=== PATIENT | female | born 1940 | race Caucasian/White ===

== ENCOUNTER 2017-03-14 13:24 | Emergency (ER) | payer OTHER ==
[~2017-03-14] VITALS: Ht 167.6 cm; Wt 94.3 kg
[2017-03-14 13:31] VITALS: TEMP 36.4; Ht 167.6 cm; Wt 94.3 kg
[2017-03-14 13:50] VITALS: O2SAT 98
[2017-03-14 13:58] LABS: INR 0.9 (0.9-1.1)
[2017-03-14 14:04] LABS: BASO % 0.2 %; BASO ABS # 0.02 K/uL (0-0.2); COMPLETE YES; EOS % 0.6 %; HEMATOCRIT 43.5 % (37-47); IG% 0.4 %; LYMPH % 27.5 %; LYMPH ABS # 2.35 K/uL (1.2-3.4); MEAN CELL VOLUME 92.4 fL (80-100); MEAN CORPUSCULAR HEMOGLOBIN 31.8 pg (25-34); MEAN CORPUSCULAR HGB CONC 34.5 g/dl (32-36); MEAN PLATELET VOLUME 10.6 fL (7.4-10.4); MONO % 7.1 %; NEUT % 64.2 %; PLATELET COUNT 208 K/uL (130-400); RED BLOOD COUNT 4.71 M/uL (4.2-5.4); WHITE BLOOD COUNT 8.56 K/uL (4.8-10.8)
--- NOTE | 2017-03-14 14:04 | DIAGNOSTIC IMAGING REPORT ---
CHEST ONE VIEW PORTABLE CLINICAL HISTORY: 76 years-old Female presenting with CHEST PAIN. TECHNIQUE: Portable upright AP view of the chest was obtained. COMPARISON: None. FINDINGS: Atherosclerosis of aortic arch. Cardiac silhouette top normal in size. Bandlike opacities in the left mid and lower lung. Slight blunting of the left costophrenic angle may be present. No pneumothorax. Dextrocurvature of the thoracic spine with mild degenerative change. Upper abdomen normal. IMPRESSION: 1. Bandlike opacities in the left mid and lower lung, possibly atelectasis or scarring. 2. Slight blunting of the left costophrenic angle may be due to a prominent fat pad versus trace pleural fluid or pleural thickening. Electronically signed by: Kenneth Richards M.D. 03/14/2017 2:03 PM Dictated Date/Time: 03/14/2017 2:02 PM
[2017-03-14 14:08] LABS: ALT/SGPT 35 U/L (12-78); BLOOD UREA NITROGEN 11 mg/dl (7-18); BUN/CREATININE RATIO 10.8 (10-20); CALCIUM 9.3 mg/dl (8.5-10.1); CARBON DIOXIDE 29 mmol/L (21-32); CHLORIDE 106 mmol/L (98-107); CREATININE 0.97 mg/dl (0.60-1.20); GLUCOSE 80 mg/dl (70-99); POTASSIUM 3.5 mmol/L (3.5-5.1); SODIUM 141 mmol/L (136-145)
[2017-03-14 14:13] LABS: ALKALINE PHOSPHATASE 83 U/L (45-117); AST/SGOT 19 U/L (15-37)
[2017-03-14] MEDS ORDERED: HYDR-5688 PO (14:38)
[2017-03-14] MEDS ORDERED: OMEG10007 PO (14:38)
[2017-03-14] MEDS ORDERED: MULTCHW PO (14:38)
[2017-03-14] MEDS ORDERED: CALCCAP15 PO (14:38)
[2017-03-14] MEDS ORDERED: NTRGSL/4 UT (14:38)
[2017-03-14] MEDS ORDERED: ADVIN10/60 INH (14:38)
[2017-03-14] MEDS ORDERED: THEO300T14 PO (14:38)
[2017-03-14] MEDS ORDERED: FSMD/70 PO (14:38)
[2017-03-14] MEDS ORDERED: POTA10CA28 PO (14:38)
[2017-03-14] MEDS ORDERED: METO50TA16 PO (14:38)
[2017-03-14] MEDS ORDERED: FEXO1TAB49 PO (14:38)
[2017-03-14] MEDS ORDERED: ISOS30TA3 PO (14:38)
[2017-03-14] MEDS ORDERED: LOSA50TA54 PO (14:38)
[2017-03-14] MEDS ORDERED: SIMV40TA2 PO (14:38)
[2017-03-14] MEDS ORDERED: IPRA1AER2 INH (14:39)
[2017-03-14] MEDS ORDERED: ASPI81TA28 PO (14:41)
--- NOTE | 2017-03-14 14:44 | DIAGNOSTIC IMAGING REPORT ---
HEAD WITHOUT CONTRAST (CT) CLINICAL HISTORY: 76 years-old Female presenting with BOWLES. TECHNIQUE: Multidetector CT imaging of the head was performed without the use of intravenous contrast. IV contrast: None. A dose lowering technique was used consistent with the principles of ALARA (as low as reasonably achievable). COMPARISON: None. CT DOSE (mGy.cm): The estimated cumulative dose is 537.48 mGy.cm. FINDINGS: Reservation Sales Agent topogram: Unremarkable. Proportional ventricular and sulcal prominence, likely age-related parenchymal volume loss. Brain parenchyma normal in appearance with preserved marsh-white differentiation. No mass effect or midline shift. No hemorrhage or acute territorial infarct. No extra-axial fluid collection. Paranasal sinuses and mastoid air cells clear. Calvarium intact. IMPRESSION: 1. No acute intracranial pathology. Electronically signed by: Kenneth Richards M.D. 03/14/2017 2:43 PM Dictated Date/Time: 03/14/2017 2:41 PM
--- NOTE | 2017-03-14 15:09 | EMERGENCY ROOM VISIT NOTE ---
History Report prepared by Tan: Micaela Washburn Under the Supervision of: Dr. Maicol Hollins D.O. First contact with patient: 13:32 Chief Complaint: HEADACHE Stated Complaint: HEADACHE History of Present Illness The patient is a 76 year old female who presents to the Emergency Room with complaints of an episode of headache earlier today. She is unsure what time the headache started. It was located in the front of her head. It lasted for a couple hours. It was not a severe headache. She went to see a doctor in [place] and was sent to the ED because of her high blood pressure. She also had an episode of high blood pressure last week. She was seen at [place] and was started on a new medication. She followed up with her doctor and was given a different medication. She denies any chest pain, SOB, fever, chills, or other symptoms. She is on Cozaar for high blood pressure. She has a history of COPD. She denies any other medical problems. She has had an appendectomy and tubal ligation. She is a former smoker. She lives with her family. Source of History: patient Onset: earlier today Position: head Quality: ache Timing: resolved Associated Symptoms: No fevers, No chills, No chest pain, No SOB Note: Pt reports high blood pressure. Review of Systems See HPI for pertinent positives & negatives. A total of 10 systems reviewed and were otherwise negative. Past Medical & Surgical Medical Problems: (1) COPD (chronic obstructive pulmonary disease) (2) Hypertension Surgical Problems: (1) S/P appendectomy (2) S/P tubal ligation Family History No pertinent family history stated. Social History Smoking Status: Former Smoker Housing Status: lives with family Current/Historical Medications Scheduled Alendronate/Cholecalciferol (Fosamax+D 70MG/2800 Iu), 1 TABLET PO WK Aspirin (Aspirin Ec), 81 MG PO DAILY Calcium Carbonate-Cholecalcife (Calcium Plus Vitamin D3), 1 CAP PO DAILY Fexofenadine Hcl (Edyta Allergy), 1 TAB PO DAILY Fish Oil ([place]-3), 1 CAP PO BID Fluticasone Prop/Salmeterol (Advair Diskus 100/50 60 Dose), 1 PUFF INH BID Ipratropium-Albuterol (Combivent Respimat), 1 PUFFS INH QID Isosorbide Mononitrate Ext Rel (Imdur Ext Rel), 30 MG PO QAM Losartan Potassium (Cozaar), 50 MG PO DAILY Metoprolol Tartrate (Lopressor) (Lopressor), 50 MG PO DAILY Multiple Vitamins W/ Minerals (Centrum Silver), 1 TAB PO DAILY Nitroglycerin (Nitrostat), 0.4 MG UT PRN Potassium Chloride (Micro-K Ext Rel), 40 MEQ PO BID Simvastatin (Zocor), 40 MG PO QPM Theophylline Ext Rel (Faizan-Dur Ext Rel), 300 MG PO DAILY Scheduled PRN Hydrocodone/Acetaminophen 5MG/325MG ([place] 5MG/325MG), 1 TABLET PO Q4H PRN for Pain Allergies Coded Allergies: No Known Allergies (Unverified , 03/14/17) Physical Exam Vital Signs Date Time Temp Pulse Resp B/P (MAP) Pulse Ox O2 Delivery O2 Flow Rate FiO2 03/14/17 15:23 98 16 175/63 98 03/14/17 14:29 88 16 184/84 98 Room Air 03/14/17 13:50 98 Room Air 03/14/17 13:48 98 Room Air 03/14/17 13:33 75 03/14/17 13:31 36.4 73 22 185/100 98 Room Air Physical Exam GENERAL: Patient is awake, alert, and in no acute distress. Patient is resting comfortably and showing no signs of anxiety EYES: The conjunctivae are clear. The pupils are round and reactive. EARS, NOSE, MOUTH AND THROAT: The nose is without any evidence of any deformity. Mucous membranes are moist tongue is midline NECK: The neck is nontender and supple. RESPIRATORY: Normal respiratory effort is noted there is no evidence of wheezing rhonchi or rales CARDIOVASCULAR: Regular rate and rhythm noted there no murmurs rubs or gallops normal S1 normal S2 GASTROINTESTINAL: The abdomen is soft. Bowel sounds are present in all quadrants. Abdomen is nontender MUSCULOSKELETAL/EXTREMITIES: There is no evidence of gross deformity full range of motion is noted in the hips and shoulders SKIN: There is no obvious evidence of any rash. There are no petechiae, pallor or cyanosis noted. NEUROLOGIC: Patient is awake alert and oriented x3 strength is symmetric patellar reflexes are 2+ bilaterally Medical Decision & Procedures ER Provider Diagnostic Interpretation: X-ray results as stated below per interpretation by me and the radiologist. Radiology results as stated below per my review and radiologist interpretation: CHEST ONE VIEW PORTABLE CLINICAL HISTORY: 76 years-old Female presenting with CHEST PAIN. TECHNIQUE: Portable upright AP view of the chest was obtained. COMPARISON: None. FINDINGS: Atherosclerosis of aortic arch. Cardiac silhouette top normal in size. Bandlike opacities in the left mid and lower lung. Slight blunting of the left costophrenic angle may be present. No pneumothorax. Dextrocurvature of the thoracic spine with mild degenerative change. Upper abdomen normal. IMPRESSION: 1. Bandlike opacities in the left mid and lower lung, possibly atelectasis or scarring. 2. Slight blunting of the left costophrenic angle may be due to a prominent fat pad versus trace pleural fluid or pleural thickening. Electronically signed by: Kenneth Richards M.D. 03/14/2017 2:03 PM Dictated Date/Time: 03/14/2017 2:02 PM HEAD WITHOUT CONTRAST (CT) CLINICAL HISTORY: 76 years-old Female presenting with BOWLES. TECHNIQUE: Multidetector CT imaging of the head was performed without the use of intravenous contrast. IV contrast: None. A dose lowering technique was used consistent with the principles of ALARA (as low as reasonably achievable). COMPARISON: None. CT DOSE (mGy.cm): The estimated cumulative dose is 537.48 mGy.cm. FINDINGS: Precision Grinder External topogram: Unremarkable. Proportional ventricular and sulcal prominence, likely age-related parenchymal volume loss. Brain parenchyma normal in appearance with preserved marsh-white differentiation. No mass effect or midline shift. No hemorrhage or acute territorial infarct. No extra-axial fluid collection. Paranasal sinuses and mastoid air cells clear. Calvarium intact. IMPRESSION: 1. No acute intracranial pathology. Electronically signed by: Kenneth Richards M.D. 03/14/2017 2:43 PM Dictated Date/Time: 03/14/2017 2:41 PM Laboratory Results 03/14/17 13:03 Red Blood Count 4.71, Mean Corpuscular Volume 92.4, Mean Corpuscular Hemoglobin 31.8, Mean Corpuscular Hemoglobin Concent 34.5, Mean Platelet Volume 10.6, Neutrophils (%) (Auto) 64.2, Lymphocytes (%) (Auto) 27.5, Monocytes (%) (Auto) 7.1, Eosinophils (%) (Auto) 0.6, Basophils (%) (Auto) 0.2, Neutrophils # (Auto) 5.50, Lymphocytes # (Auto) 2.35, Monocytes # (Auto) 0.61, Eosinophils # (Auto) 0.05, Basophils # (Auto) 0.02 03/14/17 13:03 Test 03/14/17 13:03 White Blood Count 8.56 K/uL (4.8-10.8) Red Blood Count 4.71 M/uL (4.2-5.4) Hemoglobin 15.0 g/dL (12.0-16.0) Hematocrit 43.5 % (37-47) Mean Corpuscular Volume 92.4 fL (80-100) Mean Corpuscular Hemoglobin 31.8 pg (25-34) Mean Corpuscular Hemoglobin Concent 34.5 g/dl (32-36) Platelet Count 208 K/uL (130-400) Mean Platelet Volume 10.6 fL (7.4-10.4) Neutrophils (%) (Auto) 64.2 % Lymphocytes (%) (Auto) 27.5 % Monocytes (%) (Auto) 7.1 % Eosinophils (%) (Auto) 0.6 % Basophils (%) (Auto) 0.2 % Neutrophils # (Auto) 5.50 K/uL (1.4-6.5) Lymphocytes # (Auto) 2.35 K/uL (1.2-3.4) Monocytes # (Auto) 0.61 K/uL (0.11-0.59) Eosinophils # (Auto) 0.05 K/uL (0-0.5) Basophils # (Auto) 0.02 K/uL (0-0.2) RDW Standard Deviation 47.1 fL (36.4-46.3) RDW Coefficient of Variation 13.8 % (11.5-14.5) Immature Granulocyte % (Auto) 0.4 % Immature Granulocyte # (Auto) 0.03 K/uL (0.00-0.02) Prothrombin Time 10.0 SECONDS (9.0-12.0) Prothromb Time International Ratio 0.9 (0.9-1.1) Activated Partial Thromboplast Time 24.7 SECONDS (21.0-31.0) Partial Thromboplastin Ratio 1.0 Anion Gap 6.0 mmol/L (3-11) Est Creatinine Clear Calc Drug Dose 58.0 ml/min Estimated GFR () 66.2 Estimated GFR (Non- 57.1 BUN/Creatinine Ratio 10.8 (10-20) Calcium Level 9.3 mg/dl (8.5-10.1) Total Bilirubin 0.3 mg/dl (0.2-1) Direct Bilirubin < 0.1 mg/dl (0-0.2) Aspartate Amino Transf (AST/SGOT) 19 U/L (15-37) Alanine Aminotransferase (ALT/SGPT) 35 U/L (12-78) Alkaline Phosphatase 83 U/L (45-117) Troponin I < 0.015 ng/ml (0-0.045) Total Protein 7.0 gm/dl (6.4-8.2) Albumin 3.3 gm/dl (3.4-5.0) Lipase 381 U/L (73-393) Laboratory results per my review. ECG Indication: other Rate (beats per minute): 66 Rhythm: normal sinus Findings: no ectopy, other (no acute ST segment abnormality) Comparison ECG Date: no prior available ED Course 1336: The patient was evaluated in room C10. A complete history and physical examination were performed. 1504: Upon reevaluation, the patient is doing well. I discussed the results and treatment plan with her. She verbalized agreement of the treatment plan. She was discharged home. Medical Decision Prior records/ancillary studies reviewed. Triage Nursing notes reviewed. The patient's history was concerning for headache. Differential diagnosis: Etiologies such as migraine headache, meningitis, sinusitis, CO exposure, ICH, SAH, infection, tumor, headache, sinus thrombosis, arterial dissection, as well as others were entertained. The patient is a 76-year-old female who presented to the emergency department for an evaluation of headache. The patient also noticed that her blood pressure was elevated. She has had similar symptoms in the past. The last time she had this episode she was seen at the clinic with her primary care physician and was sent to [facility]. The patient appears to be somewhat confused about her outpatient medications and what time she takes them. I discussed the patient 's laboratory radiographic studies with her. She had no headache and no focal neurologic deficit. Her blood pressure is elevated and she was referred back to her primary care physician. I also discussed her presentation with her daughter and advised her to go with her to this next appointment and take all the medications with her so a good medication evaluation can be made and review what the patient is supposed to be taking so if any changes are required they can be done at that time. Otherwise she was encouraged to return to the emergency department immediately if symptoms change worsen or the need arises. Medication Reconcilliation Current Medication List: was personally reviewed by me Blood Pressure Screening Patient's blood pressure: Elevated blood pressure Blood pressure disposition: Referred to PCP Impression Primary Impression: Headache Additional Impression: Hypertension Scribe Attestation The scribe's documentation has been prepared under my direction and personally reviewed by me in its entirety. I confirm that the note above accurately reflects all work, treatment, procedures, and medical decision making performed by me. Departure Information Dispostion Home / Self-Care Referrals No Doctor, Assigned (PCP) Forms HOME CARE DOCUMENTATION FORM, IMPORTANT VISIT INFORMATION Patient Instructions Headache Pain, Hypertension Control, [facility] Additional Instructions Follow-up with your family this week as scheduled. Be sure to take all of your blood pressure and other medications with you to be reviewed. Continue all medications as prescribed. Rest and avoid any strenuous activity. Problem Qualifiers Primary Impression: Headache Headache type: unspecified Headache chronicity pattern: episodic headache Intractability: not intractable Qualified Codes: R51 - Headache Additional Impression: Hypertension Hypertension type: unspecified Qualified Codes: I10 - Essential (primary) hypertension
[2017-03-14 15:23] VITALS: BP 175/63; PULSE 98; O2SAT 98
== END 2017-03-14 15:32 | disposition home or self-care (01) ==
LOC: EDBD 13:24 → C.EDC 13:26
DX: R51 Headache (principal); I10 Essential (primary) hypertension; J44.9 Chronic obstructive pulmonary disease, unspecified; Z79.82 Long term (current) use of aspirin; Z79.51 Long term (current) use of inhaled steroids; Z90.89 Acquired absence of other organs; Z87.891 Personal history of nicotine dependence

== ENCOUNTER 2017-07-30 19:41 | Emergency (ER) | payer OTHER ==
[~2017-07-30] VITALS: Ht 167.6 cm; Wt 84.5 kg
[~2017-07-30 19:41] MED LIST: ADVIN10/60 INH; ASPI81TA28 PO; CALCCAP15 PO; FEXO1TAB49 PO; FSMD/70 PO; HYDR-5688 PO; IPRA1AER2 INH; ISOS30TA3 PO; LOSA50TA54 PO; METO50TA16 PO; MULTCHW PO; NTRGSL/4 UT; OMEG10007 PO; POTA10CA28 PO; SIMV40TA2 PO; THEO300T14 PO
[2017-07-30 19:52] VITALS: TEMP 36.3; Ht 167.6 cm; Wt 84.5 kg
[2017-07-30] MEDS ORDERED: LIDOCAINE/EPINEPH/TETRACAINE 1 EA SYR EXT STA (21:59)
--- NOTE | 2017-07-30 22:48 | DIAGNOSTIC IMAGING REPORT ---
HEAD WITHOUT CONTRAST (CT) CLINICAL HISTORY: 76 years-old Female presenting with fall, right eyebrow lac and hematoma. TECHNIQUE: Multidetector CT imaging of the head was performed without the use of intravenous contrast. IV contrast: None. A dose lowering technique was used consistent with the principles of ALARA (as low as reasonably achievable). COMPARISON: 03/14/2017. CT DOSE (mGy.cm): The estimated cumulative dose is 537.48 mGy.cm. 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 Ventricles and sulci normal in size. Brain parenchyma normal in appearance with preserved marsh-white differentiation. No mass effect or midline shift. No hemorrhage or acute territorial infarct. No extra-axial fluid collection. Aerated secretions in the sphenoid sinus. Calvarium intact. Irregularity infiltration of the right periorbital/right frontal soft tissue. IMPRESSION: 1. No acute intracranial abnormality. 2. Right elbow contusion and laceration. No subjacent osseous injury. 3. Aerated secretions in the sphenoid could suggest acute sinusitis. Electronically signed by: Kenneth Richards M.D. 07/30/2017 10:47 PM Dictated Date/Time: 07/30/2017 10:44 PM
--- NOTE | 2017-07-30 23:35 | EMERGENCY ROOM VISIT NOTE ---
ED Visit Note Location: right eyebrow Total length: 1.5cm Complexity: simple Verbal consent was obtained after the risks and benefits were explained, including but not limited to bleeding, scarring, infection, pain, and bone/joint /nerve damage. At this time, the risks of the procedure are less than the risks of NOT performing the procedure. A time out was taken and the correct patient and site identified. The skin was prepped with betadine. The target area was anesthetized with LET. Copious irrigation was performed using NSS. The skin was re-prepped with betadine and a sterile field set. The wound was explored for foreign bodies and none found. Examination revealed no injury to deep structures such as tendons, bone, or significant blood vessels. Debridement was not performed. The wound edges were approximated using 3, 6-0 simple interrupted nylon sutures. Hemostasis and excellent approximation was achieved. Antibacterial ointment and a sterile dressing applied. Detailed wound care instructions and signs and symptoms of infection reviewed with the pt. No complications and the patient tolerated the procedure well. Location: right forehead Total length: 5mm Complexity: simple Verbal consent was obtained after the risks and benefits were explained, including but not limited to bleeding, scarring, infection, pain, and bone/joint /nerve damage. At this time, the risks of the procedure are less than the risks of NOT performing the procedure. A time out was taken and the correct patient and site identified. The skin was prepped with betadine. Copious irrigation was performed using NSS. The skin was re-prepped with betadine and a sterile field set. The wound was explored for foreign bodies and none found. Examination revealed no injury to deep structures such as tendons, bone, or significant blood vessels. Debridement was not performed. Dermabond was placed. Hemostasis and excellent approximation was achieved. Detailed wound care instructions and signs and symptoms of infection reviewed with the pt. No complications and the patient tolerated the procedure well. Problem List Medical Problems: (1) COPD (chronic obstructive pulmonary disease) Status: Chronic (2) Hypertension Status: Chronic Surgical Problems: (1) S/P appendectomy Status: Resolved (2) S/P tubal ligation Status: Resolved Current/Historical Medications Scheduled Alendronate/Cholecalciferol (Fosamax+D 70MG/2800 Iu), 1 TABLET PO WK Aspirin (Aspirin Ec), 81 MG PO DAILY Calcium Carbonate-Cholecalcife (Calcium Plus Vitamin D3), 1 CAP PO DAILY Fexofenadine Hcl (Edyta Allergy), 1 TAB PO DAILY Fish Oil ([place]-3), 1 CAP PO BID Fluticasone Prop/Salmeterol (Advair Diskus 100/50 60 Dose), 1 PUFF INH BID Ipratropium-Albuterol (Combivent Respimat), 1 PUFFS INH QID Isosorbide Mononitrate Ext Rel (Imdur Ext Rel), 30 MG PO QAM Losartan Potassium (Cozaar), 50 MG PO DAILY Metoprolol Tartrate (Lopressor) (Lopressor), 50 MG PO DAILY Multiple Vitamins W/ Minerals (Centrum Silver), 1 TAB PO DAILY Nitroglycerin (Nitrostat), 0.4 MG UT PRN Potassium Chloride (Micro-K Ext Rel), 40 MEQ PO BID Simvastatin (Zocor), 40 MG PO QPM Theophylline Ext Rel (Faizan-Dur Ext Rel), 300 MG PO DAILY Scheduled PRN Hydrocodone/Acetaminophen 5MG/325MG ([place] 5MG/325MG), 1 TABLET PO Q4H PRN for Pain Allergies Coded Allergies: No Known Allergies (Unverified , 03/14/17) Vital Signs Date Time Temp Pulse Resp B/P (MAP) Pulse Ox O2 Delivery O2 Flow Rate FiO2 07/30/17 19:52 36.3 59 19 157/133 95 Room Air Medications Administered Medications (Trade) Dose Ordered Sig/Thuy Route Start Time Stop Time Status Last Admin Dose Admin Tetracaine/ Epinephrine/ Lidocaine (L.e.t. Gel 4%/ 1:100/0.5%) 1 ea UD STAT EXT 07/30/17 21:59 07/30/17 22:00 DC 07/30/17 22:17 1 EA Departure Information Referrals No Doctor, Assigned (PCP) Patient Instructions [facility]
[2017-07-30] MEDS ORDERED: AMOX500T3 PO ×2 (23:37→23:39)
[2017-07-30] MEDS ORDERED: AMOXICILLIN HOME PACK 250 MG/TAB PO ONE (23:45)
[2017-07-30 23:52] VITALS: BP 209/100; PULSE 75; O2SAT 98
--- NOTE | 2017-07-31 02:35 | EMERGENCY ROOM VISIT NOTE ---
History Report prepared by Tan: Yessica Arzate Under the Supervision of: Dr. Omar Diego M.D. First contact with patient: 21:44 Chief Complaint: FALL Stated Complaint: FALL-FACE FIRST-CUT ON HEAD History of Present Illness The patient is a 76 year old female who presents to the Emergency Room with complaints of an episode of a fall occurring 6 hours ago. The patient states that she lost her balance and fell face first. 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 She notes that she uses a cane. The patient complains of right wrist pain , cough, and congestion. She notes that she has had her Tetanus in the last 10 years. Pt denies LOC, headache, visual changes, neck pain, chest pain, breathing difficulties, nausea, vomiting, abdominal pain, hip pain, back pain, extremity pain, numbness, open wounds, active bleeding, or other complaints. Source of History: patient Onset: 6 hours ago Position: other (global) Quality: other (fall) Timing: other (episode) Associated Symptoms: + cough, + weakness Note: The patient complains of right wrist pain and congestion. Review of Systems See HPI for pertinent positives and negatives. A total of ten systems were reviewed and were otherwise negative. Past Medical & Surgical Medical Problems: (1) COPD (chronic obstructive pulmonary disease) (2) Hypertension Surgical Problems: (1) S/P appendectomy (2) S/P tubal ligation Family History No pertinent family history Social History Smoking Status: Never Smoker Marital Status: Housing Status: lives with family Occupation Status: retired Current/Historical Medications Scheduled Alendronate/Cholecalciferol (Fosamax+D 70MG/2800 Iu), 1 TABLET PO WK Amoxicillin (Amoxil), 500 MG PO TID Aspirin (Aspirin Ec), 81 MG PO DAILY Calcium Carbonate-Cholecalcife (Calcium Plus Vitamin D3), 1 CAP PO DAILY Fexofenadine Hcl (Edyta Allergy), 1 TAB PO DAILY Fish Oil ([place]-3), 1 CAP PO BID Fluticasone Prop/Salmeterol (Advair Diskus 100/50 60 Dose), 1 PUFF INH BID Ipratropium-Albuterol (Combivent Respimat), 1 PUFFS INH QID Isosorbide Mononitrate Ext Rel (Imdur Ext Rel), 30 MG PO QAM Losartan Potassium (Cozaar), 50 MG PO DAILY Metoprolol Tartrate (Lopressor) (Lopressor), 50 MG PO DAILY Multiple Vitamins W/ Minerals (Centrum Silver), 1 TAB PO DAILY Nitroglycerin (Nitrostat), 0.4 MG UT PRN Potassium Chloride (Micro-K Ext Rel), 40 MEQ PO BID Simvastatin (Zocor), 40 MG PO QPM Theophylline Ext Rel (Faizan-Dur Ext Rel), 300 MG PO DAILY Scheduled PRN Hydrocodone/Acetaminophen 5MG/325MG ([place] 5MG/325MG), 1 TABLET PO Q4H PRN for Pain Allergies Coded Allergies: No Known Allergies (Unverified , 03/14/17) Physical Exam Vital Signs Date Time Temp Pulse Resp B/P (MAP) Pulse Ox O2 Delivery O2 Flow Rate FiO2 07/30/17 23:52 75 18 209/100 98 07/30/17 19:52 36.3 59 19 157/133 95 Room Air Physical Exam GENERAL: Awake, alert, well appearing, no distress HEAD: Normocephalic, atraumatic. No gilbert sign. No raccoon eyes. EYES: Normal conjunctiva. PERRL. EARS: External ears normal. Right TM normal. Left TM normal. NOSE: Atraumatic OROPHARYNX: Lips, tongue, and mucosa unremarkable. No erythema or exudate. NECK: Supple. Free ROM. No tracheal deviation or JVD. No posterior midline tenderness. No step offs noted. RESPIRATORY: CTA bilaterally. Breath sounds equal. No wheezes. No rhonchi. Normal respiratory effort. CARDIAC: Normal rate, normal rhythm. No murmurs. No rubs. ABDOMEN: Inspection reveals no abnormalities. Soft, non distended. No tenderness to palpation. No hernias. BACK: No midline step offs or tenderness to palpation. Unremarkable. PELVIS: Stable to rock. SKIN: Skin tear to right dorsal wrist. No bony deformity or tenderness. LYMPH: No adenopathy. MUSCULOSKELETAL: Upper and lower extremities are atraumatic. NEURO: GCS 15. Normal sensorium. Drop foot on the left side. No sensory or other motor deficits noted. Medical Decision & Procedures ER Provider Diagnostic Interpretation: Radiology results as stated below per my review and radiologist interpretation: HEAD WITHOUT CONTRAST (CT) CLINICAL HISTORY: 76 years-old Female presenting with fall, right eyebrow lac and hematoma. TECHNIQUE: Multidetector CT imaging of the head was performed without the use of intravenous contrast. IV contrast: None. A dose lowering technique was used consistent with the principles of ALARA (as low as reasonably achievable). COMPARISON: 03/14/2017. CT DOSE (mGy.cm): The estimated cumulative dose is 537.48 mGy.cm. FINDINGS: Service Liaison Representative topogram: Unremarkable. Ventricles and sulci normal in size. Brain parenchyma normal in appearance with preserved marsh-white differentiation. No mass effect or midline shift. No hemorrhage or acute territorial infarct. No extra-axial fluid collection. Aerated secretions in the sphenoid sinus. Calvarium intact. Irregularity infiltration of the right periorbital/right frontal soft tissue. IMPRESSION: 1. No acute intracranial abnormality. 2. Right elbow contusion and laceration. No subjacent osseous injury. 3. Aerated secretions in the sphenoid could suggest acute sinusitis. Electronically signed by: Kenneth Richards M.D. 07/30/2017 10:47 PM Dictated Date/Time: 07/30/2017 10:44 PM Medications Administered Medications (Trade) Dose Ordered Sig/Thuy Route Start Time Stop Time Status Last Admin Dose Admin Tetracaine/ Epinephrine/ Lidocaine (L.e.t. Gel 4%/ 1:100/0.5%) 1 ea UD STAT EXT 07/30/17 21:59 07/30/17 22:00 DC 07/30/17 22:17 1 EA Amoxicillin (Amoxil 250MG Home Pack) 1 homepack UD ONCE PO 07/30/17 23:45 07/30/17 23:46 DC 07/30/17 23:52 1 HOMEPACK ED Course 2154: The patient was evaluated in room B12B. A complete history and physical exam was performed. 2158: Ordered Tetracaine/ Epinephrine/ Lidocaine 1 ea EXT. 2331: I reevaluated the patient. Discussed results and discharge instructions: She verbalized understanding and agreement. The patient is ready for discharge. 5: Ordered Amoxicillin 1 homepack PO. Medical Decision Prior records/ancillary studies reviewed. Triage Nursing notes reviewed and agree them. Additional history obtained from family. The patient's history was concerning for traumatic head injury Differential diagnosis: Etiologies such as contusion, fracture, subdural hematoma, concussion, epidural hematoma, intraparenchymal hemorrhage, as well as other traumatic pathologies were entertained. Physical examination findings: As above. ER treatment provided: Let gel Laceration repair by Trista Holman PA-C On reassessment the patient felt better. Oral amoxicillin Diagnostics interpreted by me: Imaging studies: CAT scan as above It appears the patient has a a minor closed head injury. She does have some suggestion of sinusitis on CT. On further questioning the patient has had congestion. She will be treated with amoxicillin. I gave my usual and customary discussion regarding this issue. Her laceration was repaired. Close follow-up will be necessary as an outpatient. Patient was in agreement. Prescription for amoxicillin sent to her pharmacy. By the evaluation outlined above emergent etiologies such as fracture, subdural hematoma, epidural hematoma, intraparenchymal hemorrhage, as well as others were deemed relatively unlikely. The patient and family were informed about the findings as listed above. All questions were answered and they were pleased with the treatment. Return instructions were outlined and the patient was discharged in stable condition. Referral: The patient was referred back to her primary care physician for follow-up in 2 to 3 days for a recheck of the current condition. Medication Reconcilliation Current Medication List: was personally reviewed by me Blood Pressure Screening Patient's blood pressure: Elevated blood pressure Blood pressure disposition: Referred to PCP Impression Primary Impression: Closed head injury Additional Impressions: Laceration of right eyebrow Sinusitis Scribe Attestation The scribe's documentation has been prepared under my direction and personally reviewed by me in its entirety. I confirm that the note above accurately reflects all work, treatment, procedures, and medical decision making performed by me. Departure Information Dispostion Home / Self-Care Prescriptions Amoxicillin (AMOXIL) 500 Mg Tab 500 MG PO TID, #28 TAB Prov: Omar Diego MD 07/30/17 Referrals No Doctor, Assigned (PCP) Forms HOME CARE DOCUMENTATION FORM, IMPORTANT VISIT INFORMATION Patient Instructions [facility] Additional Instructions Laceration care: Keep wound clean and dry. Do not allow any crusting or dried blood to accumulate on sutures. If this occurs, use a 1:1 solution of hydrogen peroxide/ water on a Q-tip to clean the wound. Use an antibiotic ointment for 3-4 days, then let wound dry. Suture removal in 5-7 days. Return sooner for any signs of infection (increasing redness, swelling, drainage). Ice and elevate for swelling and pain. Keep covered when in sun until sutures removed then SPF 50 or higher for one year. Vitamin E oil if desired two weeks after suture removal for reduction of scar Rest and avoid strenuous activities for the next few days. Get 8-10 hours of sleep per night. Limit activities that involve significant concentration and attention during this time to speed your recovery. This includes studying, attending school, playing video games, and heavy reading. Your brain needs to rest. Eat right and eat often. Now is the time to feed your brain. Well balanced diets that avoid high sugar foods, sodas, caffeine, etc. are better for your brain. NO ALCOHOL OR DRUGS! Avoid stimulants like caffeine, red bull, mountain dew, "energy" drinks, etc. Tylenol(acetaminophen) may be used for headaches. Use 1000mg every six hours as needed. Avoid using more than 4000mg in a 24 hour period. Avoid anti-inflammatories such as aspirin, ibuprofen, Alleve, naprosyn, Motrin, or Advil as these can interfere with blood clotting and lead to bleeding within the brain after a traumatic injury. Amoxicillin 500 mg: one capsule 3 times a day for 10 days. All antibiotics can cause diarrhea. If this occurs and you feel worse or it does not resolve in 1- 2 days follow up with your doctor or return to the Emergency Department as this could be signs of serious underlying problems. Any medication can cause an allergic reaction, stop the pills immediately and return to the ER for rash, hives, breathing difficulties, or swelling. Problems could arise over the next 24 to 48 hours. You should not be left alone and MUST go to the hospital immediately if you: -Have a headache that suddenly gets worse. -Are very drowsy or cannot be woken up from sleep. -Can't recognize people or places. -Have repeated vomiting. -Behave unusually, seemed confused, or start acting irritable. -Have a seizure (arms and legs start jerking uncontrollably). -Have weak or numb arms or legs. -Are unsteady on your feet -Experience slurred speech or difficulty speaking. Follow-up with your primary care physician next week for a recheck of your current condition. Problem Qualifiers
== END 2017-07-30 23:54 | disposition home or self-care (01) ==
LOC: C.EDB 19:43
DX: S09.90XA Unspecified injury of head, initial encounter (principal); S01.111A Laceration without foreign body of right eyelid and periocular area, initial encounter; J32.9 Chronic sinusitis, unspecified; W01.198A Fall on same level from slipping, tripping and stumbling with subsequent striking against other object, initial encounter; J44.9 Chronic obstructive pulmonary disease, unspecified; I10 Essential (primary) hypertension; M21.372 Foot drop, left foot; Z90.89 Acquired absence of other organs; Z98.51 Tubal ligation status; Z79.82 Long term (current) use of aspirin; Z79.899 Other long term (current) drug therapy

== ENCOUNTER 2017-08-07 19:42 | Emergency (ER) | payer OTHER ==
[~2017-08-07] VITALS: Ht 167.6 cm; Wt 83.9 kg
[~2017-08-07 19:42] MED LIST changes: +AMOX500T3 PO
[2017-08-07 19:47] VITALS: TEMP 36.3; Ht 167.6 cm; Wt 83.9 kg
[2017-08-07 20:35] VITALS: O2SAT 95
--- NOTE | 2017-08-07 20:45 | EMERGENCY ROOM VISIT NOTE ---
History Report prepared by Tan: Manohar Rasmussen Under the Supervision of: Dr. Franck Chong M.D. First contact with patient: 20:05 Chief Complaint: HYPERTENSION Stated Complaint: ELEVATED BP, OVER 200 History of Present Illness The patient is a 76 year old female who presents to the Emergency Room with complaints of constant hypertension beginning earlier today. The patient states she travelled 2 hours, each way, to get her medication today. She reports she left her house at 0630 and did not return until 1500. The patient notes she stopped at [employer], ate a sandwich around 1000, and has not eaten since. She states she has done this drive before multiple times, and she always the passenger. The patient reports she was not stressed throughout the day. She notes she fell last week by tripping. The patient states she did not hit her head, but she did acquire a skin tear. She reports she was placed on amoxicillin , and she has not completed it yet. The patient notes she went to [facility] to have her sore cleaned after she returned home. She states her blood pressure was taken at the [facility]gent[facility] and was told she had to go to the ED for further evaluation. The patient reports she had a headache in the car, and it was resolved. She states she also had mild congestion for a little bit, and the amoxicillin helped alleviate this congestion. The patient reports nothing makes her HTN better or worse. She notes she has a history of hypertension five months ago, and it has been controlled. The patient states she quit smoking 14 years ago. She denies dizziness, a runny nose, sinus pressure, and abdominal pain. Source of History: patient Onset: earlier today Quality: other (HTN) Timing: constant Modifying Factors (Worsening): other (nothing) Modifying Factors (Relieving): other (nothing) Associated Symptoms: + headache (resolved), No abdominal pain Note: Associated symptoms: mild congestion Denies: runny nose, sinus pressure, dizziness. stress Review of Systems See HPI for pertinent positives & negatives. A total of 10 systems reviewed and were otherwise negative. Past Medical & Surgical Medical Problems: (1) Asthma (2) Bronchitis (3) COPD (chronic obstructive pulmonary disease) (4) Diabetes (5) Heart disease (6) HTN (hypertension) (7) Hypertension Surgical Problems: (1) S/P appendectomy (2) S/P tubal ligation Family History Diabetes mellitus Heart disease Hypertension Social History Smoking Status: Former Smoker Alcohol Use: none Marital Status: Housing Status: lives with family Occupation Status: retired Current/Historical Medications Scheduled Amoxicillin (Amoxil), 500 MG PO TID Aspirin (Aspirin Ec), 81 MG PO DAILY Calcium Carbonate-Cholecalcife (Calcium Plus Vitamin D3), 1 CAP PO DAILY Cholecalciferol (Vitamin D), 2,000 UNITS PO HS Donepezil Hydrochloride (Donepezil Hcl), 1 TAB PO HS Fexofenadine Hcl (Edyta Allergy), 1 TAB PO DAILY Fish Oil ([place]-3), 1 CAP PO BID Fluticasone Prop/Salmeterol (Advair Diskus 100/50 60 Dose), 1 PUFF INH BID Isosorbide Mononitrate Ext Rel (Imdur Ext Rel), 60 MG PO QAM Losartan Potassium (Cozaar), 100 MG PO DAILY Metoprolol Succinate (Toprol Xl), 50 MG PO DAILY Multiple Vitamins W/ Minerals (Centrum Silver), 1 TAB PO DAILY Potassium Chloride (Micro-K Ext Rel), 20 MEQ PO BID Senna/Docusate Sod (Senokot S), 1 TAB PO BID Simvastatin (Zocor), 40 MG PO QPM Theophylline Ext Rel (Faizan-Dur Ext Rel), 300 MG PO Q12 Scheduled PRN Benzonatate (Tessalon Perles), 100 MG PO TID PRN for Cough Ipratropium-Albuterol (Combivent Respimat), 1 PUFFS INH QID PRN for SOB/Wheezing Naproxen (Naprosyn), 500 MG PO BID PRN for Pain Allergies Coded Allergies: No Known Allergies (Unverified , 03/14/17) Physical Exam Vital Signs Date Time Temp Pulse Resp B/P (MAP) Pulse Ox O2 Delivery O2 Flow Rate FiO2 08/07/17 23:24 55 14 198/86 96 Room Air 08/07/17 21:46 63 16 191/84 97 Room Air 08/07/17 21:19 72 22 206/101 95 Room Air 08/07/17 20:42 58 08/07/17 20:35 95 Room Air 08/07/17 20:35 95 Room Air 08/07/17 19:47 36.3 60 18 223/98 95 Room Air Physical Exam GENERAL: Awake, alert, well-appearing, in no acute distress HENT: Normocephalic, atraumatic. Oropharynx unremarkable. EYES: Normal conjunctiva. Sclera non-icteric. NECK: Supple. No nuchal rigidity. FROM. No JVD. RESPIRATORY: Clear to auscultation. CARDIAC: Regular rate, normal rhythm. Extremities warm and well perfused. Pulses equal. ABDOMEN: Soft, non-distended. No tenderness to palpation. No rebound or guarding. No masses. RECTAL: Deferred. MUSCULOSKELETAL: Chest examination reveals no tenderness. The back is symmetrical on inspection without obvious abnormality. There is no CVA tenderness to palpation. No joint edema. Healing wound to the right wrist. LOWER EXTREMITIES: Calves are equal size bilaterally and non-tender. No edema. No discoloration. NEURO: Normal sensorium. No sensory or motor deficits noted. SKIN: No rash or jaundice noted. Medical Decision & Procedures ER Provider Diagnostic Interpretation: Radiology results as stated below per my review and radiologist interpretation: CT HEAD WITHOUT CONTRAST (CT) CLINICAL HISTORY: Acute change in mental status. Hypertension. COMPARISON STUDY: 320 on 18 TECHNIQUE: Axial CT of the brain is performed from the vertex to the skull base. IV contrast was not administered for this examination. A dose lowering technique was utilized adhering to the principles of ALARA. CT DOSE: 537.48 mGy.cm FINDINGS: No intra or extra-axial mass lesions are visualized. There is no CT evidence of acute cortical infarction. There is no evidence of midline shift. There is no acute hemorrhage. No calvarial fractures are visualized. There are minimal white matter hypodensities likely on a small vessel basis. There is frontal lobe atrophy with prominent bifrontal subarachnoid space. There is no evidence of pathologic ventricular dilatation. There is a small amount of fluid within the sphenoid sinus. There is an opacified left ethmoid air cell. IMPRESSION: 1. Inflammatory changes within the ethmoid and sphenoid sinuses 2. No acute intracranial findings. Electronically signed by: Ramsey Mathews M.D. 08/07/2017 8:53 PM Dictated Date/Time: 08/07/2017 8:51 PM CHEST ONE VIEW PORTABLE CLINICAL HISTORY: severe hypertension COMPARISON STUDY: 03/14/2017 FINDINGS: The cardiac and mediastinal contours remain stable. There is aortic tortuosity. There is a thoracic scoliosis. There is stable left basilar atelectasis/scarring. There is no failure. There is no lobar consolidation. IMPRESSION: No active disease in the chest. Electronically signed by: Ramsey Mathews M.D. 08/07/2017 9:49 PM Dictated Date/Time: 08/07/2017 9:49 PM US VENOUS BILATERAL LOWER EXTREMITIES: No DVT demonstrated. Radiologist: Mary Lancaster MD Study ready at 2702 and initial results transmitted at [id number]. Laboratory Results 08/07/17 20:25 Red Blood Count 4.56, Mean Corpuscular Volume 90.8, Mean Corpuscular Hemoglobin 31.4, Mean Corpuscular Hemoglobin Concent 34.5, Mean Platelet Volume 9.9, Neutrophils (%) (Auto) 53.8, Lymphocytes (%) (Auto) 34.7, Monocytes (%) (Auto) 8.3, Eosinophils (%) (Auto) 2.5, Basophils (%) (Auto) 0.4, Neutrophils # (Auto) 3.93, Lymphocytes # (Auto) 2.54, Monocytes # (Auto) 0.61, Eosinophils # (Auto) 0.18, Basophils # (Auto) 0.03 08/07/17 20:25 Test 08/07/17 20:25 08/07/17 21:25 White Blood Count 7.31 K/uL (4.8-10.8) Red Blood Count 4.56 M/uL (4.2-5.4) Hemoglobin 14.3 g/dL (12.0-16.0) Hematocrit 41.4 % (37-47) Mean Corpuscular Volume 90.8 fL (80-100) Mean Corpuscular Hemoglobin 31.4 pg (25-34) Mean Corpuscular Hemoglobin Concent 34.5 g/dl (32-36) Platelet Count 239 K/uL (130-400) Mean Platelet Volume 9.9 fL (7.4-10.4) Neutrophils (%) (Auto) 53.8 % Lymphocytes (%) (Auto) 34.7 % Monocytes (%) (Auto) 8.3 % Eosinophils (%) (Auto) 2.5 % Basophils (%) (Auto) 0.4 % Neutrophils # (Auto) 3.93 K/uL (1.4-6.5) Lymphocytes # (Auto) 2.54 K/uL (1.2-3.4) Monocytes # (Auto) 0.61 K/uL (0.11-0.59) Eosinophils # (Auto) 0.18 K/uL (0-0.5) Basophils # (Auto) 0.03 K/uL (0-0.2) RDW Standard Deviation 43.7 fL (36.4-46.3) RDW Coefficient of Variation 13.3 % (11.5-14.5) Immature Granulocyte % (Auto) 0.3 % Immature Granulocyte # (Auto) 0.02 K/uL (0.00-0.02) Prothrombin Time 10.0 SECONDS (9.0-12.0) Prothromb Time International Ratio 1.0 (0.9-1.1) Activated Partial Thromboplast Time 23.9 SECONDS (21.0-31.0) Partial Thromboplastin Ratio 0.9 Anion Gap 5.0 mmol/L (3-11) Est Creatinine Clear Calc Drug Dose 54.7 ml/min Estimated GFR () 66.2 Estimated GFR (Non- 57.1 BUN/Creatinine Ratio 8.3 (10-20) Calcium Level 9.7 mg/dl (8.5-10.1) Total Bilirubin 0.6 mg/dl (0.2-1) Direct Bilirubin 0.1 mg/dl (0-0.2) Aspartate Amino Transf (AST/SGOT) 19 U/L (15-37) Alanine Aminotransferase (ALT/SGPT) 21 U/L (12-78) Alkaline Phosphatase 71 U/L (45-117) Total Creatine Kinase 71 U/L (26-192) Creatine Kinase MB 1.1 ng/ml (0.5-3.6) Creatine Kinase MB Ratio 1.5 (0-3.0) Troponin I < 0.015 ng/ml (0-0.045) Total Protein 7.2 gm/dl (6.4-8.2) Albumin 3.6 gm/dl (3.4-5.0) Lipase 281 U/L (73-393) Thyroid Stimulating Hormone (TSH) 2.490 uIu/ml (0.300-4.500) Urine Color YELLOW Urine Appearance CLEAR (CLEAR) Urine pH 6.5 (4.5-7.5) Urine Specific [place] 1.007 (1.000-1.030) Urine Protein NEG (NEG) Urine Glucose (UA) NEG (NEG) Urine Ketones NEG (NEG) Urine Occult Blood NEG (NEG) Urine Nitrite NEG (NEG) Urine Bilirubin NEG (NEG) Urine Urobilinogen NEG (NEG) Urine Leukocyte Esterase NEG (NEG) Labs reviewed by ED physician. Medications Administered Medications (Trade) Dose Ordered Sig/Thuy Route Start Time Stop Time Status Last Admin Dose Admin Sodium Chloride ([place] Nasal [place]) 2 sprays NOW STAT NA 08/07/17 21:09 08/07/17 21:11 DC 08/07/17 21:18 2 SPRAYS ECG Per My Interpretation Indication: other (HTN) Rate (beats per minute): 50 Findings: RBBB (incomplete), no acute ischemic change, no ectopy ED Course 2006: Past medical records reviewed. The patient was evaluated in room B11B. A complete history and physical examination was performed. 2108: Ordered Sodium Chloride 2 sprays NA 2204: I reevaluated the patient. She is feeling better. I updated her of her current exam and lab findings. The patient is requesting an ultrasound. 1: Upon reexamination the patient is feeling better. I discussed results and treatment plan with the patient. She verbalizes agreement and understanding. The patient is ready for discharge. Medical Decision Differential diagnosis: Etiologies such as benign hypertension, hypertensive emergency, cardiovascular pathology, pheochromocytoma, electrolyte abnormality, renal disease, endorgan damage, as well as others were entertained. This is a 76-year-old female who presents emergency department over concerns about her blood pressure. She was sent for [employer]. The patient had a 6 hour car ride today from [place] back to [place]. In addition she also ate at [employer]. I stressed that these stressors may have caused her blood pressure to spike this evening as she is asymptomatic. Patient denies having a headache or any dizziness. Based on these findings I am reluctant to start the patient on any new blood pressure medications. She was sent for CAT scan of the head which did not show any acute process. She also has normal CBC normal renal profile and normal EKG along with cardiac enzymes. The patient was given [place] nasal spray to add to her amoxicillin for her sinusitis. I stressed the need for follow-up with the patient's primary care physician. I will note that the patient's blood pressure fell while in the emergency department without doing anything. Medication Reconcilliation Current Medication List: was personally reviewed by me Blood Pressure Screening Patient's blood pressure: Elevated blood pressure Blood pressure disposition: Referred to PCP Impression Primary Impression: HTN (hypertension) Scribe Attestation The scribe's documentation has been prepared under my direction and personally reviewed by me in its entirety. I confirm that the note above accurately reflects all work, treatment, procedures, and medical decision making performed by me. Departure Information Dispostion Home / Self-Care Referrals Guerita Engel PA-C (PCP) Forms HOME CARE DOCUMENTATION FORM, IMPORTANT VISIT INFORMATION, WORK / SCHOOL INSTRUCTIONS Patient Instructions Hypertension Control, Hypertension Dc, My [facility], Sinusitis Acute , Sinusitis Causes, Sinusitis Prevent, Sinusitis Self Care Additional Instructions Need follow up with PCP on Thursday You were found to have an elevated blood pressure today (>120 sytolic or >90 diastolic). Per medicare guidelines, you need to follow up with this blood pressure screening with your Primary Care Physician (PCP). For a new PCP call [phone]. You have been examined and treated today on an emergency basis only. This is not a substitute for, or an effort to provide, complete comprehensive medical care. It is impossible to recognize and treat all injuries or illnesses in a single emergency department visit. It is therefore important that you follow up closely with your PCP. Call as soon as possible for an appointment. Thank you for your time and consideration. I look forward to speaking with you again soon. Please don't hesitate to call us if you have any questions. Problem Qualifiers Primary Impression: HTN (hypertension) Hypertension type: unspecified Qualified Codes: I10 - Essential (primary) hypertension
--- NOTE | 2017-08-07 20:55 | DIAGNOSTIC IMAGING REPORT ---
CT HEAD WITHOUT CONTRAST (CT) CLINICAL HISTORY: Acute change in mental status. Hypertension. COMPARISON STUDY: 320 on 18 TECHNIQUE: Axial CT of the brain is performed from the vertex to the skull base. IV contrast was not administered for this examination. A dose lowering technique was utilized adhering to the principles of ALARA. CT DOSE: 537.48 mGy.cm FINDINGS: No intra or extra-axial mass lesions are visualized. There is no CT evidence of acute cortical infarction. There is no evidence of midline shift. There is no acute hemorrhage. No calvarial fractures are visualized. There are minimal white matter hypodensities likely on a small vessel basis. There is frontal lobe atrophy with prominent bifrontal subarachnoid space. There is no evidence of pathologic ventricular dilatation. There is a small amount of fluid within the sphenoid sinus. There is an opacified left ethmoid air cell. IMPRESSION: 1. Inflammatory changes within the ethmoid and sphenoid sinuses 2. No acute intracranial findings. Electronically signed by: Ramsey Mathews M.D. 08/07/2017 8:53 PM Dictated Date/Time: 08/07/2017 8:51 PM
[2017-08-07 21:02] LABS: BASO % 0.4 %; BASO ABS # 0.03 K/uL (0-0.2); EOS % 2.5 %; EOS ABS # 0.18 K/uL (0-0.5); HEMATOCRIT 41.4 % (37-47); HEMOGLOBIN 14.3 g/dL (12.0-16.0); IG# 0.02 K/uL (0.00-0.02); LYMPH % 34.7 %; LYMPH ABS # 2.54 K/uL (1.2-3.4); MEAN CELL VOLUME 90.8 fL (80-100); MEAN CORPUSCULAR HEMOGLOBIN 31.4 pg (25-34); MEAN CORPUSCULAR HGB CONC 34.5 g/dl (32-36); MEAN PLATELET VOLUME 9.9 fL (7.4-10.4); MONO % 8.3 %; MONO ABS # 0.61 K/uL (0.11-0.59); NEUT % 53.8 %; NEUT ABS # 3.93 K/uL (1.4-6.5); PLATELET COUNT 239 K/uL (130-400); RED CELL DISTRIBUTION WIDTH CV 13.3 % (11.5-14.5); RED CELL DISTRIBUTION WIDTH SD 43.7 fL (36.4-46.3); WHITE BLOOD COUNT 7.31 K/uL (4.8-10.8)
[2017-08-07] MEDS ORDERED: SODIUM CHLORIDE 0.65% NA SOLN 45 ML (OCEAN) STA (21:09)
[2017-08-07 21:16] LABS: PTT PATIENT 23.9 SECONDS (21.0-31.0)
[2017-08-07 21:17] LABS: ALBUMIN 3.6 gm/dl (3.4-5.0); ALT/SGPT 21 U/L (12-78); BLOOD UREA NITROGEN 8 mg/dl (7-18); CALCIUM 9.7 mg/dl (8.5-10.1); CARBON DIOXIDE 28 mmol/L (21-32); CREATININE 0.97 mg/dl (0.60-1.20); GLUCOSE 85 mg/dl (70-99); LIPASE 281 U/L (73-393); POTASSIUM 3.8 mmol/L (3.5-5.1); SODIUM 135 mmol/L (136-145)
[2017-08-07 21:29] LABS: ALKALINE PHOSPHATASE 71 U/L (45-117); AST/SGOT 19 U/L (15-37); CKMB 1.1 ng/ml (0.5-3.6); TOTAL PROTEIN 7.2 gm/dl (6.4-8.2)
--- NOTE | 2017-08-07 21:51 | DIAGNOSTIC IMAGING REPORT ---
CHEST ONE VIEW PORTABLE CLINICAL HISTORY: severe hypertension COMPARISON STUDY: 03/14/2017 FINDINGS: The cardiac and mediastinal contours remain stable. There is aortic tortuosity. There is a thoracic scoliosis. There is stable left basilar atelectasis/scarring. There is no failure. There is no lobar consolidation.[ IMPRESSION: No active disease in the chest. Electronically signed by: Ramsey Mathews M.D. 08/07/2017 9:49 PM Dictated Date/Time: 08/07/2017 9:49 PM
[2017-08-07] MEDS ORDERED: ISOS60TA25 PO (22:20)
[2017-08-07] MEDS ORDERED: LOSA1TAB38 PO (22:20)
[2017-08-07] MEDS ORDERED: METO-217 PO (22:20)
[2017-08-07] MEDS ORDERED: BENZ100C84 PO (22:23)
[2017-08-07] MEDS ORDERED: DONE5TAB26 PO (22:23)
[2017-08-07] MEDS ORDERED: SENN-65 PO (22:23)
[2017-08-07] MEDS ORDERED: CHOL20009 PO (22:23)
[2017-08-07] MEDS ORDERED: NAPR-1169 PO (22:23)
[2017-08-07 23:24] VITALS: BP 198/86; PULSE 55; O2SAT 96
--- NOTE | 2017-08-08 05:03 | DIAGNOSTIC IMAGING REPORT ---
VENOUS DOPPLER LWR EXT BILA CLINICAL HISTORY: 76 years-old Female presenting with Pt c/o b/l leg pain . TECHNIQUE: Real-time grayscale and color and spectral Doppler ultrasound imaging of the veins of the bilateral lower extremities was performed. Compression and augmentation were also utilized. COMPARISON: None. FINDINGS: Right: Common femoral vein: Patent. Hyperdynamic waveforms could suggest right heart failure. Greater saphenous vein: Patent. Deep femoral vein: Patent. Femoral vein: Patent. Popliteal vein: Patent. Calf veins: Patent. Left: Common femoral vein: Patent. Hyperdynamic waveforms could suggest right heart failure. Greater saphenous vein: Patent. Deep femoral vein: Patent. Femoral vein: Patent. Popliteal vein: Patent. Calf veins: Patent. Other: None. IMPRESSION: 1. No evidence of deep venous thrombosis. 2. Hyperdynamic waveforms in the common femoral veins could suggest right heart failure. Electronically signed by: Kenneth Richards M.D. 08/08/2017 5:02 AM Dictated Date/Time: 08/08/2017 5:01 AM
== END 2017-08-07 23:55 | disposition home or self-care (01) ==
LOC: C.EDB 19:44
DX: I10 Essential (primary) hypertension (principal); J45.909 Unspecified asthma, uncomplicated; J44.9 Chronic obstructive pulmonary disease, unspecified; E11.9 Type 2 diabetes mellitus without complications; I51.9 Heart disease, unspecified; Z83.3 Family history of diabetes mellitus; Z82.49 Family history of ischemic heart disease and other diseases of the circulatory system; Z87.891 Personal history of nicotine dependence; Z79.82 Long term (current) use of aspirin; Z79.899 Other long term (current) drug therapy

== ENCOUNTER 2021-04-14 19:39 | Inpatient (IN) ==
[2021-04-14] MEDS ORDERED: SODIUM CHLORIDE 0.9% 500 ML IV SCH (20:00)
--- NOTE | 2021-04-14 20:02 | Emergency Department Note ---
Impression & Plan Syncope, Precordial chest pain, Leukocytosis, Acute UTI ED Provider Note NAME: SARINA SHETH AGE: 80 SEX: F : 1940 ARRIVES VIA: Walk-In INFORMANT: [family] ED PROVIDER(S): [Jame Barahona MD] CHIEF COMPLAINT: Cardiac assessment HISTORY OF PRESENT ILLNESS: The patient is a 80-year-old female who presents for a heart work-up. The patient had a syncopal spell today at 1130, just over 8 hours ago. She was sweaty and she was standing. She seemed pale. She passed out. She was caught by a family member. She was only out for a short period of time. She did not complain of any chest pain or dyspnea at the time. This evening, the patient began complaining of some chest pain. She admits that she has had chest pain now for 3 days. It has come and gone. The pain is mild to moderate in severity. She has been short of breath and a bit nauseated. She noted a mild headache. The patient has had a heart attack in the past. She has Alzheimer's dementia so she is a difficult historian. The family is concerned that she may have had a heart attack today. There has been no cough or congestion. No urinary complaints. No vomiting or diarrhea. Family believes that she is taking her medications as prescribed. REVIEW OF SYSTEMS: See HPI for pertinent positives and negatives. A total of ten systems were reviewed and were otherwise negative. PMHx/PSHx: See Below SOCIAL HISTORY: See Below. PHYSICAL EXAM: GENERAL: Patient is in no acute distress. HEENT: No acute trauma, normocephalic atraumatic, mucous membranes moist, no nasal congestion, no scleral icterus. NECK: No stridor, no adenopathy, no meningismus, trachea is midline. LUNGS: Clear to auscultation bilaterally, no wheeze, no rhonchi, breath sounds equal. HEART: Without murmurs gallops or rubs, regular rate and rhythm. ABDOMEN: Soft, nontender, bowel sounds positive, no hernias, no peritonitis. EXTREMITIES: No cyanosis or edema, full range of motion of all the joints without pain or difficulty, no signs for acute trauma. NEUROLOGIC: There is some confusion noted, no acute motor or sensory deficits, no focal weakness. No speech slur. SKIN: No rash, no jaundice, no diaphoresis. DIFFERENTIAL DIAGNOSIS: Cardiac ischemia, dysrhythmia, aortic dissection, pulmonary embolism, pneumothorax, pneumonia, pericarditis, myocarditis, esophageal rupture, GERD, cholecystitis, pancreatitis, musculoskeletal, intracranial bleeding, stroke, UTI, as well as other pathologies. EMERGENCY DEPARTMENT COURSE/PROCEDURES: ECG: Indication was chest pain and syncope. The ECG shows a normal sinus rhythm with a rate of 73. There is some diffuse nonspecific ST change. There is no ST elevation. No PVCs. A potential old septal infarct was noted. QTc was 442. Compared to an ECG from 16 August 2020, PVCs are no longer present Continuous Cardiac Monitoring: An order was placed for continuous cardiac monitoring. The monitor shows a rate of 79 with normal sinus rhythm. MEDICAL DECISION MAKING: There is a moderate leukocytosis with a white count of 18,000, this could be con sistent with infection or the stress of her presentation. There is a normal hemoglobin and platelet count. No significant electrolyte abnormality or kidney failure. Lactic acid level is not elevated making severe sepsis less likely. No concerning liver enzyme elevation. ECG shows a normal sinus rhythm, no ST elevation. Cardiac enzyme testing x1 is not consistent with acute cardiac injury. Urinalysis is consistent with infection with white cells and bacteria. Covid testing is negative. Chest film shows a possible infiltrate at the left base. Brain CT shows no acute bleed or mass-effect. On exam, there were no focal neurologic deficits, no speech slur. The patient presents after a syncopal event earlier. She was complaining of chest pain as well. Work-up suggest UTI and possibly pneumonia. The patient received IV saline. She was given IV cefepime as antibiotic coverage. I did order for IV hydralazine but her blood pressure seemed to decrease spontaneously. The hydralazine was not given. The patient would benefit from a hospital stay. She had a syncopal event earlier. She was complaining of chest pain. She has a leukocytosis with a UTI and possibly a pneumonia. Cardiac monitoring, IV antibiotic therapy is warranted. I spoke to the patient, I talked to the patient's family, I spoke with case management. The on-call hospitalist was consulted. Past Med/Surg History Medical History COPD (chronic obstructive pulmonary disease) Diabetes Heart disease Hypertension Social History Smoking Status: Former smoker Preferred Language: Syriac Feels Safe at Home: Yes Allergies Allergies Allergy/AdvReac Type Severity Reaction Status Date / Time Antihistamines Allergy Unknown Unknown Uncoded 04/14/21 21:17 Home Meds Home Medications Medication Instructions Recorded Confirmed aspirin 81 mg tablet,delayed 81 mg PO QAM #0 03/14/17 04/14/21 release fexofenadine 180 mg tablet 180 mg PO QAM #0 tab 03/14/17 04/14/21 fluticasone 100 mcg-salmeterol 50 1 inh INHALATION BID #0 inhaler 03/14/17 04/14/21 mcg/dose blistr powdr for inhalation (Advair Diskus) ipratropium 20 mcg-albuterol 100 1 puff INHALATION QID PRN #0 inh 03/14/17 04/14/21 mcg/actuation mist for inhalation (Combivent Respimat) multivitamin 1 tab PO QAM #0 03/14/17 04/14/21 omega-3 fatty acids 1,000 mg 1,000 mg PO BID #0 cap 03/14/17 04/14/21 capsule (Fish Oil Concentrate) simvastatin 40 mg tablet 40 mg PO PM #0 tab 03/14/17 04/14/21 theophylline 300 mg 300 mg PO Q12H #0 tab 03/14/17 04/14/21 tablet,extended release,12 hr cholecalciferol (vitamin D3) 50 50 mcg PO PM #0 08/07/17 04/14/21 mcg (2,000 unit) tablet (Vitamin D3) isosorbide mononitrate 60 mg 60 mg PO QAM #0 tab 08/07/17 04/14/21 tablet,extended release 24 hr losartan 100 mg tablet 100 mg PO QAM #0 tab 08/07/17 04/14/21 naproxen 500 mg tablet 500 mg PO BID PRN #0 tab 08/07/17 04/14/21 docusate sodium 100 mg tablet 100 mg PO BID #0 11/19/17 04/14/21 calcium 600 mg capsule 600 mg PO BID 08/16/20 04/14/21 memantine 5 mg tablet 5 mg PO BID 08/16/20 04/14/21 metoprolol succinate 50 mg 50 mg PO QAM 08/16/20 04/14/21 tablet,extended release 24 hr simvastatin 20 mg tablet 20 mg PO PM 08/16/20 04/14/21 potassium chloride 10 mEq 20 meq PO BID 04/14/21 04/14/21 tablet,extended release Results & Data (ED) Vital Signs Vital Signs - 24 hr 04/14/21 19:42 04/14/21 20:00 04/14/21 21:30 Temperature 37 C Temperature Source Temporal Artery Scan Pulse Rate 79 71 64 Pulse Rate from SpO2 Sensor 75 65 Respiratory Rate 18 17 17 Blood Pressure 152/89 H 195/95 H 183/150 H Blood Pressure Mean 110 128 161 Pulse Oximetry 94 94 96 Oxygen Delivery Method Room Air Room Air Room Air Sepsis Recent Fever Within 48 Hours No Sepsis New/Unexplained Change in Mental Status N/A Sepsis Action Taken by Nursing No Action Required 04/14/21 22:00 Temperature Temperature Source Pulse Rate 65 Pulse Rate from SpO2 Sensor 66 Respiratory Rate 16 Blood Pressure 176/86 H Blood Pressure Mean 116 Pulse Oximetry 95 Oxygen Delivery Method Sepsis Recent Fever Within 48 Hours Sepsis New/Unexplained Change in Mental Status Sepsis Action Taken by Detention Medications Current Medication List: was personally reviewed by me Laboratory Data Attestation: I reviewed the patient's lab results. Result diagrams: 04/14/21 20:25 04/14/21 20:25 Lab Results 04/14/21 04/14/21 04/14/21 Range/Units 20:00 20:00 20:25 WBC Cancelled 18.30 H RBC Cancelled 4.64 Hgb Cancelled 15.2 Hct Cancelled 44.0 MCV Cancelled 94.8 MCH Cancelled 32.8 MCHC Cancelled 34.5 RDW Std Deviation Cancelled 48.1 H RDW Coeff of Ede Cancelled 13.9 Plt Count Cancelled 211 MPV Cancelled 10.3 Immature Gran % (Auto) Cancelled 0.2 Neut % (Auto) Cancelled 87.4 Lymph % (Auto) Cancelled 6.3 Stafford % (Auto) Cancelled 6.0 Eos % (Auto) Cancelled 0.0 Baso % (Auto) Cancelled 0.1 Neut # (Auto) Cancelled 16.00 H Lymph # (Auto) Cancelled 1.15 L Stafford # (Auto) Cancelled 1.10 H Eos # (Auto) Cancelled 0.00 Baso # (Auto) Cancelled 0.01 Immature Gran # (Auto) Cancelled 0.04 H Absolute Nucleated RBC Cancelled Nucleated RBC % (auto) Cancelled Neutrophils % (Manual) Cancelled Band Neutrophils % Cancelled Lymphocytes % (Manual) Cancelled Prolymphocyte % Cancelled Reactive Lymphs % (Man) Cancelled Monocytes % (Manual) Cancelled Eosinophils % (Manual) Cancelled Basophils % (Manual) Cancelled Metamyelocytes % (Man) Cancelled Myelocytes % (Man) Cancelled Promyelocytes % (Man) Cancelled Blast Cells % (Manual) Cancelled Plasma Cell % (Manual) Cancelled Other Cells % Cancelled Nucleated RBC % Cancelled Neutrophils # (Manual) Cancelled Band Neutrophils # Cancelled Total Absolute Neuts Cancelled Lymphocytes # (Manual) Cancelled Prolymphocyte # Cancelled Reactive Lymphs # Cancelled Total Abs Lymphocytes Cancelled Monocytes # (Manual) Cancelled Eosinophils # (Manual) Cancelled Basophils # (Manual) Cancelled Metamyelocytes # (Man) Cancelled Myelocytes # (Manual) Cancelled Promyelocytes # (Man) Cancelled Blast Cells # (Man) Cancelled Plasma Cell # (Manual) Cancelled Other Cells # Cancelled Nucleated RBCs # (Man) Cancelled Hypersegmented Neuts Cancelled Hyposegmented Neuts Cancelled Hypogranular Neuts Cancelled Large Granular Lymphs Cancelled # Lrg Granular Lymphs Cancelled Hairy Cells Cancelled Smudge Cells Cancelled Toxic Granulation Cancelled Toxic Vacuolation Cancelled Dohle Bodies Cancelled Chetan Rods Cancelled Platelet Estimate Cancelled Hypogranular Platelets Cancelled Clumped Platelets Cancelled Giant Platelets Cancelled Platelet Satelliting Cancelled RBC Morphology Cancelled Polychromasia Cancelled Hypochromasia Cancelled Poikilocytosis Cancelled Basophilic Stippling Cancelled Anisocytosis Cancelled Microcytosis Cancelled Macrocytosis Cancelled Spherocytes Cancelled Pappenheimer Bodies Cancelled Sickle Cells Cancelled Target Cells Cancelled Tear Drop Cells Cancelled Ovalocytes Cancelled Stomatocytes Cancelled [place] Bodies Cancelled Echinocytes Cancelled Acanthocytes (Spur) Cancelled Rouleaux Cancelled RBC Agglutinates Cancelled Schistocytes Cancelled RBC Morph Comment Cancelled Sezary Cell Cancelled Sodium Cancelled Potassium Cancelled Chloride Cancelled Carbon Dioxide Cancelled Anion Gap Cancelled BUN Cancelled Creatinine Cancelled Est Cr Clr Drug Dosing Cancelled Est GFR ( Amer) Cancelled Est GFR (Non-Af Amer) Cancelled BUN/Creatinine Ratio Cancelled Glucose Cancelled Lactate (0.4-2.0) mmol/L Calcium Cancelled Magnesium Cancelled Total Bilirubin Cancelled AST Cancelled ALT Cancelled Alkaline Phosphatase Cancelled Troponin I Cancelled Total Protein Cancelled Albumin Cancelled Globulin Cancelled Albumin/Globulin Ratio Cancelled TSH Cancelled Urine Color Urine Appearance (Clear) Urine pH (4.5-7.5) Ur Specific Hope (1.000-1.030) Urine Protein (Negative) Urine Glucose (UA) (Negative) Urine Ketones (Negative) Urine Blood (Negative) Urine Nitrite (Negative) Urine Bilirubin (Negative) Urine Urobilinogen (Negative) Ur Leukocyte Esterase (Negative) Urine WBC (Auto) (0-5) /hpf Urine RBC (Auto) (0-4) /hpf U Hyaline Cast (Auto) (0-5) /lpf U Epithel Cells (Auto) (0-5) /lpf Urine Bacteria (Auto) (Negative) SARS-CoV-2, RNA, NAAT (NEGATIVE) 04/14/21 04/14/21 04/14/21 Range/Units 20:25 21:41 21:49 WBC RBC Hgb Hct MCV MCH MCHC RDW Std Deviation RDW Coeff of Ede Plt Count MPV Immature Gran % (Auto) Neut % (Auto) Lymph % (Auto) Stafford % (Auto) Eos % (Auto) Baso % (Auto) Neut # (Auto) Lymph # (Auto) Stafford # (Auto) Eos # (Auto) Baso # (Auto) Immature Gran # (Auto) Absolute Nucleated RBC Nucleated RBC % (auto) Neutrophils % (Manual) Band Neutrophils % Lymphocytes % (Manual) Prolymphocyte % Reactive Lymphs % (Man) Monocytes % (Manual) Eosinophils % (Manual) Basophils % (Manual) Metamyelocytes % (Man) Myelocytes % (Man) Promyelocytes % (Man) Blast Cells % (Manual) Plasma Cell % (Manual) Other Cells % Nucleated RBC % Neutrophils # (Manual) Band Neutrophils # Total Absolute Neuts Lymphocytes # (Manual) Prolymphocyte # Reactive Lymphs # Total Abs Lymphocytes Monocytes # (Manual) Eosinophils # (Manual) Basophils # (Manual) Metamyelocytes # (Man) Myelocytes # (Manual) Promyelocytes # (Man) Blast Cells # (Man) Plasma Cell # (Manual) Other Cells # Nucleated RBCs # (Man) Hypersegmented Neuts Hyposegmented Neuts Hypogranular Neuts Large Granular Lymphs # Lrg Granular Lymphs Hairy Cells Smudge Cells Toxic Granulation Toxic Vacuolation Dohle Bodies Chetan Rods Platelet Estimate Hypogranular Platelets Clumped Platelets Giant Platelets Platelet Satelliting RBC Morphology Polychromasia Hypochromasia Poikilocytosis Basophilic Stippling Anisocytosis Microcytosis Macrocytosis Spherocytes Pappenheimer Bodies Sickle Cells Target Cells Tear Drop Cells Ovalocytes Stomatocytes [place] Bodies Echinocytes Acanthocytes (Spur) Rouleaux RBC Agglutinates Schistocytes RBC Morph Comment Sezary Cell Sodium 137 Potassium 3.6 Chloride 107 Carbon Dioxide 24 Anion Gap 6.0 BUN 28 H Creatinine 0.91 Est Cr Clr Drug Dosing Not Reportable Est GFR ( Amer) 69.5 Est GFR (Non-Af Amer) 60.0 BUN/Creatinine Ratio 30.7 H Glucose 131 H Lactate (0.4-2.0) mmol/L Calcium 9.4 Magnesium Total Bilirubin 0.6 AST 15 ALT 22 Alkaline Phosphatase 74 Troponin I < 0.015 Total Protein 6.8 Albumin 3.1 L Globulin 3.7 Albumin/Globulin Ratio 0.8 L TSH Urine Color Yellow Urine Appearance Clear (Clear) Urine pH 7.0 (4.5-7.5) Ur Specific Hope 1.015 (1.000-1.030) Urine Protein Negative (Negative) Urine Glucose (UA) Negative (Negative) Urine Ketones Negative (Negative) Urine Blood Trace H (Negative) Urine Nitrite Positive A (Negative) Urine Bilirubin Negative (Negative) Urine Urobilinogen Negative (Negative) Ur Leukocyte Esterase 1+ H (Negative) Urine WBC (Auto) >30 H (0-5) /hpf Urine RBC (Auto) 0-4 (0-4) /hpf U Hyaline Cast (Auto) 1-5 (0-5) /lpf U Epithel Cells (Auto) 0-5 (0-5) /lpf Urine Bacteria (Auto) 4+ H (Negative) SARS-CoV-2, RNA, NAAT NEGATIVE (NEGATIVE) 04/14/21 Range/Units 22:37 WBC RBC Hgb Hct MCV MCH MCHC RDW Std Deviation RDW Coeff of Ede Plt Count MPV Immature Gran % (Auto) Neut % (Auto) Lymph % (Auto) Stafford % (Auto) Eos % (Auto) Baso % (Auto) Neut # (Auto) Lymph # (Auto) Stafford # (Auto) Eos # (Auto) Baso # (Auto) Immature Gran # (Auto) Absolute Nucleated RBC Nucleated RBC % (auto) Neutrophils % (Manual) Band Neutrophils % Lymphocytes % (Manual) Prolymphocyte % Reactive Lymphs % (Man) Monocytes % (Manual) Eosinophils % (Manual) Basophils % (Manual) Metamyelocytes % (Man) Myelocytes % (Man) Promyelocytes % (Man) Blast Cells % (Manual) Plasma Cell % (Manual) Other Cells % Nucleated RBC % Neutrophils # (Manual) Band Neutrophils # Total Absolute Neuts Lymphocytes # (Manual) Prolymphocyte # Reactive Lymphs # Total Abs Lymphocytes Monocytes # (Manual) Eosinophils # (Manual) Basophils # (Manual) Metamyelocytes # (Man) Myelocytes # (Manual) Promyelocytes # (Man) Blast Cells # (Man) Plasma Cell # (Manual) Other Cells # Nucleated RBCs # (Man) Hypersegmented Neuts Hyposegmented Neuts Hypogranular Neuts Large Granular Lymphs # Lrg Granular Lymphs Hairy Cells Smudge Cells Toxic Granulation Toxic Vacuolation Dohle Bodies Chetan Rods Platelet Estimate Hypogranular Platelets Clumped Platelets Giant Platelets Platelet Satelliting RBC Morphology Polychromasia Hypochromasia Poikilocytosis Basophilic Stippling Anisocytosis Microcytosis Macrocytosis Spherocytes Pappenheimer Bodies Sickle Cells Target Cells Tear Drop Cells Ovalocytes Stomatocytes [place] Bodies Echinocytes Acanthocytes (Spur) Rouleaux RBC Agglutinates Schistocytes RBC Morph Comment Sezary Cell Sodium Potassium Chloride Carbon Dioxide Anion Gap BUN Creatinine Est Cr Clr Drug Dosing Est GFR ( Amer) Est GFR (Non-Af Amer) BUN/Creatinine Ratio Glucose Lactate 1.1 (0.4-2.0) mmol/L Calcium Magnesium Total Bilirubin AST ALT Alkaline Phosphatase Troponin I Total Protein Albumin Globulin Albumin/Globulin Ratio TSH Urine Color Urine Appearance (Clear) Urine pH (4.5-7.5) Ur Specific Hope (1.000-1.030) Urine Protein (Negative) Urine Glucose (UA) (Negative) Urine Ketones (Negative) Urine Blood (Negative) Urine Nitrite (Negative) Urine Bilirubin (Negative) Urine Urobilinogen (Negative) Ur Leukocyte Esterase (Negative) Urine WBC (Auto) (0-5) /hpf Urine RBC (Auto) (0-4) /hpf U Hyaline Cast (Auto) (0-5) /lpf U Epithel Cells (Auto) (0-5) /lpf Urine Bacteria (Auto) (Negative) SARS-CoV-2, RNA, NAAT (NEGATIVE) Administered Medications Discontinued Medications Sodium Chloride (Nss) 500 mls @ 999 mls/hr IV .Q31M KATHERIN Stop: 04/14/21 20:30 Last Infusion: 04/14/21 20:50 Dose: 0 mls/hr Documented by: [id number] Admin: 04/14/21 20:19 Dose: 999 mls/hr Documented by: [id number] Cefepime HCl (Maxipime) 2,000 mg in 20 mls @ 5 mls/min IV NOW STA; Protocol Stop: 04/14/21 22:24 Last Admin: 04/14/21 22:49 Dose: 5 mls/min Documented by: [id number] Imaging Data Attestation: I personally reviewed and interpreted this imaging study as follows: My Impression: Chest x-ray: There is a possible left base infiltrate versus some atelectasis. There is no pneumothorax or CHF. Radiologist's Impression: Brain CT: There is no acute hemorrhage or mass-effect. No skull fracture. There is some diffuse paranasal sinus disease. There is a stable 4 mm hyperden se mass that has been documented on previous imaging. Discharge Plan Visit Data Chief Complaint: Cardiac Assessment Stated Complaint: CHEST PAIN, SOB, PAIN IN ARMS, PRESSURE ON CHEST ED Provider: Jame Barahona Discharge Problem: Syncope, Precordial chest pain, Leukocytosis, Acute UTI Patient Disposition: Admitted As Inpatient Condition: Fair Forms Stand Alone Forms: My [facility] Prescriptions Prescriptions: No Action multivitamin Tablet 1 tab PO QAM Qty: 0 RF: 0 omega-3 fatty acids [Fish Oil Concentrate] 1,000 mg Capsule 1,000 mg PO BID Qty: 0 RF: 0 fexofenadine 180 mg Tablet 180 mg PO QAM Qty: 0 RF: 0 simvastatin 40 mg Tablet 40 mg PO PM Qty: 0 RF: 0 theophylline [Faizan-Dur] 300 mg Tablet Extended Release 12 Hr 300 mg PO Q12H Qty: 0 RF: 0 fluticasone propion-salmeterol [Advair Diskus] 100-50 mcg/dose Blister With Device 1 inh INHALATION BID Qty: 0 RF: 0 Combivent Respimat 20-100 mcg/actuation Mist 1 puff INHALATION QID PRN (Reason: SOB) Qty: 0 RF: 0 aspirin 81 mg Tablet,Delayed Release (Dr/Ec) 81 mg PO QAM Qty: 0 RF: 0 isosorbide mononitrate [Imdur] 60 mg Tablet Extended Release 24 Hr 60 mg PO QAM Qty: 0 RF: 0 losartan 100 mg Tablet 100 mg PO QAM Qty: 0 RF: 0 naproxen 500 mg Tablet 500 mg PO BID PRN (Reason: Pain) Qty: 0 RF: 0 cholecalciferol (vitamin D3) [Vitamin D3] 50 mcg (2,000 unit) Tablet 50 mcg PO PM Qty: 0 RF: 0 docusate sodium 100 mg Tablet 100 mg PO BID Qty: 0 RF: 0 calcium 600 mg Capsule 600 mg PO BID RF: 0 metoprolol succinate 50 mg tablet extended release 24 hr 50 mg PO QAM RF: 0 simvastatin 20 mg Tablet 20 mg PO PM RF: 0 memantine 5 mg tablet 5 mg PO BID RF: 0 potassium chloride 10 mEq tablet extended release 20 meq PO BID RF: 0 Referrals Referrals: Guerita Engel PA-C [Primary Care Provider] -
[2021-04-14 20:37] LABS: Basophils # (auto) 0.01 K/uL (0-0.2); Basophils % (auto) 0.1 %; Hemoglobin 15.2 g/dL (12.0-16.0); Immature Granulocytes # (auto) 0.04 K/uL (0.00-0.02); Immature Granulocytes % (auto) 0.2 %; Lymphocytes # (auto) 1.15 K/uL (1.2-3.4); Lymphocytes % (auto) 6.3 %; Mean Corpuscular Hemoglobin 32.8 pg (25-34); Mean Corpuscular Hgb Conc 34.5 g/dL (32-36); Mean Corpuscular Volume 94.8 fL (80-100); Mean Platelet Volume 10.3 fL (7.4-10.4); Neutrophils % (auto) 87.4 %; Platelet Count 211 K/uL (130-400); RDW Coefficient of Variation 13.9 % (11.5-14.5); RDW Standard Deviation 48.1 fL (36.4-46.3); Red Blood Count 4.64 M/uL (4.2-5.4)
[2021-04-14 20:56] LABS: Alanine Aminotransferase 22 (12-78); Albumin Level 3.1 gm/dl (3.4-5.0); Aspartate Aminotransferase 15 U/L (15-37); BUN Creatinine Ratio 30.7 (10-20); Blood Urea Nitrogen 28 mg/dl (7-18); Calcium 9.4 mg/dl (8.5-10.1); Carbon Dioxide 24 mmol/L (21-32); Est GFR (African American) 69.5 ml/min; Glucose 131 mg/dl (70-99)
[2021-04-14 21:00] LABS: Albumin Globulin Ratio 0.8 (0.9-2); Alkaline Phosphatase 74 U/L (45-117); Bilirubin,Total 0.6 mg/dl (0.2-1); Globulin 3.7 gm/dl (2.5-4.0); Total Protein 6.8 gm/dl (6.4-8.2)
[2021-04-14 21:21] LABS: Troponin I < 0.015 ng/ml (0-0.045)
[2021-04-14 22:01] LABS: Chloride 107 mmol/L (98-107); Potassium 3.6 mmol/L (3.5-5.1); Sodium 137 mmol/L (136-145)
[2021-04-14 22:04] LABS: Appearance Urine Clear (Clear); Bacteria Urine Automated 4+ (Negative); Bilirubin Urine Negative (Negative); Blood Urine Trace (Negative); Color Urine Yellow; Epithelial Cell Urine Auto 0-5 /lpf (0-5); Glucose Urine UA Negative (Negative); Ketones Urine Negative (Negative); Leukocyte Esterase Urine 1+ (Negative); Nitrite Urine Positive (Negative); Protein Urine Negative (Negative); RBC Urine Automated 0-4 /hpf (0-4); Specific Gravity Urine 1.015 (1.000-1.030); Urobilinogen Urine Negative (Negative); WBC Urine Automated >30 /hpf (0-5)
[2021-04-14] MEDS ORDERED: hydrALAZINE HCL 20 MG/ML VIAL IV STA (22:21)
[2021-04-14] MEDS ORDERED: CEFEPIME 2,000 MG/20 ML VIAL IV STA (22:21)
--- NOTE | 2021-04-14 23:53 | History & Physical Report ---
Date of Service April 14, 2021 Assessment & Plan (1) Syncope: Plan: Syncopal episode/CAD/hypertension Precordial chest pain The patient will be admitted to telemetry for serial cardiac enzymes, serial EKG's, cardiac rhythm monitoring and a 2-D echocardiogram with Dopplers. Continue aspirin, isosorbide mononitrate, metoprolol succinate Hold losartan (2) Precordial chest pain: Plan: See above (3) Heart disease: Plan: See above (4) Acute UTI: Plan: Follow urine culture and sensitivity Given cefepime 2 g IV in ED Ceftriaxone 1 g IV daily NSS + KCl 20 mEq at 80 mils per hour x1 L (5) Hypertension: Plan: See above (6) COPD (chronic obstructive pulmonary disease): Plan: Continue Advair Diskus and theophylline Would check a theophylline level, however, to send out, and patient will likely be discharged with time results are back. No signs of toxicity, such as ectopy, on exam or monitor (7) Dementia: Plan: Continue memantine Patient's presenting confusion symptoms may be a manifestation of some metabolic encephalopathy on top of underlying dementia History of Present Illness Chief Complaint: The patient is brought to the emergency department with report of a syncopal ep isode while she was holiday shopping in [place] earlier in the day today Primary Care Provider: Guerita Engel The patient is a 80-year-old female with a past medical history including diabetes mellitus, hypertension, COPD, closed head injury, asthma, lumbar vertebral fracture, allergy, hyperlipidemia, CAD and constipation. Her granddaughter, who is with her in the ED this evening, reports that the patient has worse confusion than at her baseline. She reportedly had told the emergency department of chest discomfort, however, she denied any episodes of chest discomfort or shortness of breath with me. Patient does have significant confusion, and her granddaughter, whom she is living with, has not noted any of the symptoms. Allergies Allergy/AdvReac Type Severity Reaction Status Date / Time Antihistamines Allergy Unknown Unknown Uncoded 04/14/21 21:17 Home Medications Medication Instructions Recorded Confirmed Type aspirin 81 mg tablet,delayed 81 mg PO QAM #0 03/14/17 04/14/21 History release fexofenadine 180 mg tablet 180 mg PO QAM #0 tab 03/14/17 04/14/21 History fluticasone 100 mcg-salmeterol 50 1 inh INHALATION BID #0 inhaler 03/14/17 04/14/21 History mcg/dose blistr powdr for inhalation (Advair Diskus) ipratropium 20 mcg-albuterol 100 1 puff INHALATION QID PRN #0 inh 03/14/17 04/14/21 History mcg/actuation mist for inhalation (Combivent Respimat) multivitamin 1 tab PO QAM #0 03/14/17 04/14/21 History omega-3 fatty acids 1,000 mg 1,000 mg PO BID #0 cap 03/14/17 04/14/21 History capsule (Fish Oil Concentrate) simvastatin 40 mg tablet 40 mg PO PM #0 tab 03/14/17 04/14/21 History theophylline 300 mg 300 mg PO Q12H #0 tab 03/14/17 04/14/21 History tablet,extended release,12 hr cholecalciferol (vitamin D3) 50 50 mcg PO PM #0 08/07/17 04/14/21 History mcg (2,000 unit) tablet (Vitamin D3) isosorbide mononitrate 60 mg 60 mg PO QAM #0 tab 08/07/17 04/14/21 History tablet,extended release 24 hr losartan 100 mg tablet 100 mg PO QAM #0 tab 08/07/17 04/14/21 History naproxen 500 mg tablet 500 mg PO BID PRN #0 tab 08/07/17 04/14/21 History docusate sodium 100 mg tablet 100 mg PO BID #0 11/19/17 04/14/21 History calcium 600 mg capsule 600 mg PO BID 08/16/20 04/14/21 History memantine 5 mg tablet 5 mg PO BID 08/16/20 04/14/21 History metoprolol succinate 50 mg 50 mg PO QAM 08/16/20 04/14/21 History tablet,extended release 24 hr simvastatin 20 mg tablet 20 mg PO PM 08/16/20 04/14/21 History potassium chloride 10 mEq 20 meq PO BID 04/14/21 04/14/21 History tablet,extended release Past Med/Surg History Medical History (Updated 04/15/21 @ 01:02 by Yann Méndez MD) COPD (chronic obstructive pulmonary disease) Dementia Diabetes Heart disease Hypertension Social History Smoking Status: Former smoker Preferred Language: Sami Feels Safe at Home: Yes Review of Systems Review of Systems: Review of systems directly from patient is somewhat limited due to her confusion, however, her granddaughter was with her this evening, does provide information Physical Exam Physical Exam: The patient is awake, moderately confused, has obvious memory and recall issues, developed and well nourished, normocephalic and atraumatic, sitting uprightin bed and in no acute distress. HEENT--PERRL, EOMI, mucous membranes and oropharynx mildly dry. Neck--supple. No JVD. No bruits. Thyroid normal, trachea midline, no adenopathy. Heart--normal S1 and S2. No murmurs, rubs or gallops. Lungs--clear bilaterally, no respiratory distress, no accessory muscle use. Abdomen--normal bowel sounds and soft. Nontender. Nondistended, no hernias or masses, no organomegaly. Extremities--no cyanosis or clubbing. No edema. Dermatologic--normal skin turgor, normal color, no abnormal lymph nodes, no rash. Neurologic--cranial nerves II through XII grossly intact. Rheumatologic--normal range of motion. Psychiatric--normal affect. Results & Data Results & Data ([facility]) Vital Signs (Past 12 Hours) Vital Signs Temp Pulse Resp BP Pulse Ox 04/14/21 22:00 65 16 176/86 H 95 04/14/21 21:30 64 17 183/150 H 96 04/14/21 20:00 71 17 195/95 H 94 04/14/21 19:42 37 C 79 18 152/89 H 94 Laboratory Results Laboratory Results WBC 18.30 K/uL (4.8-10.8) H 04/14/21 20:25 RBC 4.64 M/uL (4.2-5.4) 04/14/21 20:25 Hgb 15.2 g/dL (12.0-16.0) 04/14/21 20:25 Hct 44.0 % (37-47) 04/14/21 20:25 MCV 94.8 fL (80-100) 04/14/21 20:25 MCH 32.8 pg (25-34) 04/14/21 20:25 MCHC 34.5 g/dL (32-36) 04/14/21 20:25 RDW Std Deviation 48.1 fL (36.4-46.3) H 04/14/21 20:25 RDW Coeff of Ede 13.9 % (11.5-14.5) 04/14/21 20:25 Plt Count 211 K/uL (130-400) 04/14/21 20:25 MPV 10.3 fL (7.4-10.4) 04/14/21 20:25 Immature Gran % (Auto) 0.2 % 04/14/21 20:25 Neut % (Auto) 87.4 % 04/14/21 20:25 Lymph % (Auto) 6.3 % 04/14/21 20:25 [place] % (Auto) 6.0 % 04/14/21 20:25 Eos % (Auto) 0.0 % 04/14/21 20:25 Baso % (Auto) 0.1 % 04/14/21 20:25 Neut # (Auto) 16.00 K/uL (1.4-6.5) H 04/14/21 20:25 Lymph # (Auto) 1.15 K/uL (1.2-3.4) L 04/14/21 20:25 [place] # (Auto) 1.10 K/uL (0.11-0.59) H 04/14/21 20:25 Eos # (Auto) 0.00 K/uL (0-0.5) 04/14/21 20:25 Baso # (Auto) 0.01 K/uL (0-0.2) 04/14/21 20:25 Immature Gran # (Auto) 0.04 K/uL (0.00-0.02) H 04/14/21 20:25 Absolute Nucleated RBC Cancelled 04/14/21 20:00 Nucleated RBC % (auto) Cancelled 04/14/21 20:00 Neutrophils % (Manual) Cancelled 04/14/21 20:00 Band Neutrophils % Cancelled 04/14/21 20:00 Lymphocytes % (Manual) Cancelled 04/14/21 20:00 Prolymphocyte % Cancelled 04/14/21 20:00 Reactive Lymphs % (Man) Cancelled 04/14/21 20:00 Monocytes % (Manual) Cancelled 04/14/21 20:00 Eosinophils % (Manual) Cancelled 04/14/21 20:00 Basophils % (Manual) Cancelled 04/14/21 20:00 Metamyelocytes % (Man) Cancelled 04/14/21 20:00 Myelocytes % (Man) Cancelled 04/14/21 20:00 Promyelocytes % (Man) Cancelled 04/14/21 20:00 Blast Cells % (Manual) Cancelled 04/14/21 20:00 Plasma Cell % (Manual) Cancelled 04/14/21 20:00 Other Cells % Cancelled 04/14/21 20:00 Nucleated RBC % Cancelled 04/14/21 20:00 Neutrophils # (Manual) Cancelled 04/14/21 20:00 Band Neutrophils # Cancelled 04/14/21 20:00 Total Absolute Neuts Cancelled 04/14/21 20:00 Lymphocytes # (Manual) Cancelled 04/14/21 20:00 Prolymphocyte # Cancelled 04/14/21 20:00 Reactive Lymphs # Cancelled 04/14/21 20:00 Total Abs Lymphocytes Cancelled 04/14/21 20:00 Monocytes # (Manual) Cancelled 04/14/21 20:00 Eosinophils # (Manual) Cancelled 04/14/21 20:00 Basophils # (Manual) Cancelled 04/14/21 20:00 Metamyelocytes # (Man) Cancelled 04/14/21 20:00 Myelocytes # (Manual) Cancelled 04/14/21 20:00 Promyelocytes # (Man) Cancelled 04/14/21 20:00 Blast Cells # (Man) Cancelled 04/14/21 20:00 Plasma Cell # (Manual) Cancelled 04/14/21 20:00 Other Cells # Cancelled 04/14/21 20:00 Nucleated RBCs # (Man) Cancelled 04/14/21 20:00 Hypersegmented Neuts Cancelled 04/14/21 20:00 Hyposegmented Neuts Cancelled 04/14/21 20:00 Hypogranular Neuts Cancelled 04/14/21 20:00 Large Granular Lymphs Cancelled 04/14/21 20:00 # Lrg Granular Lymphs Cancelled 04/14/21 20:00 Hairy Cells Cancelled 04/14/21 20:00 Smudge Cells Cancelled 04/14/21 20:00 Toxic Granulation Cancelled 04/14/21 20:00 Toxic Vacuolation Cancelled 04/14/21 20:00 Dohle Bodies Cancelled 04/14/21 20:00 Chetan Rods Cancelled 04/14/21 20:00 Platelet Estimate Cancelled 04/14/21 20:00 Hypogranular Platelets Cancelled 04/14/21 20:00 Clumped Platelets Cancelled 04/14/21 20:00 Giant Platelets Cancelled 04/14/21 20:00 Platelet Satelliting Cancelled 04/14/21 20:00 RBC Morphology Cancelled 04/14/21 20:00 Polychromasia Cancelled 04/14/21 20:00 Hypochromasia Cancelled 04/14/21 20:00 Poikilocytosis Cancelled 04/14/21 20:00 Basophilic Stippling Cancelled 04/14/21 20:00 Anisocytosis Cancelled 04/14/21 20:00 Microcytosis Cancelled 04/14/21 20:00 Macrocytosis Cancelled 04/14/21 20:00 Spherocytes Cancelled 04/14/21 20:00 Pappenheimer Bodies Cancelled 04/14/21 20:00 Sickle Cells Cancelled 04/14/21 20:00 Target Cells Cancelled 04/14/21 20:00 Tear Drop Cells Cancelled 04/14/21 20:00 Ovalocytes Cancelled 04/14/21 20:00 Stomatocytes Cancelled 04/14/21 20:00 [place] Bodies Cancelled 04/14/21 20:00 Echinocytes Cancelled 04/14/21 20:00 Acanthocytes (Spur) Cancelled 04/14/21 20:00 Rouleaux Cancelled 04/14/21 20:00 RBC Agglutinates Cancelled 04/14/21 20:00 Schistocytes Cancelled 04/14/21 20:00 RBC Morph Comment Cancelled 04/14/21 20:00 Sezary Cell Cancelled 04/14/21 20:00 Sodium 137 mmol/L (136-145) 04/14/21 20:25 Potassium 3.6 mmol/L (3.5-5.1) 04/14/21 20:25 Chloride 107 mmol/L (98-107) 04/14/21 20:25 Carbon Dioxide 24 mmol/L (21-32) 04/14/21 20:25 Anion Gap 6.0 (3-11) 04/14/21 20:25 BUN 28 mg/dl (7-18) H 04/14/21 20:25 Creatinine 0.91 mg/dl (0.6-1.2) 04/14/21 20:25 Est Cr Clr Drug Dosing Not Reportable 04/14/21 20:25 Est GFR ( Amer) 69.5 ml/min 04/14/21 20:25 Est GFR (Non-Af Amer) 60.0 ml/min 04/14/21 20:25 BUN/Creatinine Ratio 30.7 (10-20) H 04/14/21 20:25 Glucose 131 mg/dl (70-99) H 04/14/21 20:25 Lactate 1.1 mmol/L (0.4-2.0) 04/14/21 22:37 Calcium 9.4 mg/dl (8.5-10.1) 04/14/21 20:25 Magnesium Cancelled 04/14/21 20:00 Total Bilirubin 0.6 mg/dl (0.2-1) 04/14/21 20:25 AST 15 U/L (15-37) 04/14/21 20:25 ALT 22 (12-78) 04/14/21 20:25 Alkaline Phosphatase 74 U/L (45-117) 04/14/21 20:25 Troponin I < 0.015 ng/ml (0-0.045) 04/14/21 20:25 Total Protein 6.8 gm/dl (6.4-8.2) 04/14/21 20:25 Albumin 3.1 gm/dl (3.4-5.0) L 04/14/21 20:25 Globulin 3.7 gm/dl (2.5-4.0) 04/14/21 20:25 Albumin/Globulin Ratio 0.8 (0.9-2) L 04/14/21 20:25 TSH Cancelled 04/14/21 20:00 Urine Color Yellow 04/14/21 21:41 Urine Appearance Clear (Clear) 04/14/21 21:41 Urine pH 7.0 (4.5-7.5) 04/14/21 21:41 Ur Specific [place] 1.015 (1.000-1.030) 04/14/21 21:41 Urine Protein Negative (Negative) 04/14/21 21:41 Urine Glucose (UA) Negative (Negative) 04/14/21 21:41 Urine Ketones Negative (Negative) 04/14/21 21:41 Urine Blood Trace (Negative) H 04/14/21 21:41 Urine Nitrite Positive (Negative) A 04/14/21 21:41 Urine Bilirubin Negative (Negative) 04/14/21 21:41 Urine Urobilinogen Negative (Negative) 04/14/21 21:41 Ur Leukocyte Esterase 1+ (Negative) H 04/14/21 21:41 Urine WBC (Auto) >30 /hpf (0-5) H 04/14/21 21:41 Urine RBC (Auto) 0-4 /hpf (0-4) 04/14/21 21:41 U Hyaline Cast (Auto) 1-5 /lpf (0-5) 04/14/21 21:41 U Epithel Cells (Auto) 0-5 /lpf (0-5) 04/14/21 21:41 Urine Bacteria (Auto) 4+ (Negative) H 04/14/21 21:41 SARS-CoV-2, RNA, NAAT NEGATIVE (NEGATIVE) 04/14/21 21:49 Code Status & VTE Plan Code Status Full code VTE Prophylaxis Plan VTE Prophylaxis will be ordered: Yes PG Care Time/CCT Total # of Minutes Spent Total Time Spent with Patient: Total time spent is greater than 50% in coordination of care (as documented) at patient's floor/unit and/or counseling patient: Coding Level of Care Code 49841 Initial Inpt Care Lvl 3 Diagnoses Syncope R55 Syncope type: unspecified Precordial chest pain R07.2 Acute UTI N39.0 Heart disease I51.9 Hypertension I10 COPD (chronic obstructive pulmonary disease) J44.9 Dementia F03.90 (1) Syncope Syncope type: unspecified Qualified Code(s): R55 - Syncope and collapse
[2021-04-15] MEDS ORDERED: ONDANSETRON INJ 2 MG/ML 2 ML VIAL IV PRN (02:41)
[2021-04-15] MEDS ORDERED: ACETAMINOPHEN 325 MG TAB PO PRN (02:41)
[2021-04-15] MEDS ORDERED: PATIENT'S HEIGHT AND/OR WEIGHT NEEDED SCH (03:15)
[2021-04-15] MEDS ORDERED: NSS + 20MEQ KCL 20 MEQ/1,000 ML BAG IV SCH (03:15)
[2021-04-15] MEDS: cefTRIAXone SODIUM 1,000 MG in DEXTROSE 5% 50 ML IV SCH (04:26)
[2021-04-15] MEDS: MEMANTINE HCL 5 MG TAB PO SCH ×3 (04:26→22:21)
[2021-04-15 05:27] LABS: Basophils # (auto) 0.01 K/uL (0-0.2); Basophils % (auto) 0.1 %; Eosinophils # (auto) 0.01 K/uL (0-0.5); Eosinophils % (auto) 0.1 %; Hematocrit (blood only) 41.9 % (37-47); Hemoglobin 14.1 g/dL (12.0-16.0); Immature Granulocytes # (auto) 0.05 K/uL (0.00-0.02); Immature Granulocytes % (auto) 0.3 %; Lymphocytes % (auto) 11.9 %; Mean Corpuscular Hemoglobin 31.6 pg (25-34); Mean Corpuscular Hgb Conc 33.7 g/dL (32-36); Mean Corpuscular Volume 93.9 fL (80-100); Mean Platelet Volume 10.6 fL (7.4-10.4); Monocytes # (auto) 0.88 K/uL (0.11-0.59); Monocytes % (auto) 5.5 %; Neutrophils # (auto) 13.08 K/uL (1.4-6.5); Neutrophils % (auto) 82.1 %; Platelet Count 197 K/uL (130-400); RDW Standard Deviation 48.1 fL (36.4-46.3); Red Blood Count 4.46 M/uL (4.2-5.4); White Blood Count 15.93 K/uL (4.8-10.8)
[2021-04-15 05:54] LABS: Alanine Aminotransferase 20 (12-78); Albumin Level 2.6 gm/dl (3.4-5.0); Aspartate Aminotransferase 12 U/L (15-37); BUN Creatinine Ratio 29.8 (10-20); Blood Urea Nitrogen 25 mg/dl (7-18); Calcium 9.3 mg/dl (8.5-10.1); Carbon Dioxide 25 mmol/L (21-32); Chloride 110 mmol/L (98-107); Creatinine Clr Calc Pharmacy 59.6 ml/min; Est GFR (African American) 75.5 ml/min; Est GFR (Non-African American) 65.2 ml/min; Glucose 106 mg/dl (70-99); Potassium 3.5 mmol/L (3.5-5.1); Sodium 141 mmol/L (136-145)
[2021-04-15 05:59] LABS: Albumin Globulin Ratio 0.7 (0.9-2); Alkaline Phosphatase 64 U/L (45-117); Bilirubin,Total 0.4 mg/dl (0.2-1); Globulin 3.8 gm/dl (2.5-4.0); Total Protein 6.4 gm/dl (6.4-8.2); Troponin I < 0.015 ng/ml (0-0.045)
--- NOTE | 2021-04-15 07:06 | CT Scan Report ---
CT SCAN OF THE BRAIN WITHOUT IV CONTRAST CLINICAL HISTORY: Fall. Syncope. COMPARISON STUDY: CT of the brain dated 08/07/2017. TECHNIQUE: Unenhanced axial CT scan of the brain is performed from the vertex to the skull base. A do se lowering technique was utilized adhering to the principles of ALARA. CT DOSE: 537.48 mGy.cm FINDINGS: Brain parenchyma: There are age-related involutional changes noting mild subcortical and periventric ular microangiopathic change. There is no hemorrhage, mass effect, or evidence of acute territorial i schemia by CT criteria. Frey-white matter differentiation is preserved. A 5 mm colloid cyst is noted at the roof of the third ventricle. This is unchanged from prior studies. No extra-axial fluid collec tion is seen. Ventricles, sulci, cisterns: Prominent secondary to involutional change. Intracranial vasculature: There is atherosclerotic calcification of the cavernous carotid and vertebr al arteries. Calvarium: The skeletal structures are osteopenic. No depressed calvarial fracture is identified. Sinuses and mastoids: There is mild mucosal thickening within the ethmoid sinuses. There is subtotal opacification of the left sphenoid sinus. Fluid is noted in the right maxillary antrum. The mastoid a ir cells are well pneumatized. Orbits: The bony orbits are grossly intact. There are bilateral ocular lens implants. IMPRESSION: There is no hemorrhage, mass effect, or evidence of acute territorial ischemia by CT crit erstarr. ACT 112: Negative or not required by law. Electronically signed by: Jame Gary M.D. 04/15/2021 7:04 AM
--- NOTE | 2021-04-15 07:39 | XRay Report ---
SINGLE VIEW CHEST CLINICAL HISTORY: Generalized weakness. FINDINGS: An AP, portable, upright chest radiograph is compared to study dated 08/16/2020. The heart i s top normal for projection noting atherosclerotic calcification of the thoracic aorta. Enlargement o f the central pulmonary arteries suggests pulmonary artery hypertension. Emphysematous change is susp ected. There are bibasilar opacities, likely representing scarring/atelectasis. This is greater on th e left. No airspace consolidation or large pleural effusion is identified. Question a 2 cm left perih ilar nodule. No pneumothorax is seen. The skeletal structures are osteopenic. The bony thorax is joe sly intact. Degenerative change and scoliosis are noted in the thoracic spine. IMPRESSION: 1. Asymmetric left basilar opacities could represent scarring/atelectasis versus a mild infectious/in flammatory pneumonitis. Clinical correlation will be required. 2. Question a 2 cm left perihilar nodule. Although this may represent a normal pulmonary vessel, a ch est CT is recommended in follow-up to exclude the possibility of underlying pulmonary lesion. ACT 112: Positive. There are findings on this exam that require communication between the performing entity and the patient following Patient Test Result Information Act ([place] Act 112) guidelines. Electronically signed by: Jame Gary M.D. 04/15/2021 7:37 AM
[2021-04-15] MEDS: LOSARTAN POTASSIUM 50 MG TAB PO SCH (09:05)
[2021-04-15] MEDS: OMEGA-3 (PURIFIED FISH OIL) 1 GM CAP PO SCH ×2 (09:05→22:20)
[2021-04-15] MEDS: POTASSIUM CHLORIDE CRTAB 20 MEQ TABCR PO SCH ×2 (09:05→19:59)
[2021-04-15] MEDS: ISOSORBIDE MONO EXTENDED REL 60 MG TABCR PO SCH (09:05)
[2021-04-15] MEDS: FEXOFENADINE HCL 180 MG TAB PO SCH (09:05)
[2021-04-15] MEDS: METOPROLOL SUCC 50MG EXT REL TAB PO SCH (09:05)
[2021-04-15] MEDS: CALCIUM CARBONATE 1250MG TAB PO SCH ×2 (09:05→22:17)
[2021-04-15] MEDS: THEOPHYLLINE 300MG EXTENDED REL TAB PO SCH ×2 (09:05→22:22)
--- NOTE | 2021-04-15 10:49 | XCELERA ---
[id number]
[2021-04-15] MEDS: ASPIRIN 81 MG ECTAB PO SCH (11:58)
[2021-04-15] MEDS: DOCUSATE SODIUM 100 MG CAP PO SCH ×2 (11:59→19:59)
[2021-04-15] MEDS: ENOXAPARIN INJ 30 MG/0.3 ML SYR SQ SCH (12:00)
[2021-04-15] MEDS: FLUTICASONE/VILANTEROL 100/25MCG 14 PUFFS/INHALER INH SCH (12:00)
[2021-04-15] MEDS: MULTIVITAMIN TAB PO SCH (12:01)
--- NOTE | 2021-04-15 17:25 | Hospitalist Progress Note ---
Date of Service April 15, 2021 Assessment & Plan (1) Syncope: Plan: Marlen Tomlinson is a 80 yo female with PMHx of DM, HTN, COPD, asthma, HLD, CAD, and constipation who was admitted to [facility] on 04/14/21 due to syncopal episode, weakness, and UTI. Syncope - Syncopal episode 04/14 while patient was shopping with family - Patient denies persistent chest pain and reports being asymptomatic at this point - Head CT 04/14 negative for acute process - Troponin neg x2 - EKG w/ NSR at 73, LAD, incomplete RBBB - TTE 04/15: LVEF 65-70%. NO regional wall motion abnormalities. Mild cLVH. Normal RVSP. Possible PFO. - Possibly sec to infection - Continue to monitor on telemetry - PT/OT evaluations, pending Acute UTI w/ leukocytosis - UA on admission: trace blood, positive nitrite, 1+ leuk esterase, > 30 WBC, 4+ bacteria - Urine C&S is pending - Continue treatment with Ceftriaxone 1g IV daily for at least 3 days (last day 04/16/21 pending C&S) Leukocytosis - Leukocytosis 18.3 on admission; slight improvement to 15.93 today. - Abx therapy with ceftriaxone for acute UTI as noted above - Blood cx pending Chronic conditions Hypertension: continue metoprolol, losartan, and isosorbide mononitrite CAD: continue ASA w/ additional medications for HTN and HLD as noted HLD: continue simvastatin COPD: continue Advair and theophylline Dementia: continue memantine FENGI: heart healthy diet DVT ppx: lovenox Dispo: Code status: FULL CODE (2) Acute UTI: (3) Leukocytosis: (4) Dementia: (5) Heart disease: (6) Hypertension: (7) COPD (chronic obstructive pulmonary disease): Admission and Anticipated Discharge Date Admission Date: April 14, 2021 Supervising Physician Co-Signing Physician Notes Resident Physician Supervision Note: I independently interviewed and examined the patient and verified the miramontes history and physical, reviewed labs and image studies and agree with resident Dr. Singh findings and care plan. Subjective Patient seen and evaluated at bedside this morning. No specific complaints or concerns. Denies fever, chills, CP, SOB, cough, BOWLES, lightheadedness, dizziness, abd pain, nausea, or vomiting. Is eating well. No reported change in urine output or bowel habits. Review of Systems Review of Systems: See HPI Physical Exam Physical Exam: GENERAL: No acute distress. Well developed and well nourished. Vital signs reviewed as above. EYES: EOMI. Anicteric sclerae. HENT: Moist mucous membranes. RESPIRATORY: Clear to auscultation bilaterally. No wheezing, rales, or rhonchi. CARDIOVASCULAR: Regular rate and rhythm. No murmur. ABDOMEN: Soft, non-tender and non-distended. No palpable masses. Normal bowel sounds. EXTREMITIES: No edema. Non-tender. SKIN: Warm, dry. NEUROLOGIC: A/O x2 (person and time) but not to place or situation. No focal neurological deficits. PSYCHIATRIC: Cooperative. Appropriate mood and affect. Results & Data Results & Data ([facility]) Vital Signs (Past 12 Hours) Vital Signs Temp Pulse Pulse Resp BP BP Pulse Ox 04/15/21 16:10 67 21 199/101 H 97 04/15/21 16:00 66 22 04/15/21 15:50 63 20 04/15/21 15:40 70 21 04/15/21 15:30 65 23 04/15/21 15:20 67 25 H 04/15/21 15:10 74 21 04/15/21 15:00 75 17 04/15/21 14:50 66 22 04/15/21 14:40 66 26 H 04/15/21 14:30 71 22 04/15/21 14:20 67 24 04/15/21 14:10 67 24 04/15/21 14:00 66 28 H 04/15/21 13:50 76 26 H 04/15/21 13:40 68 25 H 04/15/21 13:30 81 20 04/15/21 13:20 74 20 04/15/21 13:10 69 27 H 04/15/21 13:00 75 27 H 04/15/21 12:50 62 22 04/15/21 12:40 71 21 04/15/21 12:30 63 25 H 189/96 H 04/15/21 12:20 69 24 93 04/15/21 12:10 65 17 94 04/15/21 12:00 68 18 92 04/15/21 11:50 63 21 04/15/21 11:40 67 18 04/15/21 11:30 63 22 04/15/21 11:20 67 21 04/15/21 11:10 68 17 186/96 H 94 04/15/21 11:00 71 24 04/15/21 10:50 67 29 H 04/15/21 10:40 73 16 04/15/21 10:30 68 15 04/15/21 10:20 64 23 04/15/21 10:10 66 21 04/15/21 10:00 70 20 04/15/21 09:50 66 22 04/15/21 09:40 60 21 04/15/21 09:30 63 16 04/15/21 09:20 68 21 04/15/21 09:10 66 18 04/15/21 09:00 36.8 C 69 68 16 181/103 H 96 04/15/21 08:50 68 95 04/15/21 08:40 65 94 04/15/21 08:30 61 94 04/15/21 08:20 64 94 04/15/21 08:10 60 95 04/15/21 08:00 63 94 Pulse Ox 04/15/21 16:10 04/15/21 16:00 04/15/21 15:50 04/15/21 15:40 04/15/21 15:30 04/15/21 15:20 04/15/21 15:10 04/15/21 15:00 04/15/21 14:50 04/15/21 14:40 04/15/21 14:30 04/15/21 14:20 04/15/21 14:10 04/15/21 14:00 04/15/21 13:50 04/15/21 13:40 04/15/21 13:30 04/15/21 13:20 04/15/21 13:10 04/15/21 13:00 04/15/21 12:50 04/15/21 12:40 04/15/21 12:30 04/15/21 12:20 04/15/21 12:10 04/15/21 12:00 04/15/21 11:50 04/15/21 11:40 04/15/21 11:30 04/15/21 11:20 04/15/21 11:10 04/15/21 11:00 04/15/21 10:50 04/15/21 10:40 04/15/21 10:30 04/15/21 10:20 04/15/21 10:10 04/15/21 10:00 04/15/21 09:50 04/15/21 09:40 04/15/21 09:30 04/15/21 09:20 04/15/21 09:10 04/15/21 09:00 96 04/15/21 08:50 04/15/21 08:40 04/15/21 08:30 04/15/21 08:20 04/15/21 08:10 04/15/21 08:00 Laboratory Results 04/15/21 04/15/21 04/14/21 Range/Units 05:02 05:02 22:37 WBC 15.93 H RBC 4.46 Hgb 14.1 Hct 41.9 MCV 93.9 MCH 31.6 MCHC 33.7 RDW Std Deviation 48.1 H RDW Coeff of Ede 14.0 Plt Count 197 MPV 10.6 H Immature Gran % (Auto) 0.3 Neut % (Auto) 82.1 Lymph % (Auto) 11.9 [place] % (Auto) 5.5 Eos % (Auto) 0.1 Baso % (Auto) 0.1 Neut # (Auto) 13.08 H Lymph # (Auto) 1.90 [place] # (Auto) 0.88 H Eos # (Auto) 0.01 Baso # (Auto) 0.01 Immature Gran # (Auto) 0.05 H Absolute Nucleated RBC Nucleated RBC % (auto) Neutrophils % (Manual) Band Neutrophils % Lymphocytes % (Manual) Prolymphocyte % Reactive Lymphs % (Man) Monocytes % (Manual) Eosinophils % (Manual) Basophils % (Manual) Metamyelocytes % (Man) Myelocytes % (Man) Promyelocytes % (Man) Blast Cells % (Manual) Plasma Cell % (Manual) Other Cells % Nucleated RBC % Neutrophils # (Manual) Band Neutrophils # Total Absolute Neuts Lymphocytes # (Manual) Prolymphocyte # Reactive Lymphs # Total Abs Lymphocytes Monocytes # (Manual) Eosinophils # (Manual) Basophils # (Manual) Metamyelocytes # (Man) Myelocytes # (Manual) Promyelocytes # (Man) Blast Cells # (Man) Plasma Cell # (Manual) Other Cells # Nucleated RBCs # (Man) Hypersegmented Neuts Hyposegmented Neuts Hypogranular Neuts Large Granular Lymphs # Lrg Granular Lymphs Hairy Cells Smudge Cells Toxic Granulation Toxic Vacuolation Dohle Bodies Chetan Rods Platelet Estimate Hypogranular Platelets Clumped Platelets Giant Platelets Platelet Satelliting RBC Morphology Polychromasia Hypochromasia Poikilocytosis Basophilic Stippling Anisocytosis Microcytosis Macrocytosis Spherocytes Pappenheimer Bodies Sickle Cells Target Cells Tear Drop Cells Ovalocytes Stomatocytes [place]ore Bodies Echinocytes Acanthocytes (Spur) Rouleaux RBC Agglutinates Schistocytes RBC Morph Comment Sezary Cell Sodium 141 Potassium 3.5 Chloride 110 H Carbon Dioxide 25 Anion Gap 6.0 BUN 25 H Creatinine 0.85 Est Cr Clr Drug Dosing 59.6 Est GFR ( Amer) 75.5 Est GFR (Non-Af Amer) 65.2 BUN/Creatinine Ratio 29.8 H Glucose 106 H Lactate 1.1 (0.4-2.0) mmol/L Calcium 9.3 Magnesium Total Bilirubin 0.4 AST 12 L ALT 20 Alkaline Phosphatase 64 Troponin I < 0.015 Total Protein 6.4 Albumin 2.6 L Globulin 3.8 Albumin/Globulin Ratio 0.7 L TSH Urine Color Urine Appearance (Clear) Urine pH (4.5-7.5) Ur Specific [place] (1.000-1.030) Urine Protein (Negative) Urine Glucose (UA) (Negative) Urine Ketones (Negative) Urine Blood (Negative) Urine Nitrite (Negative) Urine Bilirubin (Negative) Urine Urobilinogen (Negative) Ur Leukocyte Esterase (Negative) Urine WBC (Auto) (0-5) /hpf Urine RBC (Auto) (0-4) /hpf U Hyaline Cast (Auto) (0-5) /lpf U Epithel Cells (Auto) (0-5) /lpf Urine Bacteria (Auto) (Negative) SARS-CoV-2, RNA, NAAT (NEGATIVE) 04/14/21 04/14/21 04/14/21 Range/Units 21:49 21:41 20:25 WBC RBC Hgb Hct MCV MCH MCHC RDW Std Deviation RDW Coeff of Ede Plt Count MPV Immature Gran % (Auto) Neut % (Auto) Lymph % (Auto) [place] % (Auto) Eos % (Auto) Baso % (Auto) Neut # (Auto) Lymph # (Auto) [place] # (Auto) Eos # (Auto) Baso # (Auto) Immature Gran # (Auto) Absolute Nucleated RBC Nucleated RBC % (auto) Neutrophils % (Manual) Band Neutrophils % Lymphocytes % (Manual) Prolymphocyte % Reactive Lymphs % (Man) Monocytes % (Manual) Eosinophils % (Manual) Basophils % (Manual) Metamyelocytes % (Man) Myelocytes % (Man) Promyelocytes % (Man) Blast Cells % (Manual) Plasma Cell % (Manual) Other Cells % Nucleated RBC % Neutrophils # (Manual) Band Neutrophils # Total Absolute Neuts Lymphocytes # (Manual) Prolymphocyte # Reactive Lymphs # Total Abs Lymphocytes Monocytes # (Manual) Eosinophils # (Manual) Basophils # (Manual) Metamyelocytes # (Man) Myelocytes # (Manual) Promyelocytes # (Man) Blast Cells # (Man) Plasma Cell # (Manual) Other Cells # Nucleated RBCs # (Man) Hypersegmented Neuts Hyposegmented Neuts Hypogranular Neuts Large Granular Lymphs # Lrg Granular Lymphs Hairy Cells Smudge Cells Toxic Granulation Toxic Vacuolation Dohle Bodies Chetan Rods Platelet Estimate Hypogranular Platelets Clumped Platelets Giant Platelets Platelet Satelliting RBC Morphology Polychromasia Hypochromasia Poikilocytosis Basophilic Stippling Anisocytosis Microcytosis Macrocytosis Spherocytes Pappenheimer Bodies Sickle Cells Target Cells Tear Drop Cells Ovalocytes Stomatocytes Escobedo-Dushore Bodies Echinocytes Acanthocytes (Spur) Rouleaux RBC Agglutinates Schistocytes RBC Morph Comment Sezary Cell Sodium 137 Potassium 3.6 Chloride 107 Carbon Dioxide 24 Anion Gap 6.0 BUN 28 H Creatinine 0.91 Est Cr Clr Drug Dosing Not Reportable Est GFR ( Amer) 69.5 Est GFR (Non-Af Amer) 60.0 BUN/Creatinine Ratio 30.7 H Glucose 131 H Lactate (0.4-2.0) mmol/L Calcium 9.4 Magnesium Total Bilirubin 0.6 AST 15 ALT 22 Alkaline Phosphatase 74 Troponin I < 0.015 Total Protein 6.8 Albumin 3.1 L Globulin 3.7 Albumin/Globulin Ratio 0.8 L TSH Urine Color Yellow Urine Appearance Clear (Clear) Urine pH 7.0 (4.5-7.5) Ur Specific [place] 1.015 (1.000-1.030) Urine Protein Negative (Negative) Urine Glucose (UA) Negative (Negative) Urine Ketones Negative (Negative) Urine Blood Trace H (Negative) Urine Nitrite Positive A (Negative) Urine Bilirubin Negative (Negative) Urine Urobilinogen Negative (Negative) Ur Leukocyte Esterase 1+ H (Negative) Urine WBC (Auto) >30 H (0-5) /hpf Urine RBC (Auto) 0-4 (0-4) /hpf U Hyaline Cast (Auto) 1-5 (0-5) /lpf U Epithel Cells (Auto) 0-5 (0-5) /lpf Urine Bacteria (Auto) 4+ H (Negative) SARS-CoV-2, RNA, NAAT NEGATIVE (NEGATIVE) 04/14/21 04/14/21 04/14/21 Range/Units 20:25 20:00 20:00 WBC 18.30 H Cancelled RBC 4.64 Cancelled Hgb 15.2 Cancelled Hct 44.0 Cancelled MCV 94.8 Cancelled MCH 32.8 Cancelled MCHC 34.5 Cancelled RDW Std Deviation 48.1 H Cancelled RDW Coeff of Ede 13.9 Cancelled Plt Count 211 Cancelled MPV 10.3 Cancelled Immature Gran % (Auto) 0.2 Cancelled Neut % (Auto) 87.4 Cancelled Lymph % (Auto) 6.3 Cancelled [place] % (Auto) 6.0 Cancelled Eos % (Auto) 0.0 Cancelled Baso % (Auto) 0.1 Cancelled Neut # (Auto) 16.00 H Cancelled Lymph # (Auto) 1.15 L Cancelled [place] # (Auto) 1.10 H Cancelled Eos # (Auto) 0.00 Cancelled Baso # (Auto) 0.01 Cancelled Immature Gran # (Auto) 0.04 H Cancelled Absolute Nucleated RBC Cancelled Nucleated RBC % (auto) Cancelled Neutrophils % (Manual) Cancelled Band Neutrophils % Cancelled Lymphocytes % (Manual) Cancelled Prolymphocyte % Cancelled Reactive Lymphs % (Man) Cancelled Monocytes % (Manual) Cancelled Eosinophils % (Manual) Cancelled Basophils % (Manual) Cancelled Metamyelocytes % (Man) Cancelled Myelocytes % (Man) Cancelled Promyelocytes % (Man) Cancelled Blast Cells % (Manual) Cancelled Plasma Cell % (Manual) Cancelled Other Cells % Cancelled Nucleated RBC % Cancelled Neutrophils # (Manual) Cancelled Band Neutrophils # Cancelled Total Absolute Neuts Cancelled Lymphocytes # (Manual) Cancelled Prolymphocyte # Cancelled Reactive Lymphs # Cancelled Total Abs Lymphocytes Cancelled Monocytes # (Manual) Cancelled Eosinophils # (Manual) Cancelled Basophils # (Manual) Cancelled Metamyelocytes # (Man) Cancelled Myelocytes # (Manual) Cancelled Promyelocytes # (Man) Cancelled Blast Cells # (Man) Cancelled Plasma Cell # (Manual) Cancelled Other Cells # Cancelled Nucleated RBCs # (Man) Cancelled Hypersegmented Neuts Cancelled Hyposegmented Neuts Cancelled Hypogranular Neuts Cancelled Large Granular Lymphs Cancelled # Lrg Granular Lymphs Cancelled Hairy Cells Cancelled Smudge Cells Cancelled Toxic Granulation Cancelled Toxic Vacuolation Cancelled Dohle Bodies Cancelled Chetan Rods Cancelled Platelet Estimate Cancelled Hypogranular Platelets Cancelled Clumped Platelets Cancelled Giant Platelets Cancelled Platelet Satelliting Cancelled RBC Morphology Cancelled Polychromasia Cancelled Hypochromasia Cancelled Poikilocytosis Cancelled Basophilic Stippling Cancelled Anisocytosis Cancelled Microcytosis Cancelled Macrocytosis Cancelled Spherocytes Cancelled Pappenheimer Bodies Cancelled Sickle Cells Cancelled Target Cells Cancelled Tear Drop Cells Cancelled Ovalocytes Cancelled Stomatocytes Cancelled [place] Bodies Cancelled Echinocytes Cancelled Acanthocytes (Spur) Cancelled Rouleaux Cancelled RBC Agglutinates Cancelled Schistocytes Cancelled RBC Morph Comment Cancelled Sezary Cell Cancelled Sodium Cancelled Potassium Cancelled Chloride Cancelled Carbon Dioxide Cancelled Anion Gap Cancelled BUN Cancelled Creatinine Cancelled Est Cr Clr Drug Dosing Cancelled Est GFR ( Amer) Cancelled Est GFR (Non-Af Amer) Cancelled BUN/Creatinine Ratio Cancelled Glucose Cancelled Lactate (0.4-2.0) mmol/L Calcium Cancelled Magnesium Cancelled Total Bilirubin Cancelled AST Cancelled ALT Cancelled Alkaline Phosphatase Cancelled Troponin I Cancelled Total Protein Cancelled Albumin Cancelled Globulin Cancelled Albumin/Globulin Ratio Cancelled TSH Cancelled Urine Color Urine Appearance (Clear) Urine pH (4.5-7.5) Ur Specific [place] (1.000-1.030) Urine Protein (Negative) Urine Glucose (UA) (Negative) Urine Ketones (Negative) Urine Blood (Negative) Urine Nitrite (Negative) Urine Bilirubin (Negative) Urine Urobilinogen (Negative) Ur Leukocyte Esterase (Negative) Urine WBC (Auto) (0-5) /hpf Urine RBC (Auto) (0-4) /hpf U Hyaline Cast (Auto) (0-5) /lpf U Epithel Cells (Auto) (0-5) /lpf Urine Bacteria (Auto) (Negative) SARS-CoV-2, RNA, NAAT (NEGATIVE) Resident Activity Tracking Resident Involvement: Resident Care Provided Care Provided: Adult Hospital Medicine (1) Leukocytosis Leukocytosis type: unspecified Qualified Code(s): D72.829 - Elevated white blood cell count, unspecified (2) Syncope Syncope type: unspecified Qualified Code(s): R55 - Syncope and collapse
[2021-04-15] MEDS ORDERED: METOPROLOL TARTRATE 1 MG/ML VIAL IV STA (19:47)
[2021-04-15] MEDS ORDERED: SIMVASTATIN 20 MG TAB PO SCH (21:00)
[2021-04-15] MEDS ORDERED: CHOLECALCIFEROL 1,000 UNITS 25 MCG TAB PO SCH (21:00)
[2021-04-15] MEDS ORDERED: SIMVASTATIN 40 MG TAB PO SCH (21:00)
[2021-04-15] MEDS ORDERED: hydrALAZINE HCL 20 MG/ML VIAL IV ONE (21:58)
[2021-04-16] MEDS: cefTRIAXone SODIUM 1,000 MG in DEXTROSE 5% 50 ML IV SCH (04:51)
[2021-04-16 07:07] LABS: Basophils # (auto) 0.02 K/uL (0-0.2); Basophils % (auto) 0.2 %; Eosinophils # (auto) 0.09 K/uL (0-0.5); Eosinophils % (auto) 0.9 %; Hematocrit (blood only) 44.7 % (37-47); Hemoglobin 15.3 g/dL (12.0-16.0); Immature Granulocytes # (auto) 0.04 K/uL (0.00-0.02); Immature Granulocytes % (auto) 0.4 %; Lymphocytes # (auto) 2.03 K/uL (1.2-3.4); Lymphocytes % (auto) 19.8 %; Mean Corpuscular Hemoglobin 32.3 pg (25-34); Mean Corpuscular Hgb Conc 34.2 g/dL (32-36); Mean Corpuscular Volume 94.3 fL (80-100); Mean Platelet Volume 10.7 fL (7.4-10.4); Monocytes # (auto) 0.71 K/uL (0.11-0.59); Monocytes % (auto) 6.9 %; Neutrophils # (auto) 7.35 K/uL (1.4-6.5); Neutrophils % (auto) 71.8 %; Platelet Count 219 K/uL (130-400); RDW Coefficient of Variation 14.3 % (11.5-14.5); RDW Standard Deviation 49.3 fL (36.4-46.3); Red Blood Count 4.74 M/uL (4.2-5.4); White Blood Count 10.24 K/uL (4.8-10.8)
[2021-04-16 07:46] LABS: Albumin Level 2.8 gm/dl (3.4-5.0); BUN Creatinine Ratio 26.6 (10-20); Creatinine Clr Calc Pharmacy 59.6 ml/min; Est GFR (African American) 75.5 ml/min; Est GFR (Non-African American) 65.2 ml/min; Potassium 3.8 mmol/L (3.5-5.1)
[2021-04-16 07:48] LABS: Albumin Globulin Ratio 0.6 (0.9-2); Bilirubin,Total 0.6 mg/dl (0.2-1); Globulin 4.4 gm/dl (2.5-4.0); Total Protein 7.2 gm/dl (6.4-8.2)
[2021-04-16] MEDS: ASPIRIN 81 MG ECTAB PO SCH (08:21)
[2021-04-16] MEDS: CALCIUM CARBONATE 1250MG TAB PO SCH (08:21)
[2021-04-16] MEDS: ISOSORBIDE MONO EXTENDED REL 60 MG TABCR PO SCH (08:21)
[2021-04-16] MEDS: MULTIVITAMIN TAB PO SCH (08:21)
[2021-04-16] MEDS: THEOPHYLLINE 300MG EXTENDED REL TAB PO SCH (08:21)
[2021-04-16] MEDS: OMEGA-3 (PURIFIED FISH OIL) 1 GM CAP PO SCH (08:21)
[2021-04-16] MEDS: FEXOFENADINE HCL 180 MG TAB PO SCH (08:21)
[2021-04-16] MEDS: METOPROLOL SUCC 50MG EXT REL TAB PO SCH (08:21)
[2021-04-16] MEDS: DOCUSATE SODIUM 100 MG CAP PO SCH (08:21)
[2021-04-16] MEDS: LOSARTAN POTASSIUM 50 MG TAB PO SCH (08:21)
[2021-04-16] MEDS: ENOXAPARIN INJ 30 MG/0.3 ML SYR SQ SCH (08:22)
[2021-04-16] MEDS: MEMANTINE HCL 5 MG TAB PO SCH (08:23)
[2021-04-16] MEDS: FLUTICASONE/VILANTEROL 100/25MCG 14 PUFFS/INHALER INH SCH (08:24)
[2021-04-16] MEDS: POTASSIUM CHLORIDE CRTAB 20 MEQ TABCR PO SCH (08:24)
--- NOTE | 2021-04-16 15:38 | Electrocardiogram Report ---
Test Reason : Blood Pressure : / mmHG Vent. Rate : 073 BPM Atrial Rate : 073 BPM P-R Int : 162 ms QRS Dur : 092 ms QT Int : 402 ms P-R-T Axes : 078 -56 029 degrees QTc Int : 442 ms Normal sinus rhythm Left axis deviation Incomplete right bundle branch block Possible Inferior infarct (cited on or before 16-AUG-2020) Abnormal ECG When compared with ECG of 16-AUG-2020 11:12, Premature ventricular complexes are no longer Present Criteria for Septal infarct are no longer Present T wave amplitude has decreased in Anterior leads Confirmed by Baron Frazier ([id number]) on 04/16/2021 3:37:42 PM Referred By: REFERRED SELF Confirmed By:Baron Frazier
[2021-04-16] MEDS ORDERED: hydrALAZINE 10 MG TAB PO ONE (16:14)
[2021-04-16] MEDS ORDERED: METOPROLOL TARTRATE 1 MG/ML VIAL IV STA (16:15)
--- NOTE | 2021-04-16 18:35 | Discharge Summary ---
Date of Service April 16, 2021 Admission HPI Per Admitting Provider The patient is a 80-year-old female with a past medical history including diabetes mellitus, hypertension, COPD, closed head injury, asthma, lumbar vertebral fracture, allergy, hyperlipidemia, CAD and constipation. Her granddaughter, who is with her in the ED this evening, reports that the patient has worse confusion than at her baseline. She reportedly had told the emergency department of chest discomfort, however, she denied any episodes of chest discomfort or shortness of breath with me. Patient does have significant confusion, and her granddaughter, whom she is living with, has not noted any of the symptoms. Admission Exam Per Admitting Provider The patient is awake, moderately confused, has obvious memory and recall issues, developed and well nourished, normocephalic and atraumatic, sitting uprightin bed and in no acute distress. HEENT--PERRL, EOMI, mucous membranes and oropharynx mildly dry. Neck--supple. No JVD. No bruits. Thyroid normal, trachea midline, no adenopathy. Heart--normal S1 and S2. No murmurs, rubs or gallops. Lungs--clear bilaterally, no respiratory distress, no accessory muscle use. Abdomen--normal bowel sounds and soft. Nontender. Nondistended, no hernias or masses, no organomegaly. Extremities--no cyanosis or clubbing. No edema. Dermatologic--normal skin turgor, normal color, no abnormal lymph nodes, no rash. Neurologic--cranial nerves II through XII grossly intact. Rheumatologic--normal range of motion. Psychiatric--normal affect. Principal Diagnosis syncope Discharge Exam GENERAL: Patient seen ambulating in room with PT/OT. No acute distress. Well developed and well nourished. Vital signs reviewed as above. EYES: EOMI. Anicteric sclerae. HENT: Moist mucous membranes. RESPIRATORY: No acute respiratory distress. NEUROLOGIC: Awake and alert. PSYCHIATRIC: Cooperative. Appropriate mood and affect. Discharge Data Allergies Allergy/AdvReac Type Severity Reaction Status Date / Time Antihistamines Allergy Unknown Unknown Uncoded 04/14/21 21:17 Consultations 04/14/21 23:16 ED Decision to Admit Stat Ordered Studies 04/14/21 19:54 CT head/brain wo con Urgent Hospital Course (1) Syncope: Marlen Tomlinson is a 80 yo female with PMHx of DM, HTN, COPD, asthma, HLD, CAD, and constipation who was admitted to [facility] from 04/14/21 to 04/16/21 following a syncopal episode. Syncope - Syncopal episode 04/14 while patient was shopping with family - Patient denies persistent chest pain and reports being asymptomatic at this point - Head CT 04/14 negative for acute process - Troponin neg x2 - EKG w/ NSR at 73, LAD, incomplete RBBB - TTE 04/15: LVEF 65-70%. NO regional wall motion abnormalities. Mild cLVH. Normal RVSP. Possible PFO. - possibly sec to acute illness from acute UTI. Acute UTI w/ leukocytosis - UA on admission: trace blood, positive nitrite, 1+ leuk esterase, > 30 WBC, 4+ bacteria - Urine C&S resulted with pansensitive e. coli. Completed 3 day course of ceftriaxone 1g IV daily prior to discharge. - Patient discharged home with Keflex BID x7 days. Leukocytosis, resolved - Leukocytosis 18.3 on admission; resolved on day of discharge at 10.26 - Abx therapy with ceftriaxone for acute UTI as noted above - Blood cx negative Chronic conditions Hypertension: continue losartan, and isosorbide mononitrite. Home metoprolol discontinued. Patient started on carvedilol 6.25mg po BID started on discharge. CAD: continue ASA w/ additional medications for HTN and HLD as noted HLD: continue simvastatin COPD: continue Advair and theophylline Dementia: continue memantine Disposition - - PT/OT evaluated patient during hospitalization. - PT/OT: recommended discharge to home, a familiar environment, w/ strong family presence and 24/11 safety supervision. (2) Acute UTI: (3) Leukocytosis: (4) Dementia: (5) Heart disease: (6) Hypertension: (7) COPD (chronic obstructive pulmonary disease): Total Time Total Time Spent Total Time Spent (In Minutes): See attending attestation Discharge Plan Discharge Items Patient Disposition: Home - Self-Care Reason For Visit: CONFUSION, UTI Discharge Diagnosis: Syncope and Metabolic Encephalopathy secondary to UTI Condition on Discharge: Fair Activity: Resume your previous activity Activity Comment: as tolerated Non-emergency contact: Primary Care Provider Call non-emergency contact if: you have any medication questions Follow-up/Referrals: Guerita Engel PA-C [Primary Care Provider] - (Please make a follow up appointment with your primary care provider.) Diet: Heart Healthy Addtl Attending Provider Instructions: * You were admitted for having an episode where you passed out and were confused. * During hospital stay you were found to have urinary tract infection and were treated with IV antibiotics. Oral antibiotic will be continued on discharge * Your blood pressure was noted to be elevated through the hospital stay. To help with that - metoprolol is being switched to carvedilol for better blood pressure control. - So, you will stop taking metoprolol and instead take this new medicine called carvedilol which is taken twice a day - Please check blood pressure daily and call your family doctor with the readings and take them to the office visit. * Please call family doctor to set up hospital follow up appointment. Pending Studies at Discharge: No Stand-Alone Forms: My [facility] [employer], Smoking Cessation Medications and DC Order Prescriptions: New cephalexin 500 mg capsule 500 mg PO BID 7 Days Qty: 14 RF: 0 carvedilol 6.25 mg tablet 6.25 mg PO BID Qty: 60 RF: 0 Continued multivitamin Tablet 1 tab PO QAM Qty: 0 RF: 0 omega-3 fatty acids [Fish Oil Concentrate] 1,000 mg Capsule 1,000 mg PO BID Qty: 0 RF: 0 fexofenadine 180 mg Tablet 180 mg PO QAM Qty: 0 RF: 0 simvastatin 40 mg Tablet 40 mg PO PM Qty: 0 RF: 0 theophylline 300 mg Tablet Extended Release 12 Hr 300 mg PO Q12H Qty: 0 RF: 0 fluticasone propion-salmeterol [Advair Diskus] 100-50 mcg/dose Blister With Device 1 inh INHALATION BID Qty: 0 RF: 0 Combivent Respimat 20-100 mcg/actuation Mist 1 puff INHALATION QID PRN (Reason: SOB) Qty: 0 RF: 0 aspirin 81 mg Tablet,Delayed Release (Dr/Ec) 81 mg PO QAM Qty: 0 RF: 0 isosorbide mononitrate 60 mg Tablet Extended Release 24 Hr 60 mg PO QAM Qty: 0 RF: 0 losartan 100 mg Tablet 100 mg PO QAM Qty: 0 RF: 0 naproxen 500 mg Tablet 500 mg PO BID PRN (Reason: Pain) Qty: 0 RF: 0 cholecalciferol (vitamin D3) [Vitamin D3] 50 mcg (2,000 unit) Tablet 50 mcg PO PM Qty: 0 RF: 0 docusate sodium 100 mg Tablet 100 mg PO BID Qty: 0 RF: 0 calcium 600 mg Capsule 600 mg PO BID RF: 0 simvastatin 20 mg Tablet 20 mg PO PM RF: 0 memantine 5 mg tablet 5 mg PO BID RF: 0 potassium chloride 10 mEq tablet extended release 20 meq PO BID RF: 0 Discontinued metoprolol succinate 50 mg tablet extended release 24 hr 50 mg PO QAM RF: 0 Discharge Orders: Discharge Order (Routine); Ordered 04/16/21 Ordered By: Sheila Sheets Admission Data Admit Date/Time: 04/14/21 23:53 Attending Provider: Sheila Sheets Admit Provider: Yann Méndez Primary Care Provider: Guerita Engel Other Providers: Yann Méndez Other Interventions: Discharge Summary Assessment (RN) Last Done: 04/16/21 17:02 Supervising Physician Co-Signing Physician Notes Resident Physician Supervision Note: I independently interviewed and examined the patient and verified the miramontes history and physical, reviewed labs and image studies and agree with resident Dr. Singh findings and care plan. Resident Activity Tracking Resident Involvement: Resident Care Provided Care Provided: Adult Hospital Medicine
== END 2021-04-16 18:25 | disposition home or self-care (01) | DRG 312 ==
LOC: ED 19:39 → EDINP 23:53 → SUATTDRO 23:53 → EDINP 04-15 02:36 → 2N 04-15 19:31
DX: Z87.891 Personal history of nicotine dependence; R55 Syncope and collapse; F03.90 Unspecified dementia, unspecified severity, without behavioral disturbance, psychotic disturbance, mood disturbance, and anxiety; E78.5 Hyperlipidemia, unspecified; Z88.8 Allergy status to other drugs, medicaments and biological substances; N39.0 Urinary tract infection, site not specified; Z79.82 Long term (current) use of aspirin; J44.9 Chronic obstructive pulmonary disease, unspecified; G93.41 Metabolic encephalopathy; Z79.899 Other long term (current) drug therapy; R07.2 Precordial pain; B96.20 Unspecified Escherichia coli [E. coli] as the cause of diseases classified elsewhere; I25.10 Atherosclerotic heart disease of native coronary artery without angina pectoris; I10 Essential (primary) hypertension; Z87.828 Personal history of other (healed) physical injury and trauma; Z79.51 Long term (current) use of inhaled steroids; D72.829 Elevated white blood cell count, unspecified

== ENCOUNTER 2021-11-06 07:49 | Inpatient (IN) ==
--- NOTE | 2021-11-06 08:38 | Emergency Department Note ---
Impression & Plan Hypoxia, Hypertension, Acute exacerbation of chronic obstructive pulmonary disease ED Provider Note NAME: SARINA SHETH AGE: 81 SEX: F : 1940 ARRIVES VIA: Walk-In INFORMANT: Patient, ED PROVIDER(S): Ector Farmer MD Chief Complaint: Shortness of breath, hypertension HPI: Patient presents due to concern for hypertension worsening shortness of breath. The patient was recently seen last Thursday where the patient did have an elevation in blood pressure but was sent home at that time. Was noted on the patient's CAT scan that the patient does have some dilation of the thoracic aorta as well as some pulmonary nodules. The patient is a former smoker with a known history of COPD. Patient does take Coreg as well as losartan and Imdur and recently had an increase to where the patient is doubling her Imdur. Patient did not take that this morning. No recent changes other than the Imdur with regards to medications. The patient's granddaughter at bedside provides most of the history as the patient has a history of dementia. Patient does complain of some shortness of breath and does have productive cough with sputum that is discolored. Patient is not typically on oxygen. Upon presentation the patient was 89%. Patient does have a recent history of right lower extremity swelling compared to the left but the patient had a recent negative DVT ultrasound. ROS: See HPI for pertinent positives and negatives. A total of 10 systems were reviewed and otherwise negative. Past medical history: See below Surgical history: See below Social history: See below Physical Exam: GENERAL: NAD, wearing glasses, wearing a mask, non-toxic. EYE EXAM: Normal conjunctiva. PERRL, no anisocoria and EOM's grossly intact w/o pain. NECK: Supple, no nuchal rigidity, no adenopathy, non-tender. No signs of meningismus. FROM of the neck with good chin to chest and neck extension. No stridor. LUNGS: Clear to auscultation. Normal chest wall mechanics. HEART: NSR, no MRG. ABDOMEN: Abdomen soft, non-tender, normo-active bowel sounds, no masses, no rebound or guarding. BACK: No CVA TTP. SKIN: No rashes and no bruising. UPPER EXTREMITIES: Upper extremities are grossly normal. LOWER EXTREMITIES: Grossly normal but slightly right greater than left lower extremity swelling but nonpitting. Negative Homans' sign and no calf pain or erythema NEURO EXAM: A&O x3, cranial nerves II-XII grossly intact, normal speech, moves all 4 extremities on command w/o issue. Differential diagnoses: Reactive airway disease, pneumonia, pneumothorax, COPD, CHF, infections, cardiac ischemia, pulmonary embolism, musculoskeletal, gastrointestinal, as well as other pathologies. Course: Patient was seen and evaluated the bedside. Full history physical exam was performed. EKG interpreted by me Sinus rhythm, rate of 63, normal intervals, left axis deviation, borderline elevation in V2. Patient's EKG looks relatively unchanged from comparison completed October 30, 2021. Imaging Studies: See Below Cardiac monitoring: An order was placed for continuous cardiac monitoring. The monitor shows a rate of 75 with sinus rhythm. MDM: Patient presented for shortness of breath and hypertension. Home Imdur was ordered blood work was obtained along with a VBG chest x-ray and COVID swab. The patient treated symptomatically for COPD exacerbation as patient had wheezing. The patient was given DuoNeb steroids mag and is a throat given a COPD exacerbation with productive sputum. Patient on reassessment had mild improvement in symptoms. Given patient's new oxygen requirement with likely COPD exacerbation do believe the patient would benefit from admission at this time. I did speak with the on-call hospitalist Dr. Pelaez and the patient was admitted to the medicine service. Of note the patient did have mild elevation anteriorly but do not believe that this is a STEMI. The patient's prior EKG appears relatively unchanged with similar morphology at that time. The patient's and his troponin does not elevated. This x-ray shows cardiomegaly and emphysematous change. Also of note the patient did have a recent negative DVT study of the right lower extremity. Do not believe this warrants repeating at this time. Critical Care: I have personally spent 35 minutes of critical care time in direct management of this patient. This includes bedside care, interpretation of diagnostic studies, and testing, discussion with consultants, patient, and family members, and other require inpatient management activities. This 35 minutes is in excess of all separately billable procedures. Past Med/Surg History Medical History COPD (chronic obstructive pulmonary disease) Dementia Diabetes Heart disease Hypertension No pertinent family history Surgical History S/P cataract extraction and insertion of intraocular lens b/l Family History Other Family history unknown Social History Smoking Status: Former smoker Tobacco Type: Cigarettes Cigarettes Per Day: minimal amount of tobacco at age 20yo only; Second Hand Exposure: No; Hx Alcohol Use: No Hx Substance Use: No Preferred Language: Kazakh Communication Ability: Effective Commercial Collections Driver Required: No Beliefs That Will Affect Care: None marital status: / Current Living Situation: Family Current Living Situation Comment: Lives with granddaughter Tashi. current occupational status: retired current occupation: worked at "[employer]" How many Children do You have: 4 How many Children do You have Comment: 2 sons, 2 daughters Feels Safe at Home: Yes Assistive Devices: Cane Allergies Allergies Allergy/AdvReac Type Severity Reaction Status Date / Time Antihistamines Allergy Unknown CAN'T Uncoded 10/30/21 19:36 REMEMBER Home Meds Home Medications Medication Instructions Recorded Confirmed aspirin 81 mg tablet,delayed 81 mg PO QAM #0 03/14/17 10/30/21 release fexofenadine 180 mg tablet 180 mg PO QAM #0 tab 03/14/17 10/30/21 multivitamin 1 tab PO QAM #0 03/14/17 10/30/21 simvastatin 40 mg tablet 40 mg PO PM #0 tab 03/14/17 10/30/21 theophylline 300 mg 300 mg PO Q12H #0 tab 03/14/17 10/30/21 tablet,extended release,12 hr isosorbide mononitrate 60 mg 60 mg PO QAM #0 tab 08/07/17 10/30/21 tablet,extended release 24 hr losartan 100 mg tablet 100 mg PO QAM #0 tab 08/07/17 10/30/21 naproxen 500 mg tablet 500 mg PO BID PRN #0 tab 08/07/17 10/30/21 docusate sodium 100 mg tablet 100 mg PO BID #0 11/19/17 10/30/21 memantine 5 mg tablet 5 mg PO BID 08/16/20 10/30/21 simvastatin 20 mg tablet 20 mg PO PM 08/16/20 10/30/21 potassium chloride 10 mEq 20 meq PO BID 04/14/21 10/30/21 tablet,extended release calcium carbonate 600 mg-vitamin 1 tab PO BID 10/30/21 10/30/21 D3 5 mcg (200 unit) tablet (Calcium 600 + D(3)) donepezil 5 mg tablet (Aricept) 5 mg PO BID 10/30/21 10/30/21 fluticasone fur. 200 mcg-umeclid 1 inh INHALATION QPM 10/30/21 10/30/21 62.5 mcg-vilant 25 mcg inhalat.powder (Trelegy Ellipta) nitrofurantoin 100 mg PO BID 10/30/21 10/30/21 monohydrate/macrocrystals 100 mg capsule (Macrobid) omega-3 fatty acids 1,000 mg 1,000 mg PO BID 10/30/21 10/30/21 capsule Previous Rx's Medication Instructions Recorded carvedilol 6.25 mg tablet 6.25 mg PO BID #60 tab 04/16/21 Results & Data (ED) Vital Signs Vital Signs - 24 hr 11/06/21 08:12 11/06/21 08:52 11/06/21 09:00 Temperature 36.5 C Temperature Source Temporal Artery Scan Pulse Rate 76 61 Pulse Rate [Right Finger] 65 Pulse Rhythm Regular Pulse Rhythm [Right Finger] Regular Pulse Strength [Right Finger] Normal Respiratory Rate 17 17 Respiratory Effort / Characteristics Non-Labored Non-Labored Spontaneous Respiratory Depth Normal Normal Respiratory Pattern Regular Blood Pressure 164/94 H Blood Pressure [Right Arm] 165/113 H Blood Pressure Mean 117 Blood Pressure Mean [Right Arm] 130 Blood Pressure Position [Right Arm] Lying Pulse Oximetry 89 L 96 94 Oxygen Delivery Method Room Air Room Air Nasal Cannula Oxygen Flow Rate 2 Sepsis Recent Fever Within 48 Hours No Sepsis New/Unexplained Change in Mental Status N/A Sepsis Action Taken by Nursing No Action Required 11/06/21 10:00 11/06/21 11:00 11/06/21 11:15 Temperature Temperature Source Pulse Rate Pulse Rate [Right Finger] 61 62 Pulse Rhythm Pulse Rhythm [Right Finger] Regular Regular Pulse Strength [Right Finger] Normal Normal Respiratory Rate 17 18 Respiratory Effort / Characteristics Non-Labored Spontaneous Non-Labored Spontaneous Respiratory Depth Normal Normal Respiratory Pattern Regular Blood Pressure Blood Pressure [Right Arm] 162/94 H 143/90 H Blood Pressure Mean Blood Pressure Mean [Right Arm] 116 107 Blood Pressure Position [Right Arm] Lying Pulse Oximetry 93 94 Oxygen Delivery Method Nasal Cannula Nasal Cannula Oxygen Flow Rate 2 2 Sepsis Recent Fever Within 48 Hours Sepsis New/Unexplained Change in Mental Status Sepsis Action Taken by Care Home Medications Current Medication List: was personally reviewed by me Laboratory Data Attestation: I reviewed the patient's lab results. Result diagrams: 11/06/21 09:23 11/06/21 10:00 Lab Results 11/06/21 11/06/21 11/06/21 Range/Units 09:23 09:23 09:23 WBC 8.06 (4.8-10.8) K/uL RBC 4.82 (4.2-5.4) M/uL Hgb 14.7 (12.0-16.0) g/dL Hct 43.3 (37-47) % MCV 89.8 (80-100) fL MCH 30.5 (25-34) pg MCHC 33.9 (32-36) g/dL RDW Std Deviation 49.1 H (36.4-46.3) fL RDW Coeff of Ede 15.1 H (11.5-14.5) % Plt Count 289 (130-400) K/uL MPV 9.6 (7.4-10.4) fL Immature Gran % (Auto) 0.5 % Neut % (Auto) 67.7 % Lymph % (Auto) 21.6 % Jess[place] % (Auto) 8.3 % Eos % (Auto) 1.5 % Baso % (Auto) 0.4 % Neut # (Auto) 5.46 (1.4-6.5) K/uL Lymph # (Auto) 1.74 (1.2-3.4) K/uL Jess[place] # (Auto) 0.67 H (0.11-0.59) K/uL Eos # (Auto) 0.12 (0-0.5) K/uL Baso # (Auto) 0.03 (0-0.2) K/uL Immature Gran # (Auto) 0.04 H (0.00-0.02) K/uL PT Cancelled INR Cancelled APTT Cancelled PTT Ratio Cancelled VBG pH (7.36-7.41) VBG pCO2 (38-50) mmHg VBG pO2 mmHg VBG HCO3 mmol/L VBG O2 Saturation % VBG Base Excess mEq/L Sodium 136 (136-145) mmol/L Potassium TNP Chloride 108 H (98-107) mmol/L Carbon Dioxide 20 L (21-32) mmol/L Anion Gap 8 (3-11) BUN 21 (6-23) mg/dl Creatinine 0.76 (0.6-1.2) mg/dl Est Cr Clr Drug Dosing 59.6 ml/min Est GFR ( Amer) 85.9 ml/min Est GFR (Non-Af Amer) 74.1 ml/min BUN/Creatinine Ratio 27.6 H (10-20) Glucose 101 H (70-99(Fasting)) mg/dl Estimat Average Glucose mg/dl Hemoglobin A1c (4.5-5.6) % Calcium 9.5 (8.5-10.1) mg/dl Magnesium 2.1 (1.7-2.4) mg/dl Total Bilirubin 0.5 (0.2-1.0) mg/dl AST TNP ALT 16 (7-52) U/L Alkaline Phosphatase 62 (34-104) U/L Troponin I High Sens 7.5 (0-14) pg/ml Total Protein 6.3 (6.0-8.3) gm/dl Albumin 3.6 (3.4-5.0) gm/dl Globulin 2.7 (2.5-4.0) gm/dl Albumin/Globulin Ratio 1.3 (0.9-2) SARS-CoV-2, RNA, NAAT (NEGATIVE) 11/06/21 11/06/21 11/06/21 Range/Units 09:23 09:59 10:00 WBC (4.8-10.8) K/uL RBC (4.2-5.4) M/uL Hgb (12.0-16.0) g/dL Hct (37-47) % MCV (80-100) fL MCH (25-34) pg MCHC (32-36) g/dL RDW Std Deviation (36.4-46.3) fL RDW Coeff of Ede (11.5-14.5) % Plt Count (130-400) K/uL MPV (7.4-10.4) fL Immature Gran % (Auto) % Neut % (Auto) % Lymph % (Auto) % Jess[place] % (Auto) % Eos % (Auto) % Baso % (Auto) % Neut # (Auto) (1.4-6.5) K/uL Lymph # (Auto) (1.2-3.4) K/uL Jess[place] # (Auto) (0.11-0.59) K/uL Eos # (Auto) (0-0.5) K/uL Baso # (Auto) (0-0.2) K/uL Immature Gran # (Auto) (0.00-0.02) K/uL PT 11.2 INR 1.1 APTT 27.4 PTT Ratio 1.0 VBG pH 7.44 H (7.36-7.41) VBG pCO2 36 L (38-50) mmHg VBG pO2 86 mmHg VBG HCO3 25 mmol/L VBG O2 Saturation 97.9 % VBG Base Excess 0.6 mEq/L Sodium (136-145) mmol/L Potassium Chloride (98-107) mmol/L Carbon Dioxide (21-32) mmol/L Anion Gap (3-11) BUN (6-23) mg/dl Creatinine (0.6-1.2) mg/dl Est Cr Clr Drug Dosing ml/min Est GFR ( Amer) ml/min Est GFR (Non-Af Amer) ml/min BUN/Creatinine Ratio (10-20) Glucose (70-99(Fasting)) mg/dl Estimat Average Glucose mg/dl Hemoglobin A1c (4.5-5.6) % Calcium (8.5-10.1) mg/dl Magnesium (1.7-2.4) mg/dl Total Bilirubin (0.2-1.0) mg/dl AST ALT (7-52) U/L Alkaline Phosphatase (34-104) U/L Troponin I High Sens (0-14) pg/ml Total Protein (6.0-8.3) gm/dl Albumin (3.4-5.0) gm/dl Globulin (2.5-4.0) gm/dl Albumin/Globulin Ratio (0.9-2) SARS-CoV-2, RNA, NAAT NEGATIVE (NEGATIVE) 11/06/21 11/06/21 Range/Units 10:00 10:00 WBC (4.8-10.8) K/uL RBC (4.2-5.4) M/uL Hgb (12.0-16.0) g/dL Hct (37-47) % MCV (80-100) fL MCH (25-34) pg MCHC (32-36) g/dL RDW Std Deviation (36.4-46.3) fL RDW Coeff of Ede (11.5-14.5) % Plt Count (130-400) K/uL MPV (7.4-10.4) fL Immature Gran % (Auto) % Neut % (Auto) % Lymph % (Auto) % [place] % (Auto) % Eos % (Auto) % Baso % (Auto) % Neut # (Auto) (1.4-6.5) K/uL Lymph # (Auto) (1.2-3.4) K/uL [place] # (Auto) (0.11-0.59) K/uL Eos # (Auto) (0-0.5) K/uL Baso # (Auto) (0-0.2) K/uL Immature Gran # (Auto) (0.00-0.02) K/uL PT INR APTT PTT Ratio VBG pH (7.36-7.41) VBG pCO2 (38-50) mmHg VBG pO2 mmHg VBG HCO3 mmol/L VBG O2 Saturation % VBG Base Excess mEq/L Sodium (136-145) mmol/L Potassium 4.1 Chloride (98-107) mmol/L Carbon Dioxide (21-32) mmol/L Anion Gap (3-11) BUN (6-23) mg/dl Creatinine (0.6-1.2) mg/dl Est Cr Clr Drug Dosing ml/min Est GFR ( Amer) ml/min Est GFR (Non-Af Amer) ml/min BUN/Creatinine Ratio (10-20) Glucose (70-99(Fasting)) mg/dl Estimat Average Glucose 117 mg/dl Hemoglobin A1c 5.7 H (4.5-5.6) % Calcium (8.5-10.1) mg/dl Magnesium (1.7-2.4) mg/dl Total Bilirubin (0.2-1.0) mg/dl AST 19 ALT (7-52) U/L Alkaline Phosphatase (34-104) U/L Troponin I High Sens (0-14) pg/ml Total Protein (6.0-8.3) gm/dl Albumin (3.4-5.0) gm/dl Globulin (2.5-4.0) gm/dl Albumin/Globulin Ratio (0.9-2) SARS-CoV-2, RNA, NAAT (NEGATIVE) Administered Medications Albuterol (Albut/Ipratrop 3mg/0.5mg Neb 3 Ml Vial) 3 ml NEB QIDR KATHERIN; Protocol Stop: 12/06/21 14:59 Last Admin: 11/06/21 15:37 Dose: 3 ml Documented by: [id number] Enoxaparin Sodium (Enoxaparin Inj 40 Mg/0.4 Ml Syr) 40 mg SQ Q24H KATHERIN Stop: 12/06/21 14:59 Last Admin: 11/06/21 15:46 Dose: 40 mg Documented by: [id number] Guaifenesin (Guaifenesin 600 Mg Tabcr) 1,200 mg PO Q12 KATHERIN Stop: 12/06/21 14:23 Last Admin: 11/06/21 15:45 Dose: 1,200 mg Documented by: [id number] Nystatin (Nystatin Susp 500,000 U/5 Ml Udc) 5 ml PO QID KATHERIN Stop: 11/16/21 14:44 Last Admin: 11/06/21 15:46 Dose: 5 ml Documented by: [id number] Discontinued Medications Albuterol (Albut/Ipratrop 3mg/0.5mg Neb 3 Ml Vial) 3 ml INH NOW STA Stop: 11/06/21 08:56 Last Admin: 11/06/21 10:19 Dose: 3 ml Documented by: [id number] Azithromycin (Azithromycin 250 Mg Tab) 500 mg PO NOW ONE Stop: 11/06/21 08:56 Last Admin: 11/06/21 10:17 Dose: 500 mg Documented by: [id number] Magnesium Sulfate/Dextrose (Magnesium Sulfate / D5w) 1 gm in 100 mls @ 100 mls/hr IV NOW STA Stop: 11/06/21 09:55 Last Infusion: 11/06/21 11:30 Dose: 0 mls/hr Documented by: [id number] Admin: 11/06/21 10:21 Dose: 100 mls/hr Documented by: [id number] Ampicillin Sodium/Sulbactam Sodium 3,000 mg/ Sodium Chloride 108 mls @ 200 mls/hr IV NOW STA; Protocol Stop: 11/06/21 12:31 Last Infusion: 11/06/21 12:52 Dose: 0 mls/hr Documented by: [id number] Admin: 11/06/21 12:16 Dose: 200 mls/hr Documented by: [id number] Isosorbide Mononitrate (Isosorbide Mononitrate 20 Mg Tab) 60 mg PO NOW STA Stop: 11/06/21 08:57 Last Admin: 11/06/21 10:18 Dose: 60 mg Documented by: [id number] Methylprednisolone (Methylprednisolone 125 Mg/2 Ml Vial) 60 mg IV NOW STA Stop: 11/06/21 08:56 Last Admin: 11/06/21 10:17 Dose: 60 mg Documented by: [id number] Imaging Data Radiologist's Impression: Chest X-Ray 11/06/21 08:55 SINGLE VIEW CHEST CLINICAL HISTORY: Dyspnea. FINDINGS: 2 AP, portable, upright chest radiographs are compared to study dated 10/30/2021. The heart is mildly enlarged noting atherosclerotic calcification of the thoracic aorta. The pulmonary vasculature is noncongested. Emphysema and chronic interstitial thickening similar to previous. There is bibasilar scarr ing/atelectasis. No lobar consolidation or large pleural effusion is identified. No pneumothorax is seen. The skeletal structures are osteopenic. The bony thorax is grossly intact. Degenerative change and scoliosis is noted in the spine. IMPRESSION: Cardiomegaly and emphysema with no acute cardiopulmonary abnormality identified. ACT 112: Negative or not required by law. Electronically signed by: Jame Gary M.D. 11/06/2021 9:43 AM Discharge Plan Visit Data Chief Complaint: Referred by Doctor Stated Complaint: REF BY DR,HIGH BP Discharge Problem: Hypoxia, Hypertension, Acute exacerbation of chronic obstructive pulmonary disease Patient Disposition: Admitted As Inpatient Discharge Instructions Interventions: ED Discharge Assessment Last Done: 11/06/21 14:03
[2021-11-06] MEDS ORDERED: ALBUT/IPRATROP 3MG/0.5MG NEB 3 ML VIAL INH STA (08:55)
[2021-11-06] MEDS ORDERED: methylPREDNISolone 125 MG/2 ML VIAL IV STA (08:55)
[2021-11-06] MEDS ORDERED: AZITHROMYCIN 250 MG TAB PO ONE (08:55)
[2021-11-06] MEDS ORDERED: MAGNESIUM SULFATE / D5W 1 GM/100 ML BAG IV STA (08:56)
[2021-11-06] MEDS ORDERED: ISOSORBIDE MONONITRATE 20 MG TAB PO STA (08:56)
[2021-11-06 09:45] LABS: Basophils # (auto) 0.03 K/uL (0-0.2); Basophils % (auto) 0.4 %; Eosinophils # (auto) 0.12 K/uL (0-0.5); Eosinophils % (auto) 1.5 %; Hematocrit (blood only) 43.3 % (37-47); Hemoglobin 14.7 g/dL (12.0-16.0); Immature Granulocytes # (auto) 0.04 K/uL (0.00-0.02); Immature Granulocytes % (auto) 0.5 %; Lymphocytes # (auto) 1.74 K/uL (1.2-3.4); Lymphocytes % (auto) 21.6 %; Mean Corpuscular Hemoglobin 30.5 pg (25-34); Mean Corpuscular Hgb Conc 33.9 g/dL (32-36); Mean Corpuscular Volume 89.8 fL (80-100); Mean Platelet Volume 9.6 fL (7.4-10.4); Monocytes # (auto) 0.67 K/uL (0.11-0.59); Monocytes % (auto) 8.3 %; Neutrophils # (auto) 5.46 K/uL (1.4-6.5); Neutrophils % (auto) 67.7 %; Platelet Count 289 K/uL (130-400); RDW Coefficient of Variation 15.1 % (11.5-14.5); RDW Standard Deviation 49.1 fL (36.4-46.3); Red Blood Count 4.82 M/uL (4.2-5.4); White Blood Count 8.06 K/uL (4.8-10.8)
--- NOTE | 2021-11-06 09:45 | XRay Report ---
SINGLE VIEW CHEST CLINICAL HISTORY: Dyspnea. FINDINGS: 2 AP, portable, upright chest radiographs are compared to study dated 10/30/2021. The heart is mildly enlarged noting atherosclerotic calcification of the thoracic aorta. The pulmonary vasculat ure is noncongested. Emphysema and chronic interstitial thickening similar to previous. There is biba silar scarring/atelectasis. No lobar consolidation or large pleural effusion is identified. No pneumo thorax is seen. The skeletal structures are osteopenic. The bony thorax is grossly intact. Degenerati ve change and scoliosis is noted in the spine. IMPRESSION: Cardiomegaly and emphysema with no acute cardiopulmonary abnormality identified. ACT 112: Negative or not required by law. Electronically signed by: Jame Gary M.D. 11/06/2021 9:43 AM
[2021-11-06 09:46] LABS: Base Excess VBG 0.6 mEq/L; HCO3 VBG 25 mmol/L; Oxygen Saturation VBG 97.9 %; PCO2 VBG 36 mmHg (38-50); PO2 VBG 86 mmHg; pH VBG 7.44 (7.36-7.41)
[2021-11-06 10:11] LABS: Troponin I High Sensitivity 7.5 pg/ml (0-14)
[2021-11-06 10:28] LABS: Alanine Aminotransferase 16 U/L (7-52); Albumin Globulin Ratio 1.3 (0.9-2); Albumin Level 3.6 gm/dl (3.4-5.0); Alkaline Phosphatase 62 U/L (34-104); Anion Gap 8 (3-11); BUN Creatinine Ratio 27.6 (10-20); Bilirubin,Total 0.5 mg/dl (0.2-1.0); Blood Urea Nitrogen 21 mg/dl (6-23); Calcium 9.5 mg/dl (8.5-10.1); Carbon Dioxide 20 mmol/L (21-32); Chloride 108 mmol/L (98-107); Creatinine Clr Calc Pharmacy 59.6 ml/min; Est GFR (African American) 85.9 ml/min; Est GFR (Non-African American) 74.1 ml/min; Globulin 2.7 gm/dl (2.5-4.0); Glucose 101 mg/dl (70-99(Fasting)); Magnesium 2.1 mg/dl (1.7-2.4); Sodium 136 mmol/L (136-145); Total Protein 6.3 gm/dl (6.0-8.3)
[2021-11-06 10:34] LABS: INR 1.1 (0.9-1.1); Partial Thromboplastin Time 27.4 Seconds (21.0-31.0); Prothrombin Time 11.2 Seconds (9.0-12.0)
[2021-11-06 11:00] LABS: Potassium 4.1 mmol/L (3.5-5.1)
--- NOTE | 2021-11-06 11:19 | History & Physical Report ---
Date of Service November 06, 2021 Assessment & Plan (1) COPD with exacerbation: Plan: Recent CTA chest showed bronchial inflammation as well as tree-in-bud basilar infiltrates. Her symptoms, signs, and radiological findings are all c/w COPD flare. Will Rx with solumedrol 40mg IV BID. Cont home inhalers. Add duonebs qid. Add flutter & incentive paige. Add mucinex. Send sputum for culture. Also send sputum for AFB (see below in #2). She is s/p 5+ days of zithromax. Will continue antibiotics for more typical coverage and anaerobes - start unasyn 3gm IV q6h. While awaiting theophylline level will HOLD the PO theophylline - likely little benefit to her, especially during her active COPD flare. (2) Pneumonia: Plan: CTA chest on 10/30 showed "extensive tree-in-bud nodularity at both lung bases, with milder similar appearing changes in the upper lobes. The appearance is typical for an infectious/inflammatory pneumonitis." Differential includes aspiration vs viral vs LISS vs typicals vs other. Send sputum for bacterial culture; send sputum for AFB (to rule out LISS). Will ask speech to perform swallow eval - r/o any symptoms/signs of aspiration. Recent COVID/flu/RSV negative, and COVID again today is negative. Start unasyn 3gm IV q6h. If any worsening or failure to improve will broaden to include more gram negative coverage. Consider pulmonary consultation as well - would patient need bronchoscopy for deeper cultures & sampling? (3) Pulmonary nodule: Plan: 7 mm and 8 mm pulmonary nodules seen in the right lung. Will consult the [facility] Pulmonary Nodule program. (4) Ascending aortic aneurysm: Plan: 4cm, seen incidentally on CTA chest. Pt's POA (granddaughter) is aware of this finding. No Rx at this time. She needs better BP control. Will need f/u surveillance over the next year, if desired by patient and/or her family. (5) Dementia: Plan: at least moderate, perhaps severe stage. cont aricept. cont namenda. (6) Diabetes: Plan: Check a1c. Glucose level this am was 101 but this was prior to her steroids being started. Plan to check BSGs and institute insulin, if needed. (7) Hypertension: Plan: Poorly controlled. If BPs remain high then add CCB - with high-dose simvastatin cannot use amlodipine thus would trial nifedipine xr 30mg daily. Cont imdur. Cont losartan. Cont coreg BID. (8) DVT prophylaxis: Plan: lovenox once daily (9) Candidiasis of mouth and esophagus: Plan: due to chronic inhaled steroid use. start nystatin solution 5cc qid; swish/spit. (10) Chronic renal failure, stage 3a: Plan: baseline CrCl 45-59. repeat BMP am for stability. Plan: granddaughter, pt's POA, updated at bedside will need PT/OT while here History of Present Illness Chief Complaint: cough, sputum production, shortness of breath Primary Care Provider: Guerita Engel 81yo female with history of COPD, dementia, HTN, and hyperlipidemia presents from home with her granddaughter with about 1 week of worsening shortness of breath with exertion, cough with yellow sputum production, wheezing, and poor appetite. Of note - due to the patient's dementia she is unable to provide much in the way of meaningful history or ROS; thus, most information was obtained from reading the pt's record as well as information provided by her granddaughter. During the last week she has been very weak & fatigued and at one point the granddaughter noted that she was "staggering." On 10/30/21 she was seen in the [facility] ER for her breathing, had CTA chest showing b/l tree-in-bud opacities along with 4cm ascending aortic aneurysm and was discharged to home with a z-pack. Despite taking the z-pack her pulmonary symptoms have progressed. Also during the ER visit her BPs were markedly elevated over 200 systolic. The patient is on Trelegy inhaler daily and albuterol nebs but hasn't used the latter in some time. No sick contacts at home. No recent travel, fevers, or chills. She was a nonsmoker and her did not smoke either. She is not on CPAP or NC O2 at home. The granddaughter was in touch with the patient's PCP in the last 24 hours who advised Mrs Tomlinson to be seen in the ER. Upon arrival to the ER today her O2 sats were 89% in RA. Granddaughter reports that they regularly check her O2 sats at home and typically they run 93-95% at baseline. Allergies Allergy/AdvReac Type Severity Reaction Status Date / Time Antihistamines Allergy Unknown CAN'T Uncoded 10/30/21 19:36 REMEMBER Home Medications Medication Instructions Recorded Confirmed Type aspirin 81 mg tablet,delayed 81 mg PO QAM #0 03/14/17 10/30/21 History release fexofenadine 180 mg tablet 180 mg PO QAM #0 tab 03/14/17 10/30/21 History multivitamin 1 tab PO QAM #0 03/14/17 10/30/21 History simvastatin 40 mg tablet 40 mg PO PM #0 tab 03/14/17 10/30/21 History theophylline 300 mg 300 mg PO Q12H #0 tab 03/14/17 10/30/21 History tablet,extended release,12 hr isosorbide mononitrate 60 mg 60 mg PO QAM #0 tab 08/07/17 10/30/21 History tablet,extended release 24 hr losartan 100 mg tablet 100 mg PO QAM #0 tab 08/07/17 10/30/21 History naproxen 500 mg tablet 500 mg PO BID PRN #0 tab 08/07/17 10/30/21 History docusate sodium 100 mg tablet 100 mg PO BID #0 11/19/17 10/30/21 History memantine 5 mg tablet 5 mg PO BID 08/16/20 10/30/21 History simvastatin 20 mg tablet 20 mg PO PM 08/16/20 10/30/21 History potassium chloride 10 mEq 20 meq PO BID 04/14/21 10/30/21 History tablet,extended release carvedilol 6.25 mg tablet 6.25 mg PO BID #60 tab 04/16/21 10/30/21 Rx calcium carbonate 600 mg-vitamin 1 tab PO BID 10/30/21 10/30/21 History D3 5 mcg (200 unit) tablet (Calcium 600 + D(3)) donepezil 5 mg tablet (Aricept) 5 mg PO BID 10/30/21 10/30/21 History fluticasone fur. 200 mcg-umeclid 1 inh INHALATION QPM 10/30/21 10/30/21 History 62.5 mcg-vilant 25 mcg inhalat.powder (Trelegy Ellipta) nitrofurantoin 100 mg PO BID 10/30/21 10/30/21 History monohydrate/macrocrystals 100 mg capsule (Macrobid) omega-3 fatty acids 1,000 mg 1,000 mg PO BID 10/30/21 10/30/21 History capsule Past Med/Surg History Medical History COPD (chronic obstructive pulmonary disease) Dementia Diabetes Heart disease Hypertension No pertinent family history Surgical History S/P cataract extraction and insertion of intraocular lens b/l Family History Other Family history unknown Social History Smoking Status: Former smoker Tobacco Type: Cigarettes Cigarettes Per Day: minimal amount of tobacco at age 20yo only; Second Hand Exposure: No; Hx Alcohol Use: No Hx Substance Use: No Preferred Language: Namibian Communication Ability: Effective Operations Clerk Required: No Beliefs That Will Affect Care: None marital status: / Current Living Situation: Family Current Living Situation Comment: Lives with granddaughter Tashi. current occupational status: retired current occupation: worked at "[employer]" How many Children do You have: 4 How many Children do You have Comment: 2 sons, 2 daughters Feels Safe at Home: Yes Assistive Devices: Cane Review of Systems Review of Systems: obtained mainly from pt's granddaughter - gen - no fevers or chills; appetite loss x 1 week; fatigue/weak x 1 week eyes - no recent visual changes HENT - no runny nose, ear pain, sore throat; no obvious dysphagia per granddaughter CV - no chest pain, no orthopnea, no edema pulm - cough, sputum production (yellow); +dyspnea and RODRIGEZ GI - no nausea, emesis, diarrhea or pain - no dysuria musculo - no myalgias or arthralgias skin - no rash; occasional bruise endo - h/o pre-diabetes? neuro - no headache or focal motor weakness psych - chronic memory loss Physical Exam Physical Exam: gen - NAD, confused but pleasant; coughing with yellow sputum production eyes - lens implants b/l; PERRL HENT - thrush plaques buccal mucosa; MMM; nose clear neck - no JVD, no masses heart - RRR, s1 s2, no murmur lungs - b/l basilar rales, occasional end-exp wheeze; no increased work of breathing abd - soft NT ND BS+ ext - no edema, right leg is mildly larger than left leg; pulses 2+ b/l skin - occasional bruise but no rashes psych - awake, alert, oriented to person/place only neuro - strength 5/5 x 4 extremities, no facial droop; DTRs 2+ b/l upper and lower ext lymph - no cervical lymph nodes musculo - no joint effusions Results & Data Results & Data ([facility]) Vital Signs (Past 12 Hours) Vital Signs Temp Pulse Pulse Resp BP BP Pulse Ox 11/06/21 11:15 143/90 H 11/06/21 11:00 62 18 94 11/06/21 10:00 61 17 162/94 H 93 11/06/21 09:00 61 17 94 11/06/21 08:52 65 17 165/113 H 96 11/06/21 08:12 36.5 C 76 164/94 H 89 L Laboratory Results Laboratory Results - last 24 hr 11/06/21 11/06/21 11/06/21 09:23 09:23 09:23 WBC 8.06 RBC 4.82 Hgb 14.7 Hct 43.3 MCV 89.8 MCH 30.5 MCHC 33.9 RDW Std Deviation 49.1 H RDW Coeff of Ede 15.1 H Plt Count 289 MPV 9.6 Immature Gran % (Auto) 0.5 Neut % (Auto) 67.7 Lymph % (Auto) 21.6 [place] % (Auto) 8.3 Eos % (Auto) 1.5 Baso % (Auto) 0.4 Neut # (Auto) 5.46 Lymph # (Auto) 1.74 [place] # (Auto) 0.67 H Eos # (Auto) 0.12 Baso # (Auto) 0.03 Immature Gran # (Auto) 0.04 H PT Cancelled INR Cancelled APTT Cancelled PTT Ratio Cancelled VBG pH VBG pCO2 VBG pO2 VBG HCO3 VBG O2 Saturation VBG Base Excess Sodium 136 Potassium TNP Chloride 108 H Carbon Dioxide 20 L Anion Gap 8 BUN 21 Creatinine 0.76 Est Cr Clr Drug Dosing 59.6 Est GFR ( Amer) 85.9 Est GFR (Non-Af Amer) 74.1 BUN/Creatinine Ratio 27.6 H Glucose 101 H Calcium 9.5 Magnesium 2.1 Total Bilirubin 0.5 AST TNP ALT 16 Alkaline Phosphatase 62 Troponin I High Sens 7.5 Total Protein 6.3 Albumin 3.6 Globulin 2.7 Albumin/Globulin Ratio 1.3 Theophylline SARS-CoV-2, RNA, NAAT 11/06/21 11/06/21 11/06/21 09:23 09:59 10:00 WBC RBC Hgb Hct MCV MCH MCHC RDW Std Deviation RDW Coeff of Ede Plt Count MPV Immature Gran % (Auto) Neut % (Auto) Lymph % (Auto) [place] % (Auto) Eos % (Auto) Baso % (Auto) Neut # (Auto) Lymph # (Auto) [place] # (Auto) Eos # (Auto) Baso # (Auto) Immature Gran # (Auto) PT 11.2 INR 1.1 APTT 27.4 PTT Ratio 1.0 VBG pH 7.44 H VBG pCO2 36 L VBG pO2 86 VBG HCO3 25 VBG O2 Saturation 97.9 VBG Base Excess 0.6 Sodium Potassium Chloride Carbon Dioxide Anion Gap BUN Creatinine Est Cr Clr Drug Dosing Est GFR ( Amer) Est GFR (Non-Af Amer) BUN/Creatinine Ratio Glucose Calcium Magnesium Total Bilirubin AST ALT Alkaline Phosphatase Troponin I High Sens Total Protein Albumin Globulin Albumin/Globulin Ratio Theophylline SARS-CoV-2, RNA, NAAT NEGATIVE 11/06/21 11/06/21 10:00 11:27 WBC RBC Hgb Hct MCV MCH MCHC RDW Std Deviation RDW Coeff of Ede Plt Count MPV Immature Gran % (Auto) Neut % (Auto) Lymph % (Auto) [place] % (Auto) Eos % (Auto) Baso % (Auto) Neut # (Auto) Lymph # (Auto) [place] # (Auto) Eos # (Auto) Baso # (Auto) Immature Gran # (Auto) PT INR APTT PTT Ratio VBG pH VBG pCO2 VBG pO2 VBG HCO3 VBG O2 Saturation VBG Base Excess Sodium Potassium 4.1 Chloride Carbon Dioxide Anion Gap BUN Creatinine Est Cr Clr Drug Dosing Est GFR ( Amer) Est GFR (Non-Af Amer) BUN/Creatinine Ratio Glucose Calcium Magnesium Total Bilirubin AST 19 ALT Alkaline Phosphatase Troponin I High Sens Total Protein Albumin Globulin Albumin/Globulin Ratio Theophylline Pending SARS-CoV-2, RNA, NAAT Diagnostic Findings Chest X-Ray 11/06/21 08:55 SINGLE VIEW CHEST CLINICAL HISTORY: Dyspnea. FINDINGS: 2 AP, portable, upright chest radiographs are compared to study dated 10/30/2021. The heart is mildly enlarged noting atherosclerotic calcification of the thoracic aorta. The pulmonary vasculature is noncongested. Emphysema and chronic interstitial thickening similar to previous. There is bibasilar scarring/atelectasis. No lobar consolidation or large pleural effusion is identified. No pneumothorax is seen. The skeletal structures are osteopenic. The bony thorax is grossly intact. Degenerative change and scoliosis is noted in the spine. IMPRESSION: Cardiomegaly and emphysema with no acute cardiopulmonary abnormality identified. ACT 112: Negative or not required by law. Electronically signed by: Jame Gary M.D. 11/06/2021 9:43 AM EKG - my reading - NSR, IRBBB, poor R wave progression, left axis deviation, Q waves III/AVF, V1/V2, nonspecific ST changes V2 Code Status & VTE Plan Code Status DNR/DNI - confirmed with granddaughter PG Care Time/CCT Total # of Minutes Spent Total Time Spent with Patient: Total time spent is greater than 50% in coordination of care (as documented) at patient's floor/unit and/or counseling patient: Coding Level of Care Code 57135 Initial Inpt Care Lvl 3 Diagnoses COPD with exacerbation J44.1 Pneumonia J18.9 Pulmonary nodule R91.1 Ascending aortic aneurysm I71.2 Dementia F03.90 Diabetes E11.9 Hypertension I10 DVT prophylaxis Z29.9 Candidiasis of mouth and esophagus B37.81; B37.0 Chronic renal failure, stage 3a N18.31
[2021-11-06] MEDS ORDERED: AMPICILLIN/SULBACTAM SOD 3,000 MG in 0.9 % SODIUM CHLORIDE 100 ML IV STA (11:59)
[2021-11-06 12:59] LABS: Estimated Average Glucose 117 mg/dl; Hemoglobin A1C 5.7 % (4.5-5.6)
[2021-11-06] MEDS ORDERED: ACETAMINOPHEN 325 MG TAB PO PRN (14:24)
[2021-11-06] MEDS ORDERED: ONDANSETRON INJ 2 MG/ML 2 ML VIAL IV PRN (14:24)
[2021-11-06] MEDS ORDERED: ALBUT/IPRATROP 3MG/0.5MG NEB 3 ML VIAL NEB PRN (14:36)
[2021-11-06] MEDS: ALBUT/IPRATROP 3MG/0.5MG NEB 3 ML VIAL NEB SCH ×2 (15:37→19:25)
[2021-11-06] MEDS: guaiFENesin 600 MG TABCR PO SCH ×2 (15:45→22:49)
[2021-11-06] MEDS: ENOXAPARIN INJ 40 MG/0.4 ML SYR SQ SCH (15:46)
[2021-11-06] MEDS: NYSTATIN SUSP 500,000 U/5 ML UDC PO SCH ×3 (15:46→22:46)
[2021-11-06] MEDS ORDERED: THEOPHYLLINE 300MG EXTENDED REL TAB PO SCH (16:00)
[2021-11-06] MEDS: AMPICILLIN/SULBACTAM SOD 3,000 MG in 0.9 % SODIUM CHLORIDE 100 ML IV SCH ×2 (18:11→23:47)
[2021-11-06] MEDS: FLUTICASONE FUROATE 200MCG 14 PUFFS/INHALER INH SCH (22:41)
[2021-11-06] MEDS: SIMVASTATIN 40 MG TAB PO SCH (22:42)
[2021-11-06] MEDS: POTASSIUM CHLORIDE CRTAB 20 MEQ TABCR PO SCH (22:43)
[2021-11-06] MEDS: SIMVASTATIN 20 MG TAB PO SCH (22:43)
[2021-11-06] MEDS: UMECLIDINIUM/VILANTEROL 62.5/25MCG 7 PUFFS/INHALER INH SCH (22:46)
[2021-11-06] MEDS: FAMOTIDINE 20 MG TAB PO SCH (22:48)
[2021-11-06] MEDS: DONEPEZIL HCL 5 MG TAB PO SCH (22:48)
[2021-11-06] MEDS: MEMANTINE HCL 5 MG TAB PO SCH (22:48)
[2021-11-06] MEDS: methylPREDNISolone 40 MG in SYRINGE 0 ML IV SCH (22:48)
[2021-11-06] MEDS: CALCIUM 600MG + VIT D 400 IU TAB PO SCH (22:49)
[2021-11-06] MEDS: DOCUSATE SODIUM 100 MG CAP PO SCH (22:50)
[2021-11-06] MEDS: carvediloL 6.25 MG TAB PO SCH (22:50)
--- NOTE | 2021-11-06 22:58 | Electrocardiogram Report ---
Test Reason : Blood Pressure : / mmHG Vent. Rate : 063 BPM Atrial Rate : 063 BPM P-R Int : 168 ms QRS Dur : 096 ms QT Int : 404 ms P-R-T Axes : 056 -70 027 degrees QTc Int : 413 ms Normal sinus rhythm Left axis deviation Incomplete right bundle branch block Septal infarct (cited on or before 06-NOV-2021) Abnormal ECG When compared with ECG of 30-OCT-2021 19:14, No significant change Confirmed by Stanford Mahmood ([id number]) on 11/06/2021 10:57:55 PM Referred By: REFERRED SELF Confirmed By:Stanford Mahmood
[2021-11-06] MEDS ORDERED: NIFEdipine EXTENDED REL 30 MG TABCR PO STA (23:48)
[2021-11-07] MEDS: AMPICILLIN/SULBACTAM SOD 3,000 MG in 0.9 % SODIUM CHLORIDE 100 ML IV SCH ×4 (05:58→23:19)
[2021-11-07 07:02] LABS: Hematocrit (blood only) 42.6 % (34.1-44.9); Hemoglobin 14.7 g/dl (12.0-16.0); Mean Corpuscular Hemoglobin 30.9 pg (25.0-34.0); Mean Corpuscular Hgb Conc 34.5 g/dL (32.0-36.0); Mean Corpuscular Volume 89.5 fL (80.0-100.0); Mean Platelet Volume 9.7 fL (9.4-12.3); Platelet Count 270 K/uL (130-400); RDW Coefficient of Variation 14.5 % (11.5-14.5); RDW Standard Deviation 47.2 fL (36.4-46.3); Red Blood Count 4.76 M/uL (3.93-5.22); White Blood Count 9.02 K/ul (4.8-10.8)
[2021-11-07] MEDS: ALBUT/IPRATROP 3MG/0.5MG NEB 3 ML VIAL NEB SCH (07:03)
[2021-11-07 07:05] LABS: BUN Creatinine Ratio 27.5 (10-20); Calcium 9.2 mg/dl (8.5-10.1); Creatinine Clr Calc Pharmacy 70.9 ml/min; Est GFR (African American) 95.3 ml/min; Est GFR (Non-African American) 82.2 ml/min; Potassium 4.3 mmol/L (3.5-5.1)
[2021-11-07] MEDS: FEXOFENADINE HCL 180 MG TAB PO SCH (08:29)
[2021-11-07] MEDS: ISOSORBIDE MONO EXTENDED REL 60 MG TABCR PO SCH (08:29)
[2021-11-07] MEDS: LOSARTAN POTASSIUM 50 MG TAB PO SCH (08:29)
[2021-11-07] MEDS: ASPIRIN 81 MG ECTAB PO SCH (08:29)
[2021-11-07] MEDS: CALCIUM 600MG + VIT D 400 IU TAB PO SCH ×2 (08:30→20:15)
[2021-11-07] MEDS: carvediloL 6.25 MG TAB PO SCH ×2 (08:30→20:16)
[2021-11-07] MEDS: DONEPEZIL HCL 5 MG TAB PO SCH ×2 (08:30→20:16)
[2021-11-07] MEDS: methylPREDNISolone 40 MG in SYRINGE 0 ML IV SCH (08:30)
[2021-11-07] MEDS: MEMANTINE HCL 5 MG TAB PO SCH ×2 (08:30→20:19)
[2021-11-07] MEDS: NYSTATIN SUSP 500,000 U/5 ML UDC PO SCH ×4 (08:30→20:14)
[2021-11-07] MEDS: MULTIVITAMIN TAB PO SCH (08:30)
[2021-11-07] MEDS: guaiFENesin 600 MG TABCR PO SCH ×2 (08:30→20:18)
[2021-11-07] MEDS: DOCUSATE SODIUM 100 MG CAP PO SCH ×2 (08:30→20:16)
[2021-11-07] MEDS: FAMOTIDINE 20 MG TAB PO SCH ×2 (08:30→20:17)
[2021-11-07] MEDS: POTASSIUM CHLORIDE CRTAB 20 MEQ TABCR PO SCH ×2 (08:33→20:19)
--- NOTE | 2021-11-07 11:46 | Fluoroscopy Report ---
FL video swallow CLINICAL HISTORY: 81 years-old Female with r/o chronic aspiration. TECHNIQUE: Video fluoroscopic evaluation of swallowing was performed in the AP and lateral projection s by the speech pathology staff. The patient is fed nectar-thick and thin liquid barium, mildly thick , pudding and cracker with paste consistencies. FLUOROSCOPY TIME: 3.4 minutes. COMPARISON STUDY: CTA chest 10/30/2021 FINDINGS: Silent aspiration with thin liquid barium. No additional penetration or aspiration identifi ed with the other consistencies. Swallowing function is otherwise within normal limits. IMPRESSION: 1. Aspiration with thin liquid barium. 2. Please see the speech pathologist report for detailed findings and recommendations. ACT 112: Negative or not required by law. Electronically signed by: Filippo Matta M.D. 11/07/2021 11:45 AM
--- NOTE | 2021-11-07 15:15 | Hospitalist Progress Note ---
Date of Service November 07, 2021 Assessment & Plan (1) COPD with exacerbation: Plan: Recent CTA chest showed bronchial inflammation as well as tree-in-bud basilar infiltrates. Her symptoms, signs, and radiological findings are all c/w COPD flare. Cont home inhalers. Add duonebs qid. Add flutter & incentive paige. Add mucinex. Send sputum for culture. Also send sputum for AFB (see below in #2). She is s/p 5+ days of Zithromax. Will continue antibiotics for more typical coverage and anaerobes - start Unasyn 3gm IV q6h. => Improving today. Mild wheezing, but not needing DuoNebs. (2) Pneumonia: Plan: CTA chest on 10/30 showed "extensive tree-in-bud nodularity at both lung bases, with milder similar appearing changes in the upper lobes. The appearance is typical for an infectious/inflammatory pneumonitis." Differential includes aspiration vs viral vs LISS vs typicals vs other. - Send sputum for bacterial culture; send sputum for AFB (to rule out LISS) - Pending - Seen by NUTRIENT MANAGEMENT SPECIALIST - Video swallow on 11/07 with two, small episodes of aspiration on thin liquids, but otherwise did quite well. Adjusted diet accordingly. - Continue Unasyn 3gm IV q6h. (3) Pulmonary nodule: Plan: 7 mm and 8 mm pulmonary nodules seen in the right lung. - Consulted the [facility] Pulmonary Nodule program. (4) Ascending aortic aneurysm: Plan: 4cm, seen incidentally on CTA chest. Pt's POTavo (granddaughter) is aware of this finding. No Rx at this time. She needs better BP control. Will need f/u surveillance over the next year, if desired by patient and/or her family. (5) Dementia: Plan: At least moderate, perhaps severe stage. - Continue Aricept & Namenda. (6) Diabetes: Plan: A1c was 5.7% this admission. - Monitor (7) Hypertension: Plan: Poorly controlled. BP today is 180/75. - Cont Imdur, losartan, and Coreg. - Add nifedipine (8) Candidiasis of mouth and esophagus: Plan: Due to chronic inhaled steroid use. - Continue nystatin solution 5cc qid; swish/spit. (9) Chronic renal failure, stage 3a: Plan: Baseline CrCl 45-59. At baseline. - Monitor Cr (10) DVT prophylaxis: Plan: Lovenox 40 mg SQ daily Admission and Anticipated Discharge Date Admission Date: November 06, 2021 Subjective Doing well today. No major issues. Reports no fevers/chills, chest pain, shortness of breath, abdominal pain, nausea, or vomiting. Physical Exam Constitutional: WD/WN, vitals as above Eyes: EOM intact bilaterally; no conjunctival abnormality ENMT: external ear and nose normal, oropharynx normal Neck: trachea midline, no thyromegaly normal visual inspection Respiratory: no respiratory distress and no labored breathing Auscultation: + wheezes (Diffuse, mild) Cardiovascular: RRR, no murmur, no edema Gastrointestinal (Abdomen): Inspection/Auscultation: abdomen normal to inspection; abdomen not distended Musculoskeletal: no cyanosis or clubbing, extremities motor strength 5/5 Skin: no rashes, warm and dry Neurologic: moves all extremities and awake Psychiatric: Orientation: alert, oriented to person and cooperative Results & Data Results & Data ([facility]) Vital Signs (Past 12 Hours) Vital Signs Temp Pulse Pulse Resp BP BP Pulse Ox 11/07/21 11:22 36.5 C 73 20 172/127 H 182/77 H 94 11/07/21 09:07 68 11/07/21 08:03 36.4 C L 68 20 175/106 H 171/105 H 91 11/07/21 07:03 68 16 94 PG Care Time/CCT Total # of Minutes Spent Total Time Spent with Patient: Total time spent is greater than 50% in coordination of care (as documented) at patient's floor/unit and/or counseling patient: Coding Level of Care Code 19677 Subseq Hosp Care Lvl 3 Diagnoses COPD with exacerbation J44.1 Pneumonia J18.9 Pulmonary nodule R91.1 Ascending aortic aneurysm I71.2 Dementia F03.90 Diabetes E11.9 Hypertension I10 DVT prophylaxis Z29.9 Candidiasis of mouth and esophagus B37.81; B37.0 Chronic renal failure, stage 3a N18.31
[2021-11-07] MEDS: ENOXAPARIN INJ 40 MG/0.4 ML SYR SQ SCH (16:04)
[2021-11-07] MEDS: FLUTICASONE FUROATE 200MCG 14 PUFFS/INHALER INH SCH (20:17)
[2021-11-07] MEDS: UMECLIDINIUM/VILANTEROL 62.5/25MCG 7 PUFFS/INHALER INH SCH (20:20)
[2021-11-07] MEDS: SIMVASTATIN 40 MG TAB PO SCH (20:20)
[2021-11-07] MEDS: SIMVASTATIN 20 MG TAB PO SCH (20:20)
--- NOTE | 2021-11-07 21:18 | Communication Note ---
Date of Service: November 07, 2021 P 218/132 right arm 225/111 recheck; 162/113 left arm. Per my exam, A&Ox1. 220/110 on R arm. Lungs w/ some transmitted upper airway sounds. On my exam, conversing though w/ slight confusion in conversation (thought the nurse for her roommate had admitted her). Per my assessment, no head imaging indicated. Different BP in arms may be from peripheral vascular disease and diabetes? F/u as outpatient. Follow up BP 184/118
[2021-11-08] MEDS: AMPICILLIN/SULBACTAM SOD 3,000 MG in 0.9 % SODIUM CHLORIDE 100 ML IV SCH ×4 (06:21→23:46)
[2021-11-08 06:42] LABS: Hemoglobin 15.2 g/dl (12.0-16.0); Mean Corpuscular Hemoglobin 30.2 pg (25.0-34.0); Mean Corpuscular Hgb Conc 33.8 g/dL (32.0-36.0); Mean Corpuscular Volume 89.5 fL (80.0-100.0); Mean Platelet Volume 9.6 fL (9.4-12.3); Platelet Count 263 K/uL (130-400); RDW Coefficient of Variation 14.8 % (11.5-14.5); RDW Standard Deviation 48.6 fL (36.4-46.3); Red Blood Count 5.03 M/uL (3.93-5.22); White Blood Count 10.34 K/ul (4.8-10.8)
[2021-11-08 07:05] LABS: BUN Creatinine Ratio 31.6 (10-20); Calcium 9.4 mg/dl (8.5-10.1); Creatinine Clr Calc Pharmacy 57.3 ml/min; Est GFR (African American) 81.9 ml/min; Est GFR (Non-African American) 70.7 ml/min; Magnesium 2.1 mg/dl (1.7-2.4); Potassium 3.8 mmol/L (3.5-5.1)
[2021-11-08] MEDS: CALCIUM 600MG + VIT D 400 IU TAB PO SCH ×2 (07:54→21:17)
[2021-11-08] MEDS: carvediloL 6.25 MG TAB PO SCH (07:54)
[2021-11-08] MEDS: DONEPEZIL HCL 5 MG TAB PO SCH ×2 (07:54→21:07)
[2021-11-08] MEDS: DOCUSATE SODIUM 100 MG CAP PO SCH ×2 (07:54→21:07)
[2021-11-08] MEDS: predniSONE 20 MG TAB PO SCH (07:55)
[2021-11-08] MEDS: NYSTATIN SUSP 500,000 U/5 ML UDC PO SCH ×4 (07:55→21:07)
[2021-11-08] MEDS: ASPIRIN 81 MG ECTAB PO SCH (07:55)
[2021-11-08] MEDS: ISOSORBIDE MONO EXTENDED REL 60 MG TABCR PO SCH (07:55)
[2021-11-08] MEDS: MEMANTINE HCL 5 MG TAB PO SCH ×2 (07:56→21:06)
[2021-11-08] MEDS: POTASSIUM CHLORIDE CRTAB 20 MEQ TABCR PO SCH ×2 (07:56→21:18)
[2021-11-08] MEDS: guaiFENesin 600 MG TABCR PO SCH ×2 (07:56→21:17)
[2021-11-08] MEDS: MULTIVITAMIN TAB PO SCH (07:56)
[2021-11-08] MEDS: FAMOTIDINE 20 MG TAB PO SCH ×2 (07:56→21:07)
[2021-11-08] MEDS: FEXOFENADINE HCL 180 MG TAB PO SCH (07:56)
[2021-11-08] MEDS: LOSARTAN POTASSIUM 50 MG TAB PO SCH (07:56)
--- NOTE | 2021-11-08 14:22 | Hospitalist Progress Note ---
Date of Service November 08, 2021 Assessment & Plan (1) COPD with exacerbation: Plan: Recent CTA chest showed bronchial inflammation as well as tree-in-bud basilar infiltrates. Her symptoms, signs, and radiological findings are all c/w COPD flare. Cont home inhalers. Add duonebs qid. Add flutter & incentive paieg. Add mucinex. Send sputum for culture. Also send sputum for AFB (see below in #2). She is s/p 5+ days of Zithromax. Will continue antibiotics for more typical coverage and anaerobes - start Unasyn 3gm IV q6h. Continued x 5 days. => Improving today. No more wheezing. (2) Pneumonia: Plan: CTA chest on 10/30 showed "extensive tree-in-bud nodularity at both lung bases, with milder similar appearing changes in the upper lobes. The appearance is typical for an infectious/inflammatory pneumonitis." Differential includes aspiration vs viral vs LISS vs typicals vs other. - Send sputum for bacterial culture; send sputum for AFB (to rule out LISS) - Pending - Seen by LIVESTOCK FARMWORKER - Video swallow on 11/07 with two, small episodes of aspiration on thin liquids, but otherwise did quite well. Adjusted diet accordingly. - Continue Unasyn 3gm IV q6h. (3) Pulmonary nodule: Plan: 7 mm and 8 mm pulmonary nodules seen in the right lung. - Consulted the [facility] Pulmonary Nodule program. (4) Ascending aortic aneurysm: Plan: 4cm, seen incidentally on CTA chest. Pt's NORI (granddaughter) is aware of this finding. No Rx at this time. She needs better BP control. Will need f/u surveillance over the next year, if desired by patient and/or her family. (5) Dementia: Plan: At least moderate, perhaps severe stage. - Continue Aricept & Namenda. (6) Diabetes: Plan: A1c was 5.7% this admission. - Monitor (7) Hypertension: Plan: Poorly controlled. BP today is 180/75. - Cont Imdur, losartan, and Coreg. Adjust Coreg up slightly. - Add nifedipine (8) Candidiasis of mouth and esophagus: Plan: Due to chronic inhaled steroid use. - Continue nystatin solution 5cc qid; swish/spit. (9) Chronic renal failure, stage 3a: Plan: Baseline CrCl 45-59. At baseline. - Monitor Cr (10) DVT prophylaxis: Plan: Lovenox 40 mg SQ daily Admission and Anticipated Discharge Date Admission Date: November 06, 2021 Subjective Doing well today. No major issues. Reports no fevers/chills, chest pain, shortness of breath, abdominal pain, nausea, or vomiting. Physical Exam Constitutional: WD/WN, vitals as above Eyes: EOM intact bilaterally; no conjunctival abnormality ENMT: external ear and nose normal, oropharynx normal Neck: trachea midline, no thyromegaly normal visual inspection Respiratory: no respiratory distress and no labored breathing Auscultation: lungs clear to auscultation bilaterally; no wheezes (Diffuse, mild) Cardiovascular: RRR, no murmur, no edema Gastrointestinal (Abdomen): Inspection/Auscultation: abdomen normal to inspection; abdomen not distended Musculoskeletal: no cyanosis or clubbing, extremities motor strength 5/5 Skin: no rashes, warm and dry Neurologic: moves all extremities and awake Psychiatric: Orientation: alert, oriented to person and cooperative Results & Data Results & Data ([facility]) Vital Signs (Past 12 Hours) Vital Signs Temp Pulse Resp BP BP Pulse Ox 11/08/21 11:26 36.3 C L 72 16 202/98 H 92 11/08/21 07:44 36.7 C 73 16 190/110 H 91 11/08/21 03:21 36.4 C L 69 18 184/118 H 95 PG Care Time/CCT Total # of Minutes Spent Total Time Spent with Patient: Total time spent is greater than 50% in coordination of care (as documented) at patient's floor/unit and/or counseling patient: Coding Level of Care Code 82503 Subseq Hosp Care Lvl 2 Diagnoses COPD with exacerbation J44.1 Pneumonia J18.9 Pulmonary nodule R91.1 Ascending aortic aneurysm I71.2 Dementia F03.90 Diabetes E11.9 Hypertension I10 Candidiasis of mouth and esophagus B37.81; B37.0 Chronic renal failure, stage 3a N18.31 DVT prophylaxis Z29.9
[2021-11-08] MEDS: ENOXAPARIN INJ 40 MG/0.4 ML SYR SQ SCH (15:27)
[2021-11-08] MEDS: FLUTICASONE FUROATE 200MCG 14 PUFFS/INHALER INH SCH (21:05)
[2021-11-08] MEDS: NIFEdipine EXTENDED REL 30 MG TABCR PO SCH (21:06)
[2021-11-08] MEDS: carvediloL 12.5 MG TAB PO SCH (21:06)
[2021-11-08] MEDS: SIMVASTATIN 20 MG TAB PO SCH (21:19)
[2021-11-08] MEDS: UMECLIDINIUM/VILANTEROL 62.5/25MCG 7 PUFFS/INHALER INH SCH (21:20)
[2021-11-08] MEDS: SIMVASTATIN 40 MG TAB PO SCH (21:22)
[2021-11-09 05:58] LABS: Hematocrit (blood only) 44.3 % (34.1-44.9); Hemoglobin 15.1 g/dl (12.0-16.0); Mean Corpuscular Hemoglobin 30.9 pg (25.0-34.0); Mean Corpuscular Hgb Conc 34.1 g/dL (32.0-36.0); Mean Corpuscular Volume 90.8 fL (80.0-100.0); Mean Platelet Volume 9.4 fL (9.4-12.3); Platelet Count 253 K/uL (130-400); RDW Coefficient of Variation 14.7 % (11.5-14.5); RDW Standard Deviation 49.4 fL (36.4-46.3); Red Blood Count 4.88 M/uL (3.93-5.22); White Blood Count 8.64 K/ul (4.8-10.8)
[2021-11-09 06:35] LABS: Calcium 9.4 mg/dl (8.5-10.1); Creatinine Clr Calc Pharmacy 50.9 ml/min; Est GFR (African American) 70.9 ml/min; Est GFR (Non-African American) 61.2 ml/min; Magnesium 2.1 mg/dl (1.7-2.4)
[2021-11-09] MEDS: AMPICILLIN/SULBACTAM SOD 3,000 MG in 0.9 % SODIUM CHLORIDE 100 ML IV SCH ×4 (06:41→23:53)
[2021-11-09] MEDS: NYSTATIN SUSP 500,000 U/5 ML UDC PO SCH ×4 (08:22→21:25)
[2021-11-09] MEDS: guaiFENesin 600 MG TABCR PO SCH ×2 (08:22→21:23)
[2021-11-09] MEDS: FAMOTIDINE 20 MG TAB PO SCH ×2 (08:22→21:18)
[2021-11-09] MEDS: CALCIUM 600MG + VIT D 400 IU TAB PO SCH ×2 (08:22→21:16)
[2021-11-09] MEDS: POTASSIUM CHLORIDE CRTAB 20 MEQ TABCR PO SCH ×2 (08:22→21:26)
[2021-11-09] MEDS: LOSARTAN POTASSIUM 50 MG TAB PO SCH (08:22)
[2021-11-09] MEDS: MULTIVITAMIN TAB PO SCH (08:22)
[2021-11-09] MEDS: MEMANTINE HCL 5 MG TAB PO SCH ×2 (08:23→21:24)
[2021-11-09] MEDS: DOCUSATE SODIUM 100 MG CAP PO SCH ×2 (08:23→21:17)
[2021-11-09] MEDS: carvediloL 12.5 MG TAB PO SCH ×2 (08:23→21:17)
[2021-11-09] MEDS: predniSONE 20 MG TAB PO SCH (08:23)
[2021-11-09] MEDS: ASPIRIN 81 MG ECTAB PO SCH (08:23)
[2021-11-09] MEDS: DONEPEZIL HCL 5 MG TAB PO SCH ×2 (08:23→21:18)
[2021-11-09] MEDS: FEXOFENADINE HCL 180 MG TAB PO SCH (08:23)
[2021-11-09] MEDS: ISOSORBIDE MONO EXTENDED REL 60 MG TABCR PO SCH (08:23)
--- NOTE | 2021-11-09 10:15 | Hospitalist Progress Note ---
Date of Service November 09, 2021 Assessment & Plan (1) COPD with exacerbation: Plan: Recent CTA chest showed bronchial inflammation as well as tree-in-bud basilar infiltrates. Her symptoms, signs, and radiological findings are all c/w COPD flare. Cont home inhalers. Add duonebs qid. Add flutter & incentive paige. Add mucinex. Send sputum for culture. Also send sputum for AFB (see below in #2). She is s/p 5+ days of Zithromax. Will continue antibiotics for more typical coverage and anaerobes - start Unasyn 3gm IV q6h. Continued x 5 days. => Improving today. No more wheezing. (2) Pneumonia: Plan: CTA chest on 10/30 showed "extensive tree-in-bud nodularity at both lung bases, with milder similar appearing changes in the upper lobes. The appearance is typical for an infectious/inflammatory pneumonitis." Differential includes aspiration vs viral vs LISS vs typicals vs other. - Send sputum for bacterial culture; send sputum for AFB (to rule out LISS) - Pending - Seen by JOURNEYMAN GLAZIER - Video swallow on 11/07 with two, small episodes of aspiration on thin liquids, but otherwise did quite well. Adjusted diet accordingly. - Continue Unasyn 3gm IV q6h. (3) Hypertension: Plan: Per granddaughter, overall it was well-control until about 3 weeks ago. BP today is 165/100. - Cont Imdur, losartan, and Coreg. Adjusted Coreg up to 12.5 mg on 11/08 - Added nifedipine on 11/08 - Renal artery duplex done, but read is pending. Given BUN:Cr ratio, would be reluctant to start diuretic therapy. Should also go down with finishing steroids in 2-3 days. (4) Pulmonary nodule: Plan: 7 mm and 8 mm pulmonary nodules seen in the right lung. - Consulted the [facility] Pulmonary Nodule program. (5) Ascending aortic aneurysm: Plan: 4cm, seen incidentally on CTA chest. Pt's NORI (granddaughter) is aware of this finding. No Rx at this time. She needs better BP control. Will need f/u surveillance over the next year, if desired by patient and/or her family. (6) Dementia: Plan: At least moderate, perhaps severe stage. - Continue Aricept & Namenda. (7) Diabetes: Plan: A1c was 5.7% this admission. 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 - Continue nystatin solution 5cc qid; swish/spit. (9) Chronic renal failure, stage 3a: Plan: Baseline CrCl 45-59. At baseline. - Monitor Cr (10) DVT prophylaxis: Plan: Lovenox 40 mg SQ daily Admission and Anticipated Discharge Date Admission Date: November 06, 2021 Subjective Feeling well today overall. Reports that her shortness of breath comes and goes, but generally responds to a breathing treatment. Reports no fevers/chills, chest pain, abdominal pain, nausea, or vomiting. Physical Exam Constitutional: WD/WN, vitals as above Eyes: EOM intact bilaterally; no conjunctival abnormality ENMT: external ear and nose normal, oropharynx normal Neck: trachea midline, no thyromegaly normal visual inspection Respiratory: no respiratory distress and no labored breathing Auscultation: lungs clear to auscultation bilaterally; no wheezes Cardiovascular: RRR, no murmur, no edema Gastrointestinal (Abdomen): Inspection/Auscultation: abdomen normal to inspection; abdomen not distended Musculoskeletal: no cyanosis or clubbing, extremities motor strength 5/5 Skin: no rashes, warm and dry Neurologic: moves all extremities and awake Psychiatric: Orientation: alert, oriented to person and cooperative Results & Data Results & Data ([facility]) Vital Signs (Past 12 Hours) Vital Signs Temp Pulse Pulse Resp BP Pulse Ox 11/09/21 08:02 36.7 C 102 H 19 165/100 H 96 11/09/21 07:46 52 L 11/09/21 04:00 36.7 C 70 20 185/110 H 93 11/09/21 01:00 61 11/08/21 23:00 36.4 C L 65 20 192/109 H 93 PG Care Time/CCT Total # of Minutes Spent Total Time Spent with Patient: Total time spent is greater than 50% in coordination of care (as documented) at patient's floor/unit and/or counseling patient: Coding Level of Care Code 51532 Subseq Hosp Care Lvl 2 Diagnoses COPD with exacerbation J44.1 Pneumonia J18.9 Pulmonary nodule R91.1 Ascending aortic aneurysm I71.2 Dementia F03.90 Diabetes E11.9 Hypertension I10 Candidiasis of mouth and esophagus B37.81; B37.0 Chronic renal failure, stage 3a N18.31 DVT prophylaxis Z29.9
--- NOTE | 2021-11-09 13:14 | Ultrasound Report ---
US duplex renal artery CLINICAL HISTORY: Evaluate for renal artery stenosis TECHNIQUE: Real-time grayscale and color and spectral Doppler ultrasound imaging of the kidneys was p erformed. Comparison: None available at the time of this dictation. FINDINGS: RIGHT: Renal artery patent with peak systolic velocity 102 cm/s distally. Intrarenal resistive index measure s 0.71. Renal vein patent. LEFT: Renal artery patent with peak systolic velocity 115 cm/s distally. Intrarenal resistive index measure s 0.57. Renal vein patent. Reference ranges: Normal main renal artery peak systolic velocity less than 180 cm/s. Normal resistive index measures l ess than 0.7 IMPRESSION: There is slight elevation of the resistive index on the right. Otherwise, no evidence of renal artery stenosis. ACT 112: Negative or not required by law. Electronically signed by: Jarret Valdivia M.D. 11/09/2021 1:13 PM
[2021-11-09] MEDS: ENOXAPARIN INJ 40 MG/0.4 ML SYR SQ SCH (16:12)
[2021-11-09] MEDS: FLUTICASONE FUROATE 200MCG 14 PUFFS/INHALER INH SCH (21:23)
[2021-11-09] MEDS: NIFEdipine EXTENDED REL 30 MG TABCR PO SCH (21:25)
[2021-11-09] MEDS: SIMVASTATIN 20 MG TAB PO SCH (21:27)
[2021-11-09] MEDS: UMECLIDINIUM/VILANTEROL 62.5/25MCG 7 PUFFS/INHALER INH SCH (21:28)
[2021-11-09] MEDS: SIMVASTATIN 40 MG TAB PO SCH (21:28)
[2021-11-10] MEDS: AMPICILLIN/SULBACTAM SOD 3,000 MG in 0.9 % SODIUM CHLORIDE 100 ML IV SCH ×2 (05:28→11:51)
[2021-11-10] MEDS: ASPIRIN 81 MG ECTAB PO SCH (09:00)
[2021-11-10] MEDS: MULTIVITAMIN TAB PO SCH (09:00)
[2021-11-10] MEDS: MEMANTINE HCL 5 MG TAB PO SCH (09:01)
[2021-11-10] MEDS: guaiFENesin 600 MG TABCR PO SCH (09:01)
[2021-11-10] MEDS: carvediloL 12.5 MG TAB PO SCH (09:02)
[2021-11-10] MEDS: DONEPEZIL HCL 5 MG TAB PO SCH (09:02)
[2021-11-10] MEDS: DOCUSATE SODIUM 100 MG CAP PO SCH (09:02)
[2021-11-10] MEDS: CALCIUM 600MG + VIT D 400 IU TAB PO SCH (09:02)
[2021-11-10] MEDS: FEXOFENADINE HCL 180 MG TAB PO SCH (09:03)
[2021-11-10] MEDS: ISOSORBIDE MONO EXTENDED REL 60 MG TABCR PO SCH (09:03)
[2021-11-10] MEDS: LOSARTAN POTASSIUM 50 MG TAB PO SCH (09:04)
[2021-11-10] MEDS: POTASSIUM CHLORIDE CRTAB 20 MEQ TABCR PO SCH (09:05)
[2021-11-10] MEDS: NYSTATIN SUSP 500,000 U/5 ML UDC PO SCH ×2 (09:05→12:18)
[2021-11-10] MEDS: predniSONE 20 MG TAB PO SCH (09:05)
[2021-11-10] MEDS: FAMOTIDINE 20 MG TAB PO SCH (10:02)
--- NOTE | 2021-11-10 12:49 | Discharge Summary ---
Date of Service November 10, 2021 Admission HPI Per Admitting Provider 81yo female with history of COPD, dementia, HTN, and hyperlipidemia presents from home with her granddaughter with about 1 week of worsening shortness of breath with exertion, cough with yellow sputum production, wheezing, and poor appetite. Of note - due to the patient's dementia she is unable to provide much in the way of meaningful history or ROS; thus, most information was obtained from reading the pt's record as well as information provided by her granddaughter. During the last week she has been very weak & fatigued and at one point the granddaughter noted that she was "staggering." On 10/30/21 she was seen in the [facility] ER for her breathing, had CTA chest showing b/l tree-in-bud opacities along with 4cm ascending aortic aneurysm and was discharged to home with a z-pack. Despite taking the z-pack her pulmonary symptoms have progressed. Also during the ER visit her BPs were markedly elevated over 200 systolic. The patient is on Trelegy inhaler daily and albuterol nebs but hasn't used the latter in some time. No sick contacts at home. No recent travel, fevers, or chills. She was a nonsmoker and her did not smoke either. She is not on CPAP or NC O2 at home. The granddaughter was in touch with the patient's PCP in the last 24 hours who advised Mrs Tomlinson to be seen in the ER. Upon arrival to the ER today her O2 sats were 89% in RA. Granddaughter reports that they regularly check her O2 sats at home and typically they run 93-95% at baseline. Principal Diagnosis COPD exacerbation due to pneumonia Hypertension Discharge Exam Constitutional WD/WN, vitals as above Eyes EOM intact bilaterally; no conjunctival abnormality ENMT external ear and nose normal, oropharynx normal Neck trachea midline, no thyromegaly normal visual inspection Respiratory no respiratory distress and no labored breathing Auscultation: lungs clear to auscultation bilaterally; no wheezes Cardiovascular RRR, no murmur, no edema Gastrointestinal (Abdomen) Inspection/Auscultation: abdomen normal to inspection; abdomen not distended Musculoskeletal no cyanosis or clubbing, extremities motor strength 5/5 Skin no rashes, warm and dry Neurologic moves all extremities and awake Psychiatric Orientation: alert, oriented to person and cooperative Discharge Data Allergies Allergy/AdvReac Type Severity Reaction Status Date / Time Antihistamines Allergy Unknown CAN'T Uncoded 10/30/21 19:36 REMEMBER Consultations 11/06/21 11:06 ED Decision to Admit Stat 11/06/21 12:11 Consult Lung Nodule Program Routine Ordered Studies 11/07/21 10:30 Fluoro video [FL video swallow] Routine 11/09/21 US duplex renal artery Routine Hospital Course (1) COPD with exacerbation: Recent CTA chest showed bronchial inflammation as well as tree-in-bud basilar infiltrates. Her symptoms, signs, and radiological findings are all c/w COPD flare. - Cont home inhalers. - Add duonebs qid. - Add flutter & incentive paige. - Add mucinex. She is s/p 5+ days of Zithromax. Will continue antibiotics for more typical coverage and anaerobes - start Unasyn 3gm IV q6h. Continued x 5 days. Discharged on Augmentin x 3 more days. Finished steroids while in the hospital. - No more wheezing by discharge. (2) Pneumonia: CTA chest on 10/30 showed "extensive tree-in-bud nodularity at both lung bases, with milder similar appearing changes in the upper lobes. The appearance is typical for an infectious/inflammatory pneumonitis." Differential includes aspiration vs viral vs LISS vs typicals vs other. - Send sputum for bacterial culture; send sputum for AFB (to rule out LISS) - Pending - Seen by [employer] DEVELOPMENT MANAGER - Video swallow on 11/07 with two, small episodes of aspiration on thin liquids, but otherwise did quite well. Adjusted diet accordingly. - Continue Unasyn 3gm IV q6h. -> Switch to Augmentin on discharge. (3) Hypertension: Per granddaughter, overall it was well-control until about 3 weeks ago. BP today is 165/100. - Cont Imdur, losartan, and Coreg. Adjusted Coreg up to 12.5 mg on 11/08 - Added nifedipine on 11/08 - Renal artery duplex done and normal. - Do believe this will improve over next 3-4 days as prednisone is finished, infection is resolving, and she goes home. Encouraged GD to measure one time a day and take measurements to her PCP. (4) Pulmonary nodule: 7 mm and 8 mm pulmonary nodules seen in the right lung. - Consulted the [facility] Pulmonary Nodule program. (5) Ascending aortic aneurysm: 4cm, seen incidentally on CTA chest. Pt's POTavo (granddaughter) is aware of this finding. No Rx at this time. She needs better BP control. Will need f/u surveillance over the next year, if desired by patient and/or her family. (6) Dementia: At least moderate, perhaps severe stage. - Continue Aricept & Namenda. (7) Diabetes: A1c was 5.7% this admission. - Monitor (8) Candidiasis of mouth and esophagus: Due to chronic inhaled steroid use. - Continue nystatin solution 5cc qid; swish/spit. (9) Chronic renal failure, stage 3a: Baseline CrCl 45-59. At baseline. - Monitor Cr (10) DVT prophylaxis: Lovenox 40 mg SQ daily Total Time Total Time Spent Total Time Spent (In Minutes): 45 Discharge Plan Discharge Items Patient Disposition: Home - Home Health Services Reason For Visit: COPD EXACERBATION, PNEUMONIA Discharge Diagnosis: COPD exacerbation, pneumonia Activity: Resume your previous activity Non-emergency contact: Primary Care Provider Call non-emergency contact if: your symptoms worsen Follow-up/Referrals: Guerita Engel PA-C [Primary Care Provider] - Diet: Regular Addtl Attending Provider Instructions: Ms. Tomlinson was admitted to the hospital with a COPD exacerbation and pneumonia. With some breathing treatments, steroids, and antibiotics, she got much better. On discharge, we will finish a short course of antibiotics. She finished her steroids while in the hospital. Her blood pressure has been quite high recently according to her granddaughter where it had previously been well controlled. This may have been due to stress on the body from the COPD or infection. We did check the blood vessels that supply the kidneys, and we did not find any narrowing or blockage there. In the hospital, we adjusted two blood pressure medications. First, we increased her carvedilol to 12.5 mg twice a day from 6.25 mg. Second, we added a new medication called nifedipine which we started in the evening to help control the AM blood pressure which seemed to be the highest. As the steroids leave her system over 1-2 days, and her COPD and pneumonia quiet down, it is very possible that her blood pressure will return to normal. If she starts to have low blood pressures (as defined by any blood pressure <100/60 or a blood in that range with symptoms of lightheadedness, dizziness, fatigue, etc.), please stop the nifedipine. Please have Ms. Tomlinson see her PCP sometime in the next week for a blood pressure check at the office. As we discussed, blood pressure is a "long game" meaning that any one high reading is unlikely to cause a stroke or heart attack. There is no need to check blood pressures at home every hour or every few hours. Blood pressure naturally waxes and wanes throughout the day. Take the blood pressure one time in the morning after Ms. Tomlinson has been sitting at the table for at least 5-10 minutes and is relaxed. Alejandro this number down and take it to the PCP's office to help safely adjust the blood pressure medications up or down. Pending Studies at Discharge: No Stand-Alone Forms: [employer], Smoking Cessation Medications and DC Order Prescriptions: New nifedipine [Procardia XL] 30 mg Tablet Extended Release 24 Hr 30 mg PO HS Qty: 30 RF: 0 carvedilol 12.5 mg Tablet 12.5 mg PO BID Qty: 60 RF: 0 amoxicillin-pot clavulanate 875-125 mg tablet 1 tab PO BID Qty: 6 RF: 0 Continued multivitamin Tablet 1 tab PO QAM Qty: 0 RF: 0 fexofenadine 180 mg Tablet 180 mg PO QAM Qty: 0 RF: 0 simvastatin 40 mg Tablet 40 mg PO PM Qty: 0 RF: 0 theophylline 300 mg Tablet Extended Release 12 Hr 300 mg PO Q12H Qty: 0 RF: 0 aspirin 81 mg Tablet,Delayed Release (Dr/Ec) 81 mg PO QAM Qty: 0 RF: 0 isosorbide mononitrate 60 mg Tablet Extended Release 24 Hr 60 mg PO QAM Qty: 0 RF: 0 losartan 100 mg Tablet 100 mg PO QAM Qty: 0 RF: 0 naproxen 500 mg Tablet 500 mg PO BID PRN (Reason: Pain) Qty: 0 RF: 0 docusate sodium 100 mg Tablet 100 mg PO BID Qty: 0 RF: 0 simvastatin 20 mg Tablet 20 mg PO PM RF: 0 memantine 5 mg tablet 5 mg PO BID RF: 0 potassium chloride 10 mEq tablet extended release 20 meq PO BID RF: 0 donepezil [Aricept] 5 mg Tablet 5 mg PO BID RF: 0 omega-3 fatty acids 1,000 mg Capsule 1,000 mg PO BID RF: 0 calcium carbonate-vitamin D3 [Calcium 600 + D(3)] 600 mg-5 mcg (200 unit) Tablet 1 tab PO BID RF: 0 nitrofurantoin monohyd/m-cryst [Macrobid] 100 mg capsule 100 mg PO BID RF: 0 Trelegy Ellipta 200-62.5-25 mcg Blister With Device 1 inh INHALATION QPM RF: 0 Discontinued carvedilol 6.25 mg tablet 6.25 mg PO BID Qty: 60 RF: 0 Discharge Orders: Discharge Order (Routine); Ordered 11/10/21 Ordered By: Sunday Islas/Other Patient Handouts: A1C Admission Data Admit Date/Time: 11/06/21 12:11 Attending Provider: Sunday Stroud Admit Provider: Jeronimo Pelaez Primary Care Provider: Guerita Engel Other Providers: Sunday Stroud Coding Level of Care Code D/C DAY MANAGEMENT >30 MINS Diagnoses COPD with exacerbation J44.1 Pneumonia J18.9 Hypertension I10 Pulmonary nodule R91.1 Ascending aortic aneurysm I71.2 Dementia F03.90 Diabetes E11.9 Candidiasis of mouth and esophagus B37.81; B37.0 Chronic renal failure, stage 3a N18.31 DVT prophylaxis Z29.9
== END 2021-11-10 16:02 | disposition home health service (06) | DRG 190 ==
LOC: ED 07:49 → SUATTDRO 12:11 → 2N 12:11

== ENCOUNTER 2022-05-06 10:05 | Observation (INO) ==
[2022-05-06] MEDS ORDERED: ALBUT/IPRATROP 3MG/0.5MG NEB 3 ML VIAL INH STA (10:34)
[2022-05-06] MEDS ORDERED: ALBUTEROL 0.083% NEBU SOLN 3 ML VIAL ONE (10:37)
--- NOTE | 2022-05-06 10:56 | XRay Report ---
XR chest 1V portable CLINICAL HISTORY: SOB TECHNIQUE: Single frontal radiograph of the chest was obtained. Comparison: Comparison is made to chest radiograph 11/06/2021 FINDINGS: No lines and tubes are seen. Calcified aortic knob is seen. Faint bibasilar airspace opacities are se en. No evidence of pleural effusion or pneumothorax. IMPRESSION: Faint bibasilar airspace opacities which may represent atelectasis, pneumonia, and/or aspiration. ACT 112: Negative or not required by law. Electronically signed by: Endy Hammond M.D. 05/06/2022 10:55 AM
--- NOTE | 2022-05-06 11:06 | Emergency Department Note ---
Impression & Plan Hypoxia, Cough, Chest congestion, Breath shortness ED Provider Note NAME: SARINA SHETH AGE: 81 SEX: F : 1940 ARRIVES VIA: Walk-In INFORMANT: Patient, daughter ED PROVIDER(S): José Luis Barrera DO CHIEF COMPLAINT: Shortness of breath HPI: Patient is an 81-year-old female who presents to the ER with a past medical history of COPD, hypertension, diabetes, that presents to the ER for upper respiratory symptoms that started about a week ago. She admits to cough, conges tion, and shortness of breath. No chest pain or belly pain. Admits to some intermittent nausea but no vomiting. No dysuria, urgency, or frequency. No other exacerbating or remitting factors. She notes she does have a history of COPD. PAST MEDICAL HISTORY:See Below PAST SURGICAL HISTORY:See Below FAMILY HISTORY:See Below SOCIAL HISTORY:See Below HOME MEDICATIONS:See Below ALLERGIES:See Below VITALS:See Below PHYSICAL EXAMINATION: GENERAL: Sitting up in bed, alert, well appearing, well nourished, no distress, non-toxic EYE EXAM: normal conjunctiva. OROPHARYNX: no exudate, no erythema, lips, buccal mucosa, and tongue normal and mucous membranes are moist NECK: supple, no nuchal rigidity, no adenopathy, non-tender LUNGS: Faint wheezing bilaterally. Normal chest wall mechanics HEART: no murmurs, S1 normal and S2 normal ABDOMEN: abdomen soft, non-tender, normo-active bowel sounds, no masses, no rebound or guarding. BACK: Back is symmetrical on inspection and there is no deformity, no midline tenderness, no CVA tenderness. SKIN: no rashes and no bruising UPPER EXTREMITIES: upper extremities are grossly normal. LOWER EXTREMITIES: No pitting edema. NEURO EXAM: Normal sensorium, cranial nerves II-XII grossly intact, normal speech, no gross weakness of arms, no gross weakness of legs. Triage Nursing notes reviewed. Limited review of prior medical records performed Vital Signs: reviewed and remarkable for no significant abnormalities Differential diagnosis: Differential diagnoses includes but is not limited to pneumonia, bronchitis, COPD/Asthma exacerbation, pneumothorax, pulmonary embolism, congestive heart failure, acute coronary syndrome ER treatment provided: See below MEDICAL DECISION MAKING: Patient is an 81-year-old female who presents the ER for shortness of breath associate with upper respiratory symptoms. Outside records reviewed. Discussed with daughter as well at bedside. IV was established blood work was obtained. Labs show no significant leukocytosis consistent with a pneumonia. No anemia. INR was unremarkable. BMP without acidosis. LFTs show no transaminitis. Troponin was negative not indicative of ACS. Influenza RSV and COVID were negative. Chest x-ray showed no focal infiltrate per my read. Patient was ambulated within the ER following nebs and steroids. She dropped her pulse ox to the upper 80s. She was still short of breath. Did discuss with Dr. Limon in regards to admission. She was given IV steroids as well as 2 separate neb treatments for the shortness of breath and this did help improve her symptoms. Consultation(s): Discussed with Dr. Everardo Limon in regards to presentation and work-up and admission and hypoxia with exertion ER treatment provided: See below Diagnostics interpreted by me: -ECG: Sinus rhythm rate of 59 Left axis No PVCs Slight ST segment elevations in the septal leads No significant change from November 2021 -Cardiac Monitoring: An order was placed for continuous cardiac monitoring. The monitor shows a rate of 70 with sinus rhythm. -Laboratory studies:As stated above and show below. -Imaging studies: Portable AP upright 1 view of the chest per my review shows no focal infiltrate Procedures:none Critical Care: None Past Med/Surg History Medical History COPD (chronic obstructive pulmonary disease) Dementia Diabetes Heart disease Hypertension No pertinent family history Surgical History S/P cataract extraction and insertion of intraocular lens b/l Family History Other Family history unknown Social History Smoking Status: Current every day smoker Tobacco Type: Cigarettes Cigarettes Per Day: minimal amount of tobacco at age 20yo only; Second Hand Exposure: No; Hx Alcohol Use: No Hx Substance Use: No Preferred Language: [place]orese Communication Ability: Effective Project Reservoir 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 current occupational status: retired current occupation: worked at "[employer]" How many Children do You have: 4 How many Children do You have Comment: 2 sons, 2 daughters Feels Safe at Home: Yes Assistive Devices: Cane Allergies Allergies Allergy/AdvReac Type Severity Reaction Status Date / Time Antihistamines Allergy Unknown CAN'T Uncoded 10/30/21 19:36 REMEMBER Home Meds Home Medications Medication Instructions Recorded Confirmed aspirin 81 mg tablet,delayed 81 mg PO QAM ##0 03/14/17 05/06/22 release fexofenadine 180 mg tablet 180 mg PO QAM #0 tabs 03/14/17 05/06/22 multivitamin 1 tab PO QAM ##0 03/14/17 05/06/22 theophylline 300 mg 300 mg PO Q12H #0 tabs 03/14/17 05/06/22 tablet,extended release,12 hr isosorbide mononitrate 60 mg 60 mg PO QAM #0 tabs 08/07/17 05/06/22 tablet,extended release 24 hr losartan 100 mg tablet 100 mg PO QAM #0 tabs 08/07/17 05/06/22 naproxen 500 mg tablet 500 mg PO BID #0 tabs 08/07/17 05/06/22 memantine 5 mg tablet 5 mg PO BID 08/16/20 05/06/22 simvastatin 20 mg tablet 20 mg PO PM 08/16/20 05/06/22 potassium chloride 10 mEq 20 meq PO BID 04/14/21 05/06/22 tablet,extended release calcium carbonate 600 mg-vitamin 1 tab PO BID 10/30/21 05/06/22 D3 5 mcg (200 unit) tablet (Calcium 600 + D(3)) donepezil 5 mg tablet (Aricept) 5 mg PO BID 10/30/21 05/06/22 fluticasone fur. 200 mcg-umeclid 1 inh inhalation QPM 10/30/21 05/06/22 62.5 mcg-vilant 25 mcg inhalat.powder (Trelegy Ellipta) omega-3 fatty acids 1,000 mg 1,000 mg PO BID 10/30/21 05/06/22 capsule docusate sodium 100 mg capsule 100 mg PO DAILY 05/06/22 05/06/22 (DOK) Previous Rx's Medication Instructions Recorded carvedilol 12.5 mg tablet 12.5 mg PO BID #60 tabs 11/10/21 nifedipine 30 mg tablet,extended 30 mg PO HS #30 tabs 11/10/21 release 24 hr (Procardia XL) Results & Data (ED) Vital Signs Vital Signs - 24 hr 05/06/22 10:08 05/06/22 10:34 05/06/22 10:34 Temperature 36.1 C L Temperature Source Temporal Artery Scan Pulse Rate 66 Pulse Rate from SpO2 Sensor Respiratory Rate 24 Respiratory Rate [Resting] Blood Pressure 145/78 H Blood Pressure Mean 100 Pulse Oximetry 92 92 Pulse Oximetry [Exercises] Pulse Oximetry [Recovery] Pulse Oximetry [Resting] Oxygen Delivery Method Room Air Room Air Room Air Sepsis Recent Fever Within 48 Hours No Sepsis New/Unexplained Change in Mental Status N/A Sepsis Action Taken by Nursing No Action Required 05/06/22 10:40 05/06/22 12:45 05/06/22 11:29 Temperature Temperature Source Pulse Rate 57 L Pulse Rate from SpO2 Sensor 56 L Respiratory Rate 17 Respiratory Rate [Resting] 18 Blood Pressure Blood Pressure Mean Pulse Oximetry 92 Pulse Oximetry [Exercises] 91 Pulse Oximetry [Recovery] 89 L Pulse Oximetry [Resting] 94 Oxygen Delivery Method Room Air Room Air Sepsis Recent Fever Within 48 Hours Sepsis New/Unexplained Change in Mental Status Sepsis Action Taken by Nursing 05/06/22 11:31 05/06/22 12:02 05/06/22 12:30 Temperature Temperature Source Pulse Rate 55 L 57 L Pulse Rate from SpO2 Sensor 56 L 57 L Respiratory Rate 19 16 Respiratory Rate [Resting] Blood Pressure 132/73 Blood Pressure Mean 92 Pulse Oximetry 92 92 Pulse Oximetry [Exercises] Pulse Oximetry [Recovery] Pulse Oximetry [Resting] Oxygen Delivery Method Sepsis Recent Fever Within 48 Hours Sepsis New/Unexplained Change in Mental Status Sepsis Action Taken by Nursing 05/06/22 12:30 Temperature Temperature Source Pulse Rate 58 L Pulse Rate from SpO2 Sensor 59 L Respiratory Rate 18 Respiratory Rate [Resting] Blood Pressure Blood Pressure Mean Pulse Oximetry 93 Pulse Oximetry [Exercises] Pulse Oximetry [Recovery] Pulse Oximetry [Resting] Oxygen Delivery Method Sepsis Recent Fever Within 48 Hours Sepsis New/Unexplained Change in Mental Status Sepsis Action Taken by Nursing Laboratory Data 05/06/22 11:04 05/06/22 11:04 Lab Results 05/06/22 05/06/22 05/06/22 Range/Units 11:03 11:04 11:04 WBC 6.58 (4.8-10.8) K/ul RBC 4.71 (3.93-5.22) M/uL Hgb 14.7 (12.0-16.0) g/dl Hct 43.0 (34.1-44.9) % MCV 91.3 (80.0-100.0) fL MCH 31.2 (25.0-34.0) pg MCHC 34.2 (32.0-36.0) g/dL RDW Std Deviation 47.9 H (36.4-46.3) fL RDW Coeff of Ede 14.2 (11.5-14.5) % Plt Count 249 (130-400) K/uL MPV 9.5 (9.4-12.3) fL Immature Gran % (Auto) 0.3 % Neut % (Auto) 62.5 % Lymph % (Auto) 24.6 % Perry % (Auto) 10.5 % Eos % (Auto) 1.5 % Baso % (Auto) 0.6 % Neut # (Auto) 4.11 (1.4-6.5) K/uL Lymph # (Auto) 1.62 (1.2-3.4) K/uL Perry # (Auto) 0.69 (0.24-0.82) K/uL Eos # (Auto) 0.10 (0-0.50) K/uL Baso # (Auto) 0.04 (0-0.2) K/uL Immature Gran # (Auto) 0.02 (0.00-0.02) K/uL PT (9.0-12.0) Seconds INR (0.9-1.1) APTT (21.0-31.0) Seconds PTT Ratio Sodium 135 L (136-145) mmol/L Potassium 4.2 (3.5-5.1) mmol/L Chloride 104 (98-107) mmol/L Carbon Dioxide 26 (21-32) mmol/L Anion Gap 5 (3-11) BUN 19 (6-23) mg/dl Creatinine 0.70 (0.6-1.2) mg/dl Est Cr Clr Drug Dosing 64.7 ml/min Est GFR ( Amer) 94.8 ml/min Est GFR (Non-Af Amer) 81.8 ml/min BUN/Creatinine Ratio 27.1 H (10-20) Glucose 119 H (70-99(Fasting)) mg/dl Calcium 9.6 (8.5-10.1) mg/dl Magnesium 2.2 (1.7-2.4) mg/dl Total Bilirubin 0.4 (0.2-1.0) mg/dl AST 23 (13-39) U/L ALT 25 (7-52) U/L Alkaline Phosphatase 79 (34-104) U/L Troponin I High Sens (0-14) pg/ml Total Protein 6.3 (6.0-8.3) gm/dl Albumin 3.5 (3.4-5.0) gm/dl Globulin 2.8 (2.5-4.0) gm/dl Albumin/Globulin Ratio 1.3 (0.9-2) SARS-CoV-2 (PCR) NEGATIVE (Negative) Influenza Type A (PCR) Negative (Neg) Influenza Type B (PCR) Negative (Neg) RSV (RT-PCR) Negative (Neg) 05/06/22 05/06/22 Range/Units 11:41 12:50 WBC (4.8-10.8) K/ul RBC (3.93-5.22) M/uL Hgb (12.0-16.0) g/dl Hct (34.1-44.9) % MCV (80.0-100.0) fL MCH (25.0-34.0) pg MCHC (32.0-36.0) g/dL RDW Std Deviation (36.4-46.3) fL RDW Coeff of Ede (11.5-14.5) % Plt Count (130-400) K/uL MPV (9.4-12.3) fL Immature Gran % (Auto) % Neut % (Auto) % Lymph % (Auto) % Perry % (Auto) % Eos % (Auto) % Baso % (Auto) % Neut # (Auto) (1.4-6.5) K/uL Lymph # (Auto) (1.2-3.4) K/uL Perry # (Auto) (0.24-0.82) K/uL Eos # (Auto) (0-0.50) K/uL Baso # (Auto) (0-0.2) K/uL Immature Gran # (Auto) (0.00-0.02) K/uL PT 10.9 (9.0-12.0) Seconds INR 1.0 (0.9-1.1) APTT 25.2 (21.0-31.0) Seconds PTT Ratio 0.9 Sodium (136-145) mmol/L Potassium (3.5-5.1) mmol/L Chloride (98-107) mmol/L Carbon Dioxide (21-32) mmol/L Anion Gap (3-11) BUN (6-23) mg/dl Creatinine (0.6-1.2) mg/dl Est Cr Clr Drug Dosing ml/min Est GFR ( Amer) ml/min Est GFR (Non-Af Amer) ml/min BUN/Creatinine Ratio (10-20) Glucose (70-99(Fasting)) mg/dl Calcium (8.5-10.1) mg/dl Magnesium (1.7-2.4) mg/dl Total Bilirubin (0.2-1.0) mg/dl AST (13-39) U/L ALT (7-52) U/L Alkaline Phosphatase (34-104) U/L Troponin I High Sens 8.7 (0-14) pg/ml Total Protein (6.0-8.3) gm/dl Albumin (3.4-5.0) gm/dl Globulin (2.5-4.0) gm/dl Albumin/Globulin Ratio (0.9-2) SARS-CoV-2 (PCR) (Negative) Influenza Type A (PCR) (Neg) Influenza Type B (PCR) (Neg) RSV (RT-PCR) (Neg) Administered Medications Discontinued Medications Albuterol (Albut/Ipratrop 3mg/0.5mg Neb 3 Ml Vial) 3 ml INH NOW STA Stop: 05/06/22 10:35 Last Admin: 05/06/22 11:10 Dose: 3 ml Documented By: MORRIS Albuterol (Albuterol 0.083% Nebu Soln 3 Ml Vial) Confirm Administered Dose 2.5 mg .ROUTE .STK-MED ONE Stop: 05/06/22 10:38 Last Admin: 05/06/22 10:40 Dose: Not Given Documented By: MORRIS Albuterol (Albuterol 0.083% Nebu Soln 3 Ml Vial) 2.5 mg NEB NOW STA; Protocol Stop: 05/06/22 11:16 Last Admin: 05/06/22 11:49 Dose: 2.5 mg Documented By: MORRIS Methylprednisolone (Methylprednisolone 40 Mg/Ml Vial) 40 mg IV NOW STA Stop: 05/06/22 11:16 Last Admin: 05/06/22 11:49 Dose: 40 mg Documented By: MORRIS Imaging Data Radiologist's Impression: Chest X-Ray 05/06/22 10:34 XR chest 1V portable CLINICAL HISTORY: SOB TECHNIQUE: Single frontal radiograph of the chest was obtained. Comparison: Comparison is made to chest radiograph 11/06/2021 FINDINGS: No lines and tubes are seen. Calcified aortic knob is seen. Faint bibasilar airspace opacities are seen. No evidence of pleural effusion or pneumothorax. IMPRESSION: Faint bibasilar airspace opacities which may represent atelectasis, pneumonia, and/or aspiration. ACT 112: Negative or not required by law. Electronically signed by: Endy Hammond M.D. 05/06/2022 10:55 AM Discharge Plan Visit Data Chief Complaint: Shortness of Breath/Dyspnea Stated Complaint: SOB ED Provider: José Luis Barrera Discharge Problem: Hypoxia, Cough, Chest congestion, Breath shortness Forms Stand Alone Forms: [facility] Prescriptions Prescriptions: No Action multivitamin Tablet 1 tab PO QAM Qty: 0 fexofenadine 180 mg Tablet 180 mg PO QAM Qty: 0 theophylline 300 mg Tablet Extended Release 12 Hr 300 mg PO Q12H Qty: 0 aspirin 81 mg Tablet,Delayed Release (Dr/Ec) 81 mg PO QAM Qty: 0 isosorbide mononitrate 60 mg Tablet Extended Release 24 Hr 60 mg PO QAM Qty: 0 losartan 100 mg Tablet 100 mg PO QAM Qty: 0 naproxen 500 mg Tablet 500 mg PO BID Qty: 0 simvastatin 20 mg Tablet 20 mg PO PM memantine 5 mg tablet 5 mg PO BID docusate sodium [DOK] 100 mg capsule 100 mg PO DAILY potassium chloride 10 mEq tablet extended release 20 meq PO BID donepezil [Aricept] 5 mg Tablet 5 mg PO BID omega-3 fatty acids 1,000 mg Capsule 1,000 mg PO BID calcium carbonate-vitamin D3 [Calcium 600 + D(3)] 600 mg-5 mcg (200 unit) Tablet 1 tab PO BID Trelegy Ellipta 200-62.5-25 mcg Blister With Device 1 inh INHALATION QPM nifedipine [Procardia XL] 30 mg Tablet Extended Release 24 Hr 30 mg PO HS Qty: 30 0RF carvedilol 12.5 mg Tablet 12.5 mg PO BID Qty: 60 0RF Referrals Referrals: Guerita Engel PA-C [Primary Care Provider] -
[2022-05-06] MEDS ORDERED: ALBUTEROL 0.083% NEBU SOLN 3 ML VIAL NEB STA (11:15)
[2022-05-06 11:41] LABS: Basophils # (auto) 0.04 K/uL (0-0.2); Basophils % (auto) 0.6 %; Eosinophils % (auto) 1.5 %; Hemoglobin 14.7 g/dl (12.0-16.0); Immature Granulocytes # (auto) 0.02 K/uL (0.00-0.02); Immature Granulocytes % (auto) 0.3 %; Lymphocytes # (auto) 1.62 K/uL (1.2-3.4); Lymphocytes % (auto) 24.6 %; Mean Corpuscular Hemoglobin 31.2 pg (25.0-34.0); Mean Corpuscular Hgb Conc 34.2 g/dL (32.0-36.0); Mean Corpuscular Volume 91.3 fL (80.0-100.0); Mean Platelet Volume 9.5 fL (9.4-12.3); Monocytes # (auto) 0.69 K/uL (0.24-0.82); Monocytes % (auto) 10.5 %; Neutrophils # (auto) 4.11 K/uL (1.4-6.5); Neutrophils % (auto) 62.5 %; Platelet Count 249 K/uL (130-400); RDW Coefficient of Variation 14.2 % (11.5-14.5); RDW Standard Deviation 47.9 fL (36.4-46.3); Red Blood Count 4.71 M/uL (3.93-5.22); White Blood Count 6.58 K/ul (4.8-10.8)
[2022-05-06 11:55] LABS: Partial Thromboplastin Ratio 0.9; Partial Thromboplastin Time 25.2 Seconds (21.0-31.0); Prothrombin Time 10.9 Seconds (9.0-12.0)
[2022-05-06 11:56] LABS: Influenza A virus by PCR Negative (Neg); Influenza B virus by PCR Negative (Neg); RSV by PCR Negative (Neg); SARS CoV2 RNA(COVID-19) Ceph NEGATIVE (Negative)
[2022-05-06 12:21] LABS: Albumin Globulin Ratio 1.3 (0.9-2); Albumin Level 3.5 gm/dl (3.4-5.0); BUN Creatinine Ratio 27.1 (10-20); Bilirubin,Total 0.4 mg/dl (0.2-1.0); Calcium 9.6 mg/dl (8.5-10.1); Creatinine Clr Calc Pharmacy 64.7 ml/min; Est GFR (African American) 94.8 ml/min; Est GFR (Non-African American) 81.8 ml/min; Globulin 2.8 gm/dl (2.5-4.0); Magnesium 2.2 mg/dl (1.7-2.4); Potassium 4.2 mmol/L (3.5-5.1); Total Protein 6.3 gm/dl (6.0-8.3)
--- NOTE | 2022-05-06 13:00 | Electrocardiogram Report ---
Test Reason : Blood Pressure : / mmHG Vent. Rate : 059 BPM Atrial Rate : 059 BPM P-R Int : 156 ms QRS Dur : 086 ms QT Int : 414 ms P-R-T Axes : 051 -65 026 degrees QTc Int : 409 ms Poor data quality, interpretation may be adversely affected Sinus bradycardia Left axis deviation Inferior infarct (cited on or before 06-NOV-2021) Anteroseptal infarct (cited on or before 06-NOV-2021) Abnormal ECG When compared with ECG of 06-NOV-2021 09:07, Questionable change in initial forces of Anteroseptal leads Confirmed by Maicol Roberts ([id number]) on 05/06/2022 1:00:18 PM Referred By: REFERRED SELF Confirmed By:Maicol Roberts
--- NOTE | 2022-05-06 13:35 | History & Physical Report ---
Date of Service May 06, 2022 Assessment & Plan (1) Hypoxia: Plan: Her symptoms, signs, and radiological findings: likely viral illness.Possible COPD flaire received IV solumedrol. will consider antibiotics, will hold for now. Neb treatment ordered. will monitor. Cont home inhalers. (2) Cough: Plan: as above. (3) Dementia: Plan: at least moderate, perhaps severe stage. cont aricept. cont namenda. (4) Hypertension: Plan: Cont imdur. Cont losartan. Cont coreg BID. (5) DVT prophylaxis: Plan: lovenox History of Present Illness Chief Complaint: SOB Primary Care Provider: Guerita Engel This is a pleasant 81 yo female who comes in with SOB for past few days. Patient reports having a cough, congestion for past week. Patient reports some intermittent nausea. Patient reports no vomiting ROS is negative. Patient was found in the ED to be hypoxic especially when she ambulates. O2 sat 85 when ambulating. Allergies Allergy/AdvReac Type Severity Reaction Status Date / Time Antihistamines - Alkylamine AdvReac cant Verified 05/06/22 16:06 remember Antihistamines - Ethanolamine AdvReac cant Verified 05/06/22 16:06 remember Antihistamines - AdvReac cant Verified 05/06/22 16:06 Ethylenediamine remember Antihistamines - Piperazine AdvReac cant Verified 05/06/22 16:06 remember Antihistamines - Piperidine AdvReac cant Verified 05/06/22 16:06 remember Home Medications Medication Instructions Recorded Confirmed Type aspirin 81 mg tablet,delayed 81 mg PO QAM ##0 03/14/17 05/06/22 History release fexofenadine 180 mg tablet 180 mg PO QAM #0 tabs 03/14/17 05/06/22 History multivitamin 1 tab PO QAM ##0 03/14/17 05/06/22 History theophylline 300 mg 300 mg PO Q12H #0 tabs 03/14/17 05/06/22 History tablet,extended release,12 hr isosorbide mononitrate 60 mg 60 mg PO QAM #0 tabs 08/07/17 05/06/22 History tablet,extended release 24 hr losartan 100 mg tablet 100 mg PO QAM #0 tabs 08/07/17 05/06/22 History naproxen 500 mg tablet 500 mg PO BID #0 tabs 04/06/18 01/03/23 History memantine 5 mg tablet 5 mg PO BID 08/16/20 05/06/22 History simvastatin 20 mg tablet 20 mg PO PM 08/16/20 05/06/22 History potassium chloride 10 mEq 20 meq PO BID 04/14/21 05/06/22 History tablet,extended release calcium carbonate 600 mg-vitamin 1 tab PO BID 10/30/21 05/06/22 History D3 5 mcg (200 unit) tablet (Calcium 600 + D(3)) donepezil 5 mg tablet (Aricept) 5 mg PO BID 10/30/21 05/06/22 History fluticasone fur. 200 mcg-umeclid 1 inh inhalation QPM 10/30/21 05/06/22 History 62.5 mcg-vilant 25 mcg inhalat.powder (Trelegy Ellipta) omega-3 fatty acids 1,000 mg 1,000 mg PO BID 10/30/21 05/06/22 History capsule carvedilol 12.5 mg tablet 12.5 mg PO BID #60 tabs 11/10/21 05/06/22 Rx atorvastatin 40 mg tablet (Lipitor) 40 mg PO HS 05/06/22 05/06/22 History docusate sodium 100 mg capsule 100 mg PO BID 05/06/22 05/06/22 History (DOK) nifedipine 60 mg tablet,extended 60 mg PO QAM 05/06/22 05/06/22 History release 24 hr simvastatin 40 mg tablet 40 mg PO QPM 05/06/22 05/06/22 History Past Med/Surg History Medical History COPD (chronic obstructive pulmonary disease) Dementia Diabetes Heart disease Hypertension No pertinent family history Surgical History S/P cataract extraction and insertion of intraocular lens b/l Family History Other Family history unknown Social History Smoking Status: Former smoker Tobacco Type: Cigarettes Cigarettes Per Day: minimal amount of tobacco at age 20yo only; Smoking End Date: 6 years ago; Second Hand Exposure: Yes; Do You Dip or Chew Tobacco: No; Tobacco Cessation Education Requested by Patient: No Hx Alcohol Use: No Hx Substance Use: No Preferred Language: Hungarian Communication Ability: Effective Senior Front End Engineer Required: No Beliefs That Will Affect Care: Spiritual marital status: / Current Living Situation: Other Current Living Situation Comment: granddaughter lives with pt current occupational status: retired current occupation: worked at "[employer]" How many Children do You have: 4 How many Children do You have Comment: 2 sons, 2 daughters Feels Safe at Home: Yes Safety Concerns: Feels Safe At This Time Assistive Devices: Cane, Denture - Upper and Denture - Lower Review of Systems Review of Systems: Unobtainable due to cognitive status Physical Exam Physical Exam: gen - NAD, patient continues to be coughing. eyes - lens implants b/l; PERRL HENT - MMM; nose clear neck - no JVD, no masses heart - RRR, s1 s2, no murmur lungs - decreased breath sounds. abd - soft NT ND BS+ ext - no edema, pulses 2+ b/l skin - occasional bruise but no rashes psych - awake, alert, oriented to person/place only neuro - strength 5/5 x 4 extremities, no facial droop; DTRs 2+ b/l upper and lower ext lymph - no cervical lymph nodes musculo - no joint effusions Results & Data Results & Data ([facility]) Vital Signs (Past 12 Hours) Vital Signs Temp Pulse Resp Resp BP Pulse Ox Pulse Ox 05/06/22 12:30 58 L 18 93 05/06/22 12:30 132/73 05/06/22 12:02 57 L 16 92 05/06/22 11:31 55 L 19 92 05/06/22 11:29 57 L 17 92 05/06/22 12:45 18 91 05/06/22 10:40 05/06/22 10:34 92 05/06/22 10:34 05/06/22 10:08 36.1 C L 66 24 145/78 H 92 Pulse Ox Pulse Ox O2 Del Method 05/06/22 12:30 05/06/22 12:30 05/06/22 12:02 05/06/22 11:31 05/06/22 11:29 05/06/22 12:45 89 L 94 Room Air 01/03/23 10:40 Room Air 05/06/22 10:34 Room Air 05/06/22 10:34 Room Air 05/06/22 10:08 Room Air PG Care Time/CCT Total # of Minutes Spent Total Time Spent with Patient: Total time spent is greater than 50% in coordination of care (as documented) at patient's floor/unit and/or counseling patient: Coding Level of Care Code 66771 INT INP/OBS CARE 3/75MIN Diagnoses Hypoxia R09.02 Cough R05.9 Dementia F03.90 Hypertension I10 DVT prophylaxis Z29.9
[2022-05-06] MEDS ORDERED: POLYETHYLENE (MIRALAX) 17 GM PACK PO PRN (13:45)
[2022-05-06] MEDS ORDERED: ACETAMINOPHEN 325 MG TAB PO PRN (13:45)
[2022-05-06] MEDS: LEVALBUTEROL HCL 1.25 MG/3 ML NEB NEB SCH (19:39)
[2022-05-06] MEDS: DONEPEZIL HCL 5 MG TAB PO SCH (20:45)
[2022-05-06] MEDS: THEOPHYLLINE 300MG EXTENDED REL TAB PO SCH (20:45)
[2022-05-06] MEDS: carvediloL 12.5 MG TAB PO SCH (20:46)
[2022-05-06] MEDS: MEMANTINE HCL 5 MG TAB PO SCH (20:46)
[2022-05-06] MEDS ORDERED: UMECLIDINIUM/VILANTEROL 62.5/25MCG 7 PUFFS/INHALER INH SCH (21:00)
[2022-05-06] MEDS ORDERED: NON-FORMULARY MEDICATION (Fluticasone-Umeclidin-Vilanter [Trelegy Ellipta] 200-62.5-25 mcg INH SCH (21:00)
[2022-05-06] MEDS ORDERED: NIFEdipine EXTENDED REL 30 MG TABCR PO SCH (21:00)
[2022-05-06] MEDS ORDERED: FLUTICASONE FUROATE 200MCG 14 PUFFS/INHALER INH SCH (21:00)
[2022-05-06] MEDS ORDERED: CALCIUM 600MG + VIT D 400 IU TAB PO SCH (21:00)
[2022-05-06] MEDS ORDERED: SIMVASTATIN 20 MG TAB PO SCH (21:00)
[2022-05-07] MEDS: LEVALBUTEROL HCL 1.25 MG/3 ML NEB NEB SCH ×3 (00:23→12:28)
[2022-05-07] MEDS: THEOPHYLLINE 300MG EXTENDED REL TAB PO SCH (08:04)
[2022-05-07] MEDS: carvediloL 12.5 MG TAB PO SCH (08:05)
[2022-05-07] MEDS: MEMANTINE HCL 5 MG TAB PO SCH (08:05)
[2022-05-07] MEDS: DONEPEZIL HCL 5 MG TAB PO SCH (08:05)
[2022-05-07] MEDS ORDERED: methylPREDNISolone 40 MG in SYRINGE 0 ML IV SCH (09:00)
[2022-05-07] MEDS ORDERED: ASPIRIN 81 MG ECTAB PO SCH (09:00)
[2022-05-07] MEDS ORDERED: FEXOFENADINE HCL 180 MG TAB PO SCH (09:00)
[2022-05-07] MEDS ORDERED: MULTIVITAMIN TAB PO SCH (09:00)
[2022-05-07] MEDS ORDERED: DOCUSATE SODIUM 100 MG CAP PO SCH (09:00)
[2022-05-07] MEDS ORDERED: LOSARTAN POTASSIUM 50 MG TAB PO SCH (09:00)
[2022-05-07] MEDS ORDERED: ISOSORBIDE MONO EXTENDED REL 60 MG TABCR PO SCH (09:00)
[2022-05-07] MEDS ORDERED: POTASSIUM CHLORIDE CRTAB 20 MEQ TABCR PO SCH (09:00)
[2022-05-07] MEDS ORDERED: ENOXAPARIN INJ 40 MG/0.4 ML SYR SQ SCH (09:30)
[2022-05-07 10:02] LABS: Hematocrit (blood only) 44.2 % (34.1-44.9); Hemoglobin 14.9 g/dl (12.0-16.0); Mean Corpuscular Hgb Conc 33.7 g/dL (32.0-36.0); Mean Corpuscular Volume 91.9 fL (80.0-100.0); Mean Platelet Volume 9.2 fL (9.4-12.3); Platelet Count 258 K/uL (130-400); RDW Coefficient of Variation 14.4 % (11.5-14.5); RDW Standard Deviation 48.5 fL (36.4-46.3); Red Blood Count 4.81 M/uL (3.93-5.22); White Blood Count 9.86 K/ul (4.8-10.8)
[2022-05-07 10:10] LABS: Anion Gap 7 (3-11); BUN Creatinine Ratio 20.7 (10-20); Blood Urea Nitrogen 17 mg/dl (6-23); C Reactive Protein < 0.50 mg/dl (0-0.5); Calcium 9.8 mg/dl (8.5-10.1); Carbon Dioxide 26 mmol/L (21-32); Chloride 104 mmol/L (98-107); Creatinine Clr Calc Pharmacy 55.2 ml/min; Est GFR (African American) 78.3 ml/min; Est GFR (Non-African American) 67.6 ml/min; Glucose 152 mg/dl (70-99(Fasting)); Potassium 3.7 mmol/L (3.5-5.1); Sodium 137 mmol/L (136-145)
--- NOTE | 2022-05-07 10:49 | XRay Report ---
XR chest 2V PA/lateral HISTORY: 81 years-old Female hypoxia acute cough with shortness of breath COMPARISON: 05/06/2022 TECHNIQUE: PA and lateral views of the chest FINDINGS: Cardiomediastinal and hilar silhouettes are unchanged. Atherosclerosis of the aorta. No pneumothorax. Small left and trace right pleural effusions with mild persistent bibasilar densities. Emphysema wit h chronic interstitial coarsening. Sigmoidal scoliosis of the spine. Degenerative changes of the shou lders and spine. IMPRESSION: 1. Emphysema with chronic interstitial coarsening. 2. Trace right and small left pleural effusions with mild persistent bibasilar opacities, slightly pr ogressed on the left. Correlate clinically to exclude pneumonia. ACT 112: Negative or not required by law. The above report was generated using voice recognition software. It may contain grammatical, syntax o r spelling errors. Electronically signed by: Filippo Matta M.D. 05/07/2022 10:48 AM
--- NOTE | 2022-05-07 16:22 | Communication Note ---
Date of Service: May 07, 2022 By CMS guidelines, a determination that the admission or continued stay is not medically necessary has been made by a member of the UR committee and a phy sician for this hospital stay, therefore a Code 44 will be completed and the Inpatient admission will be changed to outpatient.
[2022-05-07] MEDS ORDERED: guaiFENesin 600 MG TABCR PO SCH (21:00)
--- NOTE | 2022-05-15 08:44 | Discharge Summary ---
Date of Service May 07, 2022 Admission HPI Per Admitting Provider This is a pleasant 81 yo female who comes in with SOB for past few days. Patient reports having a cough, congestion for past week. Patient reports some intermittent nausea. Patient reports no vomiting ROS is negative. Patient was found in the ED to be hypoxic especially when she ambulates. O2 sat 85 when ambulating. Principal Diagnosis COPD exacerbation Discharge Exam gen - NAD, patient no longer coughing. eyes - lens implants b/l; PERRL HENT - MMM; nose clear neck - no JVD, no masses heart - RRR, s1 s2, no murmur lungs - decreased breath sounds. abd - soft NT ND BS+ ext - no edema, pulses 2+ b/l skin - occasional bruise but no rashes psych - awake, alert, oriented to person/place only neuro - strength 5/5 x 4 extremities, no facial droop; DTRs 2+ b/l upper and lower ext lymph - no cervical lymph nodes musculo - no joint effusions Discharge Data Allergies Allergy/AdvReac Type Severity Reaction Status Date / Time Antihistamines - Alkylamine AdvReac cant Verified 05/06/22 16:06 remember Antihistamines - Ethanolamine AdvReac cant Verified 05/06/22 16:06 remember Antihistamines - AdvReac cant Verified 05/06/22 16:06 Ethylenediamine remember Antihistamines - Piperazine AdvReac cant Verified 05/06/22 16:06 remember Antihistamines - Piperidine AdvReac cant Verified 05/06/22 16:06 remember Consultations 05/06/22 13:45 ED Decision to Admit Stat Hospital Course (1) Hypoxia: COPD exacerbation Her symptoms, signs, and radiological findings: likely viral illness.Possible COPD flaire received IV solumedrol. will discharge on steroid taper and antibiotics. received Neb treatment on day of admission. Cont home inhalers at discharge. (2) Cough: as above. (3) Dementia: at least moderate, perhaps severe stage. cont aricept. cont namenda. (4) Hypertension: Cont imdur. Cont losartan. Cont coreg BID. (5) DVT prophylaxis: lovenox Total Time Total Time Spent Total Time Spent (In Minutes): 32 Discharge Plan Discharge Items Patient Disposition: Home - Self-Care Reason For Visit: COPD EXACERBATION Discharge Diagnosis: COPD exacerbation Activity: Resume your previous activity Non-emergency contact: Primary Care Provider Call non-emergency contact if: you have any medication questions Follow-up/Referrals: Guerita Engel PA-C [Primary Care Provider] - 05/12/22 2:00 pm Diet: Heart Healthy Diet Texture: Easy to Chew Addtl Attending Provider Instructions: You have been hospitalized for an acute medical problem. During your stay at [facility], we have made an effort to correct the problem that brought you to the hospital while keeping you as comfortable as possible. Medications were used to bring your condition under control and your discharge instructions will include directions for any medications you should take after leaving the hospital. Please make sure you see your Primary Care Provider as part of your follow up plan. You had a falir up of your COPD. Will recommend a 5 day course of doxycylne WIll also recommend a steroid taper You did not require oxygen when walking today. Pending Studies at Discharge: No Stand-Alone Forms: My [facility], Smoking Cessation Medications and DC Order Prescriptions: New nifedipine [Procardia XL] 30 mg Tablet Extended Release 24hr 30 mg PO HS Qty: 30 0RF doxycycline hyclate 100 mg tablet 100 mg PO BID Qty: 10 0RF prednisone 10 mg tablet 10 mg PO DIRECTED Qty: 20 0RF Rx Instructions: Take 4 tabs by mouth once a day for 2 days then 3 tabs for 2 days then 2 tabs for 2 days then 1 tab for 2 days Continued multivitamin Tablet 1 tab PO QAM Qty: 0 fexofenadine 180 mg Tablet 180 mg PO QAM Qty: 0 theophylline 300 mg Tablet Extended Release 12 Hr 300 mg PO Q12H Qty: 0 aspirin 81 mg Tablet,Delayed Release (Dr/Ec) 81 mg PO QAM Qty: 0 isosorbide mononitrate 60 mg Tablet Extended Release 24 Hr 60 mg PO QAM Qty: 0 losartan 100 mg Tablet 100 mg PO QAM Qty: 0 naproxen 500 mg Tablet 500 mg PO BID Qty: 0 memantine 5 mg tablet 5 mg PO BID docusate sodium [DOK] 100 mg capsule 100 mg PO BID atorvastatin [Lipitor] 40 mg Tablet 40 mg PO HS potassium chloride 10 mEq tablet extended release 20 meq PO BID donepezil [Aricept] 5 mg Tablet 5 mg PO BID omega-3 fatty acids 1,000 mg Capsule 1,000 mg PO BID calcium carbonate-vitamin D3 [Calcium 600 + D(3)] 600 mg-5 mcg (200 unit) Tablet 1 tab PO BID Trelegy Ellipta 200-62.5-25 mcg Blister With Device 1 inh INHALATION QPM carvedilol 12.5 mg Tablet 12.5 mg PO BID Qty: 60 0RF Discontinued simvastatin 20 mg Tablet 20 mg PO PM simvastatin 40 mg tablet 40 mg PO QPM nifedipine 60 mg tablet extended release 24hr 60 mg PO QAM Discharge Orders: Discharge Order (Routine); Ordered 05/07/22 Ordered By: Everardo Limon Admission Data Admit Date/Time: 05/06/22 13:46 Attending Provider: Everardo Limon Admit Provider: Everardo Limon Primary Care Provider: Guerita Engel Other Interventions: Discharge Summary Assessment (RN) Last Done: 05/07/22 17:02 Coding Level of Care Code HOSP INP/OBS DISCH >30 MIN Diagnoses Hypoxia R09.02 Cough R05.9 Dementia F03.90 Hypertension I10 DVT prophylaxis Z29.9
== END 2022-05-07 17:27 | disposition home or self-care (01) ==
LOC: ED 10:05 → 3N 13:46 → INTOOBSV 13:46 → 3N 16:22

== ENCOUNTER 2022-11-30 21:28 | Inpatient (IN) ==
[2022-11-30] MEDS ORDERED: methylPREDNISolone 125 MG/2 ML VIAL IV STA (21:52)
[2022-11-30] MEDS ORDERED: ALBUT/IPRATROP 3MG/0.5MG NEB 3 ML VIAL NEB STA ×2 (21:52→23:40)
[2022-11-30] MEDS ORDERED: cefTRIAXone SODIUM 2,000 MG/70 ML BAG IV STA (22:19)
[2022-11-30 22:39] LABS: Basophils # (auto) 0.02 K/uL (0-0.2); Basophils % (auto) 0.4 %; Eosinophils # (auto) 0.05 K/uL (0-0.50); Hematocrit (blood only) 48.4 % (37.0-47.0); Hemoglobin 16.8 g/dl (12.0-16.0); Immature Granulocytes # (auto) 0.01 K/uL (0.01-0.20); Immature Granulocytes % (auto) 0.2 %; Lymphocytes # (auto) 0.38 K/uL (1.2-3.4); Lymphocytes % (auto) 7.7 %; Mean Corpuscular Hemoglobin 31.8 pg (25.0-34.0); Mean Corpuscular Hgb Conc 34.7 g/dL (32.0-36.0); Mean Corpuscular Volume 91.7 fL (80.0-100.0); Mean Platelet Volume 10.4 fL (9.4-12.4); Monocytes # (auto) 0.29 K/uL (0.11-0.59); Monocytes % (auto) 5.9 %; Neutrophils # (auto) 4.17 K/uL (1.40-6.50); Neutrophils % (auto) 84.8 %; Platelet Count 194 K/uL (130-400); RDW Coefficient of Variation 15.2 % (11.5-14.5); RDW Standard Deviation 50.8 fL (36.4-46.3); Red Blood Count 5.28 M/uL (4.20-5.40); White Blood Count 4.92 K/ul (4.8-10.8)
[2022-11-30 22:58] LABS: Alanine Aminotransferase 20 U/L (7-52); Albumin Level 4.3 gm/dl (3.4-5.0); Alkaline Phosphatase 78 U/L (34-104); Anion Gap 9 (3-11); Aspartate Aminotransferase 22 U/L (13-39); BUN Creatinine Ratio 37.6 (10-20); Bilirubin Direct 0.2 mg/dl (0-0.2); Bilirubin,Total 0.8 mg/dl (0.2-1.0); Blood Urea Nitrogen 32 mg/dl (6-23); Calcium 10.1 mg/dl (8.6-10.3); Carbon Dioxide 23 mmol/L (21-32); Chloride 103 mmol/L (98-107); Est GFR (African American) 74.5 ml/min; Est GFR (Non-African American) 64.3 ml/min; Glucose 102 mg/dl (70-99(Fasting)); Magnesium 1.9 mg/dl (1.7-2.4); Sodium 135 mmol/L (136-145); Total Protein 7.4 gm/dl (6.0-8.3)
--- NOTE | 2022-11-30 23:01 | Emergency Department Note ---
History of Present Illness General Chief complaint: Shortness of Breath/Dyspnea Stated complaint: DIFFICULTY BREATHING, O2 SATS 89-91%, VOMITING Time Seen by Provider: 11/30/22 21:43 History of Present Illness This 82-year-old female with a history of COPD presents to the ER complaining of cough, congestion, dyspnea and body aches for the past day steadily getting worse. Pulse ox is 88% on room air. She does not routinely wear oxygen. Patient denies chest pain, abdominal pain, vomiting, diarrhea, headache. She has been having some productive yellow sputum Home Medications Medication Instructions Recorded Confirmed Type aspirin 81 mg tablet,delayed 81 mg PO QAM ##0 03/14/17 11/30/22 History release fexofenadine 180 mg tablet 180 mg PO QAM #0 tabs 03/14/17 11/30/22 History multivitamin 1 tab PO QAM ##0 03/14/17 11/30/22 History theophylline 300 mg 300 mg PO Q12H #0 tabs 03/14/17 11/30/22 History tablet,extended release,12 hr isosorbide mononitrate 60 mg 60 mg PO QAM #0 tabs 08/07/17 11/30/22 History tablet,extended release 24 hr losartan 100 mg tablet 100 mg PO QAM #0 tabs 08/07/17 11/30/22 History naproxen 500 mg tablet 500 mg PO BID #0 tabs 08/07/17 11/30/22 History memantine 5 mg tablet 5 mg PO BID 08/16/20 11/30/22 History potassium chloride 10 mEq 20 meq PO BID 04/14/21 11/30/22 History tablet,extended release calcium carbonate 600 mg-vitamin 1 tab PO BID 10/30/21 11/30/22 History D3 5 mcg (200 unit) tablet (Calcium 600 + D(3)) fluticasone fur. 200 mcg-umeclid 1 inh inhalation QPM 10/30/21 11/30/22 History 62.5 mcg-vilant 25 mcg inhalat.powder (Trelegy Ellipta) omega-3 fatty acids 1,000 mg 1,000 mg PO BID 10/30/21 11/30/22 History capsule carvedilol 12.5 mg tablet 12.5 mg PO BID #60 tabs 11/10/21 11/30/22 Rx atorvastatin 40 mg tablet (Lipitor) 40 mg PO HS 05/06/22 11/30/22 History docusate sodium 100 mg capsule 100 mg PO BID 05/06/22 11/30/22 History (DOK) albuterol sulfate 90 mcg/actuation 2 puff inhalation Q4 PRN Shortness 10/06/22 11/30/22 History aerosol inhaler Of Breath Or Wheezing guaifenesin 600 mg tablet, 600 mg PO Q12H PRN Congestion 10/06/22 11/30/22 History extended release 12 hr (Mucinex) aripiprazole 5 mg tablet (Abilify) 5 mg PO QAM 11/30/22 11/30/22 History nifedipine 60 mg tablet,extended 60 mg PO HS 11/30/22 11/30/22 History release Allergies Allergy/AdvReac Type Severity Reaction Status Date / Time Antihistamines - Alkylamine AdvReac Unknown cant Verified 11/30/22 22:46 remember Antihistamines - Ethanolamine AdvReac Unknown cant Verified 11/30/22 22:46 remember Antihistamines - AdvReac Unknown cant Verified 11/30/22 22:46 Ethylenediamine remember Antihistamines - Piperazine AdvReac Unknown cant Verified 11/30/22 22:46 remember Antihistamines - Piperidine AdvReac Unknown cant Verified 11/30/22 22:46 remember Past Med/Surg History Medical History COPD (chronic obstructive pulmonary disease) Dementia Diabetes Heart disease Hypertension No pertinent family history Surgical History S/P cataract extraction and insertion of intraocular lens b/l Family History Other Family history unknown Social History Smoking Status: Former smoker Tobacco Type: Cigarettes Cigarettes Per Day: minimal amount of tobacco at age 20yo only; Second Hand Exposure: Yes; Do You Dip or Chew Tobacco: No; Hx Alcohol Use: No Hx Substance Use: No Preferred Language: Serbian Communication Ability: Effective Resume Writer Required: No Beliefs That Will Affect Care: Spiritual marital status: / Current Living Situation: Other Current Living Situation Comment: granddaughter lives with pt current occupational status: retired current occupation: worked at [employer]" How many Children do You have: 4 How many Children do You have Comment: 2 sons, 2 daughters Feels Safe at Home: Yes Assistive Devices: Cane, Denture - Upper and Denture - Lower Review of Systems A total of 10 systems reviewed and were otherwise negative Physical Exam Vital Signs Vital Signs - 24 hr 11/30/22 21:31 11/30/22 21:52 11/30/22 21:52 Temperature 36.5 C Temperature Source Temporal Artery Scan Pulse Rate 80 Pulse Rate from SpO2 Sensor Respiratory Rate 18 Respiratory Effort / Characteristics Non-Labored Spontaneous Non-Labored Spontaneous Respiratory Depth Normal Respiratory Pattern Regular Regular Blood Pressure 142/78 H Blood Pressure Mean 99 Blood Pressure Position Sitting Pulse Oximetry 88 L 88 L Oxygen Delivery Method Room Air Room Air Oxygen Flow Rate 0 Sepsis Recent Fever Within 48 Hours No Sepsis New/Unexplained Change in Mental Status N/A Sepsis Action Taken by Nursing No Action Required Oxygen Flow Rate - Titration 3 Pulse Oximetry Post Tiitration 93 11/30/22 21:52 11/30/22 21:44 11/30/22 22:00 Temperature Temperature Source Pulse Rate 85 Pulse Rate from SpO2 Sensor 90 Respiratory Rate 18 Respiratory Effort / Characteristics Respiratory Depth Respiratory Pattern Blood Pressure 127/89 Blood Pressure Mean 104 Blood Pressure Position Pulse Oximetry 93 87 L Oxygen Delivery Method Nasal Cannula Oxygen Flow Rate 3 Sepsis Recent Fever Within 48 Hours Sepsis New/Unexplained Change in Mental Status Sepsis Action Taken by Nursing Oxygen Flow Rate - Titration Pulse Oximetry Post Tiitration 11/30/22 22:00 11/30/22 22:30 11/30/22 22:30 Temperature Temperature Source Pulse Rate 78 80 Pulse Rate from SpO2 Sensor 77 81 Respiratory Rate 20 14 Respiratory Effort / Characteristics Respiratory Depth Respiratory Pattern Blood Pressure 123/94 Blood Pressure Mean 107 Blood Pressure Position Pulse Oximetry 93 99 Oxygen Delivery Method Oxygen Flow Rate Sepsis Recent Fever Within 48 Hours Sepsis New/Unexplained Change in Mental Status Sepsis Action Taken by Nursing Oxygen Flow Rate - Titration Pulse Oximetry Post Tiitration 11/30/22 23:00 11/30/22 23:00 11/30/22 23:30 Temperature Temperature Source Pulse Rate 69 Pulse Rate from SpO2 Sensor 68 Respiratory Rate 24 Respiratory Effort / Characteristics Respiratory Depth Respiratory Pattern Blood Pressure 116/57 L 134/85 Blood Pressure Mean 82 104 Blood Pressure Position Pulse Oximetry 93 Oxygen Delivery Method Oxygen Flow Rate Sepsis Recent Fever Within 48 Hours Sepsis New/Unexplained Change in Mental Status Sepsis Action Taken by Nursing Oxygen Flow Rate - Titration Pulse Oximetry Post Tiitration 11/30/22 23:30 12/01/22 00:00 12/01/22 00:01 Temperature Temperature Source Pulse Rate 72 76 Pulse Rate from SpO2 Sensor 73 75 Respiratory Rate 16 17 Respiratory Effort / Characteristics Respiratory Depth Respiratory Pattern Blood Pressure 148/76 H Blood Pressure Mean 95 Blood Pressure Position Pulse Oximetry 91 93 Oxygen Delivery Method Oxygen Flow Rate Sepsis Recent Fever Within 48 Hours Sepsis New/Unexplained Change in Mental Status Sepsis Action Taken by Nursing Oxygen Flow Rate - Titration Pulse Oximetry Post Tiitration 12/01/22 00:01 Temperature Temperature Source Pulse Rate 74 Pulse Rate from SpO2 Sensor 74 Respiratory Rate 22 Respiratory Effort / Characteristics Respiratory Depth Respiratory Pattern Blood Pressure Blood Pressure Mean Blood Pressure Position Pulse Oximetry 94 Oxygen Delivery Method Oxygen Flow Rate Sepsis Recent Fever Within 48 Hours Sepsis New/Unexplained Change in Mental Status Sepsis Action Taken by Nursing Oxygen Flow Rate - Titration Pulse Oximetry Post Tiitration VITALS: Vitals are noted on the nurse's note and reviewed by myself. Vital signs pulse ox 88% on room air which is improved on nasal cannula. GENERAL: Pleasant elderly female coughing, in no acute distress, nondiaphoretic, well-developed well-nourished. SKIN: The skin was without rashes, erythema, edema, or bruising. There is no tenting of the skin. Capillary reflex less than 2 seconds. HEAD: Normocephalic atraumatic. EARS: External auditory canals clear EYES: Pupils equal round and reactive to light and accommodation. Conjunctivae without injection, sclerae without icterus. Extraocular movements intact. NOSE: Patent, turbinates without inflammation or discharge MOUTH: Mucous membranes moist. Pharynx without erythema or exudate. Uvula midline. Airway patent. Tongue does not deviate. NECK: Supple without nuchal rigidity. No lymphadenopathy. No thyromegaly. Cervical spine is nontender. No JVD. HEART: Regular rate and rhythm LUNGS: Mild diffuse end expiratory wheezes, No retractions or accessory muscle use. ABDOMEN: Positive bowel sounds x 4. Normal tympanic percussion. Soft, nontender, without masses or organomegaly. Hirsch sign negative. No guarding or rebound tenderness. No CVA tenderness MUSCULOSKELETAL: No muscle atrophy, erythema, or edema noted. NEURO: Patient was alert and oriented to person place and time. Normal sensation to light and sharp touch. No focal neurological deficits. Course Administered Medications Discontinued Medications Albuterol (Albut/Ipratrop 3mg/0.5mg Neb 3 Ml Vial) 3 ml NEB NOW STA; Protocol Stop: 11/30/22 21:53 Last Admin: 11/30/22 22:20 Dose: 3 ml Documented By: SARAI Albuterol (Albut/Ipratrop 3mg/0.5mg Neb 3 Ml Vial) 3 ml NEB NOW STA; Protocol Stop: 11/30/22 23:41 Last Admin: 12/01/22 00:00 Dose: 3 ml Documented By: VIKTORIA Ceftriaxone Sodium (Rocephin) 2,000 mg in 70 mls @ 140 mls/hr IV NOW STA Stop: 11/30/22 22:48 Last Infusion: 12/01/22 00:02 Dose: 0 mls/hr Documented By: Admin: 11/30/22 22:32 Dose: 140 mls/hr Documented By: SARAI Methylprednisolone (Methylprednisolone 125 Mg/2 Ml Vial) 125 mg IV NOW STA Stop: 11/30/22 21:53 Last Admin: 11/30/22 22:20 Dose: 125 mg Documented By: SARAI Medical Decision Making Medical Records Attestation: I reviewed the patient's medical records. Home Medications Current Medication List: was personally reviewed by me Laboratory Data Attestation: I reviewed the patient's lab results. 11/30/22 22:15 11/30/22 22:15 Lab Results 11/30/22 11/30/22 11/30/22 Range/Units 22:15 22:15 22:15 WBC 4.92 (4.8-10.8) K/ul RBC 5.28 (4.20-5.40) M/uL Hgb 16.8 H (12.0-16.0) g/dl Hct 48.4 H (37.0-47.0) % MCV 91.7 (80.0-100.0) fL MCH 31.8 (25.0-34.0) pg MCHC 34.7 (32.0-36.0) g/dL RDW Std Deviation 50.8 H (36.4-46.3) fL RDW Coeff of Ede 15.2 H (11.5-14.5) % Plt Count 194 (130-400) K/uL MPV 10.4 (9.4-12.4) fL Immature Gran % (Auto) 0.2 % Neut % (Auto) 84.8 % Lymph % (Auto) 7.7 % [place] % (Auto) 5.9 % Eos % (Auto) 1.0 % Baso % (Auto) 0.4 % Neut # (Auto) 4.17 (1.40-6.50) K/uL Lymph # (Auto) 0.38 L (1.2-3.4) K/uL [place] # (Auto) 0.29 (0.11-0.59) K/uL Eos # (Auto) 0.05 (0-0.50) K/uL Baso # (Auto) 0.02 (0-0.2) K/uL Immature Gran # (Auto) 0.01 (0.01-0.20) K/uL VBG pH (7.36-7.41) VBG pCO2 (38-50) mmHg VBG pO2 mmHg VBG HCO3 mmol/L VBG O2 Saturation % VBG Base Excess mEq/L Sodium 135 L (136-145) mmol/L Potassium 4.0 (3.5-5.1) mmol/L Chloride 103 (98-107) mmol/L Carbon Dioxide 23 (21-32) mmol/L Anion Gap 9 (3-11) BUN 32 H (6-23) mg/dl Creatinine 0.85 (0.6-1.2) mg/dl Est Cr Clr Drug Dosing Not Reportable Est GFR ( Amer) 74.5 ml/min Est GFR (Non-Af Amer) 64.3 ml/min BUN/Creatinine Ratio 37.6 H (10-20) Glucose 102 H (70-99(Fasting)) mg/dl Lactate 1.1 (0.4-2.0) mmol/L Calcium 10.1 (8.6-10.3) mg/dl Magnesium 1.9 (1.7-2.4) mg/dl Total Bilirubin 0.8 (0.2-1.0) mg/dl Direct Bilirubin 0.2 (0-0.2) mg/dl AST 22 (13-39) U/L ALT 20 (7-52) U/L Alkaline Phosphatase 78 (34-104) U/L Troponin I High Sens 7.0 (0-14) pg/ml Total Protein 7.4 (6.0-8.3) gm/dl Albumin 4.3 (3.4-5.0) gm/dl Procalcitonin (0-0.5) ng/ml Adenovirus (PCR) (NotDetected) B. pertussis DNA (PCR) (NotDetected) B.parapertussis DNA PCR (NotDetected) C. pneumoniae DNA (PCR) (NotDetected) Coronavirus OC43 (PCR) (NotDetected) Coronavirus HKU1 (PCR) (NotDetected) Coronavirus 229E (PCR) (NotDetected) SARS-CoV-2 (PCR) (NotDetected) Coronavirus NL63 (PCR) (NotDetected) Human Metapneumovir PCR (NotDetected) Influenza Type A (PCR) (NotDetected) Influenza Type B (PCR) (NotDetected) M. pneumoniae (PCR) (NotDetected) Parainfluenza 1 (PCR) (NotDetected) Parainfluenza 2 (PCR) (NotDetected) Parainfluenza 3 (PCR) (NotDetected) Parainfluenza 4 (PCR) (NotDetected) RSV (PCR) (NotDetected) Entero/Rhino (PCR) (NotDetected) 11/30/22 11/30/22 11/30/22 Range/Units 22:15 22:20 23:03 WBC (4.8-10.8) K/ul RBC (4.20-5.40) M/uL Hgb (12.0-16.0) g/dl Hct (37.0-47.0) % MCV (80.0-100.0) fL MCH (25.0-34.0) pg MCHC (32.0-36.0) g/dL RDW Std Deviation (36.4-46.3) fL RDW Coeff of Ede (11.5-14.5) % Plt Count (130-400) K/uL MPV (9.4-12.4) fL Immature Gran % (Auto) % Neut % (Auto) % Lymph % (Auto) % [place] % (Auto) % Eos % (Auto) % Baso % (Auto) % Neut # (Auto) (1.40-6.50) K/uL Lymph # (Auto) (1.2-3.4) K/uL [place] # (Auto) (0.11-0.59) K/uL Eos # (Auto) (0-0.50) K/uL Baso # (Auto) (0-0.2) K/uL Immature Gran # (Auto) (0.01-0.20) K/uL VBG pH 7.39 (7.36-7.41) VBG pCO2 39 (38-50) mmHg VBG pO2 31 mmHg VBG HCO3 24 mmol/L VBG O2 Saturation < 60.0 % VBG Base Excess -1.2 mEq/L Sodium (136-145) mmol/L Potassium (3.5-5.1) mmol/L Chloride (98-107) mmol/L Carbon Dioxide (21-32) mmol/L Anion Gap (3-11) BUN (6-23) mg/dl Creatinine (0.6-1.2) mg/dl Est Cr Clr Drug Dosing Est GFR ( Amer) ml/min Est GFR (Non-Af Amer) ml/min BUN/Creatinine Ratio (10-20) Glucose (70-99(Fasting)) mg/dl Lactate (0.4-2.0) mmol/L Calcium (8.6-10.3) mg/dl Magnesium (1.7-2.4) mg/dl Total Bilirubin (0.2-1.0) mg/dl Direct Bilirubin (0-0.2) mg/dl AST (13-39) U/L ALT (7-52) U/L Alkaline Phosphatase (34-104) U/L Troponin I High Sens (0-14) pg/ml Total Protein (6.0-8.3) gm/dl Albumin (3.4-5.0) gm/dl Procalcitonin 0.17 (0-0.5) ng/ml Adenovirus (PCR) Not Detected (NotDetected) B. pertussis DNA (PCR) Not Detected (NotDetected) B.parapertussis DNA PCR Not Detected (NotDetected) C. pneumoniae DNA (PCR) Not Detected (NotDetected) Coronavirus OC43 (PCR) Not Detected (NotDetected) Coronavirus HKU1 (PCR) Not Detected (NotDetected) Coronavirus 229E (PCR) Not Detected (NotDetected) SARS-CoV-2 (PCR) Not Detected (NotDetected) Coronavirus NL63 (PCR) Not Detected (NotDetected) Human Metapneumovir PCR Not Detected (NotDetected) Influenza Type A (PCR) Not Detected (NotDetected) Influenza Type B (PCR) Not Detected (NotDetected) M. pneumoniae (PCR) Not Detected (NotDetected) Parainfluenza 1 (PCR) Not Detected (NotDetected) Parainfluenza 2 (PCR) Not Detected (NotDetected) Parainfluenza 3 (PCR) Not Detected (NotDetected) Parainfluenza 4 (PCR) Not Detected (NotDetected) RSV (PCR) Not Detected (NotDetected) Entero/Rhino (PCR) Not Detected (NotDetected) Imaging Data Attestation: I personally reviewed and interpreted this imaging study as follows: MDM Narrative Prior records/ancillary studies reviewed. Triage Nursing notes reviewed. Additional history obtained from the family The patient's history was concerning for respiratory difficulties. Differential diagnosis: Etiologies such as infections, reactive airway disease, pneumonia, pneumothorax, COPD, CHF, cardiac ischemia, pulmonary embolism, musculoskeletal, gastrointestinal, as well as others were entertained. Physical examination: As above. ER treatment provided: An order was placed for continuous cardiac monitoring. The monitor shows a rate of 60-100 with a sinus rhythm per my interpretation. Rocephin, Zithromax, nebulizer, Solu-Medrol was ordered On reassessment the patient felt better. Diagnostic interpretation by me: The electrocardiogram was ordered for SOB. ECG: Poor baseline, normal sinus, left axis, Q waves in the inferior leads, rate of 83. Impression normal sinus rhythm left axis independent interpreted by myself I think arrhythmia is unlikely. EKG shows normal sinus rhythm with no interval abnormalities such as QT prolongation or WPW. There are no findings to suggest Brugada syndrome. Cardiac monitoring in the emergency department reveals no tachycardic or bradycardic dysrhythmia. Hypertrophic cardiomyopathy was considered but there are no clear historical elements pointing toward this. EKG is not suggestive. The QRS voltage is not extremely large The labs Independently Interpreted by myself revealed negative lactic. Stable H&H. Blood cultures pending Normal VBG Negative troponin Imaging studies: Chest x-ray with possible right lower lobe consolidation per my independent interpretation without free air. Consultation: A consultation was placed with the hospitalist. The case was discussed and diagnostics were reviewed. The patient was evaluated in the ER for further treatment. This appears to be consistent with COPD exacerbation with possible developing pneumonia. Patient's been having productive cough. She was hypoxic at 88%. Labs and diagnostics reviewed interpreted by myself. She was medicated as above and felt somewhat better. Medicine was consulted the case was discussed. She will be admitted to the medical service for further evaluation and work-up.. By the evaluation outlined above emergent etiologies such as CHF, cardiac ischemia, pulmonary embolism, reactive airway disease, pneumothorax, musculoskeletal, serious bacterial infections, as well as others were deemed relatively unlikely. The pt informed about the findings as listed above. All questions were answered and pleased with the treatment. The chart was completed utilizing [employer] Speech voice recognition software. Grammatical errors, random word insertions, pronoun errors, and incomplete sentences are an occassional consequence of this system due to software limitations, ambient noise, and hardware issues. Any formal questions or concerns about the content, text, or information contained within the body of this dictation should be directly addressed to the physician assistant professor of anthropology for clarification. Impression & Plan Acute exacerbation of chronic obstructive pulmonary disease, Hypoxemia Discharge Plan Visit Data Chief Complaint: Shortness of Breath/Dyspnea Stated Complaint: DIFFICULTY BREATHING, O2 SATS 89-91%, VOMITING ED Provider: Ion Wiseman ED Midlevel Provider: Sierra Davison Discharge Problem: Acute exacerbation of chronic obstructive pulmonary disease, Hypoxemia Patient Disposition: Admitted As Inpatient Condition: Fair Discharge Instructions Interventions: ED Discharge Assessment Last Done: 12/01/22 00:08 Forms Stand Alone Forms: [employer] Prescriptions Prescriptions: No Action multivitamin Tablet 1 tab PO QAM Qty: 0 fexofenadine 180 mg Tablet 180 mg PO QAM Qty: 0 theophylline 300 mg Tablet Extended Release 12 Hr 300 mg PO Q12H Qty: 0 aspirin 81 mg Tablet,Delayed Release (Dr/Ec) 81 mg PO QAM Qty: 0 isosorbide mononitrate 60 mg Tablet Extended Release 24 Hr 60 mg PO QAM Qty: 0 losartan 100 mg Tablet 100 mg PO QAM Qty: 0 naproxen 500 mg Tablet 500 mg PO BID Qty: 0 memantine 5 mg tablet 5 mg PO BID docusate sodium [DOK] 100 mg capsule 100 mg PO BID atorvastatin [Lipitor] 40 mg Tablet 40 mg PO HS guaifenesin [Mucinex] 600 mg Tablet Extended Release 12hr 600 mg PO Q12H PRN (Reason: Congestion) albuterol sulfate 90 mcg/actuation HFA aerosol inhaler 2 puff INHALATION Q4 PRN (Reason: Shortness Of Breath Or Wheezing) potassium chloride 10 mEq tablet extended release 20 meq PO BID omega-3 fatty acids 1,000 mg Capsule 1,000 mg PO BID calcium carbonate-vitamin D3 [Calcium 600 + D(3)] 600 mg-5 mcg (200 unit) Tablet 1 tab PO BID Trelegy Ellipta 200-62.5-25 mcg Blister With Device 1 inh INHALATION QPM carvedilol 12.5 mg Tablet 12.5 mg PO BID Qty: 60 0RF nifedipine 60 mg tablet extended release 60 mg PO HS aripiprazole [Abilify] 5 mg tablet 5 mg PO QAM Referrals Referrals: Guerita Engel PA-C [Primary Care Provider] -
[2022-11-30 23:25] LABS: Base Excess VBG -1.2 mEq/L; HCO3 VBG 24 mmol/L; Oxygen Saturation VBG < 60.0 %; PCO2 VBG 39 mmHg (38-50); PO2 VBG 31 mmHg; pH VBG 7.39 (7.36-7.41)
[2022-11-30 23:32] LABS: Adenovirus PCR Not Detected (NotDetected); Bordetella parapertussis PCR Not Detected (NotDetected); Bordetella pertussis PCR Not Detected (NotDetected); Chlamydia pneumoniae PCR Not Detected (NotDetected); Coronavirus 229E PCR Not Detected (NotDetected); Coronavirus CoV-2 (COVID19)PCR Not Detected (NotDetected); Coronavirus HKU1 PCR Not Detected (NotDetected); Coronavirus NL63 PCR Not Detected (NotDetected); Coronavirus OC43PCR Not Detected (NotDetected); Human Metapneumovirus PCR Not Detected (NotDetected); Influenza A PCR Not Detected (NotDetected); Influenza B PCR Not Detected (NotDetected); Mycoplasma pneumoniae PCR Not Detected (NotDetected); Parainfluenza Virus 1 PCR Not Detected (NotDetected); Parainfluenza Virus 2 PCR Not Detected (NotDetected); Parainfluenza Virus 3 PCR Not Detected (NotDetected); Parainfluenza Virus 4 PCR Not Detected (NotDetected); Respiratory Syncytial VirusPCR Not Detected (NotDetected); Rhinovirus/Enterovirus PCR Not Detected (NotDetected)
--- NOTE | 2022-11-30 23:39 | History & Physical Report ---
Date of Service November 30, 2022 Assessment & Plan (1) Acute exacerbation of chronic obstructive pulmonary disease: Plan: 82yo female with history of COPD on home O2 presenting with worsening SOB and increased sputum production. Adequate oxygenation at present on 3L NC. No respiratory distress or wheeze. Suspect acute exacerbation of COPD. -Admit to medical -Continue Trelegy -DuoNeb q 4 hours -Albuterol q 2 hours PRN -Continue PO Prednisone 40mg po daily -Mucinex PRN -IS and flutter valve -Oxygen as needed to maintain saturation 88-92% -Continue Theophylline -Azithromycin (2) Dementia: Plan: Chronic. Stable -Frequent orientation -Continue Abilify -Continue Namenda (3) Hypertension: Plan: Blood pressure mildly elevated at present -Continue Nifedipine -Continue Carvedilol -Continue Isosorbide -Continue Losartan History of Present Illness Chief Complaint: shortness of breath Primary Care Provider: Guerita Tomlinson is an 82yo female with history of COPD, intermittent use of home oxygen, HTN, DM and Dementia presenting with shortness of breath. Patient is a poor historian. History obtained from patient as well as granddaughter at bedside. They report patient was doing well until around 19:30 tonight when she became acutely short of breath after ambulating in her home. She has had a cough with increased amount of thick, yellow sputum as well as some nausea and vomiting. No fever, chills, chest pain, palpitations, abdominal pain or diarrhea. No edema or orthopnea. No recent illness, sick contacts or recent travel. No additional complaints at this time. In the ER she is afebrile, HD stable, saturating 88% on room air on arrival which improved with placement of 3L NC. ER Course: Ceftriaxone Albuterol Allergies Allergy/AdvReac Type Severity Reaction Status Date / Time Antihistamines - Alkylamine AdvReac Unknown cant Verified 11/30/22 22:46 remember Antihistamines - Ethanolamine AdvReac Unknown cant Verified 11/30/22 22:46 remember Antihistamines - AdvReac Unknown cant Verified 11/30/22 22:46 Ethylenediamine remember Antihistamines - Piperazine AdvReac Unknown cant Verified 11/30/22 22:46 remember Antihistamines - Piperidine AdvReac Unknown cant Verified 11/30/22 22:46 remember Home Medications Medication Instructions Recorded Confirmed Type aspirin 81 mg tablet,delayed 81 mg PO QAM ##0 03/14/17 11/30/22 History release fexofenadine 180 mg tablet 180 mg PO QAM #0 tabs 03/14/17 11/30/22 History multivitamin 1 tab PO QAM ##0 03/14/17 11/30/22 History theophylline 300 mg 300 mg PO Q12H #0 tabs 03/14/17 11/30/22 History tablet,extended release,12 hr isosorbide mononitrate 60 mg 60 mg PO QAM #0 tabs 08/07/17 11/30/22 History tablet,extended release 24 hr losartan 100 mg tablet 100 mg PO QAM #0 tabs 08/07/17 11/30/22 History naproxen 500 mg tablet 500 mg PO BID #0 tabs 08/07/17 11/30/22 History memantine 5 mg tablet 5 mg PO BID 08/16/20 11/30/22 History potassium chloride 10 mEq 20 meq PO BID 04/14/21 11/30/22 History tablet,extended release calcium carbonate 600 mg-vitamin 1 tab PO BID 10/30/21 11/30/22 History D3 5 mcg (200 unit) tablet (Calcium 600 + D(3)) fluticasone fur. 200 mcg-umeclid 1 inh inhalation QPM 10/30/21 11/30/22 History 62.5 mcg-vilant 25 mcg inhalat.powder (Trelegy Ellipta) omega-3 fatty acids 1,000 mg 1,000 mg PO BID 10/30/21 11/30/22 History capsule carvedilol 12.5 mg tablet 12.5 mg PO BID #60 tabs 11/10/21 11/30/22 Rx atorvastatin 40 mg tablet (Lipitor) 40 mg PO HS 05/06/22 11/30/22 History docusate sodium 100 mg capsule 100 mg PO BID 05/06/22 11/30/22 History (DOK) albuterol sulfate 90 mcg/actuation 2 puff inhalation Q4 PRN Shortness 10/06/22 11/30/22 History aerosol inhaler Of Breath Or Wheezing guaifenesin 600 mg tablet, 600 mg PO Q12H PRN Congestion 10/06/22 11/30/22 History extended release 12 hr (Mucinex) aripiprazole 5 mg tablet (Abilify) 5 mg PO QAM 11/30/22 11/30/22 History nifedipine 60 mg tablet,extended 60 mg PO HS 11/30/22 11/30/22 History release Past Med/Surg History Medical History COPD (chronic obstructive pulmonary disease) Dementia Diabetes Heart disease Hypertension No pertinent family history Surgical History S/P cataract extraction and insertion of intraocular lens b/l Family History Other Family history unknown Social History Smoking Status: Former smoker Tobacco Type: Cigarettes Cigarettes Per Day: minimal amount of tobacco at age 20yo only; Second Hand Exposure: Yes; Do You Dip or Chew Tobacco: No; Hx Alcohol Use: No Hx Substance Use: No Preferred Language: Pashto Communication Ability: Effective 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 Library 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 Required: No Beliefs That Will Affect Care: Spiritual marital status: / Current Living Situation: Other Current Living Situation Comment: granddaughter lives with pt current occupational status: retired current occupation: worked at "[employer]" How many Children do You have: 4 How many Children do You have Comment: 2 sons, 2 daughters Feels Safe at Home: Yes Assistive Devices: Cane, Denture - Upper and Denture - Lower Review of Systems Review of Systems: All systems reviewed & are unremarkable except as noted in HPI & below Physical Exam Physical Exam: General: patient resting comfortably, NAD, non-toxic in appearance Skin: warm, dry, intact, bruise present on left cheek from hitting her face with a cane HEENT: NC, bruise on left cheek as above, PERRL, EOMI, anicteric sclera, conjunctiva without injection, external ear normal to inspection and nontender, nares patent, moist mucus membranes, dentition intact, no oropharyngeal lesions, neck supple, trachea midline, no LAD, no thyromegaly, no JVD Heart: +S1/S2, regular, no m/r/g Lungs: equal air entry bilaterally, coarse breath sounds in bilateral lung bases, no wheezing Abd: +BS, soft, NT/ND, no masses/organomegaly/ascites Ext: warm, 2+ pulses in UE/LE bilaterally, no clubbing/cyanosis or edema Neuro: nonfocal, patient AA&O x 4, speech intact, no facial droop, moving all extremities on command with equal strength 5/5 Results & Data Results & Data Vital Signs (Past 12 Hours) Vital Signs Temp Pulse Resp BP Pulse Ox O2 Del Method O2 Flow Rate 11/30/22 21:52 93 Nasal Cannula 3 11/30/22 21:52 88 L Room Air 0 11/30/22 21:31 36.5 C 80 18 142/78 H 88 L Room Air Laboratory Results Laboratory Results WBC 4.92 K/ul (4.8-10.8) 11/30/22 22:15 RBC 5.28 M/uL (4.20-5.40) 11/30/22 22:15 Hgb 16.8 g/dl (12.0-16.0) H 11/30/22 22:15 Hct 48.4 % (37.0-47.0) H 11/30/22 22:15 MCV 91.7 fL (80.0-100.0) 11/30/22 22:15 MCH 31.8 pg (25.0-34.0) 11/30/22 22:15 MCHC 34.7 g/dL (32.0-36.0) 11/30/22 22:15 RDW Std Deviation 50.8 fL (36.4-46.3) H 11/30/22 22:15 RDW Coeff of Ede 15.2 % (11.5-14.5) H 11/30/22 22:15 Plt Count 194 K/uL (130-400) 11/30/22 22:15 MPV 10.4 fL (9.4-12.4) 11/30/22 22:15 Immature Gran % (Auto) 0.2 % 11/30/22 22:15 Neut % (Auto) 84.8 % 11/30/22 22:15 Lymph % (Auto) 7.7 % 11/30/22 22:15 [place] % (Auto) 5.9 % 11/30/22 22:15 Eos % (Auto) 1.0 % 11/30/22 22:15 Baso % (Auto) 0.4 % 11/30/22 22:15 Neut # (Auto) 4.17 K/uL (1.40-6.50) 11/30/22 22:15 Lymph # (Auto) 0.38 K/uL (1.2-3.4) L 11/30/22 22:15 [place] # (Auto) 0.29 K/uL (0.11-0.59) 11/30/22 22:15 Eos # (Auto) 0.05 K/uL (0-0.50) 11/30/22 22:15 Baso # (Auto) 0.02 K/uL (0-0.2) 11/30/22 22:15 Immature Gran # (Auto) 0.01 K/uL (0.01-0.20) 11/30/22 22:15 VBG pH 7.39 (7.36-7.41) 11/30/22 23:03 VBG pCO2 39 mmHg (38-50) 11/30/22 23:03 VBG pO2 31 mmHg 11/30/22 23:03 VBG HCO3 24 mmol/L 11/30/22 23:03 VBG O2 Saturation < 60.0 % 11/30/22 23:03 VBG Base Excess -1.2 mEq/L 11/30/22 23:03 Sodium 135 mmol/L (136-145) L 11/30/22 22:15 Potassium 4.0 mmol/L (3.5-5.1) 11/30/22 22:15 Chloride 103 mmol/L (98-107) 11/30/22 22:15 Carbon Dioxide 23 mmol/L (21-32) 11/30/22 22:15 Anion Gap 9 (3-11) 11/30/22 22:15 BUN 32 mg/dl (6-23) H 11/30/22 22:15 Creatinine 0.85 mg/dl (0.6-1.2) 11/30/22 22:15 Est Cr Clr Drug Dosing Not Reportable 11/30/22 22:15 Est GFR ( Amer) 74.5 ml/min 11/30/22 22:15 Est GFR (Non-Af Amer) 64.3 ml/min 11/30/22 22:15 BUN/Creatinine Ratio 37.6 (10-20) H 11/30/22 22:15 Glucose 102 mg/dl (70-99(Fasting)) H 11/30/22 22:15 Lactate 1.1 mmol/L (0.4-2.0) 11/30/22 22:15 Calcium 10.1 mg/dl (8.6-10.3) 11/30/22 22:15 Magnesium 1.9 mg/dl (1.7-2.4) 11/30/22 22:15 Total Bilirubin 0.8 mg/dl (0.2-1.0) 11/30/22 22:15 Direct Bilirubin 0.2 mg/dl (0-0.2) 11/30/22 22:15 AST 22 U/L (13-39) 11/30/22 22:15 ALT 20 U/L (7-52) 11/30/22 22:15 Alkaline Phosphatase 78 U/L (34-104) 11/30/22 22:15 Troponin I High Sens 7.0 pg/ml (0-14) 11/30/22 22:15 Total Protein 7.4 gm/dl (6.0-8.3) 11/30/22 22:15 Albumin 4.3 gm/dl (3.4-5.0) 11/30/22 22:15 Procalcitonin 0.17 ng/ml (0-0.5) 11/30/22 22:15 Adenovirus (PCR) Not Detected (NotDetected) 11/30/22 22:20 B. pertussis DNA (PCR) Not Detected (NotDetected) 11/30/22 22:20 B.parapertussis DNA PCR Not Detected (NotDetected) 11/30/22 22:20 C. pneumoniae DNA (PCR) Not Detected (NotDetected) 11/30/22 22:20 Coronavirus OC43 (PCR) Not Detected (NotDetected) 11/30/22 22:20 Coronavirus HKU1 (PCR) Not Detected (NotDetected) 11/30/22 22:20 Coronavirus 229E (PCR) Not Detected (NotDetected) 11/30/22 22:20 SARS-CoV-2 (PCR) Not Detected (NotDetected) 11/30/22 22:20 Coronavirus NL63 (PCR) Not Detected (NotDetected) 11/30/22 22:20 Human Metapneumovir PCR Not Detected (NotDetected) 11/30/22 22:20 Influenza Type A (PCR) Not Detected (NotDetected) 11/30/22 22:20 Influenza Type B (PCR) Not Detected (NotDetected) 11/30/22 22:20 M. pneumoniae (PCR) Not Detected (NotDetected) 11/30/22 22:20 Parainfluenza 1 (PCR) Not Detected (NotDetected) 11/30/22 22:20 Parainfluenza 2 (PCR) Not Detected (NotDetected) 11/30/22 22:20 Parainfluenza 3 (PCR) Not Detected (NotDetected) 11/30/22 22:20 Parainfluenza 4 (PCR) Not Detected (NotDetected) 11/30/22 22:20 RSV (PCR) Not Detected (NotDetected) 11/30/22 22:20 Entero/Rhino (PCR) Not Detected (NotDetected) 11/30/22 22:20 Diagnostic Findings CXR - per my interpretation - no obvious edema, PNA or PTX PG Care Time/CCT Total # of Minutes Spent Total Time Spent with Patient: Total time spent is greater than 50% in coordination of care (as documented) at patient's floor/unit and/or counseling patient: Coding Level of Care Code 31095 INT INP/OBS CARE 2MIN Diagnoses Acute exacerbation of chronic obstructive pulmonary disease J44.1 Dementia G30.9; F02.82 Alzheimer's disease onset: unspecified onset Dementia behavioral or psychological symptom: with psychotic disturbance Dementia severity: unspecified severity Dementia type: Alzheimer's Hypertension I10 (2) Dementia Alzheimer's disease onset: unspecified onset Dementia 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
[2022-12-01] MEDS ORDERED: ACETAMINOPHEN 325 MG TAB PO PRN (00:56)
[2022-12-01] MEDS ORDERED: ALBUTEROL 0.5% NEB SOLN 2.5 MG/0.5 ML VIAL NEB PRN (00:56)
[2022-12-01] MEDS ORDERED: ONDANSETRON INJ 2 MG/ML 2 ML VIAL IV PRN (00:56)
[2022-12-01] MEDS ORDERED: AZITHROMYCIN 500 MG in DEXTROSE 5% 250 ML IV ONE (01:30)
[2022-12-01] MEDS: ALBUT/IPRATROP 3MG/0.5MG NEB 3 ML VIAL NEB SCH ×6 (02:44→23:09)
--- NOTE | 2022-12-01 07:29 | XRay Report ---
XR chest 1V portable HISTORY: 82 years-old Female Sepsis acute sepsis COMPARISON: 10/06/2022 TECHNIQUE: AP view of the chest FINDINGS: Cardiomediastinal and hilar silhouettes are unchanged. Atherosclerosis of the aorta. Blunting of the costophrenic angles with mild subsegmental bibasilar densities. No pneumothorax, or overt pulmonary e melva or large pleural effusion. Degenerative changes of the shoulders and spine. Midthoracic dextrosc oliosis. IMPRESSION: Mild subsegmental bibasilar atelectasis. ACT 112: Negative or not required by law. The above report was generated using voice recognition software. It may contain grammatical, syntax o r spelling errors. Electronically signed by: Filippo Matta M.D. 12/01/2022 7:28 AM
[2022-12-01 07:53] LABS: Hematocrit (blood only) 40.7 % (37.0-47.0); Hemoglobin 14.1 g/dl (12.0-16.0); Mean Corpuscular Hemoglobin 31.1 pg (25.0-34.0); Mean Corpuscular Hgb Conc 34.6 g/dL (32.0-36.0); Mean Corpuscular Volume 89.8 fL (80.0-100.0); Mean Platelet Volume 10.5 fL (9.4-12.4); Platelet Count 189 K/uL (130-400); RDW Standard Deviation 49.6 fL (36.4-46.3); Red Blood Count 4.53 M/uL (4.20-5.40); White Blood Count 5.94 K/ul (4.8-10.8)
[2022-12-01 08:05] LABS: BUN Creatinine Ratio 41.7 (10-20); Calcium 9.5 mg/dl (8.6-10.3); Est GFR (African American) 75.5 ml/min; Est GFR (Non-African American) 65.2 ml/min; Potassium 4.2 mmol/L (3.5-5.1)
[2022-12-01] MEDS: ASPIRIN 81 MG ECTAB PO SCH (08:22)
[2022-12-01] MEDS: ISOSORBIDE MONO EXTENDED REL 60 MG TABCR PO SCH (08:22)
[2022-12-01] MEDS: ARIPiprazole 5 MG TAB PO SCH (08:22)
[2022-12-01] MEDS: NAPROXEN 250 MG TAB PO SCH ×2 (08:22→20:33)
[2022-12-01] MEDS: FEXOFENADINE HCL 180 MG TAB PO SCH (08:22)
[2022-12-01] MEDS: carvediloL 12.5 MG TAB PO SCH ×2 (08:22→20:32)
[2022-12-01] MEDS: LOSARTAN POTASSIUM 50 MG TAB PO SCH (08:23)
[2022-12-01] MEDS: MEMANTINE HCL 5 MG TAB PO SCH ×2 (08:23→20:33)
[2022-12-01] MEDS: predniSONE 20 MG TAB PO SCH (08:23)
[2022-12-01] MEDS: guaiFENesin 600 MG TABCR PO PRN ×2 (08:24→20:31)
[2022-12-01] MEDS: THEOPHYLLINE 300MG EXTENDED REL TAB PO SCH ×2 (08:24→20:33)
[2022-12-01] MEDS: DOCUSATE SODIUM 100 MG CAP PO SCH ×2 (08:24→20:31)
[2022-12-01] MEDS ORDERED: PNEUMOCOCCAL Polysaccharide Vaccine 25mcg/0.5mL vial/Syr IM ONE (09:00)
[2022-12-01] MEDS: NIFEdipine EXTENDED REL 30 MG TABCR PO SCH (20:32)
[2022-12-01] MEDS: ATORVASTATIN 40 MG TAB PO SCH (20:32)
[2022-12-01] MEDS: UMECLIDINIUM/VILANTEROL 62.5/25MCG 7 PUFFS/INHALER INH SCH (20:34)
[2022-12-01] MEDS: FLUTICASONE FUROATE 200MCG 14 PUFFS/INHALER INH SCH (20:36)
[2022-12-01] MEDS ORDERED: NON-FORMULARY MEDICATION (Fluticasone-Umeclidin-Vilanter [Trelegy Ellipta] 200-62.5-25 mcg INH SCH (21:00)
[2022-12-01] MEDS ORDERED: AZITHROMYCIN 250 MG in DEXTROSE 5% 250 ML IV SCH (22:00)
[2022-12-02] MEDS: ALBUT/IPRATROP 3MG/0.5MG NEB 3 ML VIAL NEB SCH ×7 (03:05→22:29)
[2022-12-02] MEDS: carvediloL 12.5 MG TAB PO SCH ×2 (09:01→20:29)
[2022-12-02] MEDS: NAPROXEN 250 MG TAB PO SCH ×2 (09:02→20:31)
[2022-12-02] MEDS: ISOSORBIDE MONO EXTENDED REL 60 MG TABCR PO SCH (09:02)
[2022-12-02] MEDS: LOSARTAN POTASSIUM 50 MG TAB PO SCH (09:02)
[2022-12-02] MEDS: predniSONE 20 MG TAB PO SCH (09:02)
[2022-12-02] MEDS: ARIPiprazole 5 MG TAB PO SCH (09:03)
[2022-12-02] MEDS: ASPIRIN 81 MG ECTAB PO SCH (09:03)
[2022-12-02] MEDS: guaiFENesin 600 MG TABCR PO PRN (09:03)
[2022-12-02] MEDS: THEOPHYLLINE 300MG EXTENDED REL TAB PO SCH ×2 (09:03→20:33)
[2022-12-02] MEDS: FEXOFENADINE HCL 180 MG TAB PO SCH (09:03)
[2022-12-02] MEDS: MEMANTINE HCL 5 MG TAB PO SCH ×2 (09:03→20:31)
[2022-12-02] MEDS: DOCUSATE SODIUM 100 MG CAP PO SCH ×2 (09:03→20:30)
[2022-12-02 11:20] LABS: BUN Creatinine Ratio 36.1 (10-20); Calcium 9.7 mg/dl (8.6-10.3); Creatinine Clr Calc Pharmacy 53.6 ml/min; Est GFR (African American) 76.6 ml/min; Est GFR (Non-African American) 66.1 ml/min; Potassium 4.1 mmol/L (3.5-5.1)
[2022-12-02 11:33] LABS: Estimated Average Glucose 114 mg/dl; Hemoglobin A1C 5.6 % (4.5-5.6)
[2022-12-02] MEDS: guaiFENesin 600 MG TABCR PO SCH ×2 (12:35→20:30)
--- NOTE | 2022-12-02 13:14 | XRay Report ---
XR chest 2V PA/lateral HISTORY: 82 years-old Female b/l basilar rhonchi; eval pneumonia COMPARISON: 11/30/2022 TECHNIQUE: PA and lateral views of the chest FINDINGS: Cardiomediastinal and hilar silhouettes are within normal limits. Atherosclerosis of the aorta. Hyper inflation with diaphragmatic flattening. No pneumothorax or overt pulmonary edema. Subsegmental bibas ilar densities with blunting of the costophrenic angles. Sigmoidal thoracolumbar scoliosis with degen erative changes of the shoulders and spine. IMPRESSION: Subsegmental bibasilar densities suggest atelectasis. Probable trace associated pleural e ffusions. ACT 112: Negative or not required by law. The above report was generated using voice recognition software. It may contain grammatical, syntax o r spelling errors. Electronically signed by: Filippo Matta M.D. 12/02/2022 1:13 PM
[2022-12-02] MEDS: methylPREDNISolone 30 MG in SYRINGE 0 ML IV SCH (15:17)
--- NOTE | 2022-12-02 15:53 | Hospitalist Progress Note ---
Date of Service December 01, 2022 DOS December 01, 2022 Assessment & Plan (1) Acute exacerbation of chronic obstructive pulmonary disease: Plan: 82yo female with history of COPD on home O2 presenting with worsening SOB and increased sputum production. Adequate oxygenation at present on 3L NC. No respiratory distress or wheeze. Suspect acute exacerbation of COPD. -Admit to medical -Continue Trelegy -DuoNeb q 4 hours -Albuterol q 2 hours PRN -Continue PO Prednisone 40mg po daily -Mucinex PRN -IS and flutter valve -Oxygen as needed to maintain saturation 88-92% -Continue Theophylline -Azithromycin (2) Dementia: Plan: Chronic. Stable -Frequent orientation -Continue Abilify -Continue Namenda (3) Hypertension: Plan: Blood pressure mildly elevated at present -Continue Nifedipine -Continue Carvedilol -Continue Isosorbide -Continue Losartan Admission and Anticipated Discharge Date Admission Date: November 30, 2022 Anticipated date of discharge: 12/03/22 Supervising Physician Co-Signing Physician Notes Whether it be Thursday or for discharge patient will need a two-step pulse oximetry prior to discharge Subjective Patient seen on hospitalist rounds and she describes her respiratory complaints presenting to the emergency department with difficulty breathing and an episode of vomiting. She has cough congestion headache and dizziness. Her cough is productive of yellow sputum. After getting breathing treatments and oxygen in the emergency department her breathing is starting to feel better. Vital signs include a temperature of 36.5 pulse of 72 respirations 16 blood pressure 139/74. Her mean blood pressure is 95 and her sat 92% on room air. pH is 7.39 PCO2 39 by VBG venous blood gas. She has multiple allergies but I reviewed them. Review of Systems Constitutional: Headache and dizziness Respiratory: Cough and congestion and yellow sputum Physical Exam Constitutional: WD/WN, vitals as above Eyes: PERRL, conjunctivae normal, anicteric sclerae Neck: trachea midline, no thyromegaly Respiratory: Bilateral sonorous rhonchi and scattered rales Cardiovascular: RRR, no murmur, no edema Gastrointestinal (Abdomen): normal bowel sounds, soft, nontender, no hepatosplenomegaly Skin: no rashes, warm and dry Neurologic: PERRL, EOMI, accommodation nl, no face palsy, no dysarthria Psychiatric: A+Ox3, euthymic affect Results & Data Results & Data Vital Signs (Past 12 Hours) Vital Signs Temp Pulse Resp BP Pulse Ox O2 Del Method 12/02/22 15:33 75 16 94 Room Air 12/02/22 14:54 36.5 C 81 16 147/90 H 93 Room Air 12/02/22 10:42 77 18 95 Room Air 12/02/22 07:45 Room Air 12/02/22 07:05 83 18 94 Room Air 12/02/22 07:05 36.7 C 77 16 166/84 H 92 Room Air PG Care Time/CCT Total # of Minutes Spent Total Time Spent with Patient: Total time spent is greater than 50% in coordination of care (as documented) at patient's floor/unit and/or counseling patient: Coding Level of Care Code 93047 SUB INP/OBS CARE 05/28MIN Diagnoses Acute exacerbation of chronic obstructive pulmonary disease J44.1 Dementia G30.9; F02.82 Alzheimer's disease onset: unspecified onset Dementia behavioral or psychological symptom: with psychotic disturbance Dementia severity: unspecified severity Dementia type: Alzheimer's Hypertension I10 Time Spent (min) 25 (2) Dementia Alzheimer's disease onset: unspecified onset Dementia 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
[2022-12-02] MEDS: ATORVASTATIN 40 MG TAB PO SCH (20:27)
[2022-12-02] MEDS: FLUTICASONE FUROATE 200MCG 14 PUFFS/INHALER INH SCH (20:30)
[2022-12-02] MEDS: NIFEdipine EXTENDED REL 30 MG TABCR PO SCH (20:32)
[2022-12-02] MEDS: UMECLIDINIUM/VILANTEROL 62.5/25MCG 7 PUFFS/INHALER INH SCH (20:33)
[2022-12-02] MEDS ORDERED: AZITHROMYCIN 250 MG TAB PO SCH (21:00)
--- NOTE | 2022-12-02 23:46 | Electrocardiogram Report ---
Test Reason : Blood Pressure : / mmHG Vent. Rate : 083 BPM Atrial Rate : 083 BPM P-R Int : 148 ms QRS Dur : 106 ms QT Int : 376 ms P-R-T Axes : 073 -70 053 degrees QTc Int : 441 ms Normal sinus rhythm Left axis deviation Incomplete right bundle branch block Septal infarct Inferior infarct , age undetermined Abnormal ECG When compared with ECG of 06-OCT-2022 00:37, Premature atrial complexes are no longer Present Inferior infarct is now Present Confirmed by Stanford Mahmood ([id number]) on 12/02/2022 11:46:30 PM Referred By: REFERRED SELF Confirmed By:Stanford Mahmood
[2022-12-03] MEDS: ALBUT/IPRATROP 3MG/0.5MG NEB 3 ML VIAL NEB SCH ×4 (02:18→14:30)
[2022-12-03] MEDS: methylPREDNISolone 30 MG in SYRINGE 0 ML IV SCH ×2 (03:14→15:40)
[2022-12-03] MEDS: guaiFENesin 600 MG TABCR PO SCH (07:27)
[2022-12-03] MEDS: DOCUSATE SODIUM 100 MG CAP PO SCH (07:27)
[2022-12-03] MEDS: FEXOFENADINE HCL 180 MG TAB PO SCH (07:27)
[2022-12-03] MEDS: MEMANTINE HCL 5 MG TAB PO SCH (07:28)
[2022-12-03] MEDS: LOSARTAN POTASSIUM 50 MG TAB PO SCH (07:28)
[2022-12-03] MEDS: THEOPHYLLINE 300MG EXTENDED REL TAB PO SCH (07:28)
[2022-12-03] MEDS: carvediloL 12.5 MG TAB PO SCH (07:28)
[2022-12-03] MEDS: ARIPiprazole 5 MG TAB PO SCH (07:28)
[2022-12-03] MEDS: NAPROXEN 250 MG TAB PO SCH (07:28)
[2022-12-03] MEDS: ISOSORBIDE MONO EXTENDED REL 60 MG TABCR PO SCH (07:28)
[2022-12-03] MEDS: ASPIRIN 81 MG ECTAB PO SCH (07:28)
--- NOTE | 2022-12-03 10:18 | Hospitalist Progress Note ---
Date of Service December 02, 2022 Assessment & Plan (1) Acute exacerbation of chronic obstructive pulmonary disease: Plan: improving but still with significant rhonchi/wheezing and some RODRIGEZ o2 sats wnl in room air cxr 2view obtained today - no infiltrates, but hyperinflated plan - increase steroids to solumedrol 30mg BID cont scheduled nebs cont pulm toilet cont zithromax - day #3 of 5 today cont home inhalers & theodur check theophylline level while here (2) Dementia: Plan: Chronic. Stable Mild confusion - baseline? no agitation, however -Continue Abilify -Continue Namenda (3) Hypertension: Plan: Controlled Continue Nifedipine Continue carvedilol Continue Isosorbide Continue Losartan (4) Facial bruising: Plan: left side of face recent fall at home? apparently she lives by herself but has 6 kids who live close by and provide 24/7 support? will need to confirm this with SW (5) Chronic renal failure, stage 3a: Plan: creatinine stable on labs today (6) Diabetes: Plan: a1c today is not even in the pre-DM range resolved Plan DVT proph - add heparin 5000 BID attempted to call both #'s listed in chart - no answer by daughter or granddaughter Admission and Anticipated Discharge Date Admission Date: November 30, 2022 Subjective pt sitting in chair eating her lunch feels good staff report she had BM yesterday, is fairly independent with ADLS - but has baseline confusion no specific concerns from staff patient denies any cough or dyspnea Review of Systems Review of Systems: cv - no chest pain GI - no abd pain pulm - no dyspnea; staff report with walking in hallway she has mild RODRIGEZ toward end of walk Physical Exam Physical Exam: gen - thin, NAD, mild pleasant confusion neck - no JVD mouth - MMM heart - RRR, s1 s2 lungs - rhonchi and wheezes b/l bases, airation fair, no rales; no increased work of breathing abd - soft NT ND BS+ ext - no edema, pulses 2+ b/l psych - a/o x 1 skin - bruise left side of face Results & Data Results & Data Vital Signs (Past 12 Hours) Vital Signs Temp Pulse Resp BP Pulse Ox O2 Del Method 12/02/22 14:54 36.5 C 81 16 147/90 H 93 Room Air 12/02/22 10:42 77 18 95 Room Air Laboratory Results Laboratory Results 12/02/22 12/02/22 10:30 10:30 Sodium 135 L Potassium 4.1 Chloride 105 Carbon Dioxide 22 Anion Gap 8 BUN 30 H Creatinine 0.83 Est Cr Clr Drug Dosing 53.6 Est GFR ( Amer) 76.6 Est GFR (Non-Af Amer) 66.1 BUN/Creatinine Ratio 36.1 H Glucose 97 Estimat Average Glucose 114 Hemoglobin A1c 5.6 Calcium 9.7 PG Care Time/CCT Total # of Minutes Spent Total Time Spent with Patient: Total time spent is greater than 50% in coordination of care (as documented) at patient's floor/unit and/or counseling patient: Coding Level of Care Code 76526 SUB INP/OBS CARE 235MIN Diagnoses Acute exacerbation of chronic obstructive pulmonary disease J44.1 Dementia G30.9; F02.82 Alzheimer's disease onset: unspecified onset 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 (2) Dementia Alzheimer's disease onset: unspecified onset Dementia 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
--- NOTE | 2022-12-03 11:40 | CT Scan Report ---
CT SCAN OF THE BRAIN WITHOUT IV CONTRAST CLINICAL HISTORY: Facial bruising. COMPARISON STUDY: CT of the brain dated 10/06/2022. TECHNIQUE: Unenhanced axial CT scan of the brain is performed from the vertex to the skull base. A do se lowering technique was utilized adhering to the principles of ALARA. CT DOSE: 625.80 mGy.cm FINDINGS: Brain parenchyma: There is age-related involutional change noting moderate subcortical and periventri cular microangiopathic disease. There is no hemorrhage, mass effect, or evidence of acute territorial ischemia by CT criteria. 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 Frey- white matter differentiation is preserved. No extra-axial fluid collection is seen. Ventricles, sulci, cisterns: Prominent secondary to involutional change. Intracranial vasculature: There is atherosclerotic calcification of the cavernous carotid and vertebr al arteries. Calvarium: The skeletal structures are osteopenic. There is no depressed calvarial fracture. Sinuses and mastoids: There is mild mucosal thickening and trace fluid within the maxillary sinuses. Mild/moderate mucosal thickening is noted in the ethmoid sinuses. Trace because of thickening is seen in the sphenoid sinuses. The mastoid air cells are well pneumatized. Orbits: The bony orbits are grossly intact. There are bilateral ocular lens implants. IMPRESSION: There is no hemorrhage, mass effect, or evidence of acute territorial ischemia by CT kelly grant. ACT 112: Negative or not required by law. Electronically signed by: Jame Gary M.D. 12/03/2022 11:38 AM
--- NOTE | 2022-12-03 15:41 | Discharge Summary ---
Date of Service December 03, 2022 Admission HPI Per Admitting Provider Marlen Tomlinson is an 82yo female with history of COPD, intermittent use of home oxygen, HTN, DM and Dementia presenting with shortness of breath. Patient is a poor historian. History obtained from patient as well as gr anddaughter at bedside. They report patient was doing well until around 19:30 tonight when she became acutely short of breath after ambulating in her home. She has had a cough with increased amount of thick, yellow sputum as well as some nausea and vomiting. No fever, chills, chest pain, palpitations, abdominal pain or diarrhea. No edema or orthopnea. No recent illness, sick contacts or recent travel. No additional complaints at this time. In the ER she is afebrile, HD stable, saturating 88% on room air on arrival which improved with placement of 3L NC. ER Course: Ceftriaxone Albuterol Discharge Exam gen - thin, NAD, mild pleasant confusion neck - no JVD mouth - MMM heart - RRR, s1 s2 lungs - rhonchi and wheezes b/l bases, airation fair, no rales; no increased work of breathing abd - soft NT ND BS+ ext - no edema, pulses 2+ b/l psych - a/o x 1 skin - bruise left side of face Discharge Data Allergies Allergy/AdvReac Type Severity Reaction Status Date / Time Antihistamines - Alkylamine AdvReac Unknown cant Verified 11/30/22 22:46 remember Antihistamines - Ethanolamine AdvReac Unknown cant Verified 11/30/22 22:46 remember Antihistamines - AdvReac Unknown cant Verified 11/30/22 22:46 Ethylenediamine remember Antihistamines - Piperazine AdvReac Unknown cant Verified 11/30/22 22:46 remember Antihistamines - Piperidine AdvReac Unknown cant Verified 11/30/22 22:46 remember Consultations 11/30/22 23:03 ED Decision to Admit Stat Ordered Studies 12/03/22 10:[address] [CT head/brain wo con] Routine Hospital Course (1) Acute exacerbation of chronic obstructive pulmonary disease: improving but still with significant rhonchi/wheezing and some RODRIGEZ o2 sats wnl in room air cxr 2view obtained today - no infiltrates, but hyperinflated plan - increase steroids to solumedrol 30mg BID cont scheduled nebs cont pulm toilet cont zithromax - day #3 of 5 today cont home inhalers & theodur check theophylline level while here (2) Dementia: Chronic. Stable Mild confusion - baseline? no agitation, however -Continue Abilify -Continue Namenda (3) Hypertension: Controlled Continue Nifedipine Continue carvedilol Continue Isosorbide Continue Losartan (4) Facial bruising: left side of face recent fall at home? apparently she lives by herself but has 6 kids who live close by and provide 24/7 support? will need to confirm this with SW (5) Chronic renal failure, stage 3a: creatinine stable on labs today (6) Diabetes: a1c today is not even in the pre-DM range resolved Plan DVT proph - add heparin 5000 BID attempted to call both #'s listed in chart - no answer by daughter or granddaughter Discharge Plan Discharge Items Patient Disposition: Home - Self-Care Reason For Visit: COPD exacerbation Discharge Diagnosis: COPD exacerbation Activity: As commented below Activity Comment: gradually increase activities over the next week as tolerated Non-emergency contact: Primary Care Provider Call non-emergency contact if: you have any medication questions, your symptoms worsen and you have a fever Follow-up/Referrals: Guerita Engel PA-C [Primary Care Provider] - 12/11/22 3:30 pm Diet: Heart Healthy Addtl Attending Provider Instructions: Mrs Tomlinson, You were hospitalized for a COPD "exacerbation." This is when your COPD/emphysema flares up making it difficult to breath. During an exacerbation there is cough, congestion, wheezing, and shortness of breath. You improved nicely with steroids, antibiotics, nebulizer treatments, and time. A respiratory panel looking for various viruses (COVID, flu, RSV, etc) returned negative. Chest x-rays x 2 did not show pneumonia. A walking oxygen test on 12/03/22 showed that you do not need oxygen at home. Recommendations - 1. Prednisone taper - start AM of 12/04/22. Take with food. The taper lasts 8 days. 2. Nebulizer treatments - for the next 4-5 days please use your nebulizer treatments about 3 times/day. After that 4-5 day period you can use the treatments as needed. 3. Benzonatate pearles - 100mg every 8 hours as needed for cough. 4. Antibiotics - doxycycline 100mg twice daily x 4 days, first dose TONIGHT. * on occasion doxycycline can cause heartburn/reflux * rarely it can cause a rash if you go out in the sun while taking the antibiotic; for the next 5 days if you spend time outdoors please cover up well and use sunscreen 5. OK to continue mucinex every 12 hours as needed for cough/congestion. 6. PLEASE HOLD your naprosyn (naproxen) anti-inflammatory tablets unless your family doctor says it is ok to resume them. Follow-up - see your family doctor within 1 week Return to [facility] if - * you have fevers over 100 degrees * you have worsening shortness of breath * you have chest pains * you have worsening wheezing despite taking your usual inhalers and all of the above medications * any other concerns It was our pleasure to care for you! -Dr Pelaez Pending Studies at Discharge: No Stand-Alone Forms: My [facility], Smoking Cessation Medications and DC Order Prescriptions: New doxycycline monohydrate 100 mg tablet 100 mg PO BID 4 Days Qty: 8 0RF Rx Instructions: first dose PM of 12/03/22. prednisone 10 mg tablet 10 mg PO DIRECTED Qty: 20 0RF Rx Instructions: start 12/04/22 AM; take w/ food. 4 tabs PO QD x 2 days; 3 tabs PO QD x 2 days; 2 tabs PO QD x 2 days; 1 tab PO QD x 2 days. benzonatate 100 mg capsule 100 mg PO TID PRN (Reason: cough) Qty: 20 0RF Continued multivitamin Tablet 1 tab PO QAM Qty: 0 fexofenadine 180 mg Tablet 180 mg PO QAM Qty: 0 theophylline 300 mg Tablet Extended Release 12 Hr 300 mg PO Q12H Qty: 0 aspirin 81 mg Tablet,Delayed Release (Dr/Ec) 81 mg PO QAM Qty: 0 isosorbide mononitrate 60 mg Tablet Extended Release 24 Hr 60 mg PO QAM Qty: 0 losartan 100 mg Tablet 100 mg PO QAM Qty: 0 memantine 5 mg tablet 5 mg PO BID docusate sodium [DOK] 100 mg capsule 100 mg PO BID atorvastatin [Lipitor] 40 mg Tablet 40 mg PO HS guaifenesin [Mucinex] 600 mg Tablet Extended Release 12hr 600 mg PO Q12H PRN (Reason: Congestion) albuterol sulfate 90 mcg/actuation HFA aerosol inhaler 2 puff INHALATION Q4 PRN (Reason: Shortness Of Breath Or Wheezing) potassium chloride 10 mEq tablet extended release 20 meq PO BID omega-3 fatty acids 1,000 mg Capsule 1,000 mg PO BID calcium carbonate-vitamin D3 [Calcium 600 + D(3)] 600 mg-5 mcg (200 unit) Tablet 1 tab PO BID Trelegy Ellipta 200-62.5-25 mcg Blister With Device 1 inh INHALATION QPM carvedilol 12.5 mg Tablet 12.5 mg PO BID Qty: 60 0RF nifedipine 60 mg tablet extended release 60 mg PO HS aripiprazole [Abilify] 5 mg tablet 5 mg PO QAM Held naproxen 500 mg Tablet 500 mg PO BID Qty: 0 Hold Instructions: hold unless your family doctor gives you clearance to resume Discharge Orders: Discharge Order (Routine); Ordered 12/03/22 Ordered By: Jeronimo Islas/Other Patient Handouts: COPD Controlled Breathing Dc Admission Data Admit Date/Time: 11/30/22 23:38 Attending Provider: Jeronimo Pelaez Admit Provider: Sarah Parikh Primary Care Provider: Guerita Engel Other Providers: Sarah Parikh Other Interventions: Discharge Summary Assessment (RN) Last Done: 12/03/22 13:06 Coding Diagnoses Acute exacerbation of chronic obstructive pulmonary disease J44.1 Dementia G30.9; F02.82 Alzheimer's disease onset: unspecified onset 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
== END 2022-12-03 16:14 | disposition home or self-care (01) | DRG 192 ==
LOC: ED 21:28 → 3N 23:38 → SUATTDRO 23:38 → 3N 12-01 00:08

== ENCOUNTER 2023-01-03 17:54 | Inpatient (IN) ==
[2023-01-03 19:01] LABS: Base Excess VBG 1.2 mEq/L; HCO3 VBG 28 mmol/L; Oxygen Saturation VBG < 60.0 %; PCO2 VBG 50 mmHg (38-50); PO2 VBG 35 mmHg; pH VBG 7.35 (7.36-7.41)
[2023-01-03] MEDS ORDERED: SODIUM CHLORIDE 0.9% 500 ML IV ONE (19:31)
[2023-01-03] MEDS: SODIUM CHLORIDE 0.9% 500 ML IV SCH (19:38)
--- NOTE | 2023-01-03 19:43 | XRay Report ---
XR chest 1V portable CLINICAL HISTORY: Sepsis TECHNIQUE: Single frontal radiograph of the chest was obtained. Comparison: Comparison is made to chest radiograph 12/02/2022 FINDINGS: No lines and tubes are seen. Calcified aortic knob is seen. Reticular interstitial opacities are seen . There is blunting of the costophrenic angle on the left compatible with scarring. IMPRESSION: No acute abnormalities and in particular no radiographic evidence of pneumonia. ACT 112: Negative or not required by law. Electronically signed by: Endy Hammond M.D. 01/03/2023 7:42 PM
[2023-01-03 19:44] LABS: Basophils # (auto) 0.05 K/uL (0.00-0.20); Basophils % (auto) 0.6 %; Eosinophils # (auto) 0.03 K/uL (0.00-0.50); Eosinophils % (auto) 0.4 %; Hematocrit (blood only) 45.7 % (37.0-47.0); Hemoglobin 15.7 g/dl (12.0-16.0); Immature Granulocytes # (auto) 0.02 K/uL (0.01-0.20); Immature Granulocytes % (auto) 0.2 %; Lymphocytes # (auto) 1.39 K/uL (1.20-3.40); Lymphocytes % (auto) 17.2 %; Mean Corpuscular Hemoglobin 31.5 pg (25.0-34.0); Mean Corpuscular Hgb Conc 34.4 g/dL (32.0-36.0); Mean Corpuscular Volume 91.6 fL (80.0-100.0); Mean Platelet Volume 10.3 fL (9.4-12.4); Monocytes # (auto) 0.52 K/uL (0.11-0.59); Monocytes % (auto) 6.4 %; Neutrophils # (auto) 6.08 K/uL (1.40-6.50); Neutrophils % (auto) 75.2 %; Platelet Count 223 K/uL (130-400); RDW Coefficient of Variation 14.9 % (11.5-14.5); RDW Standard Deviation 50.5 fL (36.4-46.3); Red Blood Count 4.99 M/uL (4.20-5.40); White Blood Count 8.09 K/ul (4.8-10.8)
[2023-01-03 19:59] LABS: Albumin Level 3.9 gm/dl (3.4-5.0); BUN Creatinine Ratio 34.5 (10-20); Bilirubin,Total 0.6 mg/dl (0.2-1.0); Calcium 9.8 mg/dl (8.6-10.3); Creatinine Clr Calc Pharmacy 52.2 ml/min; Est GFR (African American) 72.4 ml/min; Est GFR (Non-African American) 62.5 ml/min; Potassium 3.9 mmol/L (3.5-5.1)
[2023-01-03] MEDS ORDERED: CEFEPIME 2,000 MG/20 ML VIAL IV STA (20:05)
[2023-01-03 20:11] LABS: Partial Thromboplastin Ratio 0.8; Partial Thromboplastin Time 23.9 Seconds (21.0-31.0); Prothrombin Time 11.3 Seconds (9.0-12.0)
[2023-01-03 20:19] LABS: Appearance Urine Cloudy (Clear); Bacteria Urine Automated Negative (Negative); Bilirubin Urine Negative (Negative); Blood Urine Negative (Negative); Color Urine Dark Yellow; Glucose Urine UA Negative (Negative); Ketones Urine Trace (Negative); Leukocyte Esterase Urine Trace (Negative); Nitrite Urine Negative (Negative); Protein Urine 1+ (Negative); Urobilinogen Urine Negative (Negative); pH Urine 5.5 (4.5-7.5)
--- NOTE | 2023-01-03 21:45 | CT Scan Report ---
Exam(s): CT HEAD Without Contrast Arranged EXAM: CT Head Without Intravenous Contrast CLINICAL HISTORY: Reason for exam: ams. TECHNIQUE: Axial computed tomography images of the head/brain without intravenous contrast. CTDI is 37.61 mGy and DLP is 547.75 mGy-cm. Automated exposure control was utilized for the study. A dose lowering technique was utilized adhering to the principles of ALARA. COMPARISON: No relevant prior studies available. FINDINGS: Brain: Unremarkable. No hemorrhage. No significant white matter disease. No edema. Ventricles: Unremarkable. No ventriculomegaly. Bones/joints: Unremarkable. No acute fracture. Soft tissues: Unremarkable. Sinuses: Unremarkable as visualized. No acute sinusitis. Mastoid air cells: Unremarkable as visualized. No mastoid effusion. IMPRESSION: Normal head/brain CT. Electronically signed by: Dylan Blackmon MD 01/03/23 21:44 PM
--- NOTE | 2023-01-03 22:21 | History & Physical Report ---
Date of Service January 03, 2023 Assessment & Plan (1) Syncope: Plan: -Acute episode of syncope with shaking and post episode drowsiness new in onset. -CBC, CMP unremarkable except for mild hyponatremia to 133, VBG showed a pH of 7.35 and CO2 of 50. -Lactate was elevated to 2.2 but trended down to 1.8, procal negative. -U/A unremarkable for infection. Head CT negative, CXR negative for acute abnormalities. -Most likely dehydrated state that led to syncopal episode, no past history of seizure. -Given 2L NSS in the ED, will continue on NSS 125ml/hr. -PT/OT eval and treat. -If patient continues to be back at baseline with vitals stable can likely discharge. (2) COPD (chronic obstructive pulmonary disease): Plan: -continue home inhalers albuterol PRN, trelegy qPM (3) Asthma: Plan: Same as above. Continue home fexofenadine. (4) HTN (hypertension): Plan: -Continue home nifedipine, carvedilol, isosorbide, losartan. (5) Dementia: Plan: chronic, stable, at baseline. Continue home Abilify and namenda. Plan F/E/N/GI: Regular. DVT Prophylaxis: Lovenox 40mg qAM. Code status: DNR/DNI Dispo: Med/tele History of Present Illness Chief Complaint: unresponsiveness Primary Care Provider: Guerita Gee is an 82 year old female w/ PmHxCOPD, intermittent use of home oxygen, HTN, and Dementia brought in to the ED via ambulance for semi-responsiveness. Patient's son in the room gives history due to patient having dementia. Per son, earlier today they were enjoying the nice weather outside with a picnic and his mom was sitting in a shaded area with a fan blowing. 30 minutes later his mother in law went to sit next to the patient and she found the patient in a slumped state in the chair and not responsive to verbal stimuli. She was also seen to be shaking a little bit during this time too. She became more responsive to verbal stimuli but was in a stupor more drowsy state. She had another episode of this in front of the son with the same slumped over and some mild shaking of the arms like chills. Patient had also wet herself during the episode. Her son had taken her blood pressure at the time and it came to be 73/53 and a BSG was 198. They called for ambulance which by the time they arrived she was more with it and her BP had come up to the 100's systolic. Currently in the ED she is back to her baseline, per son, and her vitals have been stable. Prior to these events she was in her normal health without any concerns. Patient does not have a history of seizures but had an incident last year with shopping where she became warm and almost passed out. In the ED CBC, CMP unremarkable except for mild hyponatremia to 133, VBG showed a pH of 7.35 and CO2 of 50. Lactate was elevated to 2.2 but trended down to 1.8, procal negative. U/A unremarkable for infection. Head CT negative, CXR negative for acute abnormalities. She was given 2L NSS and 2g Cefepime in the ED. Allergies Allergy/AdvReac Type Severity Reaction Status Date / Time Antihistamines - Alkylamine AdvReac Unknown cant Verified 01/03/23 23:04 remember Antihistamines - Ethanolamine AdvReac Unknown cant Verified 01/03/23 23:04 remember Antihistamines - AdvReac Unknown cant Verified 01/03/23 23:04 Ethylenediamine remember Antihistamines - Piperazine AdvReac Unknown cant Verified 01/03/23 23:04 remember Antihistamines - Piperidine AdvReac Unknown cant Verified 01/03/23 23:04 remember Home Medications Medication Instructions Recorded Confirmed Type aspirin 81 mg tablet,delayed 81 mg PO QAM ##0 03/14/17 01/03/23 History release fexofenadine 180 mg tablet 180 mg PO QAM #0 tabs 03/14/17 01/03/23 History multivitamin 1 tab PO QAM ##0 03/14/17 01/03/23 History theophylline 300 mg 300 mg PO Q12H #0 tabs 03/14/17 01/03/23 History tablet,extended release,12 hr isosorbide mononitrate 60 mg 60 mg PO QAM #0 tabs 08/07/17 01/03/23 History tablet,extended release 24 hr losartan 100 mg tablet 100 mg PO QAM #0 tabs 08/07/17 01/03/23 History naproxen 500 mg tablet 500 mg PO BID #0 tabs 08/07/17 01/03/23 History memantine 5 mg tablet 5 mg PO BID 08/16/20 01/03/23 History potassium chloride 10 mEq 20 meq PO BID 04/14/21 01/03/23 History tablet,extended release calcium carbonate 600 mg-vitamin 1 tab PO BID 10/30/21 01/03/23 History D3 5 mcg (200 unit) tablet (Calcium 600 + D(3)) fluticasone fur. 200 mcg-umeclid 1 inh inhalation QPM 10/30/21 01/03/23 History 62.5 mcg-vilant 25 mcg inhalat.powder (Trelegy Ellipta) omega-3 fatty acids 1,000 mg 1,000 mg PO BID 10/30/21 01/03/23 History capsule carvedilol 12.5 mg tablet 12.5 mg PO BID #60 tabs 11/10/21 01/03/23 Rx atorvastatin 40 mg tablet (Lipitor) 40 mg PO HS 05/06/22 01/03/23 History docusate sodium 100 mg capsule 100 mg PO BID 05/06/22 01/03/23 History (DOK) albuterol sulfate 90 mcg/actuation 2 puff inhalation Q4 PRN Shortness 10/06/22 01/03/23 History aerosol inhaler Of Breath Or Wheezing guaifenesin 600 mg tablet, 600 mg PO Q12H PRN Congestion 10/06/22 01/03/23 History extended release 12 hr (Mucinex) nifedipine 60 mg tablet,extended 60 mg PO HS 11/30/22 01/03/23 History release donepezil 5 mg tablet (Aricept) 5 mg PO DAILY 01/03/23 01/03/23 History Past Med/Surg History Medical History Acute exacerbation of chronic obstructive pulmonary disease Chronic renal failure, stage 3a COPD (chronic obstructive pulmonary disease) Dementia Diabetes Facial bruising Heart disease Hypertension No pertinent family history Surgical History S/P cataract extraction and insertion of intraocular lens b/l Family History Other Family history unknown Social History Smoking Status: Former smoker Tobacco Type: Cigarettes Cigarettes Per Day: minimal amount of tobacco at age 20yo only; Second Hand Exposure: Yes; Do You Dip or Chew Tobacco: No; Tobacco Cessation Education Requested by Patient: No Hx Alcohol Use: No Hx Substance Use: No Preferred Language: Georgian Communication Ability: Impaired Heavy Media Operator Required: No Beliefs That Will Affect Care: None marital status: / Current Living Situation: Family Current Living Situation Comment: granddaughter lives with pt current occupational status: retired current occupation: worked at "[employer]" How many Children do You have: 4 How many Children do You have Comment: 2 sons, 2 daughters Other Information That Helps Us Care for You: No Feels Safe at Home: Yes Safety Concerns: Feels Safe At This Time Assistive Devices: Cane Review of Systems Review of Systems: Difficult to ascertain due to patient's dementia. Physical Exam Constitutional: WD/WN, vitals as above Eyes: PERRL, conjunctivae normal, anicteric sclerae Respiratory: bilateral mild end expiratory rhonchi but no wheezes. Cardiovascular: RRR, no murmur, no edema Gastrointestinal (Abdomen): normal bowel sounds, soft, nontender, no hepatosplenomegaly Skin: no rashes, warm and dry Psychiatric: Not oriented to place or timing but alert. Results & Data Results & Data Vital Signs (Past 12 Hours) Vital Signs Temp Pulse Pulse Resp BP BP Pulse Ox 01/03/23 20:17 01/03/23 19:35 93 01/03/23 19:33 62 25 H 117/64 94 01/03/23 18:34 59 L 01/03/23 18:18 36.4 C L 61 22 130/69 95 O2 Del Method 01/03/23 20:17 Room Air 01/03/23 19:35 Room Air 01/03/23 19:33 Room Air 01/03/23 18:34 01/03/23 18:18 Room Air Supervising Physician Co-Signing Physician Notes Attending addendum: I have physically seen this patient, have supervised the medical residents activities, and agree with the H&P unless as otherwise noted. Assessment and Plan: Syncope of undetermined etiology- The patient will be admitted to telemetry for serial cardiac enzymes, serial EKG's, cardiac rhythm monitoring and a 2-D echocardiogram with Dopplers. CT head negative Differential including but not limited to accompany seizure episode, dehydration, urinary tract infection, hypoxia, hyper/hypoglycemia Status post 2 L normal saline in ED Continue rehydration with IV fluids as noted Order MRI brain Order EEG after weekend Consult PT/OT COPD/asthma- Continue home medications including Trelegy, albuterol HFA and fexofenadine Hypertension- Continue nifedipine, carvedilol, isosorbide mononitrate and losartan with hold parameters Resident Activity Tracking Resident Involvement: Resident Care Provided Care Provided: Adult Hospital Medicine (1) Syncope Syncope type: unspecified Qualified Code(s): R55 - Syncope and collapse (4) HTN (hypertension) Hypertension type: unspecified Qualified Code(s): I10 - Essential (primary) hypertension (5) Dementia Alzheimer's disease onset: unspecified onset Dementia 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
--- NOTE | 2023-01-03 23:54 | Emergency Department Note ---
History of Present Illness General Chief complaint: Illness Stated complaint: CONFUSION Time Seen by Provider: 01/03/23 18:30 History of Present Illness Provider complaint: loss of consciousness Onset (ago): hour(s) 2 82-year-old female presents emergency department with some loss of consciousness. Son reports at 1630, 2 hours ago the patient was sitting in a ch air and slumped over and started shaking. He reports she urinated on himself. He reports her blood pressure was low and that after 15 to 20 minutes she was alert and oriented and talking. Son states that the patient did not hit her head or fall. No chest pain difficulty breathing. Home Medications Medication Instructions Recorded Confirmed Type aspirin 81 mg tablet,delayed 81 mg PO QAM ##0 03/14/17 01/03/23 History release fexofenadine 180 mg tablet 180 mg PO QAM #0 tabs 03/14/17 01/03/23 History multivitamin 1 tab PO QAM ##0 03/14/17 01/03/23 History theophylline 300 mg 300 mg PO Q12H #0 tabs 03/14/17 01/03/23 History tablet,extended release,12 hr isosorbide mononitrate 60 mg 60 mg PO QAM #0 tabs 08/07/17 01/03/23 History tablet,extended release 24 hr losartan 100 mg tablet 100 mg PO QAM #0 tabs 08/07/17 01/03/23 History naproxen 500 mg tablet 500 mg PO BID #0 tabs 08/07/17 01/03/23 History memantine 5 mg tablet 5 mg PO BID 08/16/20 01/03/23 History potassium chloride 10 mEq 20 meq PO BID 04/14/21 01/03/23 History tablet,extended release calcium carbonate 600 mg-vitamin 1 tab PO BID 10/30/21 01/03/23 History D3 5 mcg (200 unit) tablet (Calcium 600 + D(3)) fluticasone fur. 200 mcg-umeclid 1 inh inhalation QPM 10/30/21 01/03/23 History 62.5 mcg-vilant 25 mcg inhalat.powder (Trelegy Ellipta) omega-3 fatty acids 1,000 mg 1,000 mg PO BID 10/30/21 01/03/23 History capsule carvedilol 12.5 mg tablet 12.5 mg PO BID #60 tabs 11/10/21 01/03/23 Rx atorvastatin 40 mg tablet (Lipitor) 40 mg PO HS 05/06/22 01/03/23 History docusate sodium 100 mg capsule 100 mg PO BID 05/06/22 01/03/23 History (DOK) albuterol sulfate 90 mcg/actuation 2 puff inhalation Q4 PRN Shortness 10/06/22 01/03/23 History aerosol inhaler Of Breath Or Wheezing guaifenesin 600 mg tablet, 600 mg PO Q12H PRN Congestion 10/06/22 01/03/23 History extended release 12 hr (Mucinex) nifedipine 60 mg tablet,extended 60 mg PO HS 11/30/22 01/03/23 History release donepezil 5 mg tablet (Aricept) 5 mg PO DAILY 01/03/23 01/03/23 History Allergies Allergy/AdvReac Type Severity Reaction Status Date / Time Antihistamines - Alkylamine AdvReac Unknown cant Verified 01/03/23 23:04 remember Antihistamines - Ethanolamine AdvReac Unknown cant Verified 01/03/23 23:04 remember Antihistamines - AdvReac Unknown cant Verified 01/03/23 23:04 Ethylenediamine remember Antihistamines - Piperazine AdvReac Unknown cant Verified 01/03/23 23:04 remember Antihistamines - Piperidine AdvReac Unknown cant Verified 01/03/23 23:04 remember Past Med/Surg History Medical History Acute exacerbation of chronic obstructive pulmonary disease Chronic renal failure, stage 3a COPD (chronic obstructive pulmonary disease) Dementia Diabetes Facial bruising Heart disease Hypertension No pertinent family history Surgical History S/P cataract extraction and insertion of intraocular lens b/l Family History Other Family history unknown Social History Smoking Status: Former smoker Tobacco Type: Cigarettes Cigarettes Per Day: minimal amount of tobacco at age 20yo only; Second Hand Exposure: Yes; Do You Dip or Chew Tobacco: No; Hx Alcohol Use: No Hx Substance Use: No Preferred Language: Japanese Communication Ability: Effective Night Stocker Required: No Beliefs That Will Affect Care: None marital status: / Current Living Situation: Family Current Living Situation Comment: granddaughter lives with pt current occupational status: retired current occupation: worked at [employer]" How many Children do You have: 4 How many Children do You have Comment: 2 sons, 2 daughters Feels Safe at Home: Yes Assistive Devices: Cane Physical Exam Vital Signs Vital Signs - 24 hr 01/03/23 18:18 01/03/23 18:34 01/03/23 19:33 Temperature 36.4 C L Temperature Source Oral Pulse Rate 61 59 L Pulse Rate [Apical] 62 Pulse Rate from SpO2 Sensor Pulse Rhythm [Apical] Regular Pulse Strength [Apical] Normal Respiratory Rate 22 25 H Respiratory Effort / Characteristics Non-Labored Respiratory Depth Normal Respiratory Pattern Regular Blood Pressure 130/69 Blood Pressure [Right Arm] 117/64 Blood Pressure Mean 89 Blood Pressure Mean [Right Arm] 81 Blood Pressure Position [Right Arm] Sitting Pulse Oximetry 95 94 Oxygen Delivery Method Room Air Room Air Sepsis New/Unexplained Change in Mental Status Yes Sepsis Action Taken by Nursing No Action Required 01/03/23 19:35 01/03/23 20:17 01/03/23 23:18 Temperature Temperature Source Pulse Rate Pulse Rate [Apical] Pulse Rate from SpO2 Sensor Pulse Rhythm [Apical] Regular Regular Pulse Strength [Apical] Normal Normal Respiratory Rate Respiratory Effort / Characteristics Non-Labored Non-Labored Respiratory Depth Normal Normal Respiratory Pattern Regular Regular Blood Pressure Blood Pressure [Right Arm] Blood Pressure Mean Blood Pressure Mean [Right Arm] Blood Pressure Position [Right Arm] Pulse Oximetry 93 Oxygen Delivery Method Room Air Room Air Room Air Sepsis New/Unexplained Change in Mental Status Sepsis Action Taken by Nursing 01/03/23 18:15 01/03/23 18:30 01/03/23 19:00 Temperature Temperature Source Pulse Rate 59 L 61 59 L Pulse Rate [Apical] Pulse Rate from SpO2 Sensor 59 L 62 60 Pulse Rhythm [Apical] Pulse Strength [Apical] Respiratory Rate 17 15 21 Respiratory Effort / Characteristics Respiratory Depth Respiratory Pattern Blood Pressure 111/55 L 128/69 Blood Pressure [Right Arm] Blood Pressure Mean 73 88 Blood Pressure Mean [Right Arm] Blood Pressure Position [Right Arm] Pulse Oximetry 96 95 96 Oxygen Delivery Method Room Air Room Air Sepsis New/Unexplained Change in Mental Status Sepsis Action Taken by Nursing 01/03/23 19:30 01/03/23 20:00 01/03/23 20:30 Temperature Temperature Source Pulse Rate 63 61 59 L Pulse Rate [Apical] Pulse Rate from SpO2 Sensor 63 61 60 Pulse Rhythm [Apical] Pulse Strength [Apical] Respiratory Rate 17 18 19 Respiratory Effort / Characteristics Respiratory Depth Respiratory Pattern Blood Pressure 117/64 113/60 Blood Pressure [Right Arm] Blood Pressure Mean 81 77 Blood Pressure Mean [Right Arm] Blood Pressure Position [Right Arm] Pulse Oximetry 94 95 93 Oxygen Delivery Method Room Air Room Air Room Air Sepsis New/Unexplained Change in Mental Status Sepsis Action Taken by Nursing 01/03/23 21:00 01/03/23 21:30 01/03/23 22:00 Temperature Temperature Source Pulse Rate 62 62 73 Pulse Rate [Apical] Pulse Rate from SpO2 Sensor 62 Pulse Rhythm [Apical] Pulse Strength [Apical] Respiratory Rate 21 20 19 Respiratory Effort / Characteristics Respiratory Depth Respiratory Pattern Blood Pressure 121/72 125/59 L Blood Pressure [Right Arm] Blood Pressure Mean 88 81 Blood Pressure Mean [Right Arm] Blood Pressure Position [Right Arm] Pulse Oximetry 95 94 Oxygen Delivery Method Room Air Room Air Sepsis New/Unexplained Change in Mental Status Sepsis Action Taken by Nursing 01/03/23 22:01 01/03/23 22:30 01/03/23 23:01 Temperature Temperature Source Pulse Rate 74 62 60 Pulse Rate [Apical] Pulse Rate from SpO2 Sensor 63 61 Pulse Rhythm [Apical] Pulse Strength [Apical] Respiratory Rate 19 22 20 Respiratory Effort / Characteristics Respiratory Depth Respiratory Pattern Blood Pressure 145/89 H 132/76 147/77 H Blood Pressure [Right Arm] Blood Pressure Mean 107 94 100 Blood Pressure Mean [Right Arm] Blood Pressure Position [Right Arm] Pulse Oximetry 95 95 96 Oxygen Delivery Method Room Air Room Air Sepsis New/Unexplained Change in Mental Status Sepsis Action Taken by Nursing Physical Exam HENT: Exam performed. -Head: Normocephalic and atraumatic. -Right Ear: External ear normal. No mastoid erythema -Left Ear: External ear normal. No mastoid erythema -Mouth/Throat: The oropharynx is clear and moist. No trismus in the jaw. No dental abscesses or uvula swelling. No oropharyngeal exudate or tonsillar abscesses. EYES: Conjunctivae and EOM are normal. Pupils are equal, round, and reactive to light. Right eye exhibits no discharge. Left eye exhibits no discharge. No scleral icterus. NECK: Normal range of motion. Neck supple. No JVD present. No tracheal deviation and normal range of motion present. CV: Normal rate, regular rhythm, normal heart sounds and intact distal pulses. There is no peripheral edema. Palpable radial pulses bue. PULM/CHEST: Effort normal and breath sounds normal. No respiratory distress. No stridor. She has no wheezes. She has no rales. ABD: The abdomen is soft.There is no tenderness. There is no rebound, no guard ing. MUSC/SKEL: Normal range of motion. There is no peripheral edema, tenderness or deformity. NEURO: Motor and sensation grossly intact Course Course 183: The patient was evaluated in room C10. A complete history and physical exam was performed Cardiac monitoring: An order was placed for continuous cardiac monitoring. The monitor shows a rate of 60 with sinus rhythm interpreted by nv 2005: Vital signs stable. Lactic acid minimally elevated 2.2. Cefepime ordered for the patient in case there is any infection. Patient will not be given 30 cc/kg bolus given her elderly age and concern for patient becoming fluid overloaded if large amount of volume given to the patient. Patient was given 500 cc bolus and then we will reevaluate the patient. 2212: Vital signs stable. Labs show white blood cell count 8.09. VBG and coagulation studies within normal limits. Electrolytes are within normal limits. Repeat lactic acid came down to 1.8. Urinalysis is negative. Procalcitonin is negative. On further consideration, it is thought that sepsis secondary to a bacterial infectious that to be very low. The lactic acidemia could have been due to the patient having a seizure. Discussed case with on- call neurology Dr. Elizabeth states hold off on any antiepileptics at this time he can evaluate the patient in the morning. It is unclear if the patient had a syncopal episode or seizure, patient will be admitted to the [facility]ist team Dr. Velasco notified. Administered Medications Sodium Chloride (Nss) 500 mls @ 125 mls/hr IV .Q4H [facility] Stop: 02/02/23 19:44 Last Infusion: 01/03/23 23:15 Dose: 0 mls/hr Documented By: Admin: 01/03/23 19:38 Dose: 125 mls/hr Documented By: YOVANI Discontinued Medications Sodium Chloride (Nss 1000ml) 500 mls @ 999 mls/hr IV .Q31M ONE Stop: 01/03/23 20:01 Last Infusion: 01/03/23 20:20 Dose: 0 mls/hr Documented By: Admin: 01/03/23 19:39 Dose: 999 mls/hr Documented By: YOVANI Cefepime HCl (Maxipime) 2,000 mg in 20 mls @ 5 mls/min IV NOW STA; Protocol Stop: 01/03/23 20:08 Last Admin: 01/03/23 21:01 Dose: 5 mls/min Documented By: YOVANI Medical Decision Making Laboratory Data Attestation: I reviewed the patient's lab results. 01/03/23 18:49 01/03/23 18:48 Lab Results 01/03/23 01/03/23 01/03/23 Range/Units 18:48 18:48 18:49 WBC 8.09 (4.8-10.8) K/ul RBC 4.99 (4.20-5.40) M/uL Hgb 15.7 (12.0-16.0) g/dl Hct 45.7 (37.0-47.0) % MCV 91.6 (80.0-100.0) fL MCH 31.5 (25.0-34.0) pg MCHC 34.4 (32.0-36.0) g/dL RDW Std Deviation 50.5 H (36.4-46.3) fL RDW Coeff of Ede 14.9 H (11.5-14.5) % Plt Count 223 (130-400) K/uL MPV 10.3 (9.4-12.4) fL Immature Gran % (Auto) 0.2 % Neut % (Auto) 75.2 % Lymph % (Auto) 17.2 % [place] % (Auto) 6.4 % Eos % (Auto) 0.4 % Baso % (Auto) 0.6 % Neut # (Auto) 6.08 (1.40-6.50) K/uL Lymph # (Auto) 1.39 (1.20-3.40) K/uL [place] # (Auto) 0.52 (0.11-0.59) K/uL Eos # (Auto) 0.03 (0.00-0.50) K/uL Baso # (Auto) 0.05 (0.00-0.20) K/uL Immature Gran # (Auto) 0.02 (0.01-0.20) K/uL PT 11.3 (9.0-12.0) Seconds INR 1.0 (0.9-1.1) APTT 23.9 (21.0-31.0) Seconds PTT Ratio 0.8 VBG pH (7.36-7.41) VBG pCO2 (38-50) mmHg VBG pO2 mmHg VBG HCO3 mmol/L VBG O2 Saturation % VBG Base Excess mEq/L Sodium 133 L (136-145) mmol/L Potassium 3.9 (3.5-5.1) mmol/L Chloride 103 (98-107) mmol/L Carbon Dioxide 23 (21-32) mmol/L Anion Gap 7 (3-11) BUN 30 H (6-23) mg/dl Creatinine 0.87 (0.6-1.2) mg/dl Est Cr Clr Drug Dosing 52.2 ml/min Est GFR ( Amer) 72.4 ml/min Est GFR (Non-Af Amer) 62.5 ml/min BUN/Creatinine Ratio 34.5 H (10-20) Glucose 177 H (70-99(Fasting)) mg/dl Lactate (0.4-2.0) mmol/L Calcium 9.8 (8.6-10.3) mg/dl Magnesium 2.0 (1.7-2.4) mg/dl Total Bilirubin 0.6 (0.2-1.0) mg/dl Direct Bilirubin 0.0 (0-0.2) mg/dl AST 19 (13-39) U/L ALT 20 (7-52) U/L Alkaline Phosphatase 67 (34-104) U/L Total Protein 6.0 (6.0-8.3) gm/dl Albumin 3.9 (3.4-5.0) gm/dl Procalcitonin (0-0.5) ng/ml Urine Color Urine Appearance (Clear) Urine pH (4.5-7.5) Ur Specific [place] (1.000-1.030) Urine Protein (Negative) Urine Glucose (UA) (Negative) Urine Ketones (Negative) Urine Blood (Negative) Urine Nitrite (Negative) Urine Bilirubin (Negative) Urine Urobilinogen (Negative) Ur Leukocyte Esterase (Negative) Urine WBC (Auto) (0-5) /hpf Urine RBC (Auto) (0-4) /hpf U Hyaline Cast (Auto) (0-5) /lpf U Epithel Cells (Auto) (0-5) /lpf Urine Bacteria (Auto) (Negative) Urine Crystals 01/03/23 01/03/23 01/03/23 Range/Units 18:49 18:49 18:49 WBC (4.8-10.8) K/ul RBC (4.20-5.40) M/uL Hgb (12.0-16.0) g/dl Hct (37.0-47.0) % MCV (80.0-100.0) fL MCH (25.0-34.0) pg MCHC (32.0-36.0) g/dL RDW Std Deviation (36.4-46.3) fL RDW Coeff of Ede (11.5-14.5) % Plt Count (130-400) K/uL MPV (9.4-12.4) fL Immature Gran % (Auto) % Neut % (Auto) % Lymph % (Auto) % [place] % (Auto) % Eos % (Auto) % Baso % (Auto) % Neut # (Auto) (1.40-6.50) K/uL Lymph # (Auto) (1.20-3.40) K/uL [place] # (Auto) (0.11-0.59) K/uL Eos # (Auto) (0.00-0.50) K/uL Baso # (Auto) (0.00-0.20) K/uL Immature Gran # (Auto) (0.01-0.20) K/uL PT (9.0-12.0) Seconds INR (0.9-1.1) APTT (21.0-31.0) Seconds PTT Ratio VBG pH 7.35 L (7.36-7.41) VBG pCO2 50 (38-50) mmHg VBG pO2 35 mmHg VBG HCO3 28 mmol/L VBG O2 Saturation < 60.0 % VBG Base Excess 1.2 mEq/L Sodium (136-145) mmol/L Potassium (3.5-5.1) mmol/L Chloride (98-107) mmol/L Carbon Dioxide (21-32) mmol/L Anion Gap (3-11) BUN (6-23) mg/dl Creatinine (0.6-1.2) mg/dl Est Cr Clr Drug Dosing ml/min Est GFR ( Amer) ml/min Est GFR (Non-Af Amer) ml/min BUN/Creatinine Ratio (10-20) Glucose (70-99(Fasting)) mg/dl Lactate 2.2 H* (0.4-2.0) mmol/L Calcium (8.6-10.3) mg/dl Magnesium (1.7-2.4) mg/dl Total Bilirubin (0.2-1.0) mg/dl Direct Bilirubin (0-0.2) mg/dl AST (13-39) U/L ALT (7-52) U/L Alkaline Phosphatase (34-104) U/L Total Protein (6.0-8.3) gm/dl Albumin (3.4-5.0) gm/dl Procalcitonin < 0.05 (0-0.5) ng/ml Urine Color Urine Appearance (Clear) Urine pH (4.5-7.5) Ur Specific [place] (1.000-1.030) Urine Protein (Negative) Urine Glucose (UA) (Negative) Urine Ketones (Negative) Urine Blood (Negative) Urine Nitrite (Negative) Urine Bilirubin (Negative) Urine Urobilinogen (Negative) Ur Leukocyte Esterase (Negative) Urine WBC (Auto) (0-5) /hpf Urine RBC (Auto) (0-4) /hpf U Hyaline Cast (Auto) (0-5) /lpf U Epithel Cells (Auto) (0-5) /lpf Urine Bacteria (Auto) (Negative) Urine Crystals 01/03/23 01/03/23 Range/Units 19:49 21:19 WBC (4.8-10.8) K/ul RBC (4.20-5.40) M/uL Hgb (12.0-16.0) g/dl Hct (37.0-47.0) % MCV (80.0-100.0) fL MCH (25.0-34.0) pg MCHC (32.0-36.0) g/dL RDW Std Deviation (36.4-46.3) fL RDW Coeff of Ede (11.5-14.5) % Plt Count (130-400) K/uL MPV (9.4-12.4) fL Immature Gran % (Auto) % Neut % (Auto) % Lymph % (Auto) % [place] % (Auto) % Eos % (Auto) % Baso % (Auto) % Neut # (Auto) (1.40-6.50) K/uL Lymph # (Auto) (1.20-3.40) K/uL [place] # (Auto) (0.11-0.59) K/uL Eos # (Auto) (0.00-0.50) K/uL Baso # (Auto) (0.00-0.20) K/uL Immature Gran # (Auto) (0.01-0.20) K/uL PT (9.0-12.0) Seconds INR (0.9-1.1) APTT (21.0-31.0) Seconds PTT Ratio VBG pH (7.36-7.41) VBG pCO2 (38-50) mmHg VBG pO2 mmHg VBG HCO3 mmol/L VBG O2 Saturation % VBG Base Excess mEq/L Sodium (136-145) mmol/L Potassium (3.5-5.1) mmol/L Chloride (98-107) mmol/L Carbon Dioxide (21-32) mmol/L Anion Gap (3-11) BUN (6-23) mg/dl Creatinine (0.6-1.2) mg/dl Est Cr Clr Drug Dosing ml/min Est GFR ( Amer) ml/min Est GFR (Non-Af Amer) ml/min BUN/Creatinine Ratio (10-20) Glucose (70-99(Fasting)) mg/dl Lactate 1.8 (0.4-2.0) mmol/L Calcium (8.6-10.3) mg/dl Magnesium (1.7-2.4) mg/dl Total Bilirubin (0.2-1.0) mg/dl Direct Bilirubin (0-0.2) mg/dl AST (13-39) U/L ALT (7-52) U/L Alkaline Phosphatase (34-104) U/L Total Protein (6.0-8.3) gm/dl Albumin (3.4-5.0) gm/dl Procalcitonin (0-0.5) ng/ml Urine Color Dark Yellow Urine Appearance Cloudy A (Clear) Urine pH 5.5 (4.5-7.5) Ur Specific [place] 1.020 (1.000-1.030) Urine Protein 1+ H (Negative) Urine Glucose (UA) Negative (Negative) Urine Ketones Trace H (Negative) Urine Blood Negative (Negative) Urine Nitrite Negative (Negative) Urine Bilirubin Negative (Negative) Urine Urobilinogen Negative (Negative) Ur Leukocyte Esterase Trace H (Negative) Urine WBC (Auto) 1-5 (0-5) /hpf Urine RBC (Auto) 5-10 H (0-4) /hpf U Hyaline Cast (Auto) 5-10 H (0-5) /lpf U Epithel Cells (Auto) 10-20 H (0-5) /lpf Urine Bacteria (Auto) Negative (Negative) Urine Crystals Not Reportable Imaging Data Attestation: I personally reviewed and interpreted this imaging study as follows: My Impression: Chest x-ray negative. Airway clear. No pneumothorax. No consolidation. No cardiomegaly or cephalization.. No free air under the diaphragm. No fractures of the skeletal structures. Radiologist's Impression: Chest X-Ray 01/03/23 18:31 XR chest 1V portable CLINICAL HISTORY: Sepsis TECHNIQUE: Single frontal radiograph of the chest was obtained. Comparison: Comparison is made to chest radiograph 12/02/2022 FINDINGS: No lines and tubes are seen. Calcified aortic knob is seen. Reticular interstitial opacities are seen. There is blunting of the costophrenic angle on the left compatible with scarring. IMPRESSION: No acute abnormalities and in particular no radiographic evidence of pneumonia. ACT 112: Negative or not required by law. Electronically signed by: Endy Hammond M.D. 01/03/2023 7:[address] 01/03/23 18:31 Exam(s): CT HEAD Without Contrast Arranged EXAM: CT Head Without Intravenous Contrast CLINICAL HISTORY: Reason for exam: ams. TECHNIQUE: Axial computed tomography images of the head/brain without intravenous contrast. CTDI is 37.61 mGy and DLP is 547.75 mGy-cm. Automated exposure control was utilized for the study. A dose lowering technique was utilized adhering to the principles of ALARA. COMPARISON: No relevant prior studies available. FINDINGS: Brain: Unremarkable. No hemorrhage. No significant white matter disease. No edema. Ventricles: Unremarkable. No ventriculomegaly. Bones/joints: Unremarkable. No acute fracture. Soft tissues: Unremarkable. Sinuses: Unremarkable as visualized. No acute sinusitis. Mastoid air cells: Unremarkable as visualized. No mastoid effusion. IMPRESSION: Normal head/brain CT. Electronically signed by: Dylan Blackmon MD 01/03/23 21:44 PM ECG Data Attestation: I personally reviewed and interpreted this ECG as follows: Rate (beats per minute): 58 Rhythm: + normal sinus ECG Intervals/blocks: + Normal QRS, + Normal VT and + Normal QT-c ECG ST segments: + Normal ST segments [facility] Narrative 1830: The patient was evaluated in room C10. A complete history and physical exam was performed Cardiac monitoring: An order was placed for continuous cardiac monitoring. The monitor shows a rate of 60 with sinus rhythm interpreted by 2005: Vital signs stable. Lactic acid minimally elevated 2.2. Cefepime ordered for the patient in case there is any infection. Patient will not be given 30 cc/kg bolus given her elderly age and concern for patient becoming fluid overloaded if large amount of volume given to the patient. Patient was given 500 cc bolus and then we will reevaluate the patient. 2212: Vital signs stable. Labs show white blood cell count 8.09. VBG and coagulation studies within normal limits. Electrolytes are within normal limits. Repeat lactic acid came down to 1.8. Urinalysis is negative. Procalcitonin is negative. On further consideration, it is thought that sepsis secondary to a bacterial infectious that to be very low. The lactic acidemia could have been due to the patient having a seizure. Discussed case with on- call neurology Dr. Elizabeth states hold off on any antiepileptics at this time he can evaluate the patient in the morning. It is unclear if the patient had a syncopal episode or seizure, patient will be admitted to the [facility] hospitalist team Dr. Velasco notified. Impression & Plan Syncope, Observed seizure-like activity Discharge Plan Visit Data Chief Complaint: Illness Stated Complaint: CONFUSION ED Provider: Wilbur Gil Discharge Problem: Syncope, Observed seizure-like activity Patient Disposition: Being Evaluated by Hospitalist Forms Stand Alone Forms: My [facility] Prescriptions Prescriptions: No Action multivitamin Tablet 1 tab PO QAM Qty: 0 fexofenadine 180 mg Tablet 180 mg PO QAM Qty: 0 theophylline 300 mg Tablet Extended Release 12 Hr 300 mg PO Q12H Qty: 0 aspirin 81 mg Tablet,Delayed Release (Dr/Ec) 81 mg PO QAM Qty: 0 isosorbide mononitrate 60 mg Tablet Extended Release 24 Hr 60 mg PO QAM Qty: 0 losartan 100 mg Tablet 100 mg PO QAM Qty: 0 naproxen 500 mg Tablet 500 mg PO BID Qty: 0 Hold Instructions: hold unless your family doctor gives you clearance to resume memantine 5 mg tablet 5 mg PO BID docusate sodium [DOK] 100 mg capsule 100 mg PO BID atorvastatin [Lipitor] 40 mg Tablet 40 mg PO HS guaifenesin [Mucinex] 600 mg Tablet Extended Release 12hr 600 mg PO Q12H PRN (Reason: Congestion) albuterol sulfate 90 mcg/actuation HFA aerosol inhaler 2 puff INHALATION Q4 PRN (Reason: Shortness Of Breath Or Wheezing) donepezil [Aricept] 5 mg tablet 5 mg PO DAILY potassium chloride 10 mEq tablet extended release 20 meq PO BID omega-3 fatty acids 1,000 mg Capsule 1,000 mg PO BID calcium carbonate-vitamin D3 [Calcium 600 + D(3)] 600 mg-5 mcg (200 unit) Tablet 1 tab PO BID Trelegy Ellipta 200-62.5-25 mcg Blister With Device 1 inh INHALATION QPM carvedilol 12.5 mg Tablet 12.5 mg PO BID Qty: 60 0RF nifedipine 60 mg tablet extended release 60 mg PO HS Referrals Referrals: Guerita Engel PA-C [Primary Care Provider] -
[2023-01-04] MEDS ORDERED: ONDANSETRON INJ 2 MG/ML 2 ML VIAL IV PRN (00:56)
[2023-01-04] MEDS ORDERED: ACETAMINOPHEN 325 MG TAB PO PRN (00:56)
[2023-01-04] MEDS ORDERED: ALBUTEROL HFA 8 GM INHALER INH PRN (00:56)
[2023-01-04] MEDS ORDERED: SODIUM CHLORIDE 0.9% 1,000 ML IV SCH (00:56)
[2023-01-04] MEDS ORDERED: POLYETHYLENE (MIRALAX) 17 GM PACK PO PRN (00:56)
[2023-01-04] MEDS: THEOPHYLLINE 300MG EXTENDED REL TAB PO SCH ×2 (02:00→08:44)
[2023-01-04] MEDS ORDERED: PNEUMOCOCCAL POLYSACCHARIDES 25 MCG/0.5 ML VIAL/SYR IM ONE (02:19)
[2023-01-04 06:07] LABS: Basophils # (auto) 0.03 K/uL (0.00-0.20); Basophils % (auto) 0.4 %; Eosinophils # (auto) 0.03 K/uL (0.00-0.50); Eosinophils % (auto) 0.4 %; Hematocrit (blood only) 41.8 % (37.0-47.0); Hemoglobin 14.3 g/dl (12.0-16.0); Immature Granulocytes # (auto) 0.02 K/uL (0.01-0.20); Immature Granulocytes % (auto) 0.3 %; Lymphocytes % (auto) 28.2 %; Mean Corpuscular Hemoglobin 31.1 pg (25.0-34.0); Mean Corpuscular Hgb Conc 34.2 g/dL (32.0-36.0); Mean Corpuscular Volume 90.9 fL (80.0-100.0); Mean Platelet Volume 10.2 fL (9.4-12.4); Monocytes # (auto) 0.64 K/uL (0.11-0.59); Neutrophils # (auto) 4.37 K/uL (1.40-6.50); Neutrophils % (auto) 61.7 %; Platelet Count 185 K/uL (130-400); White Blood Count 7.09 K/ul (4.8-10.8)
[2023-01-04 06:54] LABS: Albumin Level 3.5 gm/dl (3.4-5.0); BUN Creatinine Ratio 30.6 (10-20); Calcium 8.8 mg/dl (8.6-10.3); Creatinine Clr Calc Pharmacy 57.4 ml/min; Est GFR (Non-African American) 78.5 ml/min; Phosphorus 2.9 mg/dl (2.5-4.9); Potassium 3.8 mmol/L (3.5-5.1)
[2023-01-04] MEDS: SODIUM CHLORIDE 0.9% 500 ML IV SCH (07:08)
--- NOTE | 2023-01-04 07:38 | Hospitalist Progress Note ---
Date of Service January 04, 2023 Assessment & Plan (1) Syncope: Plan: -Acute episode of syncope with shaking -Lactate was elevated to 2.2 but trended down to 1.8, procal negative. -U/A, LE+nitrate-, . Head CT negative, CXR negative for acute abnormalities. -ivf given in the ER for clinical dehydration MRI of head was negative pending urine culture discontinue medications starting with nifedipine and Abilify and theophylline -PT/OT eval and treat. (2) COPD (chronic obstructive pulmonary disease): Plan: -chronic and stable continue home inhalers albuterol PRN, trelegy qPM, family states patient's been theophylline for years we will discontinue this medication due to its narrow therapeutic window and side effects of supratherapeutic especially an 82-year-old confused person (3) HTN (hypertension): Plan: -Continue home , carvedilol, isosorbide, losartan. patient with relative bradycardia in the 50s patient episode of syncope prior to presentation will reduce carvedilol dose from 12 to-3.125 continue isosorbide and losartan but continue to reevaluate medications to try to avoid hypotension and bradycardia especially postural hypotension (4) Dementia: Plan: chronic, stable, at baseline. Continue home namenda. Plan DVT Prophylaxis: Lovenox 40mg qAM. Code status: DNR/DNI Admission and Anticipated Discharge Date Admission Date: January 03, 2023 Subjective patient is very pleasant she has no focal neurological deficits. I did discuss the index event that led the patient to admission incidentally the patient had episode of altered alertness but was able to respond during the episode there was some clonic tonic movements but there was no postictal phase. Physical Exam Physical Exam: Patient is awake and alert she is oriented x1 there are no carotid bruits and cardiac exam is regular without systolic murmur lungs are clear without wheezes arms and legs neurologically are without alterations in strength and sensation and she can follow purposeful commands Results & Data Results & Data Vital Signs (Past 12 Hours) Vital Signs Temp Pulse Pulse Resp BP BP Pulse Ox 01/04/23 07:12 59 L 01/04/23 01:22 57 L 01/04/23 02:55 98.1 F 56 L 14 143/67 H 97 01/04/23 00:56 56 L 16 143/67 H 97 01/04/23 00:46 01/04/23 00:46 98.1 F 68 18 173/89 H 95 01/03/23 23:43 62 01/03/23 23:01 60 20 147/77 H 96 01/03/23 22:30 62 22 132/76 95 01/03/23 22:01 74 19 145/89 H 95 01/03/23 22:00 73 19 01/03/23 21:30 62 20 125/59 L 94 01/03/23 21:00 62 21 121/72 95 01/03/23 20:30 59 L 19 113/60 93 01/03/23 20:00 61 18 95 01/03/23 23:18 01/03/23 20:17 O2 Del Method 01/04/23 07:12 01/04/23 01:22 01/04/23 02:55 Room Air 01/04/23 00:56 Room Air 01/04/23 00:46 Room Air 01/04/23 00:46 Room Air 01/03/23 23:43 01/03/23 23:01 01/03/23 22:30 Room Air 01/03/23 22:01 Room Air 01/03/23 22:00 01/03/23 21:30 Room Air 01/03/23 21:00 Room Air 01/03/23 20:30 Room Air 01/03/23 20:00 Room Air 01/03/23 23:18 Room Air 01/03/23 20:17 Room Air Laboratory Results reviewed CBC reviewed chemistry PG Care Time/CCT Total # of Minutes Spent Total Time Spent with Patient: Total time spent is greater than 50% in coordination of care (as documented) at patient's floor/unit and/or counseling patient: Coding Level of Care Code 47846 SUB INP/OBS CARE 3/50MIN Diagnoses Syncope R55 Syncope type: unspecified COPD (chronic obstructive pulmonary disease) J44.9 HTN (hypertension) I10 Hypertension type: unspecified Dementia G30.9; F02.82 Alzheimer's disease onset: unspecified onset Dementia behavioral or psychological symptom: with psychotic disturbance Dementia severity: unspecified severity Dementia type: Alzheimer's (1) Syncope Syncope type: unspecified Qualified Code(s): R55 - Syncope and collapse (3) HTN (hypertension) Hypertension type: unspecified Qualified Code(s): I10 - Essential (primary) hypertension (4) Dementia Alzheimer's disease onset: unspecified onset Dementia 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
[2023-01-04] MEDS: ISOSORBIDE MONO EXTENDED REL 60 MG TABCR PO SCH (08:42)
[2023-01-04] MEDS: LOSARTAN POTASSIUM 50 MG TAB PO SCH (08:42)
[2023-01-04] MEDS: DOCUSATE SODIUM 100 MG CAP PO SCH ×2 (08:42→20:40)
[2023-01-04] MEDS: MEMANTINE HCL 5 MG TAB PO SCH ×2 (08:42→20:40)
[2023-01-04] MEDS: FLUTICASONE FUROATE 200MCG 14 PUFFS/INHALER INH SCH (08:43)
[2023-01-04] MEDS: ENOXAPARIN INJ 40 MG/0.4 ML SYR SQ SCH (08:44)
[2023-01-04] MEDS: UMECLIDINIUM/VILANTEROL 62.5/25MCG 7 PUFFS/INHALER INH SCH (08:44)
[2023-01-04] MEDS: ASPIRIN 81 MG ECTAB PO SCH (08:44)
[2023-01-04] MEDS ORDERED: FEXOFENADINE HCL 180 MG TAB PO SCH (09:00)
[2023-01-04] MEDS ORDERED: ARIPiprazole 5 MG TAB PO SCH (09:00)
[2023-01-04] MEDS ORDERED: carvediloL 12.5 MG TAB PO SCH (09:00)
[2023-01-04] MEDS ORDERED: POTASSIUM CHLORIDE CRTAB 20 MEQ TABCR PO SCH (09:00)
[2023-01-04] MEDS ORDERED: LORazepam 2 MG/1 ML VIAL IV SCH (14:00)
--- NOTE | 2023-01-04 16:26 | Magnetic Resonance Report ---
Brain MRI WITHOUT CONTRAST HISTORY: Tremors . Assess for stroke. TECHNIQUE: Multiplanar multisequence MRI of the brain was performed without the use of contrast. COMPARISON STUDY: Head CT 01/03/2023. FINDINGS: There is no mass, hematoma, midline shift, or acute infarct. The paranasal sinuses are chuck r. The mastoid air cells are clear. The ventricles and sulci demonstrate moderate age-related involut ional changes. Scattered foci of T2 hyperintensity seen within the periventricular and subcortical wh ite matter are nonspecific but suggestive of mild microvascular ischemic changes. The major vascular flow voids at the skull base are well-maintained. Partial opacification ethmoid air cells. There is a n old punctate lacunar infarcts within the left cerebellar hemisphere. Prior bilateral lens replaceme nt again noted. IMPRESSION: No acute intracranial abnormality. A few scattered foci of T2 hyperintensity seen within the perivent ricular and subcortical white matter are nonspecific but favor microvascular ischemic change. ACT 112: Negative or not required by law. Electronically signed by: Alli Dasilva M.D. 01/04/2023 4:24 PM
[2023-01-04] MEDS: MELATONIN 3 MG TAB PO PRN (20:40)
[2023-01-04] MEDS: carvediloL 3.125 MG TAB PO SCH (20:41)
[2023-01-04] MEDS ORDERED: ATORVASTATIN 40 MG TAB PO SCH (21:00)
[2023-01-04] MEDS ORDERED: NIFEdipine EXTENDED REL 30 MG TABCR PO SCH (21:00)
[2023-01-04] MEDS ORDERED: NON-FORMULARY MEDICATION (Fluticasone-Umeclidin-Vilanter [Trelegy Ellipta] 200-62.5-25 mcg INH SCH (21:00)
--- NOTE | 2023-01-05 04:47 | Billing Data ---
Date of Service January 05, 2023 Coding Level of Care Code 19255 INT INP/OBS CARE
[2023-01-05 07:55] LABS: Albumin Level 3.4 gm/dl (3.4-5.0); Calcium 9.1 mg/dl (8.6-10.3); Potassium 3.9 mmol/L (3.5-5.1)
[2023-01-05 08:01] LABS: BUN Creatinine Ratio 30.8 (10-20); Est GFR (African American) 82.6 ml/min; Est GFR (Non-African American) 71.3 ml/min; Phosphorus 2.7 mg/dl (2.5-4.9)
[2023-01-05] MEDS: LOSARTAN POTASSIUM 50 MG TAB PO SCH (09:37)
[2023-01-05] MEDS: ASPIRIN 81 MG ECTAB PO SCH (09:38)
[2023-01-05] MEDS: carvediloL 3.125 MG TAB PO SCH ×2 (09:38→20:28)
[2023-01-05] MEDS: UMECLIDINIUM/VILANTEROL 62.5/25MCG 7 PUFFS/INHALER INH SCH (09:38)
[2023-01-05] MEDS: ISOSORBIDE MONO EXTENDED REL 60 MG TABCR PO SCH (09:38)
[2023-01-05] MEDS: MEMANTINE HCL 5 MG TAB PO SCH ×2 (09:38→20:28)
[2023-01-05] MEDS: DOCUSATE SODIUM 100 MG CAP PO SCH ×2 (09:38→20:31)
[2023-01-05] MEDS: ENOXAPARIN INJ 40 MG/0.4 ML SYR SQ SCH (09:39)
[2023-01-05] MEDS: FLUTICASONE FUROATE 200MCG 14 PUFFS/INHALER INH SCH (09:39)
--- NOTE | 2023-01-05 13:40 | Hospitalist Progress Note ---
Date of Service January 05, 2023 Assessment & Plan (1) Syncope: Plan: -Acute episode of pre syncope with shaking and post episode drowsiness new in onset. reportedly patient was able to communicate during the event according to her daughter -Lactate was elevated to 2.2 but trended down to 1.8, procal negative. -U/A unremarkable for infection. Head CT negative, CXR negative for acute abnormalities. -PT/OT eval patient is physically capable needs supervision due to dementia . -If patient continues to be back at baseline with vitals stable can likely discharge. (2) COPD (chronic obstructive pulmonary disease): Plan: -continue home inhalers albuterol PRN, trelegy qPM (3) Asthma: Plan: Same as above. Continue home fexofenadine. (4) HTN (hypertension): Plan: -Continue home, carvedilol, isosorbide, losartan. (5) Dementia: Plan: chronic, stable, at baseline. Continue home namenda. Plan Met with family at bedside request attempts to control sundowning behavior prior to going home Admission and Anticipated Discharge Date Admission Date: January 03, 2023 Subjective patient is pleasantly confused still only oriented x1 seems to be adapting to medication changes without much untoward effect consideration of the time Zyprexa would be beneficial to control her behavior will discuss with family Physical Exam Physical Exam: Patient is awake and alert she is oriented x1 there are no carotid bruits and cardiac exam is regular without systolic murmur lungs are clear without wheezes arms and legs neurologically are without alterations in strength and sensation and she can follow purposeful commands Results & Data Results & Data Vital Signs (Past 12 Hours) Vital Signs Temp Pulse Pulse Resp BP Pulse Ox O2 Del Method 01/05/23 10:18 Room Air 01/05/23 10:17 97.9 F 61 16 146/80 H 96 Room Air 01/05/23 07:51 97.7 F 61 16 163/79 H 93 Room Air 01/05/23 03:33 97.3 F L 54 L 18 122/70 96 Room Air Laboratory Results reviewed chemistry PG Care Time/CCT Total # of Minutes Spent Total Time Spent with Patient: Total time spent is greater than 50% in coordination of care (as documented) at patient's floor/unit and/or counseling patient: Coding Level of Care Code 84414 SUB INP/OBS CARE 2/35MIN Diagnoses Syncope R55 Syncope type: unspecified COPD (chronic obstructive pulmonary disease) J44.9 Asthma J45.909 HTN (hypertension) I10 Hypertension type: unspecified Dementia G30.9; F02.82 Alzheimer's disease onset: unspecified onset Dementia behavioral or psychological symptom: with psychotic disturbance Dementia severity: unspecified severity Dementia type: Alzheimer's (1) Syncope Syncope type: unspecified Qualified Code(s): R55 - Syncope and collapse (4) HTN (hypertension) Hypertension type: unspecified Qualified Code(s): I10 - Essential (primary) h ypertension (5) Dementia Alzheimer's disease onset: unspecified onset Dementia behavioral or psyc hological symptom: with psychotic disturbance Dementia severity: unspecified severity Dementia type: Alzheimer's Qualified Code(s): G30.9 - Alzheimer's disease, unspecified; F02.82 - Dementia in other diseases classified elsewhere, unspecified severity, with psychotic disturbance
[2023-01-05] MEDS: MELATONIN 3 MG TAB PO PRN (20:31)
[2023-01-05] MEDS ORDERED: QUEtiapine FUMARATE 25 MG TABLET PO ONE (21:00)
--- NOTE | 2023-01-05 21:17 | Electrocardiogram Report ---
Test Reason : Blood Pressure : / mmHG Vent. Rate : 058 BPM Atrial Rate : 058 BPM P-R Int : 170 ms QRS Dur : 090 ms QT Int : 422 ms P-R-T Axes : 076 -67 049 degrees QTc Int : 414 ms Sinus bradycardia Left axis deviation RSR' or QR pattern in V1 suggests right ventricular conduction delay Inferior infarct (cited on or before 06-NOV-2021) Anterior infarct , age undetermined Abnormal ECG When compared with ECG of 30-NOV-2022 21:46, Anterior infarct is now Present Confirmed by Stanford Mahmood ([id number]) on 01/05/2023 9:17:21 PM Referred By: REFERRED SELF Confirmed By:Stanford Mahmood
[2023-01-06] MEDS: DOCUSATE SODIUM 100 MG CAP PO SCH (07:32)
[2023-01-06] MEDS: ISOSORBIDE MONO EXTENDED REL 60 MG TABCR PO SCH (07:32)
[2023-01-06] MEDS: MEMANTINE HCL 5 MG TAB PO SCH (07:32)
[2023-01-06] MEDS: carvediloL 3.125 MG TAB PO SCH (07:32)
[2023-01-06] MEDS: ENOXAPARIN INJ 40 MG/0.4 ML SYR SQ SCH (07:33)
[2023-01-06] MEDS: UMECLIDINIUM/VILANTEROL 62.5/25MCG 7 PUFFS/INHALER INH SCH (07:33)
[2023-01-06] MEDS: FLUTICASONE FUROATE 200MCG 14 PUFFS/INHALER INH SCH (07:33)
[2023-01-06] MEDS: ASPIRIN 81 MG ECTAB PO SCH (07:33)
[2023-01-06] MEDS ORDERED: carvediloL 3.125 MG TAB PO ONE (09:07)
[2023-01-06] MEDS: LOSARTAN POTASSIUM 50 MG TAB PO SCH (10:05)
[2023-01-06] MEDS ORDERED: carvediloL 6.25 MG TAB PO ONE (13:30)
--- NOTE | 2023-01-06 13:33 | Hospitalist Progress Note ---
Date of Service January 06, 2023 Assessment & Plan (1) Syncope: Plan: -Acute episode of pre syncope with shaking and post episode drowsiness new in onset. reportedly patient was able to communicate during the event according to her daughter -Lactate was elevated to 2.2 but trended down to 1.8, procal negative. -U/A unremarkable for infection. Head CT negative, CXR negative for acute abnormalities. -PT/OT eval patient is physically capable needs supervision due to dementia . -family is supportive to have pt come home when ready (2) COPD (chronic obstructive pulmonary disease): Plan: -continue home inhalers albuterol PRN, trelegy qPM (3) Asthma: Plan: Same as above. Continue home fexofenadine. (4) HTN (hypertension): Plan: -Continue home, carvedilol, isosorbide, losartan. bp up amanda return coreg to home doses (5) Dementia: Plan: chronic, stable, at baseline. Continue home namenda. Admission and Anticipated Discharge Date Admission Date: January 03, 2023 Subjective patient is still only oriented x1, seems to be baseline seems to be adapting to medication changes without much untoward effect did sleep well with seroquel, bp up will need to return to home coreg doses Physical Exam Physical Exam: Patient is awake and alert she is oriented x1 there are no carotid bruits and cardiac exam is regular without systolic murmur lungs are clear without wheezes arms and legs neurologically are without alterations in strength and sensation and she can follow purposeful commands Results & Data Results & Data Vital Signs (Past 12 Hours) Vital Signs Temp Pulse Resp BP Pulse Ox O2 Del Method 01/06/23 07:30 Room Air 01/06/23 07:16 97.7 F 75 18 186/98 H 96 Room Air PG Care Time/CCT Total # of Minutes Spent Total Time Spent with Patient: Total time spent is greater than 50% in coordination of care (as documented) at patient's floor/unit and/or counseling patient: Coding Level of Care Code 02303 SUB INP/OBS CARE 3/50MIN Diagnoses Syncope R55 Syncope type: unspecified COPD (chronic obstructive pulmonary disease) J44.9 Asthma J45.909 HTN (hypertension) I10 Hypertension type: unspecified Dementia G30.9; F02.82 Alzheimer's disease onset: unspecified onset Dementia behavioral or psychological symptom: with psychotic disturbance Dementia severity: unspecified severity Dementia type: Alzheimer's (1) Syncope Syncope type: unspecified Qualified Code(s): R55 - Syncope and collapse (4) HTN (hypertension) Hypertension type: unspecified Qualified Code(s): I10 - Essential (primary) hypertension (5) Dementia Alzheimer's disease onset: unspecified onset Dementia 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
--- NOTE | 2023-01-06 15:03 | Discharge Summary ---
Date of Service January 06, 2023 Admission HPI Per Admitting Provider Marlen is an 82 year old female w/ PmHxCOPD, intermittent use of home oxygen, HTN, and Dementia brought in to the ED via ambulance for semi-responsiveness. Patient's son in the room gives history due to patient having dementia. Per son, earlier today they were enjoying the nice weather outside with a picnic and his mom was sitting in a shaded area with a fan blowing. 30 minutes later his mother in law went to sit next to the patient and she found the patient in a slumped state in the chair and not responsive to verbal stimuli. She was also seen to be shaking a little bit during this time too. She became more responsive to verbal stimuli but was in a stupor more drowsy state. She had another episode of this in front of the son with the same slumped over and some mild shaking of the arms like chills. Patient had also wet herself during the episode. Her son had taken her blood pressure at the time and it came to be 73/53 and a BSG was 198. They called for ambulance which by the time they arrived she was more with it and her BP had come up to the 100's systolic. Currently in the ED she is back to her baseline, per son, and her vitals have been stable. Prior to these events she was in her normal health without any concerns. Patient does not have a history of seizures but had an incident last year with shopping where she became warm and almost passed out. In the ED CBC, CMP unremarkable except for mild hyponatremia to 133, VBG showed a pH of 7.35 and CO2 of 50. Lactate was elevated to 2.2 but trended down to 1.8, procal negative. U/A unremarkable for infection. Head CT negative, CXR negative for acute abnormalities. She was given 2L NSS and 2g Cefepime in the ED. Principal Diagnosis presyncope dementia Discharge Exam pt was seen without distress Discharge Data Allergies Allergy/AdvReac Type Severity Reaction Status Date / Time Antihistamines - Alkylamine AdvReac Unknown cant Verified 01/03/23 23:04 remember Antihistamines - Ethanolamine AdvReac Unknown cant Verified 01/03/23 23:04 remember Antihistamines - AdvReac Unknown cant Verified 01/03/23 23:04 Ethylenediamine remember Antihistamines - Piperazine AdvReac Unknown cant Verified 01/03/23 23:04 remember Antihistamines - Piperidine AdvReac Unknown cant Verified 01/03/23 23:04 remember Consultations 01/03/23 22:12 ED Decision to Admit Stat Ordered Studies 01/03/23 18:31 CT head/brain wo con Stat 01/04/23 13:28 MRI Brain [MR brain wo con] Routine Hospital Course (1) Syncope: -Acute episode of pre syncope with shaking and post episode drowsiness new in onset. reportedly patient was able to communicate during the event according to her daughter -Lactate was elevated to 2.2 but trended down to 1.8, procal negative. -U/A unremarkable for infection. Head CT negative, CXR negative for acute abnormalities. -PT/OT eval patient is physically capable needs supervision due to dementia . -family is supportive to have pt come home when ready (2) COPD (chronic obstructive pulmonary disease): -chronic and stable , discontinue theophylline, continue home inhalers albuterol PRN, trelegy qPM (3) Asthma: chronic and stable Continue home fexofenadine. (4) HTN (hypertension): -Continue home, carvedilol, isosorbide, losartan. stop nifedipine, if bp control is needed try to restrict salt indiet and increase coreg (5) Dementia: chronic, stable, at baseline. Continue home namenda. stop abilify as most recent new med Total Time Total Time Spent Total Time Spent (In Minutes): It required greater than 30 minutes to prepare this patient for discharge Discharge Plan Discharge Items Patient Disposition: Home - Self-Care Reason For Visit: SYNCOPE Discharge Diagnosis: syncope dementia Activity: Resume your previous activity Non-emergency contact: Primary Care Provider Follow-up/Referrals: Guerita Engel PA-C [Primary Care Provider] - Diet: Low Sodium (2gm) Addtl Attending Provider Instructions: we did not observe any additional passing out or seizure like activity we did make some mediation adjustments, and it may take a few weeks to see it these are beneficial, please see your primary care doctor for a follow up and to check blood pressure Pending Studies at Discharge: Yes Studies:: we are still analyzing a urine specimen at time of discharge it is negative, if positive for infection you will be called Stand-Alone Forms: My Medicine in Practice, Smoking Cessation Medications and DC Order Prescriptions: Continued multivitamin Tablet 1 tab PO QAM Qty: 0 fexofenadine 180 mg Tablet 180 mg PO QAM Qty: 0 aspirin 81 mg Tablet,Delayed Release (Dr/Ec) 81 mg PO QAM Qty: 0 isosorbide mononitrate 60 mg Tablet Extended Release 24 Hr 60 mg PO QAM Qty: 0 memantine 5 mg tablet 5 mg PO BID docusate sodium [DOK] 100 mg capsule 100 mg PO BID atorvastatin [Lipitor] 40 mg Tablet 40 mg PO HS albuterol sulfate 90 mcg/actuation HFA aerosol inhaler 2 puff INHALATION Q4 PRN (Reason: Shortness Of Breath Or Wheezing) potassium chloride 10 mEq tablet extended release 20 meq PO BID calcium carbonate-vitamin D3 [Calcium 600 + D(3)] 600 mg-5 mcg (200 unit) Tablet 1 tab PO BID Trelegy Ellipta 200-62.5-25 mcg Blister With Device 1 inh INHALATION QPM carvedilol 12.5 mg Tablet 12.5 mg PO BID Qty: 60 0RF Discontinued theophylline 300 mg Tablet Extended Release 12 Hr 300 mg PO Q12H Qty: 0 naproxen 500 mg Tablet 500 mg PO BID Qty: 0 Hold Instructions: hold unless your family doctor gives you clearance to resume guaifenesin [Mucinex] 600 mg Tablet Extended Release 12hr 600 mg PO Q12H PRN (Reason: Congestion) donepezil [Aricept] 5 mg tablet 5 mg PO DAILY omega-3 fatty acids 1,000 mg Capsule 1,000 mg PO BID nifedipine 60 mg tablet extended release 60 mg PO HS No Action losartan 100 mg Tablet 100 mg PO QAM Qty: 0 Discharge Orders: Discharge Order (Routine); Ordered 01/06/23 Ordered By: Shiva Pinto Admission Data Admit Date/Time: 01/03/23 22:58 Attending Provider: Shiva Pinto Admit Provider: Jesus Bernabe Primary Care Provider: Guerita Engel Other Providers: Yann Méndez Coding Level of Care Code 54903 INP/OBS DISCH >30 MIN Diagnoses Syncope R55 Syncope type: unspecified COPD (chronic obstructive pulmonary disease) J44.9 Asthma J45.909 HTN (hypertension) I10 Hypertension type: unspecified Dementia G30.9; F02.82 Alzheimer's disease onset: unspecified onset Dementia behavioral or psychological symptom: with psychotic disturbance Dementia severity: unspecified severity Dementia type: Alzheimer's
[2023-01-06] MEDS ORDERED: carvediloL 12.5 MG TAB PO SCH (17:00)
[2023-01-06] MEDS ORDERED: carvediloL 6.25 MG TAB PO SCH (17:00)
== END 2023-01-06 17:32 | disposition home or self-care (01) | DRG 312 ==
LOC: ED 17:54 → SUATTDRO 22:58 → 2W 22:58 → 3N 01-05 10:09

== ENCOUNTER 2023-03-30 12:23 | Inpatient (IN) ==
[2023-03-30 13:38] LABS: Basophils # (auto) 0.02 K/uL (0.00-0.20); Basophils % (auto) 0.1 %; Eosinophils # (auto) 0.02 K/uL (0.00-0.50); Eosinophils % (auto) 0.1 %; Hematocrit (blood only) 45.4 % (37.0-47.0); Hemoglobin 15.6 g/dl (12.0-16.0); Immature Granulocytes # (auto) 0.07 K/uL (0.01-0.20); Immature Granulocytes % (auto) 0.5 %; Lymphocytes # (auto) 1.51 K/uL (1.20-3.40); Mean Corpuscular Hemoglobin 30.9 pg (25.0-34.0); Mean Corpuscular Hgb Conc 34.4 g/dL (32.0-36.0); Mean Corpuscular Volume 89.9 fL (80.0-100.0); Mean Platelet Volume 9.8 fL (9.4-12.4); Monocytes # (auto) 0.89 K/uL (0.11-0.59); Monocytes % (auto) 5.9 %; Neutrophils # (auto) 12.55 K/uL (1.40-6.50); Neutrophils % (auto) 83.4 %; Platelet Count 250 K/uL (130-400); RDW Coefficient of Variation 13.4 % (11.5-14.5); RDW Standard Deviation 43.6 fL (36.4-46.3); Red Blood Count 5.05 M/uL (4.20-5.40); White Blood Count 15.06 K/ul (4.8-10.8)
[2023-03-30 13:59] LABS: Alanine Aminotransferase 18 U/L (7-52); Albumin Globulin Ratio 1.2 (0.9-2); Albumin Level 3.8 gm/dl (3.4-5.0); Alkaline Phosphatase 77 U/L (34-104); Anion Gap 7 (3-11); Aspartate Aminotransferase 15 U/L (13-39); Bilirubin,Total 0.7 mg/dl (0.2-1.0); Blood Urea Nitrogen 29 mg/dl (6-23); Calcium 9.5 mg/dl (8.6-10.3); Carbon Dioxide 26 mmol/L (21-32); Chloride 104 mmol/L (98-107); Est GFR (African American) 94.6 ml/min; Est GFR (Non-African American) 81.6 ml/min; Globulin 3.2 gm/dl (2.5-4.0); Glucose 124 mg/dl (70-99(Fasting)); Potassium 3.7 mmol/L (3.5-5.1); Sodium 137 mmol/L (136-145)
--- NOTE | 2023-03-30 14:13 | Emergency Department Note ---
History of Present Illness General Chief complaint: Confusion Stated complaint: ALZIHMERS, CONFUSED, LESS VERBAL, UTI, COUGH Time Seen by Provider: 03/30/23 13:21 History of Present Illness This is an 82-year-old female presenting to the emergency department for evaluation of altered mental status. The patient has underlying history of Alzheimer's and does live at home with family. There are multiple adults in the household that rotate and patient essentially has 24-hour monitoring by family. Family has surveillance cameras set up in the lower floor of the home to monitor 24 hours a day. According to the patient's granddaughter who is at bedside, the patient began with more confusion last evening. The patient is typically fairly talkative, however last night she was not speaking. The patient went to bed, and when family checked on the patient in the morning, she was naked and had urinated in several areas of the bedroom. This is very atypical for the patient. There has been no recent fever symptoms. Patient has been eating and drinking as normal. Patient does not have any complaints. Home Medications Medication Instructions Recorded Confirmed Type aspirin 81 mg tablet,delayed 81 mg PO QAM ##0 03/14/17 03/30/23 History release fexofenadine 180 mg tablet 180 mg PO QAM #0 tabs 03/14/17 03/30/23 History multivitamin 1 tab PO QAM ##0 03/14/17 03/30/23 History isosorbide mononitrate 60 mg 60 mg PO QAM #0 tabs 08/07/17 03/30/23 History tablet,extended release 24 hr losartan 100 mg tablet 100 mg PO QAM #0 tabs 08/07/17 03/30/23 History potassium chloride 10 mEq 20 meq PO BID 04/14/21 03/30/23 History tablet,extended release calcium carbonate 600 mg-vitamin 1 tab PO BID 10/30/21 03/30/23 History D3 5 mcg (200 unit) tablet (Calcium 600 + D(3)) fluticasone fur. 200 mcg-umeclid 1 inh inhalation QPM 10/30/21 03/30/23 History 62.5 mcg-vilant 25 mcg inhalat.powder (Trelegy Ellipta) carvedilol 12.5 mg tablet 12.5 mg PO BID #60 tabs 11/10/21 03/30/23 Rx docusate sodium 100 mg capsule 100 mg PO BID 05/06/22 03/30/23 History (DOK) albuterol sulfate 90 mcg/actuation 2 puff inhalation Q4 PRN Shortness 10/06/22 03/30/23 History aerosol inhaler Of Breath Or Wheezing albuterol sulfate 2.5 mg/3 mL 2.5 mg continuous nebulization Q4 03/30/23 03/30/23 History (0.083 %) solution for nebulization PRN as directed Allergies Allergy/AdvReac Type Severity Reaction Status Date / Time Antihistamines - Alkylamine AdvReac Unknown cant Verified 03/30/23 17:14 remember Antihistamines - Ethanolamine AdvReac Unknown cant Verified 03/30/23 17:14 remember Antihistamines - AdvReac Unknown cant Verified 03/30/23 17:14 Ethylenediamine remember Antihistamines - Piperazine AdvReac Unknown cant Verified 03/30/23 17:14 remember Antihistamines - Piperidine AdvReac Unknown cant Verified 03/30/23 17:14 remember Past Med/Surg History Medical History Facial bruising Acute exacerbation of chronic obstructive pulmonary disease Chronic renal failure, stage 3a No pertinent family history Dementia Heart disease Diabetes COPD (chronic obstructive pulmonary disease) Hypertension Surgical History S/P cataract extraction and insertion of intraocular lens b/l Family History Other Family history unknown Social History Smoking Status: Never smoker Tobacco Type: Cigarettes Cigarettes Per Day: minimal amount of tobacco at age 20yo only; Second Hand Exposure: Yes; Do You Dip or Chew Tobacco: No; Hx Alcohol Use: No Hx Substance Use: No Preferred Language: [place] Communication Ability: Impaired Homoeopath Required: No Beliefs That Will Affect Care: None marital status: / Current Living Situation: Family Current Living Situation Comment: granddaughter lives with pt current occupational status: retired current occupation: worked at "[employer]" How many Children do You have: 4 How many Children do You have Comment: 2 sons, 2 daughters Feels Safe at Home: Yes Assistive Devices: Cane Review of Systems A total of 10 systems reviewed and were otherwise negative Physical Exam Vital Signs Vital Signs - 24 hr 03/30/23 12:44 03/30/23 13:41 03/30/23 13:50 Temperature 37.2 C Temperature Source Temporal Artery Scan Pulse Rate 72 68 65 Pulse Rate [Apical] Pulse Rhythm [Apical] Pulse Strength [Apical] Respiratory Rate 18 20 16 Respiratory Effort / Characteristics Non-Labored Spontaneous Respiratory Depth Normal Respiratory Pattern Regular Blood Pressure 96/54 L Blood Pressure [Right Arm] Blood Pressure Mean 68 Blood Pressure Mean [Right Arm] Blood Pressure Position Sitting Blood Pressure Position [Right Arm] Pulse Oximetry 91 94 93 Oxygen Delivery Method Room Air Sepsis Recent Fever Within 48 Hours No Sepsis New/Unexplained Change in Mental Status N/A Sepsis Action Taken by Nursing No Action Required 03/30/23 14:25 03/30/23 18:00 03/30/23 18:11 Temperature Temperature Source Pulse Rate 67 Pulse Rate [Apical] 63 Pulse Rhythm [Apical] Regular Pulse Strength [Apical] Normal Respiratory Rate 20 Respiratory Effort / Characteristics Non-Labored Spontaneous Respiratory Depth Normal Respiratory Pattern Regular Blood Pressure Blood Pressure [Right Arm] 138/73 152/78 H Blood Pressure Mean Blood Pressure Mean [Right Arm] 94 102 Blood Pressure Position Blood Pressure Position [Right Arm] Sitting Pulse Oximetry 93 Oxygen Delivery Method Room Air Sepsis Recent Fever Within 48 Hours Sepsis New/Unexplained Change in Mental Status Sepsis Action Taken by Nursing VITALS: Vitals are noted on the nurse's note and reviewed by myself. Vital signs stable. GENERAL: Elderly white female who is pleasantly confused. She will ask atypical questions but does not seem in any distress. HEAD: Normocephalic atraumatic. HEART: Regular rate and rhythm without murmurs gallops or rubs. LUNGS: Clear to auscultation bilaterally without wheezes, rales or rhonchi. No retractions or accessory muscle use. ABDOMEN: Positive normal bowel sounds x 4. Soft, nontender, without masses or organomegaly. No guarding or rebound tenderness. MUSCULOSKELETAL: No muscle atrophy, erythema, or edema noted. NEURO: Patient was pleasantly demented appearing. Medical Decision Making Differential Diagnosis Differential diagnosis includes, but is not limited to: Infection, stroke, advancing dementia, UTI, metabolic or electrolyte imbalance, cardiopulmonary event, and others Laboratory Data 03/30/23 13:10 03/30/23 13:10 Lab Results 03/30/23 03/30/23 03/30/23 Range/Units 13:10 14:20 15:40 WBC 15.06 H (4.8-10.8) K/ul RBC 5.05 (4.20-5.40) M/uL Hgb 15.6 (12.0-16.0) g/dl Hct 45.4 (37.0-47.0) % MCV 89.9 (80.0-100.0) fL MCH 30.9 (25.0-34.0) pg MCHC 34.4 (32.0-36.0) g/dL RDW Std Deviation 43.6 (36.4-46.3) fL RDW Coeff of Ede 13.4 (11.5-14.5) % Plt Count 250 (130-400) K/uL MPV 9.8 (9.4-12.4) fL Immature Gran % (Auto) 0.5 % Neut % (Auto) 83.4 % Lymph % (Auto) 10.0 % [place]onder[place] % (Auto) 5.9 % Eos % (Auto) 0.1 % Baso % (Auto) 0.1 % Neut # (Auto) 12.55 H (1.40-6.50) K/uL Lymph # (Auto) 1.51 (1.20-3.40) K/uL [place] # (Auto) 0.89 H (0.11-0.59) K/uL Eos # (Auto) 0.02 (0.00-0.50) K/uL Baso # (Auto) 0.02 (0.00-0.20) K/uL Immature Gran # (Auto) 0.07 (0.01-0.20) K/uL Sodium 137 (136-145) mmol/L Potassium 3.7 (3.5-5.1) mmol/L Chloride 104 (98-107) mmol/L Carbon Dioxide 26 (21-32) mmol/L Anion Gap 7 (3-11) BUN 29 H (6-23) mg/dl Creatinine 0.69 (0.6-1.2) mg/dl Est Cr Clr Drug Dosing Not Reportable Est GFR ( Amer) 94.6 ml/min Est GFR (Non-Af Amer) 81.6 ml/min BUN/Creatinine Ratio 42.0 H (10-20) Glucose 124 H (70-99(Fasting)) mg/dl Lactate 0.8 (0.4-2.0) mmol/L Calcium 9.5 (8.6-10.3) mg/dl Magnesium 2.2 (1.7-2.4) mg/dl Total Bilirubin 0.7 (0.2-1.0) mg/dl AST 15 (13-39) U/L ALT 18 (7-52) U/L Alkaline Phosphatase 77 (34-104) U/L Total Creatine Kinase 35 (26-192) U/L Troponin I High Sens 10.8 (0-14) pg/ml Total Protein 7.0 (6.0-8.3) gm/dl Albumin 3.8 (3.4-5.0) gm/dl Globulin 3.2 (2.5-4.0) gm/dl Albumin/Globulin Ratio 1.2 (0.9-2) TSH 1.491 (0.300-4.500) uIu/ml Urine Color Urine Appearance (Clear) Urine pH (4.5-7.5) Ur Specific Kress (1.000-1.030) Urine Protein (Negative) Urine Glucose (UA) (Negative) Urine Ketones (Negative) Urine Blood (Negative) Urine Nitrite (Negative) Urine Bilirubin (Negative) Urine Urobilinogen (Negative) Ur Leukocyte Esterase (Negative) Urine WBC (Auto) (0-5) /hpf Urine RBC (Auto) (0-4) /hpf U Hyaline Cast (Auto) (0-5) /lpf U Epithel Cells (Auto) (0-5) /lpf Urine Bacteria (Auto) (Negative) Adenovirus (PCR) Not Detected (NotDetected) B. pertussis DNA (PCR) Not Detected (NotDetected) B.parapertussis DNA PCR Not Detected (NotDetected) C. pneumoniae DNA (PCR) Not Detected (NotDetected) Coronavirus OC43 (PCR) Not Detected (NotDetected) Coronavirus HKU1 (PCR) Not Detected (NotDetected) Coronavirus 229E (PCR) Not Detected (NotDetected) SARS-CoV-2 (PCR) Not Detected (NotDetected) Coronavirus NL63 (PCR) Not Detected (NotDetected) Human Metapneumovir PCR Not Detected (NotDetected) Influenza Type A (PCR) Not Detected (NotDetected) Influenza Type B (PCR) Not Detected (NotDetected) M. pneumoniae (PCR) Not Detected (NotDetected) Parainfluenza 1 (PCR) Not Detected (NotDetected) Parainfluenza 2 (PCR) Not Detected (NotDetected) Parainfluenza 3 (PCR) Not Detected (NotDetected) Parainfluenza 4 (PCR) Not Detected (NotDetected) RSV (PCR) Not Detected (NotDetected) Entero/Rhino (PCR) Not Detected (NotDetected) 03/30/23 Range/Units 16:59 WBC (4.8-10.8) K/ul RBC (4.20-5.40) M/uL Hgb (12.0-16.0) g/dl Hct (37.0-47.0) % MCV (80.0-100.0) fL MCH (25.0-34.0) pg MCHC (32.0-36.0) g/dL RDW Std Deviation (36.4-46.3) fL RDW Coeff of Ede (11.5-14.5) % Plt Count (130-400) K/uL MPV (9.4-12.4) fL Immature Gran % (Auto) % Neut % (Auto) % Lymph % (Auto) % [place] % (Auto) % Eos % (Auto) % Baso % (Auto) % Neut # (Auto) (1.40-6.50) K/uL Lymph # (Auto) (1.20-3.40) K/uL [place] # (Auto) (0.11-0.59) K/uL Eos # (Auto) (0.00-0.50) K/uL Baso # (Auto) (0.00-0.20) K/uL Immature Gran # (Auto) (0.01-0.20) K/uL Sodium (136-145) mmol/L Potassium (3.5-5.1) mmol/L Chloride (98-107) mmol/L Carbon Dioxide (21-32) mmol/L Anion Gap (3-11) BUN (6-23) mg/dl Creatinine (0.6-1.2) mg/dl Est Cr Clr Drug Dosing Est GFR ( Amer) ml/min Est GFR (Non-Af Amer) ml/min BUN/Creatinine Ratio (10-20) Glucose (70-99(Fasting)) mg/dl Lactate (0.4-2.0) mmol/L Calcium (8.6-10.3) mg/dl Magnesium (1.7-2.4) mg/dl Total Bilirubin (0.2-1.0) mg/dl AST (13-39) U/L ALT (7-52) U/L Alkaline Phosphatase (34-104) U/L Total Creatine Kinase (26-192) U/L Troponin I High Sens (0-14) pg/ml Total Protein (6.0-8.3) gm/dl Albumin (3.4-5.0) gm/dl Globulin (2.5-4.0) gm/dl Albumin/Globulin Ratio (0.9-2) TSH (0.300-4.500) uIu/ml Urine Color Yellow Urine Appearance Clear (Clear) Urine pH 7.0 (4.5-7.5) Ur Specific Kress 1.011 (1.000-1.030) Urine Protein Negative (Negative) Urine Glucose (UA) Negative (Negative) Urine Ketones Negative (Negative) Urine Blood Negative (Negative) Urine Nitrite Negative (Negative) Urine Bilirubin Negative (Negative) Urine Urobilinogen Negative (Negative) Ur Leukocyte Esterase 2+ H (Negative) Urine WBC (Auto) 10-30 H (0-5) /hpf Urine RBC (Auto) 0-4 (0-4) /hpf U Hyaline Cast (Auto) 0 (0-5) /lpf U Epithel Cells (Auto) >30 H (0-5) /lpf Urine Bacteria (Auto) Negative (Negative) Adenovirus (PCR) (NotDetected) B. pertussis DNA (PCR) (NotDetected) B.parapertussis DNA PCR (NotDetected) C. pneumoniae DNA (PCR) (NotDetected) Coronavirus OC43 (PCR) (NotDetected) Coronavirus HKU1 (PCR) (NotDetected) Coronavirus 229E (PCR) (NotDetected) SARS-CoV-2 (PCR) (NotDetected) Coronavirus NL63 (PCR) (NotDetected) Human Metapneumovir PCR (NotDetected) Influenza Type A (PCR) (NotDetected) Influenza Type B (PCR) (NotDetected) M. pneumoniae (PCR) (NotDetected) Parainfluenza 1 (PCR) (NotDetected) Parainfluenza 2 (PCR) (NotDetected) Parainfluenza 3 (PCR) (NotDetected) Parainfluenza 4 (PCR) (NotDetected) RSV (PCR) (NotDetected) Entero/Rhino (PCR) (NotDetected) Imaging Data Radiologist's Impression: Chest X-Ray 03/30/23 13:32 XR chest 1V portable HISTORY: 82 years-old Female cough, altered acute cough COMPARISON: 01/03/2023 TECHNIQUE: AP view of the chest FINDINGS: Cardiac silhouette is enlarged. Atherosclerosis of the aorta. No pneumothorax, large pleural effusion or overt pulmonary edema. Mild subsegmental bibasilar densities. Degenerative changes of the shoulders and spine. Midthoracic dextroscoliosis. IMPRESSION: Mild subsegmental bibasilar densities favor atelectasis. Pneumonitis considered less likely. ACT 112: Negative or not required by law. The above report was generated using voice recognition software. It may contain grammatical, syntax or spelling errors. Electronically signed by: Filippo Matta M.D. 03/30/2023 2:[address] 03/30/23 13:32 CT OF THE HEAD WITHOUT CONTRAST CLINICAL HISTORY: Altered mental status, hx dementia. COMPARISON STUDY: Head CT January 03, 2023. MRI of the brain January 04, 2023. CT DOSE: 547.75 mGy.cm TECHNIQUE: Helical axial images of the head were obtained without IV contrast. Automated exposure control was utilized for the study. A dose lowering technique was utilized adhering to the principles of ALARA. FINDINGS: No acute intracranial hemorrhage, midline shift or mass effect is present. The ventricular system is stable. 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 This is unchanged. There is no hydrocephalus. Mild white matter hypodensities are unchanged. These suggest small vessel disease. Moderate atrophy is again noted. The basal cisterns are patent. No extra-axial collections are present. There are no findings to suggest acute dural sinus thrombosis or acute territorial infarct. There is no acute calvarial fracture. Left sphenoid and ethmoid sinuses are partially opacified. This is unchanged. IMPRESSION: No acute intracranial findings. No change in appearance of the brain. ACT 112: Negative or not required by law. Electronically signed by: Hayes Coyne M.D. 03/30/2023 3:04 PM MDM Narrative Physical exam and history were performed. Nursing notes, EMR, and Medication List were personally reviewed. No social concerns were identified as barriers to patients care. Patient appears to have reports of being confused and altered from baseline. On presentation the patient does not appear toxic and vitals are reassuring. She does appear confused and getting a history from the patient is challenging. IV access was established and labs were obtained. Chest x-ray was performed. An order was placed for continuous cardiac monitoring. The monitor shows a rate of 67 with normal sinus rhythm. Patient's blood work is as above and was reviewed. Patient has an elevated white blood cell count of 15,000. Is unsure where this is from. She does not have significant anemia or gross electrolyte imbalance. Urine does not seem distinctly evident of infection. Lactic is negative with blood cultures pending. Bio fire is negative. Chest x-ray without distinct pneumonia. Cardiac evaluation is reassuring. Overall the patient does not appear well for discharge home. At this time the cause of her symptoms are not distinct, however with elevated white blood cell count and increased confusion think it is reasonable for her to have further care as an inpatient. The case was discussed with the on-call hospitalist team, as well as my attending physician. Please see the hospitalist team dictation for further patient course, plan, disposition. The chart was completed utilizing [employer] Speech Voice Recognition Software. Grammatical errors, random word insertions, pronoun errors, and incomplete sentences are an occasional consequence of this system due to software limitations, ambient noise, and hardware issues. Any formal questions or concerns about the content, text, or information contained within the body of this dictation should be directly addressed to the provider for clarification. . Impression & Plan Altered mental status, Elevated WBC count, Alzheimer disease Discharge Plan Visit Data Chief Complaint: Confusion Stated Complaint: ALZIHMERS, CONFUSED, LESS VERBAL, UTI, COUGH ED Provider: Wilbur Gil ED Midlevel Provider: Francois Burnett Discharge Problem: Altered mental status, Elevated WBC count, Alzheimer disease Forms Stand Alone Forms: My [facility] Prescriptions Prescriptions: No Action multivitamin Tablet 1 tab PO QAM Qty: 0 fexofenadine 180 mg Tablet 180 mg PO QAM Qty: 0 aspirin 81 mg Tablet,Delayed Release (Dr/Ec) 81 mg PO QAM Qty: 0 isosorbide mononitrate 60 mg Tablet Extended Release 24 Hr 60 mg PO QAM Qty: 0 losartan 100 mg Tablet 100 mg PO QAM Qty: 0 docusate sodium [DOK] 100 mg capsule 100 mg PO BID albuterol sulfate 90 mcg/actuation HFA aerosol inhaler 2 puff INHALATION Q4 PRN (Reason: Shortness Of Breath Or Wheezing) potassium chloride 10 mEq tablet extended release 20 meq PO BID calcium carbonate-vitamin D3 [Calcium 600 + D(3)] 600 mg-5 mcg (200 unit) Tablet 1 tab PO BID Trelegy Ellipta 200-62.5-25 mcg Blister With Device 1 inh INHALATION QPM carvedilol 12.5 mg Tablet 12.5 mg PO BID Qty: 60 0RF albuterol sulfate 2.5 mg /3 mL (0.083 %) solution for nebulization 2.5 mg continuous nebulization Q4 PRN (Reason: as directed) Referrals Referrals: Guerita Engel PA-C [Primary Care Provider] -
--- NOTE | 2023-03-30 14:37 | XRay Report ---
XR chest 1V portable HISTORY: 82 years-old Female cough, altered acute cough COMPARISON: 01/03/2023 TECHNIQUE: AP view of the chest FINDINGS: Cardiac silhouette is enlarged. Atherosclerosis of the aorta. No pneumothorax, large pleural effusion or overt pulmonary edema. Mild subsegmental bibasilar densities. Degenerative changes of the shoulde rs and spine. Midthoracic dextroscoliosis. IMPRESSION: Mild subsegmental bibasilar densities favor atelectasis. Pneumonitis considered less like ly. ACT 112: Negative or not required by law. The above report was generated using voice recognition software. It may contain grammatical, syntax o r spelling errors. Electronically signed by: Filippo Matta M.D. 03/30/2023 2:35 PM
[2023-03-30 14:41] LABS: Creatine Kinase 35 U/L (26-192); Magnesium 2.2 mg/dl (1.7-2.4)
[2023-03-30 14:47] LABS: Troponin I High Sensitivity 10.8 pg/ml (0-14)
[2023-03-30 14:54] LABS: Thyroid Stimulating Hormone 1.491 uIu/ml (0.300-4.500)
--- NOTE | 2023-03-30 15:05 | CT Scan Report ---
CT OF THE HEAD WITHOUT CONTRAST CLINICAL HISTORY: Altered mental status, hx dementia. COMPARISON STUDY: Head CT January 03, 2023. MRI of the brain January 04, 2023. CT DOSE: 547.75 mGy.cm TECHNIQUE: Helical axial images of the head were obtained without IV contrast. Automated exposure con trol was utilized for the study. A dose lowering technique was utilized adhering to the principles o f ALARA. FINDINGS: No acute intracranial hemorrhage, midline shift or mass effect is present. The ventricular system is stable. 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 This is unchanged. There is no hydrocephalus. Mild white matter hypodensities are unchanged. These sugges t small vessel disease. Moderate atrophy is again noted. The basal cisterns are patent. No extra-axia l collections are present. There are no findings to suggest acute dural sinus thrombosis or acute ter ritorial infarct. There is no acute calvarial fracture. Left sphenoid and ethmoid sinuses are partial ly opacified. This is unchanged. IMPRESSION: No acute intracranial findings. No change in appearance of the brain. ACT 112: Negative or not required by law. Electronically signed by: Hayes Coyne M.D. 03/30/2023 3:04 PM
[2023-03-30 15:35] LABS: Adenovirus PCR Not Detected (NotDetected); Bordetella parapertussis PCR Not Detected (NotDetected); Bordetella pertussis PCR Not Detected (NotDetected); Chlamydia pneumoniae PCR Not Detected (NotDetected); Coronavirus 229E PCR Not Detected (NotDetected); Coronavirus CoV-2 (COVID19)PCR Not Detected (NotDetected); Coronavirus HKU1 PCR Not Detected (NotDetected); Coronavirus NL63 PCR Not Detected (NotDetected); Coronavirus OC43PCR Not Detected (NotDetected); Human Metapneumovirus PCR Not Detected (NotDetected); Influenza A PCR Not Detected (NotDetected); Influenza B PCR Not Detected (NotDetected); Mycoplasma pneumoniae PCR Not Detected (NotDetected); Parainfluenza Virus 1 PCR Not Detected (NotDetected); Parainfluenza Virus 2 PCR Not Detected (NotDetected); Parainfluenza Virus 3 PCR Not Detected (NotDetected); Parainfluenza Virus 4 PCR Not Detected (NotDetected); Respiratory Syncytial VirusPCR Not Detected (NotDetected); Rhinovirus/Enterovirus PCR Not Detected (NotDetected)
[2023-03-30 17:13] LABS: Appearance Urine Clear (Clear); Bacteria Urine Automated Negative (Negative); Bilirubin Urine Negative (Negative); Blood Urine Negative (Negative); Cast Urine Automated 0 /lpf (0-5); Color Urine Yellow; Epithelial Cell Urine Auto >30 /lpf (0-5); Glucose Urine UA Negative (Negative); Ketones Urine Negative (Negative); Leukocyte Esterase Urine 2+ (Negative); Nitrite Urine Negative (Negative); Protein Urine Negative (Negative); RBC Urine Automated 0-4 /hpf (0-4); Specific Gravity Urine 1.011 (1.000-1.030); Urobilinogen Urine Negative (Negative)
--- NOTE | 2023-03-30 18:14 | Emergency Department Note ---
ED Visit Note The patient was seen and examined with wilian. I agree with the history, physical and findings. Please see the note for disposition and details. .
--- NOTE | 2023-03-30 19:48 | Electrocardiogram Report ---
Test Reason : Blood Pressure : / mmHG Vent. Rate : 077 BPM Atrial Rate : 077 BPM P-R Int : 148 ms QRS Dur : 088 ms QT Int : 390 ms P-R-T Axes : 033 -39 027 degrees QTc Int : 441 ms Normal sinus rhythm Left axis deviation Incomplete right bundle branch block Abnormal ECG When compared with ECG of 03-JAN-2023 18:11, Criteria for Inferior infarct are no longer Present Confirmed by Pancho Ahn ([id number]) on 03/30/2023 7:47:34 PM Referred By: Confirmed By:Gilmer Ahn
--- NOTE | 2023-03-30 20:13 | History & Physical Report ---
Date of Service March 30, 2023 Assessment & Plan (1) Elevated WBC count: (2) Altered mental status: (3) Alzheimer disease: (4) Cough: (5) COPD (chronic obstructive pulmonary disease): (6) HTN (hypertension): Plan Elevation WBC / CAP -Altered mental status with more confusion that her baseline and increase cough since 2 weeks ago -Leukocytosis, increased neutrophils -U/A Leukocyte esterase, no bacteria, seem contaminated -CXR: bibasilar densities -Empiric antibiotic treatment for CAP - Azithromycin 500 mg once then 250 mg daily -Ceftriaxone 1g daily -Blood and urine culture pending -procalcitonin pending -Duoneb Q6h while awake -Oxygen as needed Altered mental status: -Unknown etiology -Dehydration vs underlying infection -Head CT: negative for acute intracranial findings -NSS 80ml/hr COPD: -continue home inhalers Albuterol q4h Trelegy Asthma same as above, continue fexofenadine HTN -Continue home med, losartan and carvedilol CAD -Hx of [place] (unknown date) -Continue aspirin, carvedilol, isosorbide mononitrate, losartan Dispo: MEd/surg DVT prophylaxis: Lovenox 40 mg SQ daily Diet: Heart Healthy History of Present Illness Primary Care Provider: Guerita Gee is an 82 year old female oriented only to person w/ PmHxCOPD, HTN, and Advance Dementia here due to altered mental status and being less active since 2 days ago. Daughter refers patient started to be more "out of her" since 2 days ago eating less food and being less talkative than usual. They refers that this morning the patient woke up naked and urinated her bed. Patient had a hx of Dementia that need help with some of her ADL's, live with granddaughter. Patient have a cough that they attribute to her COPD but it's more constant since a couple of weeks. Patient used Mucinex with no improving. Patient denied any SOB, chest pain, palpitations, diarrhea, nausea, vomiting, dysuria, abdominal pain, headache, runny nose or any other symptoms. In the ER patient found with mild leukocytosis, chest x ray with pleura effusion, lactate 2.2 Her Cr is 0.69, lactate 0.8, U/A with no bacteria. Patient received IV Azithromycin and Ceftriaxone as empiric antibiotic treatment for CAP. Procalcitonin and BNP ordered. Blood culture and urine culture ordered. Allergies Allergy/AdvReac Type Severity Reaction Status Date / Time Antihistamines - Alkylamine AdvReac Unknown cant Verified 03/30/23 17:14 remember Antihistamines - Ethanolamine AdvReac Unknown cant Verified 03/30/23 17:14 remember Antihistamines - AdvReac Unknown cant Verified 03/30/23 17:14 Ethylenediamine remember Antihistamines - Piperazine AdvReac Unknown cant Verified 03/30/23 17:14 remember Antihistamines - Piperidine AdvReac Unknown cant Verified 03/30/23 17:14 remember Home Medications Medication Instructions Recorded Confirmed Type aspirin 81 mg tablet,delayed 81 mg PO QAM ##0 03/14/17 03/30/23 History release fexofenadine 180 mg tablet 180 mg PO QAM #0 tabs 03/14/17 03/30/23 History multivitamin 1 tab PO QAM ##0 03/14/17 03/30/23 History isosorbide mononitrate 60 mg 60 mg PO QAM #0 tabs 08/07/17 03/30/23 History tablet,extended release 24 hr losartan 100 mg tablet 100 mg PO QAM #0 tabs 08/07/17 03/30/23 History potassium chloride 10 mEq 20 meq PO BID 04/14/21 03/30/23 History tablet,extended release calcium carbonate 600 mg-vitamin 1 tab PO BID 10/30/21 03/30/23 History D3 5 mcg (200 unit) tablet (Calcium 600 + D(3)) fluticasone fur. 200 mcg-umeclid 1 inh inhalation QPM 10/30/21 03/30/23 History 62.5 mcg-vilant 25 mcg inhalat.powder (Trelegy Ellipta) carvedilol 12.5 mg tablet 12.5 mg PO BID #60 tabs 11/10/21 03/30/23 Rx docusate sodium 100 mg capsule 100 mg PO BID 05/06/22 03/30/23 History (DOK) albuterol sulfate 90 mcg/actuation 2 puff inhalation Q4 PRN Shortness 10/06/22 03/30/23 History aerosol inhaler Of Breath Or Wheezing albuterol sulfate 2.5 mg/3 mL 2.5 mg continuous nebulization Q4 03/30/23 03/30/23 History (0.083 %) solution for nebulization PRN as directed Past Med/Surg History Medical History Facial bruising Acute exacerbation of chronic obstructive pulmonary disease Chronic renal failure, stage 3a No pertinent family history Dementia Heart disease Diabetes COPD (chronic obstructive pulmonary disease) Hypertension Surgical History S/P cataract extraction and insertion of intraocular lens b/l Family History Other Family history unknown Social History Smoking Status: Former smoker Tobacco Type: Cigarettes Cigarettes Per Day: minimal amount of tobacco at age 20yo only; Second Hand Exposure: No; Do You Dip or Chew Tobacco: No; Tobacco Cessation Education Requested by Patient: No Hx Alcohol Use: No Hx Substance Use: No Preferred Language: Macanese Communication Ability: Effective Body Service Team Member Required: No Beliefs That Will Affect Care: None marital status: / Current Living Situation: Family Current Living Situation Comment: granddaughter lives with pt current occupational status: retired current occupation: worked at "[employer]" How many Children do You have: 4 How many Children do You have Comment: 2 sons, 2 daughters Other Information That Helps Us Care for You: No Feels Safe at Home: Yes Safety Concerns: Feels Safe At This Time Assistive Devices: Cane Review of Systems Review of Systems: as per HPI Physical Exam Constitutional: cooperative; no acute distress oriented to person ENMT: external ear and nose normal, oropharynx normal Respiratory: normal respiratory effort and + cough; no respiratory distress, no labored breathing and does not use accessory muscles Auscultation: + rales (Bilateral bases) Cardiovascular: RRR, no murmur, no edema Gastrointestinal (Abdomen): normal bowel sounds, soft, nontender, no hepatosplenomegaly Skin: no rashes, warm and dry Results & Data Results & Data Vital Signs (Past 12 Hours) Vital Signs Temp Pulse Pulse Resp BP BP Pulse Ox 03/30/23 18:11 67 03/30/23 18:00 63 20 152/78 H 93 03/30/23 14:25 138/73 03/30/23 13:50 65 16 93 03/30/23 13:41 68 20 94 03/30/23 12:44 37.2 C 72 18 96/54 L 91 O2 Del Method 03/30/23 18:11 03/30/23 18:00 Room Air 03/30/23 14:25 03/30/23 13:50 03/30/23 13:41 03/30/23 12:44 Room Air Supervising Physician Co-Signing Physician Notes Patient seen and examined, chart reviewed, case discussed with Dr. Anne and I agree with the assessment and plan as above. In brief, patient is an 82yo female with history of COPD, HTN and Dementia presenting from home with 2 days of confusion, decreased oral intake and less responsive. She does have a dry cough, otherwise no complaints. Patient is unable to provide clear details of her symptoms prior to arrival due to her underlying dementia. [id number] is at bedside and assists with history. On exam patient is afebrile, HD stable, non-toxic in appearance Answers to name but unable to tell date, location or situation Skin- intact, no rashes HEENT- NC/AT, PERRL, MMM, Neck supple Heart - +S1/S2, regular, no m/r/g Lungs - Coarse crackles in bilateral bases, no wheezing Abd - +BS, soft, NT/ND Labs and images reviewe Significant for WBC=15.06 CXR per my interpretation appears to have increased interstitial markings in the RML Assessment/Plan 82yo female with underlying dementia presenting with 2 days of decline, not feeling well and decreased oral intake. Source unclear - possible PNA given report of cough, elevated WBC and apparent increased interstitial markings on CXR -Empiric treatment with Ceftriaxone and Azithromycin -Gentle IVF -O2 as needed -patient currently with adequate oxygenation on room air, no distress -Continue baseline COPD medications, Albuterol/DuoNebs PRN -Remainder as above (6) HTN (hypertension) Hypertension type: unspecified Qualified Code(s): I10 - Essential (primary) hypertension
[2023-03-30] MEDS ORDERED: SODIUM CHLORIDE 0.9% 1,000 ML IV SCH (20:45)
[2023-03-30] MEDS ORDERED: cefTRIAXone SODIUM 1,000 MG in DEXTROSE 5 % MINI-B 50 ML IV STA (20:56)
[2023-03-30] MEDS ORDERED: AZITHROMYCIN 500 MG in DEXTROSE 5% 250 ML IV STA (20:56)
[2023-03-30] MEDS ORDERED: ALBUT/IPRATROP 3MG/0.5MG NEB 3 ML VIAL NEB STA (21:09)
[2023-03-30] MEDS ORDERED: ALBUTEROL HFA 8 GM INHALER INH PRN (23:49)
[2023-03-30] MEDS ORDERED: POLYETHYLENE (MIRALAX) 17 GM PACK PO PRN (23:49)
[2023-03-30] MEDS ORDERED: ONDANSETRON INJ 2 MG/ML 2 ML VIAL IV PRN (23:49)
[2023-03-30] MEDS ORDERED: NON-FORMULARY MEDICATION (Fluticasone-Umeclidin-Vilanter [Trelegy Ellipta] 200-62.5-25 mcg INH SCH (23:49)
[2023-03-30] MEDS ORDERED: ACETAMINOPHEN 325 MG TAB PO PRN (23:49)
[2023-03-31] MEDS ORDERED: FLUTICASONE FUROATE 200MCG 14 PUFFS/INHALER INH SCH (00:15)
[2023-03-31] MEDS ORDERED: UMECLIDINIUM/VILANTEROL 62.5/25MCG 7 PUFFS/INHALER INH SCH (00:15)
--- NOTE | 2023-03-31 00:29 | Billing Data ---
Date of Service March 30, 2023 Coding Level of Care Code 27555 INT INP/OBS CARE
[2023-03-31] MEDS: carvediloL 12.5 MG TAB PO SCH ×3 (00:47→20:41)
[2023-03-31] MEDS: CALCIUM 600MG + VIT D 400 IU TAB PO SCH ×3 (00:47→20:40)
[2023-03-31] MEDS: DOCUSATE SODIUM 100 MG CAP PO SCH ×3 (00:48→20:41)
[2023-03-31] MEDS: POTASSIUM CHLORIDE CRTAB 20 MEQ TABCR PO SCH ×3 (00:48→20:40)
[2023-03-31] MEDS: ALBUT/IPRATROP 3MG/0.5MG NEB 3 ML VIAL NEB SCH ×2 (00:50→08:59)
[2023-03-31] MEDS: ENOXAPARIN INJ 40 MG/0.4 ML SYR SQ SCH (05:40)
[2023-03-31 07:22] LABS: Basophils # (auto) 0.03 K/uL (0.00-0.20); Basophils % (auto) 0.3 %; Eosinophils # (auto) 0.04 K/uL (0.00-0.50); Eosinophils % (auto) 0.4 %; Hematocrit (blood only) 39.4 % (37.0-47.0); Hemoglobin 13.7 g/dl (12.0-16.0); Immature Granulocytes # (auto) 0.04 K/uL (0.01-0.20); Immature Granulocytes % (auto) 0.4 %; Lymphocytes # (auto) 1.52 K/uL (1.20-3.40); Lymphocytes % (auto) 15.6 %; Mean Corpuscular Hemoglobin 31.6 pg (25.0-34.0); Mean Corpuscular Hgb Conc 34.8 g/dL (32.0-36.0); Mean Platelet Volume 9.7 fL (9.4-12.4); Monocytes # (auto) 0.68 K/uL (0.11-0.59); Neutrophils # (auto) 7.45 K/uL (1.40-6.50); Neutrophils % (auto) 76.3 %; Platelet Count 210 K/uL (130-400); RDW Coefficient of Variation 13.4 % (11.5-14.5); RDW Standard Deviation 45.1 fL (36.4-46.3); Red Blood Count 4.33 M/uL (4.20-5.40); White Blood Count 9.76 K/ul (4.8-10.8)
[2023-03-31 07:40] LABS: Calcium 8.7 mg/dl (8.6-10.3); Creatinine Clr Calc Pharmacy 65.2 ml/min; Est GFR (Non-African American) 84.6 ml/min; Potassium 4.3 mmol/L (3.5-5.1)
[2023-03-31] MEDS ORDERED: ALBUT/IPRATROP 3MG/0.5MG NEB 3 ML VIAL NEB PRN (07:46)
[2023-03-31] MEDS: ASPIRIN 81 MG ECTAB PO SCH (08:50)
[2023-03-31] MEDS: FEXOFENADINE HCL 180 MG TAB PO SCH (08:50)
[2023-03-31] MEDS: LOSARTAN POTASSIUM 50 MG TAB PO SCH (08:51)
[2023-03-31] MEDS: ISOSORBIDE MONO EXTENDED REL 60 MG TABCR PO SCH (08:51)
[2023-03-31] MEDS: MULTIVITAMIN TAB PO SCH (08:51)
[2023-03-31] MEDS ORDERED: INFLUENZA VACCINE HIGH-DOSE (HD-IIV4) PF 65+ 0.7mL SYR IM ONE (09:00)
[2023-03-31] MEDS ORDERED: PNEUMOCOCCAL VACCINE (PCV20) 20-VAL CONJ-DIP CRM/PF 0.5 ML SYR IM ONE (09:00)
--- NOTE | 2023-03-31 16:23 | Hospitalist Progress Note ---
Date of Service March 31, 2023 Assessment & Plan (1) Elevated WBC count: (2) Altered mental status: (3) Alzheimer disease: (4) Cough: (5) COPD (chronic obstructive pulmonary disease): (6) HTN (hypertension): Plan Elevation WBC / CAP -Altered mental status with more confusion that her baseline and increase cough since 2 weeks ago -Leukocytosis, increased neutrophils -U/A Leukocyte esterase, no bacteria, seem contaminated -CXR: bibasilar densities -Empiric antibiotic treatment for CAP - Azithromycin 500 mg once then 250 mg daily -Ceftriaxone 1g daily -Blood and urine culture pending -procalcitonin Negative Leukocytosis has resolved -Duoneb Q6h while awake -Oxygen as needed metabolic encephalopathy Likely secondary to pneumonia Improving. Not lethargic anymore. -Head CT: negative for acute intracranial findings -NSS 80ml/hr COPD: -continue home inhalers Albuterol q4h Trelegy Asthma same as above, continue fexofenadine HTN -Continue home med, losartan and carvedilol CAD -Hx of [place] (unknown date) -Continue aspirin, carvedilol, isosorbide mononitrate, losartan Dispo: MEd/surg DVT prophylaxis: Lovenox 40 mg SQ daily Diet: Heart Healthy Admission and Anticipated Discharge Date Admission Date: March 30, 2023 Subjective patient is sitting on the bedside chair. She appears calm and composed. She is awake and able to converse. However most of the answers of my questions were incorrect. she seems pleasantly confused. Review of Systems Review of Systems: All systems reviewed & are unremarkable except as noted in Subjective Physical Exam Physical Exam: general: Awake, conversant. Pleasantly confused Heart: S1, S2/regular rate and rhythm, no murmur rubs or gallops Lungs: Clear to auscultation bilaterally. Normal effort Abdomen: Soft/nontender/nondistended. No hepatosplenomegaly Extremities: No clubbing/cyanosis. No edema Behavior: Appropriate, cooperative Results & Data Results & Data Vital Signs (Past 12 Hours) Vital Signs Temp Pulse Resp BP Pulse Ox O2 Del Method 03/31/23 14:57 36.5 C 66 21 171/88 H 96 Room Air 03/31/23 11:21 36.4 C L 63 21 129/71 92 Room Air 03/31/23 08:30 Room Air 03/31/23 07:21 36.5 C 56 L 21 134/74 93 Room Air Laboratory Results Abnormal lab results 03/30/23 03/31/23 Range/Units 16:59 06:53 Neut # (Auto) 7.45 H (1.40-6.50) K/uL [place] # (Auto) 0.68 H (0.11-0.59) K/uL Chloride 108 H (98-107) mmol/L BUN/Creatinine Ratio 29.0 H (10-20) Ur Leukocyte Esterase 2+ H (Negative) Urine WBC (Auto) 10-30 H (0-5) /hpf U Epithel Cells (Auto) >30 H (0-5) /lpf PG Care Time/CCT Total # of Minutes Spent Total Time Spent with Patient: Total time spent is greater than 50% in coordination of care (as documented) at patient's floor/unit and/or counseling patient: Coding Level of Care Code 46787 SUB INP/OBS CARE 2/35MIN Diagnoses Elevated WBC count D72.829 Altered mental status R41.82 Alzheimer disease G30.9; F02.80 Cough R05.9 COPD (chronic obstructive pulmonary disease) J44.9 HTN (hypertension) I10 Hypertension type: unspecified (6) HTN (hypertension) Hypertension type: unspecified Qualified Code(s): I10 - Essential (primary) hypertension
--- NOTE | 2023-03-31 16:44 | Billing Data ---
Date of Service March 30, 2023 Coding Level of Care Code 69533 INT INP/OBS CARE
[2023-03-31] MEDS: cefTRIAXone SODIUM 1,000 MG in DEXTROSE 5 % MINI-B 50 ML IV SCH (20:40)
[2023-03-31] MEDS: UMECLIDINIUM/VILANTEROL 62.5/25MCG 7 PUFFS/INHALER INH SCH (20:42)
[2023-03-31] MEDS: FLUTICASONE FUROATE 200MCG 14 PUFFS/INHALER INH SCH (20:42)
[2023-03-31] MEDS ORDERED: AZITHROMYCIN 250 MG in DEXTROSE 5% 250 ML IV SCH (22:00)
[2023-04-01] MEDS: ENOXAPARIN INJ 40 MG/0.4 ML SYR SQ SCH (04:35)
[2023-04-01 07:18] LABS: Basophils # (auto) 0.02 K/uL (0.00-0.20); Basophils % (auto) 0.2 %; Eosinophils # (auto) 0.05 K/uL (0.00-0.50); Eosinophils % (auto) 0.6 %; Hematocrit (blood only) 39.4 % (37.0-47.0); Hemoglobin 13.7 g/dl (12.0-16.0); Immature Granulocytes # (auto) 0.03 K/uL (0.01-0.20); Immature Granulocytes % (auto) 0.4 %; Lymphocytes # (auto) 1.35 K/uL (1.20-3.40); Lymphocytes % (auto) 16.8 %; Mean Corpuscular Hgb Conc 34.8 g/dL (32.0-36.0); Mean Corpuscular Volume 89.1 fL (80.0-100.0); Monocytes # (auto) 0.65 K/uL (0.11-0.59); Monocytes % (auto) 8.1 %; Neutrophils # (auto) 5.93 K/uL (1.40-6.50); Neutrophils % (auto) 73.9 %; Platelet Count 240 K/uL (130-400); RDW Coefficient of Variation 13.2 % (11.5-14.5); RDW Standard Deviation 43.5 fL (36.4-46.3); Red Blood Count 4.42 M/uL (4.20-5.40); White Blood Count 8.03 K/ul (4.8-10.8)
[2023-04-01 07:42] LABS: BUN Creatinine Ratio 20.3 (10-20); Calcium 8.9 mg/dl (8.6-10.3); Creatinine Clr Calc Pharmacy 68.5 ml/min; Est GFR (African American) 99.6 ml/min; Potassium 3.9 mmol/L (3.5-5.1)
[2023-04-01] MEDS: ASPIRIN 81 MG ECTAB PO SCH (08:27)
[2023-04-01] MEDS: LOSARTAN POTASSIUM 50 MG TAB PO SCH (08:27)
[2023-04-01] MEDS: carvediloL 12.5 MG TAB PO SCH ×2 (08:27→20:14)
[2023-04-01] MEDS: FEXOFENADINE HCL 180 MG TAB PO SCH (08:27)
[2023-04-01] MEDS: MULTIVITAMIN TAB PO SCH (08:27)
[2023-04-01] MEDS: POTASSIUM CHLORIDE CRTAB 20 MEQ TABCR PO SCH ×2 (08:28→20:15)
[2023-04-01] MEDS: CALCIUM 600MG + VIT D 400 IU TAB PO SCH ×2 (08:28→20:14)
[2023-04-01] MEDS: ISOSORBIDE MONO EXTENDED REL 60 MG TABCR PO SCH (08:28)
[2023-04-01] MEDS: DOCUSATE SODIUM 100 MG CAP PO SCH ×2 (08:28→20:15)
--- NOTE | 2023-04-01 14:28 | Hospitalist Progress Note ---
Date of Service April 01, 2023 Assessment & Plan (1) Elevated WBC count: (2) Altered mental status: (3) Alzheimer disease: (4) Cough: (5) COPD (chronic obstructive pulmonary disease): (6) HTN (hypertension): Plan Elevation WBC / CAP -Altered mental status with more confusion that her baseline and increase cough since 2 weeks ago -Leukocytosis resolved -U/A Leukocyte esterase, no bacteria, seem contaminated -CXR: bibasilar densities -Empiric antibiotic treatment for CAP - Azithromycin 500 mg once then 250 mg daily -Ceftriaxone 1g daily -Blood cultures so far negative Urine culture negative -procalcitonin negative -Duoneb Q6h while awake -Oxygen as needed Metabolic encephalopathy -Unknown etiology -Dehydration vs underlying infection -Head CT: negative for acute intracranial findings -IV fluids discontinued COPD: -continue home inhalers Albuterol q4h Trelegy Asthma same as above, continue fexofenadine HTN -Continue home med, losartan and carvedilol CAD -Hx of [place] (unknown date) -Continue aspirin, carvedilol, isosorbide mononitrate, losartan Dispo: MEd/surg DVT prophylaxis: Lovenox 40 mg SQ daily Diet: Heart Healthy Spoke to [id number]. Asked her to see the patient tomorrow to let me know if she is back to her baseline. Admission and Anticipated Discharge Date Admission Date: March 30, 2023 Subjective Patient does not have any major complaints. Spoke to [id number] who has not seen the patient yet since admission. She is not sure the patient is back to her usual baseline yet. Review of Systems Review of Systems: All systems reviewed & are unremarkable except as noted in Subjective Physical Exam Physical Exam: general: Awake, conversant. Pleasantly confused Heart: S1, S2/regular rate and rhythm, no murmur rubs or gallops Lungs: Clear to auscultation bilaterally. Normal effort Abdomen: Soft/nontender/nondistended. No hepatosplenomegaly Extremities: No clubbing/cyanosis. No edema Behavior: Appropriate, cooperative Results & Data Results & Data Vital Signs (Past 12 Hours) Vital Signs Temp Pulse Resp BP BP Pulse Ox O2 Del Method 04/01/23 08:30 61 152/84 H 93 Room Air 04/01/23 08:25 Room Air 04/01/23 07:08 36.7 C 57 L 18 159/89 H 94 Room Air Laboratory Results Abnormal lab results 04/01/23 Range/Units 06:31 [place] # (Auto) 0.65 H (0.11-0.59) K/uL Sodium 135 L (136-145) mmol/L Creatinine 0.59 L (0.6-1.2) mg/dl BUN/Creatinine Ratio 20.3 H (10-20) PG Care Time/CCT Total # of Minutes Spent Total Time Spent with Patient: Total time spent is greater than 50% in coordination of care (as documented) at patient's floor/unit and/or counseling patient: Coding Level of Care Code 79025 SUB INP/OBS CARE 2/35MIN Diagnoses Elevated WBC count D72.829 Altered mental status R41.82 Alzheimer disease G30.9; F02.80 Cough R05.9 COPD (chronic obstructive pulmonary disease) J44.9 HTN (hypertension) I10 Hypertension type: unspecified (6) HTN (hypertension) Hypertension type: unspecified Qualified Code(s): I10 - Essential (primary) hypertension
[2023-04-01] MEDS: FLUTICASONE FUROATE 200MCG 14 PUFFS/INHALER INH SCH (20:13)
[2023-04-01] MEDS: cefTRIAXone SODIUM 1,000 MG in DEXTROSE 5 % MINI-B 50 ML IV SCH (20:14)
[2023-04-01] MEDS: UMECLIDINIUM/VILANTEROL 62.5/25MCG 7 PUFFS/INHALER INH SCH (20:14)
[2023-04-01] MEDS ORDERED: AZITHROMYCIN 250 MG TAB PO SCH (21:00)
[2023-04-02] MEDS: ENOXAPARIN INJ 40 MG/0.4 ML SYR SQ SCH (04:21)
[2023-04-02 07:38] LABS: BUN Creatinine Ratio 23.5 (10-20); Calcium 9.1 mg/dl (8.6-10.3); Creatinine Clr Calc Pharmacy 59.5 ml/min; Est GFR (African American) 95.1 ml/min; Potassium 4.3 mmol/L (3.5-5.1)
[2023-04-02] MEDS: POTASSIUM CHLORIDE CRTAB 20 MEQ TABCR PO SCH (08:59)
[2023-04-02] MEDS: LOSARTAN POTASSIUM 50 MG TAB PO SCH (09:00)
[2023-04-02] MEDS: carvediloL 12.5 MG TAB PO SCH (09:00)
[2023-04-02] MEDS: CALCIUM 600MG + VIT D 400 IU TAB PO SCH (09:00)
[2023-04-02] MEDS: ASPIRIN 81 MG ECTAB PO SCH (09:00)
[2023-04-02] MEDS: MULTIVITAMIN TAB PO SCH (09:01)
[2023-04-02] MEDS: FEXOFENADINE HCL 180 MG TAB PO SCH (09:01)
[2023-04-02] MEDS: ISOSORBIDE MONO EXTENDED REL 60 MG TABCR PO SCH (09:01)
[2023-04-02] MEDS: DOCUSATE SODIUM 100 MG CAP PO SCH (09:01)
--- NOTE | 2023-04-02 11:58 | Discharge Summary ---
Date of Service April 02, 2023 Admission HPI Per Admitting Provider Marlen is an 82 year old female oriented only to person w/ PmHxCOPD, HTN, and Advance Dementia here due to altered mental status and being less active since 2 days ago. Daughter refers patient started to be more "out of her" since 2 days ago eating less food and being less talkative than usual. They refers that this morning the patient woke up naked and urinated her bed. Patient had a hx of Dementia that need help with some of her ADL's, live with granddaughter. Patient have a cough that they attribute to her COPD but it's more constant since a couple of weeks. Patient used Mucinex with no improving. Patient denied any SOB, chest pain, palpitations, diarrhea, nausea, vomiting, dysuria, abdominal pain, headache, runny nose or any other symptoms. In the ER patient found with mild leukocytosis, chest x ray with pleura effusion, lactate 2.2 Her Cr is 0.69, lactate 0.8, U/A with no bacteria. Patient received IV Azithromycin and Ceftriaxone as empiric antibiotic treatment for CAP. Procalcitonin and BNP ordered. Blood culture and urine culture ordered. Admission Exam Per Admitting Provider Constitutional: cooperative; no acute distress oriented to person ENMT: external ear and nose normal, oropharynx normal Respiratory: normal respiratory effort and + cough; no respiratory distress, no labored breathing and does not use accessory muscles Auscultation: + rales (Bilateral bases) Cardiovascular: RRR, no murmur, no edema Gastrointestinal (Abdomen): normal bowel sounds, soft, nontender, no hepatosplenomegaly Skin: no rashes, warm and dry Principal Diagnosis acute metabolic encephalopathy most likely secondary to pneumonia or dehydration Advanced dementia Discharge Exam general: Awake, conversant. Pleasantly confused Heart: S1, S2/regular rate and rhythm, no murmur rubs or gallops Lungs: Clear to auscultation bilaterally. Normal effort Abdomen: Soft/nontender/nondistended. No hepatosplenomegaly Extremities: No clubbing/cyanosis. No edema Behavior: Appropriate, cooperative Discharge Data Allergies Allergy/AdvReac Type Severity Reaction Status Date / Time Antihistamines - Alkylamine AdvReac Unknown cant Verified 03/30/23 17:14 remember Antihistamines - Ethanolamine AdvReac Unknown cant Verified 03/30/23 17:14 remember Antihistamines - AdvReac Unknown cant Verified 03/30/23 17:14 Ethylenediamine remember Antihistamines - Piperazine AdvReac Unknown cant Verified 03/30/23 17:14 remember Antihistamines - Piperidine AdvReac Unknown cant Verified 03/30/23 17:14 remember Consultations 03/30/23 17:01 ED Decision to Admit Stat Ordered Studies 03/30/23 13:32 CT head/brain wo con Stat Hospital Course (1) Elevated WBC count: (2) Altered mental status: (3) Alzheimer disease: (4) Cough: (5) COPD (chronic obstructive pulmonary disease): (6) HTN (hypertension): Plan Elevation WBC / CAP -Altered mental status with more confusion that her baseline and increase cough since 2 weeks ago -Leukocytosis resolved -U/A Leukocyte esterase, no bacteria, seem contaminated -CXR: bibasilar densities -Empiric antibiotic treatment for CAP - Azithromycin 500 mg once then 250 mg daily -Ceftriaxone 1g daily -Blood cultures negative Urine culture negative -procalcitonin negative -Duoneb Q6h while awake -Oxygen as needed Metabolic encephalopathy -Unknown etiology -Dehydration vs underlying infection -Head CT: negative for acute intracranial findings -IV fluids discontinued Resolved Back to baseline mental status COPD: -continue home inhalers Albuterol q4h Trelegy Asthma same as above, continue fexofenadine HTN -Continue home med, losartan and carvedilol CAD -Hx of [place] (unknown date) -Continue aspirin, carvedilol, isosorbide mononitrate, losartan Dispo: MEd/surg DVT prophylaxis: Lovenox 40 mg SQ daily Diet: Heart Healthy Spoke to [id number]. patient is back to her baseline. discharged today Total Time Total Time Spent Total Time Spent (In Minutes): 35 Discharge Plan Discharge Items Patient Disposition: Home - Self-Care Reason For Visit: CONFUSION Discharge Diagnosis: Pneumonia Altered mental status Baseline dementia Activity: Resume your previous activity Non-emergency contact: Primary Care Provider Call non-emergency contact if: you have any medication questions and your symptoms worsen Follow-up/Referrals: Guerita Engel PA-C [Primary Care Provider] - 04/10/23 10:30 am Diet: Heart Healthy Addtl Attending Provider Instructions: Advised to follow-up with PCP in 1 week Pending Studies at Discharge: No Stand-Alone Forms: My [facility] Medications and DC Order Prescriptions: New azithromycin 250 mg Tablet 250 mg PO HS 3 Days Qty: 3 0RF cephalexin 500 mg capsule 500 mg PO BID 2 Days Qty: 4 0RF Continued multivitamin Tablet 1 tab PO QAM Qty: 0 fexofenadine 180 mg Tablet 180 mg PO QAM Qty: 0 aspirin 81 mg Tablet,Delayed Release (Dr/Ec) 81 mg PO QAM Qty: 0 isosorbide mononitrate 60 mg Tablet Extended Release 24 Hr 60 mg PO QAM Qty: 0 losartan 100 mg Tablet 100 mg PO QAM Qty: 0 docusate sodium [DOK] 100 mg capsule 100 mg PO BID albuterol sulfate 90 mcg/actuation HFA aerosol inhaler 2 puff INHALATION Q4 PRN (Reason: Shortness Of Breath Or Wheezing) potassium chloride 10 mEq tablet extended release 20 meq PO BID calcium carbonate-vitamin D3 [Calcium 600 + D(3)] 600 mg-5 mcg (200 unit) Tablet 1 tab PO BID Trelegy Ellipta 200-62.5-25 mcg Blister With Device 1 inh INHALATION QPM carvedilol 12.5 mg Tablet 12.5 mg PO BID Qty: 60 0RF albuterol sulfate 2.5 mg /3 mL (0.083 %) solution for nebulization 2.5 mg continuous nebulization Q4 PRN (Reason: as directed) Discharge Orders: Discharge Order (Routine); Ordered 04/02/23 Ordered By: Vonda Mo Admission Data Admit Date/Time: 03/30/23 21:06 Attending Provider: Vonda Mo Admit Provider: Preet Jewell Primary Care Provider: Guerita Engel Other Providers: Yann Méndez; Katey Nazario; Jeronimo Pelaez; Sadi Lucero; Shiva Pinto; José Luis Correa; Jacinta Bradshaw; Selene Mcintyre; Lexa Chester; Sarah Parikh; Nate Montalvo; Alyce Frank; Franck Marcano; Slim Tran; Katey Francis; Ngoc Teague; Pancho Rocha; Jeronimo Morton; Alli Vidal; Sheila Sheets; Bri Graham; Rigo Liang; Elissa Lopez; Everardo Limon; Kenneth Lemus; Jose Diehl; Luis Antonio Humphries; Gabriela Vasques; Loreta Luis; Vonda Mo; Sadi Benson; Shiva Hanna Other Interventions: Discharge Summary Assessment (RN) Last Done: 04/02/23 13:51 Coding Level of Care Code 94214 INP/OBS DISCH >30 MIN Diagnoses Elevated WBC count D72.829 Altered mental status R41.82 Alzheimer disease G30.9; F02.80 Cough R05.9 COPD (chronic obstructive pulmonary disease) J44.9 HTN (hypertension) I10 Hypertension type: unspecified
== END 2023-04-02 14:25 | disposition home or self-care (01) | DRG 193 ==
LOC: ED 12:23 → 3N 21:06 → SUATTDRO 21:06 → 3N 23:24

== ENCOUNTER 2023-04-30 18:44 | Inpatient (IN) ==
--- NOTE | 2023-04-30 19:34 | ED Triage Note ---
Date of Service April 30, 2023 Provider in Triage Author: Francois Burnett A History of Present Illness This patient was briefly evaluated while in triage. An abbreviated physical exam was performed. This patient is a 82-year-old Female who presents to the ED for evaluation of feeling unwell. Has Alzheimers and baseline is difficult. Family states vitals at home were ranging wildly. More confused than normal per family. Physical Exam Limited Triage Exam: VITALS: Vitals are noted on the nurse's note and reviewed by myself. Vital signs with low O2 GENERAL: Elderly white female who seems mildly confused HEART: Regular rate and rhythm without murmurs gallops or rubs. LUNGS: Clear to auscultation bilaterally without wheezes, rales or rhonchi. No retractions or accessory muscle use. NEURO: Patient was alert and oriented to person Initial orders for labs and / or imaging were placed and patient was placed in the waiting area until a bed is available. Please see further documentation for the full ED course. MDM / Impression Impression Impression: AMS (altered mental status), Elevated troponin
--- NOTE | 2023-04-30 21:12 | XRay Report ---
SINGLE VIEW CHEST CLINICAL HISTORY: Sepsis. FINDINGS: A PA chest radiograph is compared to study dated 03/30/2023 and correlated with chest CT da roxie 10/06/2022. The heart is mildly enlarged noting atherosclerotic calcification of the thoracic aorta . The pulmonary vasculature is noncongested Emphysema and chronic interstitial thickening is similar to previous. There are dependent bibasilar airspace opacities. No large pleural effusion or pneumotho rax is seen. The skeletal structures are osteopenic. The bony thorax is grossly intact. Degenerative changes and scoliosis is noted in the spine. IMPRESSION: 1. Dependent airspace opacities could represent scarring/atelectasis versus an infectious/inflammator y pneumonitis. This is similar to the 03/30/2023 examination. Clinical correlation will be required. 2. Cardiomegaly and emphysema. ACT 112: Negative or not required by law. Electronically signed by: Jame Gary M.D. 04/30/2023 9:09 PM
[2023-04-30 21:15] LABS: Appearance Urine Clear (Clear); Bilirubin Urine Negative (Negative); Blood Urine Negative (Negative); Color Urine Yellow; Glucose Urine UA Negative (Negative); Ketones Urine Negative (Negative); Leukocyte Esterase Urine Negative (Negative); Nitrite Urine Negative (Negative); Protein Urine Negative (Negative); Specific Gravity Urine 1.017 (1.000-1.030); Urobilinogen Urine Negative (Negative); pH Urine 7.5 (4.5-7.5)
[2023-04-30 21:25] LABS: Basophils # (auto) 0.04 K/uL (0.00-0.20); Basophils % (auto) 0.3 %; Eosinophils # (auto) 0.02 K/uL (0.00-0.50); Eosinophils % (auto) 0.1 %; Hematocrit (blood only) 45.1 % (37.0-47.0); Hemoglobin 15.8 g/dl (12.0-16.0); Immature Granulocytes % (auto) 0.6 %; Lymphocytes # (auto) 1.05 K/uL (1.20-3.40); Lymphocytes % (auto) 6.6 %; Mean Corpuscular Hemoglobin 30.9 pg (25.0-34.0); Mean Corpuscular Volume 88.3 fL (80.0-100.0); Mean Platelet Volume 9.8 fL (9.4-12.4); Monocytes # (auto) 0.94 K/uL (0.11-0.59); Monocytes % (auto) 5.9 %; Neutrophils # (auto) 13.65 K/uL (1.40-6.50); Neutrophils % (auto) 86.5 %; Platelet Count 216 K/uL (130-400); RDW Coefficient of Variation 13.7 % (11.5-14.5); RDW Standard Deviation 44.3 fL (36.4-46.3); Red Blood Count 5.11 M/uL (4.20-5.40)
[2023-04-30 21:35] LABS: Albumin Level 4.1 gm/dl (3.4-5.0); BUN Creatinine Ratio 33.3 (10-20); Bilirubin Direct 0.1 mg/dl (0-0.2); Bilirubin,Total 0.6 mg/dl (0.2-1.0); Calcium 9.8 mg/dl (8.6-10.3); Creatinine Clr Calc Pharmacy 62.2 ml/min; Est GFR (African American) 94.6 ml/min; Est GFR (Non-African American) 81.6 ml/min; Magnesium 1.9 mg/dl (1.7-2.4); Total Protein 7.3 gm/dl (6.0-8.3)
[2023-04-30 21:41] LABS: Troponin I High Sensitivity 41.4 pg/ml (0-14)
[2023-04-30 22:06] LABS: Adenovirus PCR Not Detected (NotDetected); Bordetella parapertussis PCR Not Detected (NotDetected); Bordetella pertussis PCR Not Detected (NotDetected); Chlamydia pneumoniae PCR Not Detected (NotDetected); Coronavirus 229E PCR Not Detected (NotDetected); Coronavirus CoV-2 (COVID19)PCR Not Detected (NotDetected); Coronavirus HKU1 PCR Not Detected (NotDetected); Coronavirus NL63 PCR Not Detected (NotDetected); Coronavirus OC43PCR Not Detected (NotDetected); Human Metapneumovirus PCR Not Detected (NotDetected); Influenza A PCR Not Detected (NotDetected); Influenza B PCR Not Detected (NotDetected); Mycoplasma pneumoniae PCR Not Detected (NotDetected); Parainfluenza Virus 1 PCR Not Detected (NotDetected); Parainfluenza Virus 2 PCR Not Detected (NotDetected); Parainfluenza Virus 3 PCR Not Detected (NotDetected); Parainfluenza Virus 4 PCR Not Detected (NotDetected); Respiratory Syncytial VirusPCR Not Detected (NotDetected); Rhinovirus/Enterovirus PCR Not Detected (NotDetected)
[2023-04-30] MEDS ORDERED: CEFEPIME 2,000 MG/20 ML VIAL IV STA (23:24)
--- NOTE | 2023-04-30 23:28 | Emergency Department Note ---
Impression & Plan AMS (altered mental status), Elevated troponin, Leukocytosis, Elevated procalcitonin, PNA (pneumonia) ED Provider Note ED Provider Note NAME: SARINA SHETH AGE:82 SEX: Female : 1940 ARRIVES VIA: private vehicle INFORMANT: family ED PROVIDER(s): Andie Gonzalez DO CHIEF COMPLAINT: altered mental status HPI: This is an 82-year-old female who presents with family at bedside due to concern for increased confusion this evening, decreased intake, patient complaining of "not feeling well". Patient with a history of Alzheimer's dementia and is unable to provide any additional history. Family states she typically becomes more confused and acts this way when she is getting sick. They states she was admitted for pneumonia back in March. They states she does have COPD, and does not wear home oxygen does not routinely use nebulizer treatments. They state there have been no other change in medications, diet, or activity. They state as the evening went on, she became more agitated which typically comes with infection also. Patient does live with family. They have not noticed any other change in toileting habits. PAST MEDICAL HISTORY:See Below PAST SURGICAL HISTORY:See Below FAMILY HISTORY:See Below SOCIAL HISTORY:See Below HOME MEDICATIONS:See Below ALLERGIES:See Below VITALS:See Below PHYSICAL EXAMINATION: GENERAL: alert, well appearing, well nourished, no distress, non-toxic EYE EXAM: normal conjunctiva, PERRL and EOM's grossly intact OROPHARYNX: no exudate, no erythema, lips, buccal mucosa, and tongue normal and mucous membranes are moist NECK: supple, no nuchal rigidity, no adenopathy, non-tender LUNGS: decreased b/l to auscultation. Normal chest wall mechanics, no w/r/r HEART: no murmurs, S1 normal and S2 normal ABDOMEN: abdomen soft, non-tender, normo-active bowel sounds, no masses, no rebound or guarding. BACK: Back is symmetrical on inspection and there is no deformity, no midline tenderness, no CVA tenderness. SKIN: no rashes, petechiae, orbruising UPPER EXTREMITIES: upper extremities are grossly normal. FROM, nml pulses b/l. LOWER EXTREMITIES: No pitting edema. FROM, nml pulses b/l. NEURO EXAM: Confused, cranial nerves II-XII grossly intact, normal speech, no facial droop,nogross weakness of arms, no gross weakness of legs. Gross sensation intact. No ataxia. Vital Signs: reviewed and remarkable Differential Diagnosis: UTI, URI, pneumonia, CVA, ICH, electrolyte abnormality, KIMBERLY, dehydration, medication ADR, as well as others were considered MEDICAL DECISION MAKING: This is an 82-year-old female presents emergency department due to concern for multiple symptoms suggestive of possible evolving illness as noted by family. Patient with similar symptoms previously per family's report. Patient seen 1 day of high volume and acuity. Labs drawn and sent, IV established, EKG and chest ray performed bedside interpreted by me and patient monitored on telemetry. After review of patient's recent admission and discussion with family at bedside, we opted to perform CT of the chest additionally as patient does have a history of COPD and was noted on labs to have an elevated white blood cell count and procalcitonin. Patient given IV cefepime as a precaution. She was started on gentle IV fluid hydration. Patient was noted to have an elevated troponin initially, and by the time of my evaluation had been her so long that she was due for a repeat. This was trending upwards unfortunately although patient denied any chest pain or difficulty breathing. She was not hypoxic while seated in bed. No ectopy or dysrhythmia noted. Due to concern for increased confusion as noted by family as well as elevated troponin, case discussed with [facility]ist team for additional evaluation and management. CAT scan of the chest was still pending at this time and hospitalist aware. Family verbalized understanding and was in agreement with the plan. Consultation(s): 0200: Discussed with Dr. Parikh, [facility], for additional evaluation and management ER Treatment Provided: See below Diagnostics Interpreted By Me: -ECG: Normal sinus at 85, leftward axis, normal intervals, nonspecific ST/T wave changes, aberrant baseline -Cardiac Monitoring: An order was placed for continuous cardiac monitoring. The monitor shows a rate of 74 with normal sinus rhythm. -Laboratory studies: As stated above and show below. -Imaging studies: X-ray Chest: A single view study of the chest was reviewed and was negative for cardiomegaly, focal infiltrate, effusion, pulmonary edema, or wide mediastinum Triage Nursing Note Reviewed Prior/Outside Records Reviewed -discharge summary from March 2023 reviewed Past Med/Surg History Medical History Facial bruising Acute exacerbation of chronic obstructive pulmonary disease Chronic renal failure, stage 3a No pertinent family history Dementia Heart disease Diabetes COPD (chronic obstructive pulmonary disease) Hypertension Surgical History S/P cataract extraction and insertion of intraocular lens b/l Family History Other Family history unknown Social History Smoking Status: Never smoker Tobacco Type: Cigarettes Cigarettes Per Day: minimal amount of tobacco at age 20yo only; Second Hand Exposure: No; Do You Dip or Chew Tobacco: No; Hx Alcohol Use: No Hx Substance Use: No Preferred Language: Pakistani Communication Ability: Impaired Microarray Analyst Required: No Beliefs That Will Affect Care: None marital status: / Current Living Situation: Family Current Living Situation Comment: granddaughter lives with pt current occupational status: retired current occupation: worked at "[employer]" How many Children do You have: 4 How many Children do You have Comment: 2 sons, 2 daughters Feels Safe at Home: Yes Safety Concerns: Feels Safe At This Time Assistive Devices: Cane, Denture - Upper, Denture - Lower and Glasses Allergies Allergies Allergy/AdvReac Type Severity Reaction Status Date / Time Antihistamines - Alkylamine AdvReac Unknown cant Verified 03/30/23 17:14 remember Antihistamines - Ethanolamine AdvReac Unknown cant Verified 03/30/23 17:14 remember Antihistamines - AdvReac Unknown cant Verified 03/30/23 17:14 Ethylenediamine remember Antihistamines - Piperazine AdvReac Unknown cant Verified 03/30/23 17:14 remember Antihistamines - Piperidine AdvReac Unknown cant Verified 03/30/23 17:14 remember Home Meds Home Medications Medication Instructions Recorded Confirmed aspirin 81 mg tablet,delayed 81 mg PO QAM ##0 03/14/17 03/30/23 release fexofenadine 180 mg tablet 180 mg PO QAM #0 tabs 03/14/17 03/30/23 multivitamin 1 tab PO QAM ##0 03/14/17 03/30/23 isosorbide mononitrate 60 mg 60 mg PO QAM #0 tabs 08/07/17 03/30/23 tablet,extended release 24 hr losartan 100 mg tablet 100 mg PO QAM #0 tabs 08/07/17 03/30/23 potassium chloride 10 mEq 20 meq PO BID 04/14/21 03/30/23 tablet,extended release calcium carbonate 600 mg-vitamin 1 tab PO BID 10/30/21 03/30/23 D3 5 mcg (200 unit) tablet (Calcium 600 + D(3)) fluticasone fur. 200 mcg-umeclid 1 inh inhalation QPM 10/30/21 03/30/23 62.5 mcg-vilant 25 mcg inhalat.powder (Trelegy Ellipta) docusate sodium 100 mg capsule 100 mg PO BID 05/06/22 03/30/23 (DOK) albuterol sulfate 90 mcg/actuation 2 puff inhalation Q4 PRN Shortness 10/06/22 03/30/23 aerosol inhaler Of Breath Or Wheezing albuterol sulfate 2.5 mg/3 mL 2.5 mg continuous nebulization Q4 03/30/23 03/30/23 (0.083 %) solution for nebulization PRN as directed Previous Rx's Medication Instructions Recorded carvedilol 12.5 mg tablet 12.5 mg PO BID #60 tabs 11/10/21 Results & Data (ED) Vital Signs Vital Signs - 24 hr 04/30/23 19:30 04/30/23 23:34 04/30/23 23:35 Temperature 37.2 C Temperature Source Temporal Artery Scan Pulse Rate 87 70 71 Pulse Rate from SpO2 Sensor Respiratory Rate 20 18 Blood Pressure 177/88 H Blood Pressure Mean 117 Pulse Oximetry 90 94 Oxygen Delivery Method Room Air Room Air Sepsis Recent Fever Within 48 Hours No Sepsis New/Unexplained Change in Mental Status No Sepsis Action Taken by Nursing No Action Required 04/30/23 23:47 05/01/23 00:00 05/01/23 00:31 Temperature Temperature Source Pulse Rate 71 Pulse Rate from SpO2 Sensor 82 Respiratory Rate 20 13 Blood Pressure 160/94 H Blood Pressure Mean 116 Pulse Oximetry 96 95 96 Oxygen Delivery Method Room Air Room Air Room Air Sepsis Recent Fever Within 48 Hours Sepsis New/Unexplained Change in Mental Status Sepsis Action Taken by Nursing 05/01/23 01:00 05/01/23 01:30 05/01/23 02:00 Temperature Temperature Source Pulse Rate 70 72 70 Pulse Rate from SpO2 Sensor Respiratory Rate 18 21 18 Blood Pressure 156/85 H 156/82 H 154/98 H Blood Pressure Mean 108 106 116 Pulse Oximetry 95 97 96 Oxygen Delivery Method Room Air Room Air Room Air Sepsis Recent Fever Within 48 Hours Sepsis New/Unexplained Change in Mental Status Sepsis Action Taken by Nursing 05/01/23 02:34 Temperature Temperature Source Pulse Rate 77 Pulse Rate from SpO2 Sensor Respiratory Rate 14 Blood Pressure 189/116 H Blood Pressure Mean 140 Pulse Oximetry 95 Oxygen Delivery Method Room Air Sepsis Recent Fever Within 48 Hours Sepsis New/Unexplained Change in Mental Status Sepsis Action Taken by Nursing Laboratory Data 05/01/23 05:07 05/01/23 05:07 Lab Results 04/30/23 04/30/23 04/30/23 Range/Units 20:50 20:55 20:57 WBC 15.80 H (4.8-10.8) K/ul RBC 5.11 (4.20-5.40) M/uL Hgb 15.8 (12.0-16.0) g/dl Hct 45.1 (37.0-47.0) % MCV 88.3 (80.0-100.0) fL MCH 30.9 (25.0-34.0) pg MCHC 35.0 (32.0-36.0) g/dL RDW Std Deviation 44.3 (36.4-46.3) fL RDW Coeff of Ede 13.7 (11.5-14.5) % Plt Count 216 (130-400) K/uL MPV 9.8 (9.4-12.4) fL Immature Gran % (Auto) 0.6 % Neut % (Auto) 86.5 % Lymph % (Auto) 6.6 % Bowie % (Auto) 5.9 % Eos % (Auto) 0.1 % Baso % (Auto) 0.3 % Neut # (Auto) 13.65 H (1.40-6.50) K/uL Lymph # (Auto) 1.05 L (1.20-3.40) K/uL Bowie # (Auto) 0.94 H (0.11-0.59) K/uL Eos # (Auto) 0.02 (0.00-0.50) K/uL Baso # (Auto) 0.04 (0.00-0.20) K/uL Immature Gran # (Auto) 0.10 (0.01-0.20) K/uL Sodium 134 L (136-145) mmol/L Potassium 4.0 (3.5-5.1) mmol/L Chloride 100 (98-107) mmol/L Carbon Dioxide 25 (21-32) mmol/L Anion Gap 9 (3-11) BUN 23 (6-23) mg/dl Creatinine 0.69 (0.6-1.2) mg/dl Est Cr Clr Drug Dosing 62.2 ml/min Est GFR ( Amer) 94.6 ml/min Est GFR (Non-Af Amer) 81.6 ml/min BUN/Creatinine Ratio 33.3 H (10-20) Glucose 90 (70-99(Fasting)) mg/dl Lactate 2.0 (0.4-2.0) mmol/L Calcium 9.8 (8.6-10.3) mg/dl Magnesium 1.9 (1.7-2.4) mg/dl Total Bilirubin 0.6 (0.2-1.0) mg/dl Direct Bilirubin 0.1 (0-0.2) mg/dl AST 20 (13-39) U/L ALT 21 (7-52) U/L Alkaline Phosphatase 74 (34-104) U/L Troponin I High Sens 41.4 H (0-14) pg/ml Total Protein 7.3 (6.0-8.3) gm/dl Albumin 4.1 (3.4-5.0) gm/dl Procalcitonin 1.51 H (0-0.5) ng/ml Urine Color Yellow Urine Appearance Clear (Clear) Urine pH 7.5 (4.5-7.5) Ur Specific [place] 1.017 (1.000-1.030) Urine Protein Negative (Negative) Urine Glucose (UA) Negative (Negative) Urine Ketones Negative (Negative) Urine Blood Negative (Negative) Urine Nitrite Negative (Negative) Urine Bilirubin Negative (Negative) Urine Urobilinogen Negative (Negative) Ur Leukocyte Esterase Negative (Negative) Adenovirus (PCR) (NotDetected) B. pertussis DNA (PCR) (NotDetected) B.parapertussis DNA PCR (NotDetected) C. pneumoniae DNA (PCR) (NotDetected) Coronavirus OC43 (PCR) (NotDetected) Coronavirus HKU1 (PCR) (NotDetected) Coronavirus 229E (PCR) (NotDetected) SARS-CoV-2 (PCR) (NotDetected) Coronavirus NL63 (PCR) (NotDetected) Human Metapneumovir PCR (NotDetected) Influenza Type A (PCR) (NotDetected) Influenza Type B (PCR) (NotDetected) M. pneumoniae (PCR) (NotDetected) Parainfluenza 1 (PCR) (NotDetected) Parainfluenza 2 (PCR) (NotDetected) Parainfluenza 3 (PCR) (NotDetected) Parainfluenza 4 (PCR) (NotDetected) RSV (PCR) (NotDetected) Entero/Rhino (PCR) (NotDetected) 04/30/23 04/30/23 Range/Units 23:30 Unknown WBC (4.8-10.8) K/ul RBC (4.20-5.40) M/uL Hgb (12.0-16.0) g/dl Hct (37.0-47.0) % MCV (80.0-100.0) fL MCH (25.0-34.0) pg MCHC (32.0-36.0) g/dL RDW Std Deviation (36.4-46.3) fL RDW Coeff of Ede (11.5-14.5) % Plt Count (130-400) K/uL MPV (9.4-12.4) fL Immature Gran % (Auto) % Neut % (Auto) % Lymph % (Auto) % Bowie % (Auto) % Eos % (Auto) % Baso % (Auto) % Neut # (Auto) (1.40-6.50) K/uL Lymph # (Auto) (1.20-3.40) K/uL Bowie # (Auto) (0.11-0.59) K/uL Eos # (Auto) (0.00-0.50) K/uL Baso # (Auto) (0.00-0.20) K/uL Immature Gran # (Auto) (0.01-0.20) K/uL Sodium (136-145) mmol/L Potassium (3.5-5.1) mmol/L Chloride (98-107) mmol/L Carbon Dioxide (21-32) mmol/L Anion Gap (3-11) BUN (6-23) mg/dl Creatinine (0.6-1.2) mg/dl Est Cr Clr Drug Dosing ml/min Est GFR ( Amer) ml/min Est GFR (Non-Af Amer) ml/min BUN/Creatinine Ratio (10-20) Glucose (70-99(Fasting)) mg/dl Lactate (0.4-2.0) mmol/L Calcium (8.6-10.3) mg/dl Magnesium (1.7-2.4) mg/dl Total Bilirubin (0.2-1.0) mg/dl Direct Bilirubin (0-0.2) mg/dl AST (13-39) U/L ALT (7-52) U/L Alkaline Phosphatase (34-104) U/L Troponin I High Sens 50.8 H* (0-14) pg/ml Total Protein (6.0-8.3) gm/dl Albumin (3.4-5.0) gm/dl Procalcitonin (0-0.5) ng/ml Urine Color Urine Appearance (Clear) Urine pH (4.5-7.5) Ur Specific [place] (1.000-1.030) Urine Protein (Negative) Urine Glucose (UA) (Negative) Urine Ketones (Negative) Urine Blood (Negative) Urine Nitrite (Negative) Urine Bilirubin (Negative) Urine Urobilinogen (Negative) Ur Leukocyte Esterase (Negative) Adenovirus (PCR) Not Detected (NotDetected) B. pertussis DNA (PCR) Not Detected (NotDetected) B.parapertussis DNA PCR Not Detected (NotDetected) C. pneumoniae DNA (PCR) Not Detected (NotDetected) Coronavirus OC43 (PCR) Not Detected (NotDetected) Coronavirus HKU1 (PCR) Not Detected (NotDetected) Coronavirus 229E (PCR) Not Detected (NotDetected) SARS-CoV-2 (PCR) Not Detected (NotDetected) Coronavirus NL63 (PCR) Not Detected (NotDetected) Human Metapneumovir PCR Not Detected (NotDetected) Influenza Type A (PCR) Not Detected (NotDetected) Influenza Type B (PCR) Not Detected (NotDetected) M. pneumoniae (PCR) Not Detected (NotDetected) Parainfluenza 1 (PCR) Not Detected (NotDetected) Parainfluenza 2 (PCR) Not Detected (NotDetected) Parainfluenza 3 (PCR) Not Detected (NotDetected) Parainfluenza 4 (PCR) Not Detected (NotDetected) RSV (PCR) Not Detected (NotDetected) Entero/Rhino (PCR) Not Detected (NotDetected) Administered Medications Sodium Chloride (Nss) 1,000 mls @ 125 mls/hr IV .Q8H KATHERIN Stop: 05/30/23 23:29 Last Admin: 04/30/23 23:40 Dose: 125 mls/hr Documented By: AVA Discontinued Medications Cefepime HCl (Maxipime) 2,000 mg in 20 mls @ 5 mls/min IV NOW STA; Protocol Stop: 04/30/23 23:27 Last Admin: 04/30/23 23:40 Dose: 5 mls/min Documented By: AVA Ioversol (Optiray 320 125ml) 125 ml IV ONCE ONE Stop: 05/01/23 01:29 Last Admin: 05/01/23 01:29 Dose: 115 ml Documented By: JOSE Imaging Data Radiologist's Impression: Chest X-Ray 04/30/23 19:35 SINGLE VIEW CHEST CLINICAL HISTORY: Sepsis. FINDINGS: A PA chest radiograph is compared to study dated 03/30/2023 and correlated with chest CT dated 10/06/2022. The heart is mildly enlarged noting atherosclerotic calcification of the thoracic aorta. The pulmonary vasculature is noncongested Emphysema and chronic interstitial thickening is similar to previous. There are dependent bibasilar airspace opacities. No large pleural effusion or pneumothorax is seen. The skeletal structures are osteopenic. The bony thorax is grossly intact. Degenerative changes and scoliosis is noted in the spine. IMPRESSION: 1. Dependent airspace opacities could represent scarring/atelectasis versus an infectious/inflammatory pneumonitis. This is similar to the 03/30/2023 examination. Clinical correlation will be required. 2. Cardiomegaly and emphysema. ACT 112: Negative or not required by law. Electronically signed by: Jame Gary M.D. 04/30/2023 9:09 PM Chest CTA 04/30/23 23:26 Exam(s): CTA CHEST IV Amt: 115 ml optiray 320 EXAM: CT Angiography Chest With Intravenous Contrast CLINICAL HISTORY: Reason for exam: PE, hx copd, hx pna, elevated trop. TECHNIQUE: Axial computed tomographic angiography images of the chest with intravenous contrast. CTDI is 17.67 mGy and DLP is 561.77 mGy-cm. Automated exposure control was utilized for the study. A dose lowering technique was utilized adhering to the principles of ALARA. MIP reconstructed images were created and reviewed. COMPARISON: CT chest on 10/06/2022 FINDINGS: Pulmonary arteries: Unremarkable. No definite pulmonary embolus identified, but evaluation of the distal pulmonary arterial branches is limited by motion artifact. Aorta: Atherosclerotic changes of the aorta. No aortic aneurysm or dissection. Lungs: Consolidations in the right lower lobe, concerning for pneumonia. Mild focal density in the left upper lobe and mild densities at the left lung base may represent atelectasis versus infectious/inflammatory process. Emphysematous changes. Pleural space: Unremarkable. No significant effusion. No pneumothorax. Heart: Unremarkable. No cardiomegaly. No significant pericardial effusion. No evidence of RV dysfunction. Mediastinum: Calcified mediastinal and right hilar lymph nodes. Bones/joints: Degenerative changes of the spine. Scoliosis. No acute fracture. No dislocation. Soft tissues: Unremarkable. Lymph nodes: See above. Spleen: Small splenule. Adrenals: Nonspecific thickening of the adrenal glands. IMPRESSION: 1. No definite pulmonary embolus identified, but evaluation of the distal pulmonary arterial branches is limited by motion artifact. 2. Consolidations in the right lower lobe, concerning for pneumonia. Mild focal density in the left upper lobe and mild densities at the left lung base may represent atelectasis versus infectious/inflammatory process. 3. Atherosclerotic changes of the aorta. No aortic aneurysm or dissection. 4. Nonspecific thickening of the adrenal glands. 5. Emphysematous changes. Electronically signed by: Candy Ramirez M.D. 05/01/23 04:09 AM Discharge Plan Visit Data Chief Complaint: Hypertension Stated Complaint: HIGH BP 200/100,O2 LEVEL 75-95,CONFUSION,71-199BPM ED Provider: Andie Gonzalez Discharge Problem: AMS (altered mental status), Elevated troponin, Leukocytosis, Elevated procalcitonin, PNA (pneumonia) Patient Disposition: Being Evaluated by Hospitalist Discharge Instructions Interventions: ED Discharge Assessment Last Done: 05/01/23 04:31
[2023-04-30] MEDS: SODIUM CHLORIDE 0.9% 1,000 ML IV SCH (23:40)
[2023-05-01] MEDS ORDERED: OPTIRAY 320 125ml IV ONE (01:28)
--- NOTE | 2023-05-01 02:16 | History & Physical Report ---
Date of Service May 01, 2023 Assessment & Plan (1) Pneumonia: Plan: 82yo Female with PMH COPD Alzheimer's dementia HTN here for AMS and elevated BP found to her PNA. Pneumonia -CT Chest per my read possible consolidations in RLL -WBC 15.8 procal 1.51 -received cefepime in ED -admit to med/surg -will continue cefepime at this time -ordered speech eval given concern aspiration, NPO until eval COPD -continue home inhalers -HTN -continue carvedilol, losartan, isosorbide mononitrate Dementia -given patient's progression of her Alzheimer's disease, ordered palliative consult to help guide family on patient's eventual decline and connect in outpatient -patient's daughter in law understands progression of her disease, feels she needs more medical support, would like to decrease patient's hospitalizations FENa: NPO Code Status: Full DVT PPX: heparin PT/OT: ordered Dispo: med/surg Roxanne Bond D.O. PGY 3, FCM (2) AMS (altered mental status): (3) Alzheimer disease: (4) Elevated troponin: (5) COPD (chronic obstructive pulmonary disease): (6) HTN (hypertension): History of Present Illness Primary Care Provider: Guerita Engel 82yo Female with PMH COPD Alzheimer's dementia HTN here for AMS and elevated BP found to her PNA. Patient is unable to give relevant PMH, history obtained from daughter in law. Patient at this time denies any pain SOB nausea. Per Daughter in law, this is patient's 6th hospitalization for PNA in the past year. Patient has had increased AMS and decreased appetite. DOL noted today elevated BP 200/100, brought patient in for evaluation. DOL states patient was in hospital 3 weeks ago, was also diagnosed with PNA send home on 2 PO abx. DOL feels this course of abx was not long enough, patient continued to have delirium after abx course ended. DOL states patient has been steadily declining in ability over the course of the last 6 months, was originally able to perform all her ADLs such as bathing and dressing on her own, at this time now needs to be coached through each step of bathing. Patient is continent of urine and stool, usually ambulates without her cane. Her medication is typically managed by her granddaughter with whom she lives, DOL also lives close by, patient has 24hr care. POA is son Glenn Tomlinson Jr. Allergies Allergy/AdvReac Type Severity Reaction Status Date / Time guaifenesin Allergy Unknown Unknown Unverified 05/01/23 11:11 Antihistamines - Alkylamine AdvReac Unknown cant Verified 03/30/23 17:14 remember Antihistamines - Ethanolamine AdvReac Unknown cant Verified 03/30/23 17:14 remember Antihistamines - AdvReac Unknown cant Verified 03/30/23 17:14 Ethylenediamine remember Antihistamines - Piperazine AdvReac Unknown cant Verified 03/30/23 17:14 remember Antihistamines - Piperidine AdvReac Unknown cant Verified 03/30/23 17:14 remember Home Medications Medication Instructions Recorded Confirmed Type aspirin 81 mg tablet,delayed 81 mg PO QAM ##0 03/14/17 05/01/23 History release fexofenadine 180 mg tablet 180 mg PO QAM #0 tabs 03/14/17 05/01/23 History multivitamin 1 tab PO QAM ##0 03/14/17 03/30/23 History isosorbide mononitrate 60 mg 60 mg PO QAM #0 tabs 08/07/17 05/01/23 History tablet,extended release 24 hr losartan 100 mg tablet 100 mg PO QAM #0 tabs 08/07/17 05/01/23 History potassium chloride 10 mEq 20 meq PO BID 04/14/21 05/01/23 History tablet,extended release calcium carbonate 600 mg-vitamin 1 tab PO BID 10/30/21 05/01/23 History D3 5 mcg (200 unit) tablet (Calcium 600 + D(3)) fluticasone fur. 200 mcg-umeclid 1 inh inhalation QPM 10/30/21 05/01/23 History 62.5 mcg-vilant 25 mcg inhalat.powder (Trelegy Ellipta) carvedilol 12.5 mg tablet 12.5 mg PO BID #60 tabs 11/10/21 05/01/23 Rx docusate sodium 100 mg capsule 100 mg PO BID 05/06/22 05/01/23 History (DOK) albuterol sulfate 90 mcg/actuation 2 puff inhalation Q4 PRN Shortness 10/06/22 05/01/23 History aerosol inhaler Of Breath Or Wheezing albuterol sulfate 2.5 mg/3 mL 2.5 mg continuous nebulization Q4 03/30/23 05/01/23 History (0.083 %) solution for nebulization PRN as directed Past Med/Surg History Medical History Facial bruising Acute exacerbation of chronic obstructive pulmonary disease Chronic renal failure, stage 3a No pertinent family history Dementia Heart disease Diabetes COPD (chronic obstructive pulmonary disease) Hypertension Surgical History S/P cataract extraction and insertion of intraocular lens b/l Family History Other Family history unknown Social History Smoking Status: Never smoker Tobacco Type: Cigarettes Cigarettes Per Day: minimal amount of tobacco at age 20yo only; Second Hand Exposure: No; Do You Dip or Chew Tobacco: No; Hx Alcohol Use: No Hx Substance Use: No Preferred Language: Faroese Communication Ability: Impaired Agency Development Manager Required: No Beliefs That Will Affect Care: None marital status: / Current Living Situation: Family Current Living Situation Comment: granddaughter lives with pt current occupational status: retired current occupation: worked at "[employer]" How many Children do You have: 4 How many Children do You have Comment: 2 sons, 2 daughters Feels Safe at Home: Yes Assistive Devices: Cane, Denture - Upper, Denture - Lower and Glasses Physical Exam Constitutional: WD/WN, vitals as above Eyes: PERRL, conjunctivae normal, anicteric sclerae ENMT: external ear and nose normal, oropharynx normal Neck: trachea midline, no thyromegaly Respiratory: normal respiratory effort Auscultation: + rhonchi (on right) Cardiovascular: RRR, no murmur, no edema Gastrointestinal (Abdomen): normal bowel sounds, soft, nontender, no hepatosplenomegaly Skin: no rashes, warm and dry Results & Data Results & Data Vital Signs (Past 12 Hours) Vital Signs Temp Pulse Resp BP Pulse Ox O2 Del Method 05/01/23 01:30 72 21 156/82 H 97 Room Air 05/01/23 01:00 70 18 156/85 H 95 Room Air 05/01/23 00:31 13 160/94 H 96 Room Air 05/01/23 00:00 71 20 95 Room Air 04/30/23 23:47 96 Room Air 04/30/23 23:35 71 04/30/23 23:34 70 18 94 Room Air 04/30/23 19:30 37.2 C 87 20 177/88 H 90 Room Air Supervising Physician Co-Signing Physician Notes Patient seen and examined, chart reviewed, case discussed with Dr. Bond and I agree with the assessment and plan as above. In brief, patient is an 82yo fe male presenting with RLL PNA. Patient afebrile, HD stable +S1/S2, regular, no m/r/g Lungs with rhonchi and coarse breath sounds on the right, no wheeze Abd - +BS, soft, NT/ND Ext - warm, well perfused Labs and images reviewed Assessment/Plan - RLL PNA. Patient with leukocytosis, elevated procalcitonin. Tx with Cefepime. Supportive care. Remainder of plan as above Resident Activity Tracking Resident Involvement: Resident Care Provided Care Provided: Adult Hospital Medicine (6) HTN (hypertension) Hypertension type: unspecified Qualified Code(s): I10 - Essential (primary) hypertension
--- NOTE | 2023-05-01 04:11 | CT Scan Report ---
Exam(s): CTA CHEST IV Amt: 115 ml optiray 320 EXAM: CT Angiography Chest With Intravenous Contrast CLINICAL HISTORY: Reason for exam: PE, hx copd, hx pna, elevated trop. TECHNIQUE: Axial computed tomographic angiography images of the chest with intravenous contrast. CTDI is 17.67 mGy and DLP is 561.77 mGy-cm. Automated exposure control was utilized for the study. A dose lowering technique was utilized adhering to the principles of ALARA. MIP reconstructed images were created and reviewed. COMPARISON: CT chest on 10/06/2022 FINDINGS: Pulmonary arteries: Unremarkable. No definite pulmonary embolus identified, but evaluation of the distal pulmonary arterial branches is limited by motion artifact. Aorta: Atherosclerotic changes of the aorta. No aortic aneurysm or dissection. Lungs: Consolidations in the right lower lobe, concerning for pneumonia. Mild focal density in the left upper lobe and mild densities at the left lung base may represent atelectasis versus infectious/inflammatory process. Emphysematous changes. Pleural space: Unremarkable. No significant effusion. No pneumothorax. Heart: Unremarkable. No cardiomegaly. No significant pericardial effusion. No evidence of RV dysfunction. Mediastinum: Calcified mediastinal and right hilar lymph nodes. Bones/joints: Degenerative changes of the spine. Scoliosis. No acute fracture. No dislocation. Soft tissues: Unremarkable. Lymph nodes: See above. Spleen: Small splenule. Adrenals: Nonspecific thickening of the adrenal glands. IMPRESSION: 1. No definite pulmonary embolus identified, but evaluation of the distal pulmonary arterial branches is limited by motion artifact. 2. Consolidations in the right lower lobe, concerning for pneumonia. Mild focal density in the left upper lobe and mild densities at the left lung base may represent atelectasis versus infectious/inflammatory process. 3. Atherosclerotic changes of the aorta. No aortic aneurysm or dissection. 4. Nonspecific thickening of the adrenal glands. 5. Emphysematous changes. Electronically signed by: Candy Ramirez M.D. 05/01/23 04:09 AM
[2023-05-01] MEDS ORDERED: ALBUTEROL 0.083% NEBU SOLN 3 ML VIAL NEB PRN (04:30)
[2023-05-01] MEDS ORDERED: POLYETHYLENE (MIRALAX) 17 GM PACK PO PRN (04:30)
[2023-05-01 05:37] LABS: Hematocrit (blood only) 41.5 % (37.0-47.0); Hemoglobin 14.1 g/dl (12.0-16.0); Mean Corpuscular Hemoglobin 30.5 pg (25.0-34.0); Mean Corpuscular Volume 89.6 fL (80.0-100.0); Mean Platelet Volume 10.1 fL (9.4-12.4); Platelet Count 187 K/uL (130-400); RDW Standard Deviation 45.6 fL (36.4-46.3); Red Blood Count 4.63 M/uL (4.20-5.40); White Blood Count 18.07 K/ul (4.8-10.8)
[2023-05-01 05:49] LABS: BUN Creatinine Ratio 30.8 (10-20); Calcium 9.1 mg/dl (8.6-10.3); Est GFR (African American) 96.5 ml/min; Est GFR (Non-African American) 83.3 ml/min; Potassium 4.3 mmol/L (3.5-5.1)
[2023-05-01] MEDS: CEFEPIME 2,000 MG in SYRINGE 0 ML IV SCH ×3 (07:41→23:47)
[2023-05-01] MEDS: carvediloL 12.5 MG TAB PO SCH ×2 (09:09→22:46)
[2023-05-01] MEDS: MULTIVITAMIN TAB PO SCH (09:09)
[2023-05-01] MEDS: FLUTICASONE FUROATE 200MCG 14 PUFFS/INHALER INH SCH (09:09)
[2023-05-01] MEDS: UMECLIDINIUM/VILANTEROL 62.5/25MCG 7 PUFFS/INHALER INH SCH (09:09)
[2023-05-01] MEDS: HEPARIN SOD 5,000 UNIT/0.5 ML VIAL SQ SCH ×2 (09:10→22:45)
[2023-05-01] MEDS: FEXOFENADINE HCL 180 MG TAB PO SCH (09:10)
[2023-05-01] MEDS: ASPIRIN 81 MG ECTAB PO SCH (09:10)
[2023-05-01] MEDS: DOCUSATE SODIUM 100 MG CAP PO SCH ×2 (09:10→22:46)
[2023-05-01] MEDS: CALCIUM 600MG + VIT D 400 IU TAB PO SCH ×2 (09:10→22:46)
[2023-05-01] MEDS: LOSARTAN POTASSIUM 50 MG TAB PO SCH (09:11)
[2023-05-01] MEDS: SODIUM CHLORIDE 0.9% 1,000 ML IV SCH ×2 (09:12→22:40)
[2023-05-01] MEDS: ISOSORBIDE MONO EXTENDED REL 60 MG TABCR PO SCH (09:13)
--- NOTE | 2023-05-01 11:08 | Electrocardiogram Report ---
Test Reason : Blood Pressure : / mmHG Vent. Rate : 085 BPM Atrial Rate : 085 BPM P-R Int : 142 ms QRS Dur : 084 ms QT Int : 360 ms P-R-T Axes : 035 -35 055 degrees QTc Int : 428 ms Normal sinus rhythm Left axis deviation Incomplete right bundle branch block Abnormal ECG When compared with ECG of 30-MAR-2023 12:56, ST now depressed in Lateral leads Confirmed by Pancho Ahn ([id number]) on 05/01/2023 11:07:28 AM Referred By: REFERRED SELF Confirmed By:Gilmer Ahn
--- NOTE | 2023-05-01 13:49 | Hospitalist Progress Note ---
Date of Service May 01, 2023 Assessment & Plan (1) PNA (pneumonia): Plan: Suspected right lower lobe pneumonia present on admission. She is now on cefepime, day 1. Obtain sputum culture if sputum is produced. (2) AMS (altered mental status): Plan: Baseline dementia. Possible component of acute metabolic encephalopathy. Supportive care. Treat underlying infection (3) Dementia: Plan: Supportive care. Continue current medical management. (4) COPD (chronic obstructive pulmonary disease): Plan: No apparent exacerbation. Continue current medical management. Treat underlying pneumonia (5) HTN (hypertension): Plan: Stable. Continue current treatment plan Plan To be determined Admission and Anticipated Discharge Date Admission Date: May 01, 2023 Subjective Alert but confused. She has dementia and this probably is her baseline. Possibly somewhat worse from what appears to be right lower lobe pneumonia which could have caused some associated metabolic encephalopathy. Speech has evaluated the patient and a diet has been ordered. Nevertheless, she will undergo video swallow study today. She remains on IV fluids and cefepime, day 1. Sputum will be obtained if sputum is produced Review of Systems 2 Review of Systems: The patient is unable to accurately answer any questions regarding review of systems Physical Exam 2 Physical Exam: General-alert but confused which probably is her baseline since she has dementia HEENT-head atraumatic and normocephalic, pupils equal and reactive to light, extraocular muscles intact Neck-no lymphadenopathy or thyromegaly, trachea midline Chest-bilateral rhonchi, more pronounced right than left. No wheezing Cardiac-regular rate and rhythm, normal S1 and S2 Abdomen-normal bowel sounds, nontender, no hepatosplenomegaly Extremities-no cyanosis, clubbing, or edema Neuro-cranial nerves II through XII intact, motor and sensory function within normal limits, strength symmetrical with generalized weakness, no focal deficits Psych-dementia at baseline. Unable to assess Results & Data Results & Data Vital Signs (Past 12 Hours) Vital Signs Pulse Pulse Resp BP BP Pulse Ox O2 Del Method 05/01/23 10:24 68 20 143/83 H 95 Room Air 05/01/23 09:25 67 18 178/89 H 96 Room Air 05/01/23 08:01 67 20 171/80 H 94 Room Air 05/01/23 07:02 71 05/01/23 07:00 71 20 170/76 H 94 Room Air 05/01/23 07:00 69 20 170/76 H 95 Room Air 05/01/23 05:30 61 22 98 Room Air 05/01/23 05:00 69 24 163/98 H 96 Room Air 05/01/23 04:30 67 21 157/88 H 95 Room Air 05/01/23 04:00 61 17 155/83 H 96 Room Air 05/01/23 03:46 65 05/01/23 03:30 63 18 178/92 H 98 Room Air 05/01/23 03:00 70 20 151/102 H 95 Room Air 05/01/23 02:34 77 14 189/116 H 95 Room Air 05/01/23 02:00 70 18 154/98 H 96 Room Air Laboratory Results 05/01/23 05:07 05/01/23 05:07 PG Care Time/CCT Total # of Minutes Spent Total Time Spent with Patient: Total time spent is greater than 50% in coordination of care (as documented) at patient's floor/unit and/or counseling patient: Coding Level of Care Code 25154 SUB INP/OBS CARE 3/50MIN Diagnoses PNA (pneumonia) J18.9 AMS (altered mental status) R41.82 Dementia G30.9; F02.82 Alzheimer's disease onset: unspecified onset Dementia behavioral or psychological symptom: with psychotic disturbance Dementia severity: unspecified severity Dementia type: Alzheimer's COPD (chronic obstructive pulmonary disease) J44.9 HTN (hypertension) I10 Hypertension type: unspecified (3) Dementia Alzheimer's disease onset: unspecified onset Dementia 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
--- NOTE | 2023-05-01 14:04 | Fluoroscopy Report ---
FL video swallow CLINICAL HISTORY: 82 years-old Female with r/o aspiration. Dysphagia with possible aspiration TECHNIQUE: Video fluoroscopic evaluation of swallowing was performed in the AP and lateral projection s by the speech pathology staff. The patient is fed varying consistencies of barium. FLUOROSCOPY TIME: 1.17 minutes. 2213 images were submitted. 8.52 mGy COMPARISON STUDY: CT chest 05/01/2023. FINDINGS: Laryngeal penetration noted with thin liquid barium. No definite aspiration identified. The degree of hyoid excursion and epiglottic deflection is otherwise within normal limits. No strictures or intraluminal lesions identified. IMPRESSION: 1. Laryngeal penetration without aspiration identified. 2. Please see the speech pathologist report for detailed findings and recommendations. ACT 112: Negative or not required by law. Electronically signed by: Filippo Matta M.D. 05/01/2023 2:03 PM
[2023-05-01] MEDS ORDERED: NON-FORMULARY MEDICATION (Fluticasone-Umeclidin-Vilanter [Trelegy Ellipta] 200-62.5-25 mcg INH SCH (21:00)
[2023-05-02] MEDS: CEFEPIME 2,000 MG in SYRINGE 0 ML IV SCH ×4 (08:22→23:39)
[2023-05-02] MEDS: UMECLIDINIUM/VILANTEROL 62.5/25MCG 7 PUFFS/INHALER INH SCH (08:23)
[2023-05-02] MEDS: FLUTICASONE FUROATE 200MCG 14 PUFFS/INHALER INH SCH (08:23)
[2023-05-02] MEDS: CALCIUM 600MG + VIT D 400 IU TAB PO SCH ×2 (08:30→19:44)
[2023-05-02] MEDS: LOSARTAN POTASSIUM 50 MG TAB PO SCH (08:30)
[2023-05-02] MEDS: ASPIRIN 81 MG ECTAB PO SCH (08:31)
[2023-05-02] MEDS: MULTIVITAMIN TAB PO SCH (08:31)
[2023-05-02] MEDS: carvediloL 12.5 MG TAB PO SCH ×2 (08:31→19:43)
[2023-05-02] MEDS: HEPARIN SOD 5,000 UNIT/0.5 ML VIAL SQ SCH ×2 (08:31→19:44)
[2023-05-02] MEDS: DOCUSATE SODIUM 100 MG CAP PO SCH ×2 (08:31→19:43)
[2023-05-02] MEDS: FEXOFENADINE HCL 180 MG TAB PO SCH (08:31)
[2023-05-02] MEDS: ISOSORBIDE MONO EXTENDED REL 60 MG TABCR PO SCH (08:31)
[2023-05-02] MEDS: SODIUM CHLORIDE 0.9% 1,000 ML IV SCH (09:59)
[2023-05-02 10:15] LABS: Basophils # (auto) 0.02 K/uL (0.00-0.20); Basophils % (auto) 0.2 %; Eosinophils # (auto) 0.05 K/uL (0.00-0.50); Eosinophils % (auto) 0.6 %; Hematocrit (blood only) 38.5 % (37.0-47.0); Hemoglobin 13.2 g/dl (12.0-16.0); Immature Granulocytes # (auto) 0.02 K/uL (0.01-0.20); Immature Granulocytes % (auto) 0.2 %; Lymphocytes # (auto) 1.12 K/uL (1.20-3.40); Lymphocytes % (auto) 13.7 %; Mean Corpuscular Hemoglobin 30.5 pg (25.0-34.0); Mean Corpuscular Hgb Conc 34.3 g/dL (32.0-36.0); Mean Corpuscular Volume 88.9 fL (80.0-100.0); Monocytes % (auto) 6.1 %; Neutrophils # (auto) 6.44 K/uL (1.40-6.50); Neutrophils % (auto) 79.2 %; Platelet Count 188 K/uL (130-400); RDW Coefficient of Variation 13.8 % (11.5-14.5); RDW Standard Deviation 44.8 fL (36.4-46.3); Red Blood Count 4.33 M/uL (4.20-5.40); White Blood Count 8.15 K/ul (4.8-10.8)
[2023-05-02 10:28] LABS: BUN Creatinine Ratio 29.4 (10-20); Calcium 9.1 mg/dl (8.6-10.3); Creatinine Clr Calc Pharmacy 63.1 ml/min; Est GFR (African American) 95.1 ml/min; Potassium 3.7 mmol/L (3.5-5.1)
--- NOTE | 2023-05-02 14:37 | Hospitalist Progress Note ---
Date of Service May 02, 2023 Assessment & Plan (1) PNA (pneumonia): Plan: Suspected right lower lobe pneumonia present on admission. Continue cefepime, day 2. Obtain sputum culture if sputum is produced. Serial chest x-ray (2) AMS (altered mental status): Plan: Baseline dementia. Possible component of acute metabolic encephalopathy. Supportive care. Treat underlying infection (3) Dementia: Plan: Supportive care. Continue current medical management. (4) COPD (chronic obstructive pulmonary disease): Plan: No apparent exacerbation. Continue current medical management. Treat underlying pneumonia (5) HTN (hypertension): Plan: Stable. Continue current treatment plan Plan Hopeful discharge to previous living arrangements tomorrow, May 03, on oral antibiotic Admission and Anticipated Discharge Date Admission Date: May 01, 2023 Subjective Alert. No distress. She has baseline dementia and is confused. She remains on room air. Will obtain another chest x-ray tomorrow, May 03. Hopefully she can go home on an oral antibiotic tomorrow. Review of Systems 2 Review of Systems: The patient is unable to accurately answer any questions regarding review of systems Physical Exam 2 Physical Exam: General-alert but confused which probably is her baseline since she has dementia HEENT-head atraumatic and normocephalic, pupils equal and reactive to light, extraocular muscles intact Neck-no lymphadenopathy or thyromegaly, trachea midline Chest-bilateral rhonchi, more pronounced right than left. No wheezing Cardiac-regular rate and rhythm, normal S1 and S2 Abdomen-normal bowel sounds, nontender, no hepatosplenomegaly Extremities-no cyanosis, clubbing, or edema Neuro-cranial nerves II through XII intact, motor and sensory function within normal limits, strength symmetrical with generalized weakness, no focal deficits Psych-dementia at baseline. Unable to assess Results & Data Results & Data Vital Signs (Past 12 Hours) Vital Signs Temp Pulse Resp BP Pulse Ox O2 Del Method 05/02/23 13:02 36.5 C 64 17 120/67 93 Room Air 05/02/23 07:17 36.5 C 66 16 166/89 H 94 Room Air Laboratory Results 05/02/23 09:20 05/02/23 09:20 PG Care Time/CCT Total # of Minutes Spent Total Time Spent with Patient: Total time spent is greater than 50% in coordination of care (as documented) at patient's floor/unit and/or counseling patient: Coding Level of Care Code 25877 SUB INP/OBS CARE MIN Diagnoses PNA (pneumonia) J18.9 AMS (altered mental status) R41.82 Dementia G30.9; F02.82 Alzheimer's disease onset: unspecified onset Dementia behavioral or psychological symptom: with psychotic disturbance Dementia severity: unspecified severity Dementia type: Alzheimer's COPD (chronic obstructive pulmonary disease) J44.9 HTN (hypertension) I10 Hypertension type: unspecified (3) Dementia Alzheimer's disease onset: unspecified onset Dementia 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
[2023-05-02] MEDS: MELATONIN 3 MG TAB PO PRN (19:43)
[2023-05-02] MEDS: ACETAMINOPHEN 325 MG TAB PO PRN (19:43)
--- NOTE | 2023-05-03 05:47 | Billing Data ---
Date of Service May 01, 2023 Coding Level of Care Code 84230 INT INP/OBS CARE
[2023-05-03 06:55] LABS: Basophils # (auto) 0.03 K/uL (0.00-0.20); Basophils % (auto) 0.5 %; Eosinophils % (auto) 1.6 %; Hematocrit (blood only) 38.4 % (37.0-47.0); Hemoglobin 13.4 g/dl (12.0-16.0); Immature Granulocytes # (auto) 0.01 K/uL (0.01-0.20); Immature Granulocytes % (auto) 0.2 %; Lymphocytes # (auto) 1.68 K/uL (1.20-3.40); Lymphocytes % (auto) 27.1 %; Mean Corpuscular Hgb Conc 34.9 g/dL (32.0-36.0); Mean Corpuscular Volume 88.9 fL (80.0-100.0); Mean Platelet Volume 9.7 fL (9.4-12.4); Monocytes % (auto) 8.1 %; Neutrophils # (auto) 3.89 K/uL (1.40-6.50); Neutrophils % (auto) 62.5 %; Platelet Count 183 K/uL (130-400); RDW Standard Deviation 45.4 fL (36.4-46.3); Red Blood Count 4.32 M/uL (4.20-5.40); White Blood Count 6.21 K/ul (4.8-10.8)
[2023-05-03 07:28] LABS: BUN Creatinine Ratio 39.7 (10-20); Calcium 9.1 mg/dl (8.6-10.3); Creatinine Clr Calc Pharmacy 68.1 ml/min; Est GFR (African American) 97.5 ml/min; Est GFR (Non-African American) 84.1 ml/min
--- NOTE | 2023-05-03 09:14 | XRay Report ---
TWO VIEW CHEST CLINICAL HISTORY: Right lower lobe pneumonia. FINDINGS: PA and lateral chest radiographs are compared to study dated 04/30/2023 and correlated with chest CT dated 05/01/2023. The cardiomediastinal silhouette is unremarkable. Heart is mildly enlarge d noting atherosclerotic calcification of the thoracic aorta. The pulmonary vasculature is noncongest ed. Emphysema and chronic interstitial thickening is similar to previous. Right lower lobe consolidat ion is partially cleared as compared to previous. No pleural effusion or pneumothorax is seen. The sk eletal structures are osteopenic. The bony thorax appears intact. Degenerative change is noted in the shoulders and spine. There is spinal scoliosis. Residual enteric contrast is noted in the colon. IMPRESSION: 1. Cardiomegaly and emphysema. 2. Right lower lobe consolidation has partially cleared as compared to previous. 3. An indeterminate left upper lobe nodular opacity seen by CT on 05/01/2023 is not visualized by x-r ay and may be inflammatory. A follow-up chest CT in 3 months time is recommended for reassessment/to document resolution. ACT 112: Negative or not required by law. Electronically signed by: Jame Gary M.D. 05/03/2023 9:12 AM
[2023-05-03] MEDS: carvediloL 12.5 MG TAB PO SCH ×2 (09:27→20:10)
[2023-05-03] MEDS: HEPARIN SOD 5,000 UNIT/0.5 ML VIAL SQ SCH ×2 (09:27→20:11)
[2023-05-03] MEDS: CALCIUM 600MG + VIT D 400 IU TAB PO SCH ×2 (09:27→20:10)
[2023-05-03] MEDS: CEFEPIME 2,000 MG in SYRINGE 0 ML IV SCH ×3 (09:27→23:38)
[2023-05-03] MEDS: ASPIRIN 81 MG ECTAB PO SCH (09:27)
[2023-05-03] MEDS: MULTIVITAMIN TAB PO SCH (09:27)
[2023-05-03] MEDS: ISOSORBIDE MONO EXTENDED REL 60 MG TABCR PO SCH (09:27)
[2023-05-03] MEDS: LOSARTAN POTASSIUM 50 MG TAB PO SCH (09:27)
[2023-05-03] MEDS: FEXOFENADINE HCL 180 MG TAB PO SCH (09:27)
[2023-05-03] MEDS: FLUTICASONE FUROATE 200MCG 14 PUFFS/INHALER INH SCH (09:28)
[2023-05-03] MEDS: UMECLIDINIUM/VILANTEROL 62.5/25MCG 7 PUFFS/INHALER INH SCH (09:28)
[2023-05-03] MEDS: DOCUSATE SODIUM 100 MG CAP PO SCH ×2 (09:33→20:12)
--- NOTE | 2023-05-03 11:18 | Discharge Summary ---
Date of Service May 03, 2023 Admission HPI Per Admitting Provider 82yo Female with PMH COPD Alzheimer's dementia HTN here for AMS and elevated BP found to her PNA. Patient is unable to give relevant PMH, history obtained from daughter in law. Patient at this time denies any pain SOB nausea. Per Daughter in law, this is patient's 6th hospitalization for PNA in the past year. Patient has had increased AMS and decreased appetite. DOL noted today elevated BP 200/100, brought patient in for evaluation. DOL states patient was in hospital 3 weeks ago, was also diagnosed with PNA send home on 2 PO abx. DOL feels this course of abx was not long enough, patient continued to have delirium after abx course ended. DOL states patient has been steadily declining in ability over the course of the last 6 months, was originally able to perform all her ADLs such as bathing and dressing on her own, at this time now needs to be coached through each step of bathing. Patient is continent of urine and stool, usually ambulates without her cane. Her medication is typically managed by her granddaughter with whom she lives, DOL also lives close by, patient has 24hr care. POA is son Glenn Tomlinson Jr. Principal Diagnosis Right lower lobe pneumonia, elevated troponin without acute coronary syndrome, acute metabolic encephalopathy Discharge Exam General-alert but confused which probably is her baseline since she has dementia HEENT-head atraumatic and normocephalic, pupils equal and reactive to light, extraocular muscles intact Neck-no lymphadenopathy or thyromegaly, trachea midline Chest-bilateral rhonchi, more pronounced right than left. No wheezing Cardiac-regular rate and rhythm, normal S1 and S2 Abdomen-normal bowel sounds, nontender, no hepatosplenomegaly Extremities-no cyanosis, clubbing, or edema Neuro-cranial nerves II through XII intact, motor and sensory function within normal limits, strength symmetrical with generalized weakness, no focal deficits Psych-dementia at baseline. Unable to assess Discharge Data Allergies Allergy/AdvReac Type Severity Reaction Status Date / Time guaifenesin Allergy Unknown Unknown Unverified 05/01/23 11:11 Antihistamines - Alkylamine AdvReac Unknown cant Verified 03/30/23 17:14 remember Antihistamines - Ethanolamine AdvReac Unknown cant Verified 03/30/23 17:14 remember Antihistamines - AdvReac Unknown cant Verified 03/30/23 17:14 Ethylenediamine remember Antihistamines - Piperazine AdvReac Unknown cant Verified 03/30/23 17:14 remember Antihistamines - Piperidine AdvReac Unknown cant Verified 03/30/23 17:14 remember Consultations 05/01/23 02:02 ED Decision to Admit Stat 05/01/23 02:19 Consult Palliative Care Routine Ordered Studies 04/30/23 23:26 CT angio chest PE protocol Stat 05/01/23 13:30 FL video swallow Routine Hospital Course (1) PNA (pneumonia): Suspected right lower lobe pneumonia present on admission. Treated while hospitalized with cefepime. No pathogen isolated. Home on oral Keflex for 7 more days. Serial chest x-ray looks better (2) AMS (altered mental status): Baseline dementia. Possible component of acute metabolic encephalopathy present on admission. Supportive care. Treat underlying infection. Mental status appears to have returned to baseline (3) Dementia: Supportive care. Continue current medical management. (4) COPD (chronic obstructive pulmonary disease): No apparent exacerbation. Continue current medical management. Treat underlying pneumonia (5) HTN (hypertension): Stable. Continue current treatment plan Plan Home today, May 03. Continue oral Keflex for 1 more week Total Time Total Time Spent Total Time Spent (In Minutes): 45 minutes Discharge Plan Discharge Items Patient Disposition: Home - Self-Care Reason For Visit: PNA Discharge Diagnosis: Right lower lobe pneumonia, acute metabolic encephalopathy, elevated troponin without acute coronary syndrome Activity: Resume your previous activity Non-emergency contact: Primary Care Provider Call non-emergency contact if: your symptoms worsen Follow-up/Referrals: Guerita Engel PA-C [Primary Care Provider] - Diet: Regular Addtl Attending Provider Instructions: Take Keflex (cephalexin) 500 mg 4 times a day for 1 more week. All other medications remain the same Pending Studies at Discharge: No Stand-Alone Forms: My [employer], Smoking Cessation Medications and DC Order Prescriptions: New cephalexin 500 mg capsule 500 mg PO QID 7 Days Qty: 28 0RF Continued multivitamin Tablet 1 tab PO QAM Qty: 0 fexofenadine 180 mg Tablet 180 mg PO QAM Qty: 0 aspirin 81 mg Tablet,Delayed Release (Dr/Ec) 81 mg PO QAM Qty: 0 isosorbide mononitrate 60 mg Tablet Extended Release 24 Hr 60 mg PO QAM Qty: 0 losartan 100 mg Tablet 100 mg PO QAM Qty: 0 docusate sodium [DOK] 100 mg capsule 100 mg PO BID albuterol sulfate 90 mcg/actuation HFA aerosol inhaler 2 puff INHALATION Q4 PRN (Reason: Shortness Of Breath Or Wheezing) potassium chloride 10 mEq tablet extended release 20 meq PO BID calcium carbonate-vitamin D3 [Calcium 600 + D(3)] 600 mg-5 mcg (200 unit) Tablet 1 tab PO BID Trelegy Ellipta 200-62.5-25 mcg Blister With Device 1 inh INHALATION QPM carvedilol 12.5 mg Tablet 12.5 mg PO BID Qty: 60 0RF albuterol sulfate 2.5 mg /3 mL (0.083 %) solution for nebulization 2.5 mg continuous nebulization Q4 PRN (Reason: as directed) Discharge Orders: Discharge Order (Routine); Ordered 05/03/23 Ordered By: Sadi Lucero Admission Data Admit Date/Time: 05/01/23 02:43 Attending Provider: Sadi Lucero Admit Provider: Roxanne Bond Primary Care Provider: Guerita Engel Other Providers: Sarah Parikh Patricia A. 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
--- NOTE | 2023-05-03 13:50 | Hospitalist Progress Note ---
Date of Service May 03, 2023 Assessment & Plan (1) PNA (pneumonia): Plan: Suspected right lower lobe pneumonia present on admission. Treated while hospitalized with cefepime, day 3. No pathogen isolated. Home on oral Keflex for 7 more days. Serial chest x-ray looks better (2) AMS (altered mental status): Plan: Baseline dementia. Possible component of acute metabolic encephalopathy present on admission. Supportive care. Treat underlying infection. Mental status appears to have returned to baseline (3) Dementia: Plan: Supportive care. Continue current medical management. (4) COPD (chronic obstructive pulmonary disease): Plan: No apparent exacerbation. Continue current medical management. Treat underlying pneumonia (5) HTN (hypertension): Plan: Stable. Continue current treatment plan Plan Anticipate discharge to home tomorrowMay 04. Continue oral Keflex for 1 more week Admission and Anticipated Discharge Date Admission Date: May 01, 2023 Subjective Family states they are not prepared to take the patient home today. Discharge will be delayed until tomorrowMay 04. Review of Systems 2 Review of Systems: The patient is unable to accurately answer any questions regarding review of systems Physical Exam 2 Physical Exam: General-alert but confused which probably is her baseline since she has dementia HEENT-head atraumatic and normocephalic, pupils equal and reactive to light, extraocular muscles intact Neck-no lymphadenopathy or thyromegaly, trachea midline Chest-bilateral rhonchi, more pronounced right than left. No wheezing Cardiac-regular rate and rhythm, normal S1 and S2 Abdomen-normal bowel sounds, nontender, no hepatosplenomegaly Extremities-no cyanosis, clubbing, or edema Neuro-cranial nerves II through XII intact, motor and sensory function within normal limits, strength symmetrical with generalized weakness, no focal deficits Psych-dementia at baseline. Unable to assess Results & Data Results & Data Vital Signs (Past 12 Hours) Vital Signs Temp Pulse Resp BP BP Pulse Ox O2 Del Method 05/03/23 12:27 36.5 C 69 16 120/67 95 Room Air 05/03/23 08:00 Room Air 05/03/23 07:10 36.6 C 53 L 16 147/73 H 97 Room Air Laboratory Results 05/03/23 06:12 05/03/23 06:12 PG Care Time/CCT Total # of Minutes Spent Total Time Spent with Patient: Total time spent is greater than 50% in coordination of care (as documented) at patient's floor/unit and/or counseling patient: Coding Level of Care Code 92637 SUB INP/OBS CARE MIN Diagnoses PNA (pneumonia) J18.9 AMS (altered mental status) R41.82 Dementia G30.9; F02.82 Alzheimer's disease onset: unspecified onset Dementia behavioral or psychological symptom: with psychotic disturbance Dementia severity: unspecified severity Dementia type: Alzheimer's COPD (chronic obstructive pulmonary disease) J44.9 HTN (hypertension) I10 Hypertension type: unspecified (3) Dementia Alzheimer's disease onset: unspecified onset Dementia 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
[2023-05-03] MEDS: ACETAMINOPHEN 325 MG TAB PO PRN (20:10)
[2023-05-03] MEDS: MELATONIN 3 MG TAB PO PRN (20:11)
[2023-05-04 07:17] LABS: Basophils # (auto) 0.04 K/uL (0.00-0.20); Basophils % (auto) 0.6 %; Eosinophils # (auto) 0.13 K/uL (0.00-0.50); Hematocrit (blood only) 41.5 % (37.0-47.0); Hemoglobin 14.4 g/dl (12.0-16.0); Immature Granulocytes # (auto) 0.03 K/uL (0.01-0.20); Immature Granulocytes % (auto) 0.5 %; Lymphocytes # (auto) 1.97 K/uL (1.20-3.40); Lymphocytes % (auto) 30.9 %; Mean Corpuscular Hemoglobin 30.9 pg (25.0-34.0); Mean Corpuscular Hgb Conc 34.7 g/dL (32.0-36.0); Mean Corpuscular Volume 89.1 fL (80.0-100.0); Mean Platelet Volume 9.4 fL (9.4-12.4); Monocytes # (auto) 0.55 K/uL (0.11-0.59); Monocytes % (auto) 8.6 %; Neutrophils # (auto) 3.65 K/uL (1.40-6.50); Neutrophils % (auto) 57.4 %; Platelet Count 215 K/uL (130-400); RDW Coefficient of Variation 13.7 % (11.5-14.5); RDW Standard Deviation 44.6 fL (36.4-46.3); Red Blood Count 4.66 M/uL (4.20-5.40); White Blood Count 6.37 K/ul (4.8-10.8)
[2023-05-04] MEDS: ISOSORBIDE MONO EXTENDED REL 60 MG TABCR PO SCH (07:30)
[2023-05-04] MEDS: MULTIVITAMIN TAB PO SCH (07:30)
[2023-05-04] MEDS: FLUTICASONE FUROATE 200MCG 14 PUFFS/INHALER INH SCH (07:30)
[2023-05-04] MEDS: LOSARTAN POTASSIUM 50 MG TAB PO SCH (07:30)
[2023-05-04] MEDS: carvediloL 12.5 MG TAB PO SCH (07:31)
[2023-05-04] MEDS: ASPIRIN 81 MG ECTAB PO SCH (07:31)
[2023-05-04] MEDS: FEXOFENADINE HCL 180 MG TAB PO SCH (07:31)
[2023-05-04] MEDS: CALCIUM 600MG + VIT D 400 IU TAB PO SCH (07:31)
[2023-05-04] MEDS: UMECLIDINIUM/VILANTEROL 62.5/25MCG 7 PUFFS/INHALER INH SCH (07:32)
[2023-05-04 07:34] LABS: BUN Creatinine Ratio 32.4 (10-20); Calcium 9.7 mg/dl (8.6-10.3); Est GFR (African American) 88.1 ml/min; Potassium 4.1 mmol/L (3.5-5.1)
[2023-05-04] MEDS: HEPARIN SOD 5,000 UNIT/0.5 ML VIAL SQ SCH (07:36)
[2023-05-04] MEDS: DOCUSATE SODIUM 100 MG CAP PO SCH (07:36)
[2023-05-04] MEDS: CEFEPIME 2,000 MG in SYRINGE 0 ML IV SCH (07:37)
--- NOTE | 2023-05-04 11:33 | Discharge Summary ---
Date of Service May 04, 2023 Admission HPI Per Admitting Provider 82yo Female with PMH COPD Alzheimer's dementia HTN here for AMS and elevated BP found to her PNA. Patient is unable to give relevant PMH, history obtained from daughter in law. Patient at this time denies any pain SOB nausea. Per Daughter in law, this is patient's 6th hospitalization for PNA in the past year. Patient has had increased AMS and decreased appetite. DOL noted today elevated BP 200/100, brought patient in for evaluation. DOL states patient was in hospital 3 weeks ago, was also diagnosed with PNA send home on 2 PO abx. DOL feels this course of abx was not long enough, patient continued to have delirium after abx course ended. DOL states patient has been steadily declining in ability over the course of the last 6 months, was originally able to perform all her ADLs such as bathing and dressing on her own, at this time now needs to be coached through each step of bathing. Patient is continent of urine and stool, usually ambulates without her cane. Her medication is typically managed by her granddaughter with whom she lives, DOL also lives close by, patient has 24hr care. POA is son Glenn Tomlinson Jr. Principal Diagnosis Right lower lobe pneumonia, acute metabolic encephalopathy, elevated troponin without acute coronary syndrome Discharge Exam General-alert but confused which probably is her baseline since she has dementia HEENT-head atraumatic and normocephalic, pupils equal and reactive to light, extraocular muscles intact Neck-no lymphadenopathy or thyromegaly, trachea midline Chest-bilateral rhonchi, more pronounced right than left. No wheezing Cardiac-regular rate and rhythm, normal S1 and S2 Abdomen-normal bowel sounds, nontender, no hepatosplenomegaly Extremities-no cyanosis, clubbing, or edema Neuro-cranial nerves II through XII intact, motor and sensory function within normal limits, strength symmetrical with generalized weakness, no focal deficits Psych-dementia at baseline. Unable to assess Discharge Data Allergies Allergy/AdvReac Type Severity Reaction Status Date / Time guaifenesin Allergy Unknown Unknown Unverified 05/01/23 11:11 Antihistamines - Alkylamine AdvReac Unknown cant Verified 03/30/23 17:14 remember Antihistamines - Ethanolamine AdvReac Unknown cant Verified 03/30/23 17:14 remember Antihistamines - AdvReac Unknown cant Verified 03/30/23 17:14 Ethylenediamine remember Antihistamines - Piperazine AdvReac Unknown cant Verified 03/30/23 17:14 remember Antihistamines - Piperidine AdvReac Unknown cant Verified 03/30/23 17:14 remember Consultations 05/01/23 02:02 ED Decision to Admit Stat 05/01/23 02:19 Consult Palliative Care Routine Ordered Studies 04/30/23 23:26 CT angio chest PE protocol Stat 05/01/23 13:30 FL video swallow Routine Hospital Course (1) PNA (pneumonia): Suspected right lower lobe pneumonia present on admission. Treated while hospitalized with cefepime, day 4. No pathogen isolated. Home on oral Keflex for 7 more days. Serial chest x-ray looks better (2) AMS (altered mental status): Baseline dementia. Possible component of acute metabolic encephalopathy present on admission. Supportive care. Treat underlying infection. Mental status appears to have returned to baseline (3) Dementia: Supportive care. Continue current medical management. (4) COPD (chronic obstructive pulmonary disease): No apparent exacerbation. Continue current medical management. Treat underlying pneumonia (5) HTN (hypertension): Stable. Continue current treatment plan Plan Home today, May 04. Continue oral Keflex for 1 more week Total Time Total Time Spent Total Time Spent (In Minutes): 45 minutes Discharge Plan Discharge Items Patient Disposition: Home - Self-Care Reason For Visit: PNA Discharge Diagnosis: Right lower lobe pneumonia, acute metabolic encephalopathy, elevated troponin without acute coronary syndrome Activity: Resume your previous activity Non-emergency contact: Primary Care Provider Call non-emergency contact if: your symptoms worsen Follow-up/Referrals: Guerita Engel PA-C [Primary Care Provider] - Diet: Regular Addtl Attending Provider Instructions: Take Keflex (cephalexin) 500 mg 4 times a day for 1 more week. All other medications remain the same Pending Studies at Discharge: No Stand-Alone Forms: My [employer], Smoking Cessation Medications and DC Order Prescriptions: New cephalexin 500 mg capsule 500 mg PO QID 7 Days Qty: 28 0RF Continued multivitamin Tablet 1 tab PO QAM Qty: 0 fexofenadine 180 mg Tablet 180 mg PO QAM Qty: 0 aspirin 81 mg Tablet,Delayed Release (Dr/Ec) 81 mg PO QAM Qty: 0 isosorbide mononitrate 60 mg Tablet Extended Release 24 Hr 60 mg PO QAM Qty: 0 losartan 100 mg Tablet 100 mg PO QAM Qty: 0 docusate sodium [DOK] 100 mg capsule 100 mg PO BID albuterol sulfate 90 mcg/actuation HFA aerosol inhaler 2 puff INHALATION Q4 PRN (Reason: Shortness Of Breath Or Wheezing) potassium chloride 10 mEq tablet extended release 20 meq PO BID calcium carbonate-vitamin D3 [Calcium 600 + D(3)] 600 mg-5 mcg (200 unit) Tablet 1 tab PO BID Trelegy Ellipta 200-62.5-25 mcg Blister With Device 1 inh INHALATION QPM carvedilol 12.5 mg Tablet 12.5 mg PO BID Qty: 60 0RF albuterol sulfate 2.5 mg /3 mL (0.083 %) solution for nebulization 2.5 mg continuous nebulization Q4 PRN (Reason: as directed) Discharge Orders: Discharge Order (Routine); Ordered 05/04/23 Ordered By: Sadi Lucero Admission Data Admit Date/Time: 05/01/23 02:43 Attending Provider: Sadi Lucero Admit Provider: Roxanne Bond Primary Care Provider: Guerita Engel Other Providers: Sarah Parikh Patricia A. Coding Level of Care Code 63363 INP/OBS DISCH >30 MIN Diagnoses PNA (pneumonia) J18.9 AMS (altered mental status) R41.82 Dementia G30.9; F02.82 Alzheimer's disease onset: unspecified onset Dementia behavioral or psychological symptom: with psychotic disturbance Dementia severity: unspecified severity Dementia type: Alzheimer's COPD (chronic obstructive pulmonary disease) J44.9 HTN (hypertension) I10 Hypertension type: unspecified
--- NOTE | 2023-05-05 10:04 | Palliative Care Consultation ---
Date of Consultation May 05, 2023 Assessment & Plan (1) Palliative care by specialist: Plan consult not seen - patient was discharged per chart review chart reviewed x 15min pt not seen/no charge submitted Thank you for allowing us to participate in the ongoing care of this patient. Please don't hesitate to call or page with any additional concerns. Dr. Diane Quintanilla DNP Director, Palliative Care History of Present Illness Reason for Consultation: "worsening dementia: Attending Physician: Sadi Lucero MD History of Present Illness consult not seen - patient was discharged per chart review Thank you for allowing us to participate in the ongoing care of this patient. Please don't hesitate to call or page with any additional concerns. Dr. Diane Quintanilla DNP Director, Palliative Care Allergies Allergy/AdvReac Type Severity Reaction Status Date / Time guaifenesin Allergy Unknown Unknown Unverified 05/01/23 11:11 Antihistamines - Alkylamine AdvReac Unknown cant Verified 03/30/23 17:14 remember Antihistamines - Ethanolamine AdvReac Unknown cant Verified 03/30/23 17:14 remember Antihistamines - AdvReac Unknown cant Verified 03/30/23 17:14 Ethylenediamine remember Antihistamines - Piperazine AdvReac Unknown cant Verified 03/30/23 17:14 remember Antihistamines - Piperidine AdvReac Unknown cant Verified 03/30/23 17:14 remember Home Medications Medication Instructions Recorded Confirmed Type aspirin 81 mg tablet,delayed 81 mg PO QAM ##0 03/14/17 05/01/23 History release fexofenadine 180 mg tablet 180 mg PO QAM #0 tabs 03/14/17 05/01/23 History multivitamin 1 tab PO QAM ##0 03/14/17 03/30/23 History isosorbide mononitrate 60 mg 60 mg PO QAM #0 tabs 08/07/17 05/01/23 History tablet,extended release 24 hr losartan 100 mg tablet 100 mg PO QAM #0 tabs 08/07/17 05/01/23 History potassium chloride 10 mEq 20 meq PO BID 04/14/21 05/01/23 History tablet,extended release calcium carbonate 600 mg-vitamin 1 tab PO BID 10/30/21 05/01/23 History D3 5 mcg (200 unit) tablet (Calcium 600 + D(3)) fluticasone fur. 200 mcg-umeclid 1 inh inhalation QPM 10/30/21 05/01/23 History 62.5 mcg-vilant 25 mcg inhalat.powder (Trelegy Ellipta) carvedilol 12.5 mg tablet 12.5 mg PO BID #60 tabs 11/10/21 05/01/23 Rx docusate sodium 100 mg capsule 100 mg PO BID 05/06/22 05/01/23 History (DOK) albuterol sulfate 90 mcg/actuation 2 puff inhalation Q4 PRN Shortness 10/06/22 05/01/23 History aerosol inhaler Of Breath Or Wheezing albuterol sulfate 2.5 mg/3 mL 2.5 mg continuous nebulization Q4 03/30/23 05/01/23 History (0.083 %) solution for nebulization PRN as directed cephalexin 500 mg capsule 500 mg PO QID 7 days #28 caps 05/03/23 Rx Patient History Medical History Facial bruising Acute exacerbation of chronic obstructive pulmonary disease Chronic renal failure, stage 3a No pertinent family history Dementia Heart disease Diabetes COPD (chronic obstructive pulmonary disease) Hypertension Surgical History S/P cataract extraction and insertion of intraocular lens b/l Family History Other Family history unknown Social History Smoking Status: Never smoker Tobacco Type: Cigarettes Cigarettes Per Day: minimal amount of tobacco at age 20yo only; Second Hand Exposure: No; Do You Dip or Chew Tobacco: No; Hx Alcohol Use: No Hx Substance Use: No Preferred Language: Estonian Communication Ability: Impaired Maintenance Supervisor Required: No Beliefs That Will Affect Care: None marital status: / Current Living Situation: Family Current Living Situation Comment: granddaughter lives with pt current occupational status: retired current occupation: worked at "[employer]" How many Children do You have: 4 How many Children do You have Comment: 2 sons, 2 daughters Feels Safe at Home: Yes Assistive Devices: Cane, Denture - Upper, Denture - Lower and Glasses PG Care Time/CCT Total # of Minutes Spent Total Time Spent with Patient: Total time spent is greater than 50% in coordination of care (as documented) at patient's floor/unit and/or counseling patient: Coding Level of Care Code None Diagnoses Palliative care by specialist Z51.5
--- NOTE | 2023-05-11 16:53 | Communication Note ---
Date of Service: May 11, 2023 This afternoon I spent 42 minutes on the phone call with Rock remains the primary caregiver Marlen odom She voiced many concerns over her discharge including feeling the patient was discharged earlier that we had no caring for the patient given her age recurrent admissions and diagnosis of Alzheimer's One of her biggest concerns was the patient's safety especially confusion with passwords and allowing people to visit and also her safety with her confusion and getting out of bed without having a sitter at the bedside Another concern was lack of communication from nursing staff and providers this is corroborated as there was requested Dr. Solomon the call the daughter this seems to have not been completed It is unclear whether there was discussion at discharge with discharge instructions for the folks who picked up Mrs. Borjas at this was not clear to Rock or myself but the chart Upon chart review the patient did seem to be medically stable for discharge but Ms. Power was just concerned that she felt her aftercare was affected by lack of communication At the end of the conversation I assured Ms. Power that I would speak with Dr. Lucero that we would try to improve communication during her next hospital stay and that she should asked to have a sitter at the bedside if the family would not be present. She said she had asked for sitter with the last hospital stay but this could not be accomplished.
== END 2023-05-04 12:59 | disposition home or self-care (01) | DRG 193 ==
LOC: ED 18:44 → EDINP 05-01 02:43 → SUATTDRO 05-01 02:43 → 3W 05-01 04:31

== ENCOUNTER 2023-07-28 11:56 | Inpatient (IN) ==
[2023-07-28 12:45] LABS: Basophils # (auto) 0.04 K/uL (0.00-0.20); Basophils % (auto) 0.4 %; Eosinophils # (auto) 0.05 K/uL (0.00-0.50); Eosinophils % (auto) 0.5 %; Hematocrit (blood only) 45.5 % (37.0-47.0); Hemoglobin 15.3 g/dl (12.0-16.0); Immature Granulocytes # (auto) 0.04 K/uL (0.01-0.20); Immature Granulocytes % (auto) 0.4 %; Lymphocytes # (auto) 1.22 K/uL (1.20-3.40); Mean Corpuscular Hemoglobin 29.6 pg (25.0-34.0); Mean Corpuscular Hgb Conc 33.6 g/dL (32.0-36.0); Mean Platelet Volume 9.7 fL (9.4-12.4); Monocytes # (auto) 0.59 K/uL (0.11-0.59); Monocytes % (auto) 5.3 %; Neutrophils # (auto) 9.11 K/uL (1.40-6.50); Neutrophils % (auto) 82.4 %; Platelet Count 309 K/uL (130-400); RDW Coefficient of Variation 14.1 % (11.5-14.5); RDW Standard Deviation 45.7 fL (36.4-46.3); Red Blood Count 5.17 M/uL (4.20-5.40); White Blood Count 11.05 K/ul (4.8-10.8)
[2023-07-28 12:53] LABS: Albumin Level 3.4 gm/dl (3.4-5.0); Bilirubin,Total 0.4 mg/dl (0.2-1.0); Calcium 9.6 mg/dl (8.6-10.3); Potassium 4.3 mmol/L (3.5-5.1)
[2023-07-28 12:59] LABS: BUN Creatinine Ratio 52.1 (10-20); Creatinine Clr Calc Pharmacy 62.6 ml/min; Est GFR (African American) 89.5 ml/min; Est GFR (Non-African American) 77.2 ml/min; Globulin 3.4 gm/dl (2.5-4.0); Total Protein 6.8 gm/dl (6.0-8.3)
[2023-07-28 13:03] LABS: Influenza A virus by PCR Negative (Neg); Influenza B virus by PCR Negative (Neg); RSV by PCR Negative (Neg); SARS CoV2 RNA(COVID-19) Ceph NEGATIVE (Negative)
--- NOTE | 2023-07-28 13:28 | Electrocardiogram Report ---
Test Reason : Blood Pressure : / mmHG Vent. Rate : 072 BPM Atrial Rate : 072 BPM P-R Int : 136 ms QRS Dur : 082 ms QT Int : 384 ms P-R-T Axes : 048 -36 042 degrees QTc Int : 420 ms Poor data quality, interpretation may be adversely affected Normal sinus rhythm Left axis deviation Abnormal ECG When compared with ECG of 11-JUL-2023 12:33, Aberrant conduction is no longer Present Confirmed by Maicol Roberts ([id number]) on 07/28/2023 1:28:23 PM Referred By: Confirmed By:Maicol Roberts
[2023-07-28 13:30] LABS: Partial Thromboplastin Time 28 Seconds (21-31); Prothrombin Time 10.9 Seconds (9.0-12.0)
--- NOTE | 2023-07-28 14:14 | Emergency Department Note ---
History of Present Illness General Chief complaint: Illness Stated complaint: LOW OXYGEN LEVELS Time Seen by Provider: 07/28/23 13:44 Source: family ([id number] at bedside) History of Present Illness Provider complaint: Altered mental status 82-year-old female with end-stage Alzheimer's dementia presents emergency department for altered mental status. She is accompanied by her [id number]. Dectadfq-ax-tra reports that the patient was increasingly confused today. The [id number] reports she took the patient's vitals and noted a high blood pressure as well as an oxygen saturation between 90 to 92%. She does make note that the patient's temperature and heart rate were within normal limits. She denies any falls. Patient is unable to give any history. [id number] states that she wants the patient placed into a jail because they cannot take care of her at home anymore and she is having increasingly bad sundowning. Home Medications Medication Instructions Recorded Confirmed Type aspirin 81 mg tablet,delayed 81 mg PO QAM ##0 03/14/17 07/28/23 History release fexofenadine 180 mg tablet 180 mg PO QAM #0 tabs 03/14/17 07/28/23 History multivitamin 1 tab PO QAM ##0 03/14/17 07/28/23 History isosorbide mononitrate 60 mg 60 mg PO QAM #0 tabs 08/07/17 07/28/23 History tablet,extended release 24 hr losartan 100 mg tablet 100 mg PO QAM #0 tabs 08/07/17 07/28/23 History potassium chloride 10 mEq 20 meq PO BID 04/14/21 07/28/23 History tablet,extended release calcium carbonate 600 mg-vitamin 1 tab PO BID 10/30/21 07/28/23 History D3 5 mcg (200 unit) tablet (Calcium 600 + D(3)) fluticasone fur. 200 mcg-umeclid 1 inh inhalation QPM 10/30/21 07/28/23 History 62.5 mcg-vilant 25 mcg inhalat.powder (Trelegy Ellipta) carvedilol 12.5 mg tablet 12.5 mg PO BID #60 tabs 11/10/21 07/28/23 Rx albuterol sulfate 90 mcg/actuation 2 puff inhalation Q4 PRN Shortness 10/06/22 07/28/23 History aerosol inhaler Of Breath Or Wheezing albuterol sulfate 2.5 mg/3 mL 2.5 mg continuous nebulization Q4H 03/30/23 07/28/23 History (0.083 %) solution for nebulization PRN Shortness Of Breath Or Wheezing docusate sodium 100 mg capsule 100 mg PO BID 07/11/23 07/28/23 History guaifenesin 600 mg tablet, 600 mg PO BID 07/28/23 07/28/23 History extended release 12 hr (Mucinex) Allergies Allergy/AdvReac Type Severity Reaction Status Date / Time guaifenesin Allergy Unknown Unknown Unverified 07/28/23 14:15 Antihistamines - Alkylamine AdvReac Unknown cant Verified 07/28/23 14:15 remember Antihistamines - Ethanolamine AdvReac Unknown cant Verified 07/28/23 14:15 remember Antihistamines - AdvReac Unknown cant Verified 07/28/23 14:15 Ethylenediamine remember Antihistamines - Piperazine AdvReac Unknown cant Verified 07/28/23 14:15 remember Antihistamines - Piperidine AdvReac Unknown cant Verified 07/28/23 14:15 remember Past Med/Surg History Medical History (Updated 07/28/23 @ 22:35 by Wilbur Gil MD) Chronic renal failure, stage 3a HTN (hypertension) COPD (chronic obstructive pulmonary disease) Alzheimer disease Facial bruising Acute exacerbation of chronic obstructive pulmonary disease No pertinent family history Dementia Heart disease Diabetes Hypertension Surgical History S/P cataract extraction and insertion of intraocular lens b/l Family History Other Family history unknown Social History Smoking Status: Former smoker Tobacco Type: Cigarettes Cigarettes Per Day: minimal amount of tobacco at age 20yo only; Second Hand Exposure: No; Do You Dip or Chew Tobacco: No; Hx Alcohol Use: No Hx Substance Use: No Preferred Language: Albanian Communication Ability: Impaired Overhead Crane Operator Required: No Beliefs That Will Affect Care: None marital status: / Current Living Situation: Family Current Living Situation Comment: granddaughter lives with pt current occupational status: retired current occupation: worked at "[employer]" How many Children do You have: 4 How many Children do You have Comment: 2 sons, 2 daughters Feels Safe at Home: Yes Assistive Devices: Cane, Denture - Upper, Denture - Lower and Glasses Physical Exam Vital Signs Vital Signs - 24 hr 07/28/23 11:58 07/28/23 12:56 07/28/23 13:10 Temperature 35.9 C L 36.5 C Temperature Source Temporal Artery Scan Oral Pulse Rate 77 66 Pulse Rate [Apical] 65 Pulse Rhythm [Apical] Respiratory Rate 16 18 Respiratory Effort / Characteristics Non-Labored Spontaneous Respiratory Depth Normal Respiratory Pattern Blood Pressure 139/75 Blood Pressure [Left Arm] 149/91 H Blood Pressure Mean 96 Blood Pressure Mean [Left Arm] 110 Blood Pressure Position [Left Arm] Semi-fowlers Pulse Oximetry 95 96 Oxygen Delivery Method Room Air Room Air Sepsis Recent Fever Within 48 Hours No Sepsis New/Unexplained Change in Mental Status No Sepsis Action Taken by Nursing No Action Required 07/28/23 14:08 07/28/23 17:20 Temperature Temperature Source Pulse Rate Pulse Rate [Apical] 64 68 Pulse Rhythm [Apical] Regular Respiratory Rate 18 18 Respiratory Effort / Characteristics Spontaneous Non-Labored Spontaneous Respiratory Depth Normal Respiratory Pattern Regular Blood Pressure Blood Pressure [Left Arm] 166/91 H 159/97 H Blood Pressure Mean Blood Pressure Mean [Left Arm] 116 117 Blood Pressure Position [Left Arm] Semi-fowlers Pulse Oximetry 97 96 Oxygen Delivery Method Room Air Room Air Sepsis Recent Fever Within 48 Hours Sepsis New/Unexplained Change in Mental Status Sepsis Action Taken by Nursing Physical Exam HENT: Exam performed. - Head: Normocephalic and atraumatic. EYES: Conjunctivae and EOM are normal. Right eye exhibits no discharge. Left eye exhibits no discharge. No scleral icterus. NECK: Normal range of motion. Neck supple. No JVD present. CV: Normal rate, regular rhythm, normal heart sounds and intact distal pulses. There is no peripheral edema. Palpable radial pulses bue. PULM/CHEST: Effort normal and breath sounds normal. No respiratory distress. No stridor. no wheezes. no rales. ABD: The abdomen is soft. There is tenderness to palpation of the left lower quadrant. NEURO: Motor and sensation grossly intact. SKIN: Skin is warm and dry. He is not diaphoretic. Course Course 1344: The patient was evaluated in room C8. A complete history and physical exam was performed Cardiac monitoring: An order was placed for continuous cardiac monitoring. The monitor shows a rate of 70 with sinus rhythm interpreted by me 1702: Vital signs stable. Labs show white blood cell count 11.05. VBG within normal limits. Chest x-ray shows right lower lung infiltrate. Patient be treated with Zosyn in case there is any component of aspiration pneumonia. [facility] as well as placement as requested by the family at bedside. Administered Medications Lactated Ringer's (Lr) 1,000 mls @ 80 mls/hr IV .[id number] KATHERIN Stop: 08/27/23 19:29 Last Admin: 07/28/23 21:01 Dose: 80 mls/hr Documented By: PIOTR Discontinued Medications Piperacillin Sod/Tazobactam Sod (Zosyn) 4.5 gm in 120 mls @ 240 mls/hr IV NOW ONE Stop: 07/28/23 17:31 Last Infusion: 07/28/23 17:51 Dose: Infused Documented By: Admin: 07/28/23 17:18 Dose: 240 mls/hr Documented By: PIOTR Azithromycin 500 mg/ Dextrose 255 mls @ 125 mls/hr IV ONE STA Stop: 07/28/23 21:09 Last Infusion: 07/28/23 22:21 Dose: Infused Documented By: Admin: 07/28/23 19:31 Dose: 125 mls/hr Documented By: PIOTR Ampicillin Sodium/Sulbactam Sodium 3,000 mg/ Sodium Chloride 100 mls @ 200 mls/hr IV ONE STA Stop: 07/28/23 19:38 Last Infusion: 07/28/23 20:07 Dose: Infused Documented By: Admin: 07/28/23 19:29 Dose: 200 mls/hr Documented By: PIOTR Acetaminophen (Ofirmev) 1,000 mg in 100 mls @ 400 mls/hr IV NOW STA Stop: 07/28/23 20:16 Last Infusion: 07/28/23 20:55 Dose: Infused Documented By: Admin: 07/28/23 20:33 Dose: 400 mls/hr Documented By: PIOTR Ioversol (Optiray 320 100ml) 93 ml IV ONCE ONE Stop: 07/28/23 14:23 Last Admin: 07/28/23 14:22 Dose: 93 ml Documented By: WYATT Medical Decision Making Laboratory Data Attestation: I reviewed the patient's lab results. 07/28/23 12:13 07/28/23 12:13 Lab Results 07/28/23 07/28/23 07/28/23 Range/Units 12:03 12:13 12:43 WBC 11.05 H (4.8-10.8) K/ul RBC 5.17 (4.20-5.40) M/uL Hgb 15.3 (12.0-16.0) g/dl Hct 45.5 (37.0-47.0) % MCV 88.0 (80.0-100.0) fL MCH 29.6 (25.0-34.0) pg MCHC 33.6 (32.0-36.0) g/dL RDW Std Deviation 45.7 (36.4-46.3) fL RDW Coeff of Ede 14.1 (11.5-14.5) % Plt Count 309 (130-400) K/uL MPV 9.7 (9.4-12.4) fL Immature Gran % (Auto) 0.4 % Neut % (Auto) 82.4 % Lymph % (Auto) 11.0 % [place] % (Auto) 5.3 % Eos % (Auto) 0.5 % Baso % (Auto) 0.4 % Neut # (Auto) 9.11 H (1.40-6.50) K/uL Lymph # (Auto) 1.22 (1.20-3.40) K/uL [place] # (Auto) 0.59 (0.11-0.59) K/uL Eos # (Auto) 0.05 (0.00-0.50) K/uL Baso # (Auto) 0.04 (0.00-0.20) K/uL Immature Gran # (Auto) 0.04 (0.01-0.20) K/uL PT Cancelled INR Cancelled APTT Cancelled PTT Ratio Cancelled VBG pH (7.36-7.41) VBG pCO2 (38-50) mmHg VBG pO2 mmHg VBG HCO3 mmol/L VBG O2 Saturation % VBG Base Excess mEq/L Sodium 140 (136-145) mmol/L Potassium 4.3 (3.5-5.1) mmol/L Chloride 110 H (98-107) mmol/L Carbon Dioxide 24 (21-32) mmol/L Anion Gap 6 (3-11) BUN 38 H (6-23) mg/dl Creatinine 0.73 (0.6-1.2) mg/dl Est Cr Clr Drug Dosing 62.6 ml/min Est GFR ( Amer) 89.5 ml/min Est GFR (Non-Af Amer) 77.2 ml/min BUN/Creatinine Ratio 52.1 H (10-20) Glucose 155 H (70-99(Fasting)) mg/dl Calcium 9.6 (8.6-10.3) mg/dl Magnesium 2.2 (1.7-2.4) mg/dl Total Bilirubin 0.4 (0.2-1.0) mg/dl AST 30 (13-39) U/L ALT 55 H (7-52) U/L Alkaline Phosphatase 103 (34-104) U/L Troponin I High Sens 10.5 (0-14) pg/ml B-Natriuretic Peptide 128 H (0-100) pg/ml Total Protein 6.8 (6.0-8.3) gm/dl Albumin 3.4 (3.4-5.0) gm/dl Globulin 3.4 (2.5-4.0) gm/dl Albumin/Globulin Ratio 1.0 (0.9-2) SARS-CoV-2 (PCR) NEGATIVE (Negative) Influenza Type A (PCR) Negative (Neg) Influenza Type B (PCR) Negative (Neg) RSV (RT-PCR) Negative (Neg) 07/28/23 07/28/23 Range/Units 12:46 15:12 WBC (4.8-10.8) K/ul RBC (4.20-5.40) M/uL Hgb (12.0-16.0) g/dl Hct (37.0-47.0) % MCV (80.0-100.0) fL MCH (25.0-34.0) pg MCHC (32.0-36.0) g/dL RDW Std Deviation (36.4-46.3) fL RDW Coeff of Ede (11.5-14.5) % Plt Count (130-400) K/uL MPV (9.4-12.4) fL Immature Gran % (Auto) % Neut % (Auto) % Lymph % (Auto) % [place] % (Auto) % Eos % (Auto) % Baso % (Auto) % Neut # (Auto) (1.40-6.50) K/uL Lymph # (Auto) (1.20-3.40) K/uL [place] # (Auto) (0.11-0.59) K/uL Eos # (Auto) (0.00-0.50) K/uL Baso # (Auto) (0.00-0.20) K/uL Immature Gran # (Auto) (0.01-0.20) K/uL PT 10.9 INR 1.0 APTT 28 PTT Ratio 1.0 VBG pH 7.43 H (7.36-7.41) VBG pCO2 43 (38-50) mmHg VBG pO2 34 mmHg VBG HCO3 29 mmol/L VBG O2 Saturation < 60.0 % VBG Base Excess 3.7 mEq/L Sodium (136-145) mmol/L Potassium (3.5-5.1) mmol/L Chloride (98-107) mmol/L Carbon Dioxide (21-32) mmol/L Anion Gap (3-11) BUN (6-23) mg/dl Creatinine (0.6-1.2) mg/dl Est Cr Clr Drug Dosing ml/min Est GFR ( Amer) ml/min Est GFR (Non-Af Amer) ml/min BUN/Creatinine Ratio (10-20) Glucose (70-99(Fasting)) mg/dl Calcium (8.6-10.3) mg/dl Magnesium (1.7-2.4) mg/dl Total Bilirubin (0.2-1.0) mg/dl AST (13-39) U/L ALT (7-52) U/L Alkaline Phosphatase (34-104) U/L Troponin I High Sens (0-14) pg/ml B-Natriuretic Peptide (0-100) pg/ml Total Protein (6.0-8.3) gm/dl Albumin (3.4-5.0) gm/dl Globulin (2.5-4.0) gm/dl Albumin/Globulin Ratio (0.9-2) SARS-CoV-2 (PCR) (Negative) Influenza Type A (PCR) (Neg) Influenza Type B (PCR) (Neg) RSV (RT-PCR) (Neg) Imaging Data Attestation: I personally reviewed and interpreted this imaging study as follows: My Impression: Chest x-ray: Right lower lobe infiltrate Radiologist's Impression: Chest X-Ray 07/28/23 14:05 XR chest 2V PA/lateral CLINICAL HISTORY: sob TECHNIQUE: 2 views of the chest were obtained. Comparison: Comparison is made to chest radiograph 07/11/2023 FINDINGS: No lines and tubes are seen. The cardiomediastinal silhouette is normal. Airspace opacities in the right lower lung. No evidence of pleural effusion or pneumothorax. IMPRESSION: Airspace opacity in the right lower lung likely represent infectious/inflammatory process. ACT 112: Negative or not required by law. Electronically signed by: Endy Hammond M.D. 07/28/2023 4:[address] 07/28/23 14:11 CT OF THE HEAD WITHOUT CONTRAST CLINICAL HISTORY: Altered mental status. COMPARISON STUDY: MRI of the brain January 04, 2023. Head CT and CTA of the head July 11, 2023. TECHNIQUE: Helical axial images of the head were obtained without IV contrast. Automated exposure control was utilized for the study. A dose lowering technique was utilized adhering to the principles of ALARA. FINDINGS: No acute intracranial hemorrhage, midline shift or mass effect is present. Ventricular system is stable. 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 No evidence for hydrocephalus. No extra-axial collections. There are no findings to suggest acute dural sinus thrombosis or acute territorial infarct. There are no calvarial fractures. Ethmoid and sphenoid sinuses are partially opacified. This is unchanged. IMPRESSION: No acute intracranial findings. ACT 112: Negative or not required by law. Electronically signed by: Hayes Coyne M.D. 07/28/2023 2:53 PM Abdomen/Pelvis CT 07/28/23 14:14 CT abd pelvis IV con only CLINICAL HISTORY: abd pain TECHNIQUE: Helical axial images of the abdomen and pelvis were obtained and displayed. Automated dose lowering techniques and/or adjustment according to patient size were utilized for this exam. This exam was performed with intravenous contrast. CT DOSE: 1754.74 mGy.cm COMPARISON: Comparison is made to CT abdomen pelvis 11/19/2017 FINDINGS: Lower chest: Bibasilar atelectasis versus scarring is seen. Liver: Subcentimeter hypodensities in the liver are too small to characterize. Gallbladder and biliary tree: No calcified gallstones. Normal caliber wall. No intra- or extrahepatic biliary ductal dilation. Pancreas: Unremarkable, no focal lesions. Spleen: Unremarkable. Adrenals: Thickening of the adrenal glands noted. Kidneys and ureters: Renal cysts are seen. Nonobstructive stones are seen on the left. Bladder: Unremarkable. Reproductive organs: Unremarkable. Bowel: Diverticulosis is seen without evidence of diverticulitis. The appendix is not definitely seen however no secondary signs of appendicitis are seen. A small hiatal hernia is seen. Lymph nodes Retroperitoneal: Unremarkable. Pelvic: Unremarkable. Mesenteric: Unremarkable. Peritoneum: Normal. Vessels: Atherosclerotic calcifications are seen. Abdominal wall: Unremarkable. Bones: Degenerative changes in the visualized spine. 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 IMPRESSION: 1. No acute abnormalities. 2. Diverticulosis without diverticulitis. 3. Nonobstructive nephrolithiasis. 4. Additional findings as above. ACT 112: Negative or not required by law. Electronically signed by: Endy Hammond M.D. 07/28/2023 2:55 PM ECG Data Attestation: I personally reviewed and interpreted this ECG as follows: Rate (beats per minute): 72 Rhythm: + normal sinus ECG Intervals/blocks: + Normal QRS, + Normal [place] and + Normal QT-c ECG ST segments: + Normal ST segments [facility] Narrative 1344: The patient was evaluated in room C8. A complete history and physical exam was performed Cardiac monitoring: An order was placed for continuous cardiac monitoring. The monitor shows a rate of 70 with sinus rhythm interpreted by ak 1702: Vital signs stable. Labs show white blood cell count 11.05. VBG within normal limits. Chest x-ray shows right lower lung infiltrate. Patient be treated with Zosyn in case there is any component of aspiration pneumonia. Patient will be admitted to the [facility] hospitalist team for treatment of the pneumonia as well as placement as requested by the family at bedside. Impression & Plan PNA (pneumonia), Alzheimer's dementia Discharge Plan Visit Data Chief Complaint: Illness Stated Complaint: LOW OXYGEN LEVELS ED Provider: Wilbur Gil Discharge Problem: PNA (pneumonia), Alzheimer's dementia Patient Disposition: Being Evaluated by Hospitalist
[2023-07-28] MEDS: OPTIRAY 320 100ml IV ONE (14:22)
[2023-07-28 14:41] LABS: Troponin I High Sensitivity 10.5 pg/ml (0-14)
--- NOTE | 2023-07-28 14:55 | CT Scan Report ---
CT OF THE HEAD WITHOUT CONTRAST CLINICAL HISTORY: Altered mental status. COMPARISON STUDY: MRI of the brain January 04, 2023. Head CT and CTA of the head July 11, 2023. TECHNIQUE: Helical axial images of the head were obtained without IV contrast. Automated exposure con trol was utilized for the study. A dose lowering technique was utilized adhering to the principles o f ALARA. FINDINGS: No acute intracranial hemorrhage, midline shift or mass effect is present. Ventricular syst em is stable. 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 No evidence for hydrocephalus. No extra-axial collectio ns. There are no findings to suggest acute dural sinus thrombosis or acute territorial infarct. There are no calvarial fractures. Ethmoid and sphenoid sinuses are partially opacified. This is unchanged. IMPRESSION: No acute intracranial findings. ACT 112: Negative or not required by law. Electronically signed by: Hayes Coyne M.D. 07/28/2023 2:53 PM
--- NOTE | 2023-07-28 14:57 | CT Scan Report ---
CT abd pelvis IV con only CLINICAL HISTORY: abd pain TECHNIQUE: Helical axial images of the abdomen and pelvis were obtained and displayed. Automated dose lowering techniques and/or adjustment according to patient size were utilized for this exam. This e xam was performed with intravenous contrast. CT DOSE: 1754.74 mGy.cm COMPARISON: Comparison is made to CT abdomen pelvis 11/19/2017 FINDINGS: Lower chest: Bibasilar atelectasis versus scarring is seen. Liver: Subcentimeter hypodensities in the liver are too small to characterize. Gallbladder and biliary tree: No calcified gallstones. Normal caliber wall. No intra- or extrahepatic biliary ductal dilation. Pancreas: Unremarkable, no focal lesions. Spleen: Unremarkable. Adrenals: Thickening of the adrenal glands noted. Kidneys and ureters: Renal cysts are seen. Nonobstructive stones are seen on the left. Bladder: Unremarkable. Reproductive organs: Unremarkable. Bowel: Diverticulosis is seen without evidence of diverticulitis. The appendix is not definitely seen however no secondary signs of appendicitis are seen. A small hiatal hernia is seen. Lymph nodes Retroperitoneal: Unremarkable. Pelvic: Unremarkable. Mesenteric: Unremarkable. Peritoneum: Normal. Vessels: Atherosclerotic calcifications are seen. Abdominal wall: Unremarkable. Bones: Degenerative changes in the visualized spine. 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 IMPRESSION: 1. No acute abnormalities. 2. Diverticulosis without diverticulitis. 3. Nonobstructive nephrolithiasis. 4. Additional findings as above. ACT 112: Negative or not required by law. Electronically signed by: Endy Hammond M.D. 07/28/2023 2:55 PM
[2023-07-28 15:06] LABS: Magnesium 2.2 mg/dl (1.7-2.4)
[2023-07-28 15:32] LABS: Base Excess VBG 3.7 mEq/L; HCO3 VBG 29 mmol/L; Oxygen Saturation VBG < 60.0 %; PCO2 VBG 43 mmHg (38-50); PO2 VBG 34 mmHg; pH VBG 7.43 (7.36-7.41)
--- NOTE | 2023-07-28 16:13 | XRay Report ---
XR chest 2V PA/lateral CLINICAL HISTORY: sob TECHNIQUE: 2 views of the chest were obtained. Comparison: Comparison is made to chest radiograph 07/11/2023 FINDINGS: No lines and tubes are seen. The cardiomediastinal silhouette is normal. Airspace opacities in the ri ght lower lung. No evidence of pleural effusion or pneumothorax. IMPRESSION: Airspace opacity in the right lower lung likely represent infectious/inflammatory process. ACT 112: Negative or not required by law. Electronically signed by: Endy Hammond M.D. 07/28/2023 4:12 PM
[2023-07-28] MEDS: PIPERACILLIN/TAZOBACTAM 4.5 GM/120 ML BAG IV ONE (17:18)
[2023-07-28] MEDS ORDERED: AMPICILLIN SOD/SULBACTAM SOD 3 GM VIAL IV SCH (19:00)
--- NOTE | 2023-07-28 19:21 | History & Physical Report ---
Date of Service July 28, 2023 Assessment & Plan (1) PNA (pneumonia): Plan: Patient is an 82-year-old female with a past medical history of Alzheimer's dementia, COPD, multiple bouts of pneumonia, and previous ID status post anesthesia from right hip replacement 16 years ago who presents to the hospital for evaluation of altered mental status. Patient found to have a new inflammatory process in right lower lobe of lung on imaging suggestive of pneumonia. Patient to be admitted for antibiotic therapy as well as case management for placement for no longer able to have needs attended to at home. -Admit to [facility], no indication for telemetry -Curb 65 of 3 -MRSA nare pending, will hold MRSA coverage for now -Sputum cultures ordered, however, expectoration has not been visualized at home -Started on Zosyn on ED, do not feel pseudomonal coverage is needed at this time, switch to Unasyn plus azithromycin for treatment of community-acquired pneumonia with coverage for aspirate organisms -Patient with choking episode yesterday which may be evidence of aspiration related to advancing dementia -Consult speech therapy, appreciate recommendations -N.p.o. until speech consultation is completed, 80 cc/h of LR in meantime until consultation completed -Hold medications for now -Suspect patient is having small amounts of aspiration frequently resulting in multiple bouts of pneumonia specifically in the right lower lobe over the past year. Consider consulting palliative medicine to determine strategies on how to remain out of the hospital and be more comfortable at home/at a facility. (2) AMS (altered mental status): Plan: - Likely secondary to acute infectious process on top of Alzheimer's dementia -Aspiration precautions, fall precautions -Urine culture ordered but not collected at the time of writing this note -Frequent reorientation as able. (3) Alzheimer's dementia: Plan: - Noted in history, see above -Case management consulted, appreciate recommendations (4) COPD (chronic obstructive pulmonary disease): Plan: - Continue Trelegy daily -Albuterol as needed for shortness of breath or wheezing (5) HTN (hypertension): Plan: - Continue losartan when no longer n.p.o. (6) Chronic renal failure, stage 3a: Plan: - Renally dose medications when able -GFR at 77 at the time of admission, trend BMP while admitted Plan Disposition: Admit to [facility] for antibiotic therapy and likely placement for advancing dementia Diet: N.p.o. for now, LR at 80 cc/h for maintenance IV fluid DVT prophylaxis: Heparin twice daily CODE STATUS: DNR/DNI as discussed with juhztrjk-bo-inb and DNR in file at hospital History of Present Illness Chief Complaint: Altered mental status Primary Care Provider: Guerita Engel Patient is an 82-year-old female with a past medical history of Alzheimer's dementia, COPD, multiple bouts of pneumonia, and previous ID status post anesthesia from right hip replacement 16 years ago who presents to the hospital for evaluation of altered mental status. Patient has a history of relatively advanced dementia to the point that she requires constant care from rgezwbfc-ol-bip who is with the patient at the time of my interview. Patient is only oriented to self and without understanding of why she is here nor what brought her to the hospital. Vbajlivg-zf-jzo states that over the past year, there has been progressive worsening mentation and increased frequency with hospitalizations mostly due to episodes of pneumonia. Patient has also had bouts with urinary tract infections in the outpatient setting which is also become more frequent per the afnmxkxr-dc-tbm's history. At this point, she and her (the patient's son and POA) are unable to care for her adequately at home given her increased frequency of confusion and agitation. Jqwmvcba-hc-zvw is interested in getting patient set up with a living facility specifically 1 that deals with dementia. This was discussed at previous admission, however, patient was discharged home prior to consultation with palliative care nor options from case management at that time. The reason the patient was brought in today was because she was increasingly agitated and confused especially this morning and this is typically an indication that the patient is dealing with some sort of underlying infection. Was not complaining of shortness of breath, chest pain, nausea, or vomiting. No fevers recorded at home. Bhuoxmiu-le-igy notes that yesterday, patient did have a choking fit that was unwitnessed by herself and was witnessed by her daughter. Vitals were normal at home per fwyczpuy-jm-pzi. No other noted complaints ED course: Patient evaluated by provider. Labs are significant for a mildly elevated white blood cell count of 11.1, pH of 7.43, BUN of 38, glucose of 155, ALT of 55, BNP of 128, and negative COVID/flu testing. Chest x-ray was indicative of a new right lower lobe inflammatory process suggestive of infection. Head CT without any acute intracranial findings. CT of the abdomen and pelvis without any acute pathology. There is evidence of diverticulosis without diverticulitis and nonobstructive nephrolithiasis. Because of the patient's progressive dementia and new pneumonia, the hospitalist service was consulted for admission and further management. Allergies Allergy/AdvReac Type Severity Reaction Status Date / Time guaifenesin Allergy Unknown Unknown Unverified 07/28/23 14:15 Antihistamines - Alkylamine AdvReac Unknown cant Verified 07/28/23 14:15 remember Antihistamines - Ethanolamine AdvReac Unknown cant Verified 07/28/23 14:15 remember Antihistamines - AdvReac Unknown cant Verified 07/28/23 14:15 Ethylenediamine remember Antihistamines - Piperazine AdvReac Unknown cant Verified 07/28/23 14:15 remember Antihistamines - Piperidine AdvReac Unknown cant Verified 07/28/23 14:15 remember Home Medications Medication Instructions Recorded Confirmed Type aspirin 81 mg tablet,delayed 81 mg PO QAM ##0 03/14/17 07/28/23 History release fexofenadine 180 mg tablet 180 mg PO QAM #0 tabs 03/14/17 07/28/23 History multivitamin 1 tab PO QAM ##0 03/14/17 07/28/23 History isosorbide mononitrate 60 mg 60 mg PO QAM #0 tabs 08/07/17 07/28/23 History tablet,extended release 24 hr losartan 100 mg tablet 100 mg PO QAM #0 tabs 08/07/17 07/28/23 History potassium chloride 10 mEq 20 meq PO BID 04/14/21 07/28/23 History tablet,extended release calcium carbonate 600 mg-vitamin 1 tab PO BID 10/30/21 07/28/23 History D3 5 mcg (200 unit) tablet (Calcium 600 + D(3)) fluticasone fur. 200 mcg-umeclid 1 inh inhalation QPM 10/30/21 07/28/23 History 62.5 mcg-vilant 25 mcg inhalat.powder (Trelegy Ellipta) carvedilol 12.5 mg tablet 12.5 mg PO BID #60 tabs 11/10/21 07/28/23 Rx albuterol sulfate 90 mcg/actuation 2 puff inhalation Q4 PRN Shortness 10/06/22 07/28/23 History aerosol inhaler Of Breath Or Wheezing albuterol sulfate 2.5 mg/3 mL 2.5 mg continuous nebulization Q4H 03/30/23 07/28/23 History (0.083 %) solution for nebulization PRN Shortness Of Breath Or Wheezing docusate sodium 100 mg capsule 100 mg PO BID 07/11/23 07/28/23 History guaifenesin 600 mg tablet, 600 mg PO BID 07/28/23 07/28/23 History extended release 12 hr (Mucinex) Past Med/Surg History Medical History (Updated 07/29/23 @ 15:24 by Diane Quintanilla DNP) Discussion about advance care planning held with family member Confusion Chronic renal failure, stage 3a HTN (hypertension) COPD (chronic obstructive pulmonary disease) Alzheimer disease Facial bruising Acute exacerbation of chronic obstructive pulmonary disease No pertinent family history Dementia Heart disease Diabetes Hypertension Surgical History S/P cataract extraction and insertion of intraocular lens b/l Family History Other Family history unknown Social History Smoking Status: Never smoker Tobacco Type: Cigarettes Cigarettes Per Day: minimal amount of tobacco at age 20yo only; Second Hand Exposure: No; Do You Dip or Chew Tobacco: No; Hx Alcohol Use: No Hx Substance Use: No Preferred Language: French Communication Ability: Impaired Aerospace Technician Required: No Beliefs That Will Affect Care: None marital status: / Current Living Situation: Family Current Living Situation Comment: granddaughter lives with pt current occupational status: retired current occupation: worked at "[employer]" How many Children do You have: 4 How many Children do You have Comment: 2 sons, 2 daughters Other Information That Helps Us Care for You: No Feels Safe at Home: Yes Safety Concerns: Feels Safe At This Time Assistive Devices: Cane and Walker Review of Systems Review of Systems: Unobtainable due to cognitive status Physical Exam Constitutional: well developed, well nourished and cooperative Eyes: + anicteric sclerae Neck: trachea midline, no thyromegaly Respiratory: normal respiratory effort and + cough Auscultation: + rales (RLL) Cardiovascular: Rate/Rhythm: regular rate and regular rhythm Vessels: no JVD Extremities: no edema Gastrointestinal (Abdomen): Inspection/Auscultation: abdomen normal to inspection Percussion/Palpation: + abdomen tender and abdomen soft Patient jumps when palpation of the abdomen is elicited but once palpation has begun, patient relaxes her stomach without evidence of pain. Musculoskeletal: Head/Neck/Chest: normocephalic and head atraumatic Skin: no rashes, warm and dry Neurologic: moves all extremities Psychiatric: Orientation: alert and oriented to person Lymphatic: no cervical or axillary lymphadenopathy Results & Data Results & Data Vital Signs (Past 12 Hours) Vital Signs Temp Pulse Pulse Resp BP BP Pulse Ox 07/28/23 17:20 68 18 159/97 H 96 07/28/23 14:08 64 18 166/91 H 97 07/28/23 13:10 66 07/28/23 12:56 36.5 C 65 18 149/91 H 96 07/28/23 11:58 35.9 C L 77 16 139/75 95 O2 Del Method 07/28/23 17:20 Room Air 07/28/23 14:08 Room Air 07/28/23 13:10 07/28/23 12:56 Room Air 07/28/23 11:58 Room Air Code Status & VTE Plan VTE Prophylaxis Plan VTE Prophylaxis will be ordered: Yes Supervising Physician Co-Signing Physician Notes I personally saw and examined the patient. I verified all miramontes points and agree with resident physician Dr Jerel Luna, with the following exceptions and/or additions: 82 year old female who presents to the ER with altered mental status. Unable to get any history from patient due to underlying dementia. No longer able to provide care for her at home. Choking fit witnessed by granddaughter. O/E Alert but not orientated to place or time, knows her daughters name but thinks she is her mother, no respiratory distress, bibasal crackles, no wheezing, Abdo SNT, no CVA tenderness A/P Pneumonia - Unasyn + azithromycin, SLT consult, PT/OT, plan for placement (5) HTN (hypertension) Hypertension type: unspecified Qualified Code(s): I10 - Essential (primary) hypertension
[2023-07-28] MEDS: UNASYN 3000MG / NS q6h IV STA (19:29)
[2023-07-28] MEDS: AZITHROMYCIN 500 MG in DEXTROSE 5% 250 ML IV STA (19:31)
[2023-07-28] MEDS: ACETAMINOPHEN 1,000 MG/100 ML VIAL IV STA (20:33)
[2023-07-28] MEDS ORDERED: HEPARIN SOD 5,000 UNIT/0.5 ML VIAL SQ SCH (21:00)
[2023-07-28] MEDS: LACTATED RINGER'S 1,000 ML IV SCH (21:01)
[2023-07-28] MEDS ORDERED: ALBUTEROL HFA 8 GM INHALER INH PRN (22:19)
[2023-07-28] MEDS ORDERED: ALBUTEROL 0.083% NEBU SOLN 3 ML VIAL NEB PRN (22:19)
[2023-07-28] MEDS: carvediloL 12.5 MG TAB PO SCH (23:10)
[2023-07-28] MEDS: ENOXAPARIN INJ 40 MG/0.4 ML SYR SQ SCH (23:11)
[2023-07-28] MEDS: FLUTICASONE FUROATE 200MCG 14 PUFFS/INHALER INH SCH (23:12)
[2023-07-28] MEDS: UMECLIDINIUM/VILANTEROL 62.5/25MCG 7 PUFFS/INHALER INH SCH (23:12)
[2023-07-29] MEDS: AMPICILLIN/SULBACTAM SOD 3,000 MG in SODIUM CHLOR 0.9% MINI-B 100 ML IV SCH (01:34)
[2023-07-29 05:53] LABS: Appearance Urine Clear (Clear); Bilirubin Urine Negative (Negative); Blood Urine Negative (Negative); Color Urine Yellow; Glucose Urine UA Negative (Negative); Ketones Urine Negative (Negative); Leukocyte Esterase Urine Negative (Negative); Nitrite Urine Negative (Negative); Protein Urine Negative (Negative); Specific Gravity Urine 1.032 (1.000-1.030); Urobilinogen Urine Negative (Negative); pH Urine 6.5 (4.5-7.5)
[2023-07-29 06:44] LABS: Hematocrit (blood only) 38.4 % (37.0-47.0); Hemoglobin 12.8 g/dl (12.0-16.0); Mean Corpuscular Hemoglobin 29.2 pg (25.0-34.0); Mean Corpuscular Hgb Conc 33.3 g/dL (32.0-36.0); Mean Corpuscular Volume 87.7 fL (80.0-100.0); Mean Platelet Volume 9.5 fL (9.4-12.4); Platelet Count 248 K/uL (130-400); RDW Coefficient of Variation 14.2 % (11.5-14.5); RDW Standard Deviation 45.3 fL (36.4-46.3); Red Blood Count 4.38 M/uL (4.20-5.40); White Blood Count 7.35 K/ul (4.8-10.8)
[2023-07-29 07:10] LABS: Calcium 8.8 mg/dl (8.6-10.3); Creatinine Clr Calc Pharmacy 76.9 ml/min; Est GFR (African American) 99.1 ml/min; Est GFR (Non-African American) 85.5 ml/min; Magnesium 2.1 mg/dl (1.7-2.4); Potassium 3.5 mmol/L (3.5-5.1)
[2023-07-29] MEDS: ISOSORBIDE MONO EXTENDED REL 60 MG TABCR PO SCH (09:37)
[2023-07-29] MEDS: LOSARTAN POTASSIUM 50 MG TAB PO SCH (09:37)
--- NOTE | 2023-07-29 12:43 | Hospitalist Progress Note ---
Date of Service July 29, 2023 Assessment & Plan (1) PNA (pneumonia): Plan: Patient is an 82-year-old female with a past medical history of Alzheimer's dementia, COPD, multiple bouts of pneumonia, and previous [place] status post anesthesia from right hip replacement 16 years ago who presents to the hospital for evaluation of altered mental status. Patient found to have a new inflammatory process in right lower lobe of lung on imaging suggestive of pneumonia. Patient to be admitted for antibiotic therapy as well as case management for placement for no longer able to have needs attended to at home. -Cultures obtained, negative so far -Continue empiric IV antibiotics, currently on Unasyn and azithromycin -MRSA nare negative -Speech has evaluated, no evidence of aspiration (2) Acute metabolic encephalopathy: Plan: - Likely secondary to acute infectious pna on top of Alzheimer's dementia -Previous history of aspiration PNA, will maintain precautions, fall precautions -Patient seems currently back to her baseline (3) Alzheimer's dementia: Plan: - Noted in history, see above -Unable to function at home, plans for placement -Case management consulted, appreciate recommendations -Also consult palliative medicine regarding goals of care (4) COPD (chronic obstructive pulmonary disease): Plan: - Continue Trelegy daily -Albuterol as needed for shortness of breath or wheezing (5) HTN (hypertension): Plan: - Continue losartan when no longer n.p.o. (6) Chronic renal failure, stage 3a: Plan: - Renally dose medications when able -GFR at 77 at the time of admission, trend BMP while admitted (7) AMS (altered mental status): Plan Disposition: Awaiting evaluation by physical therapy, patient needs placement Diet: Regular diet DVT prophylaxis: Heparin twice daily CODE STATUS: DNR/DNI as discussed with [id number]-lx-tyl and DNR in file at hospital Admission and Anticipated Discharge Date Admission Date: July 28, 2023 Subjective Patient seen and examined at bedside, just came back from swallow evaluation. Denies any new complaints Review of Systems Review of Systems: Unreliable due to dementia Physical Exam Physical Exam: The patient is awake, alert and oriented 2, well developed and well nourished, normocephalic and atraumatic, lying in bed and in no acute distress. HEENT--PERRL, EOMI, mucous membranes and oropharynx mildly dry Neck--supple. No JVD. No bruits. Thyroid normal, trachea midline, no adenopathy. Heart--normal S1 and S2. No murmurs, rubs or gallops. Lungs--clear bilaterally, no respiratory distress, no accessory muscle use. Abdomen--normal bowel sounds and soft. Extremities--no cyanosis or clubbing. No edema. Dermatologic--normal skin turgor, normal color, no abnormal lymph nodes, no rash. Neurologic--cranial nerves II through XII grossly intact. Rheumatologic--normal range of motion. Psychiatric--normal affect. Results & Data Results & Data Vital Signs (Past 12 Hours) Vital Signs Temp Pulse Resp BP Pulse Ox O2 Del Method 07/29/23 09:29 71 171/90 H 07/29/23 07:53 Room Air 07/29/23 07:39 98.1 F 61 16 181/90 H 94 Room Air PG Care Time/CCT Total # of Minutes Spent Total Time Spent with Patient: Total time spent is greater than 50% in coordination of care (as documented) at patient's floor/unit and/or counseling patient: Coding Level of Care Code 08803 SUB INP/OBS CARE 2/35MIN Diagnoses PNA (pneumonia) J18.9 Acute metabolic encephalopathy G93.41 Alzheimer's dementia G30.9; F02.80 COPD (chronic obstructive pulmonary disease) J44.9 HTN (hypertension) I10 Hypertension type: unspecified Chronic renal failure, stage 3a N18.31 AMS (altered mental status) R41.82 (5) HTN (hypertension) Hypertension type: unspecified Qualified Code(s): I10 - Essential (primary) hypertension
--- NOTE | 2023-07-29 15:27 | Fluoroscopy Report ---
MODIFIED BARIUM SWALLOW CLINICAL HISTORY: assess for aspiration COMPARISON STUDY: Modified barium swallow May 01, 2023. FLUOROSCOPY TIME: 1.44 minutes. Ka, r: 14.2 mGy. TECHNIQUE: A modified barium swallow was performed in conjunction with Speech Pathology. The patient ingested varying consistencies of barium containing material. Video fluoroscopy was performed. FINDINGS: No aspiration was identified with thin liquids, nectar thick liquids, pudding or cracker an d pudding consistencies. There was a small amount of penetration with sequential swallows of thin liq uids via cup. Epiglottic inversion was normal. Laryngeal elevation was normal. IMPRESSION: 1. No tracheal aspiration identified. 2. Full recommendations by Speech pathology to follow. ACT 112: Negative or not required by law. Electronically signed by: Hayes Coyne M.D. 07/29/2023 3:26 PM
--- NOTE | 2023-07-29 15:35 | Palliative Care Consultation ---
Date of Consultation July 29, 2023 Assessment & Plan (1) Confusion: (2) Altered mental status: progressive dementia and PNA related delirium Altered mental status type: delirium Qualified Code(s): R41.0 - Disorientation, unspecified (3) Alzheimer's dementia: Alzheimer's disease onset: unspecified onset Dementia severity: severe Dementia behavioral or psychological symptom: with other behavioral disturbance Qualified Code(s): G30.9 - Alzheimer's disease, unspecified; F02.C18 - Dementia in other diseases classified elsewhere, severe, with other behavioral disturbance (4) Palliative care by specialist: Met with pt/family. Provided overview of Palliative Medicine, a subspecialty that provides specialized medical care for people living with a serious illness by offering a focus on quality of life. Palliative Medicine is often conflated with hospice: I advised patient/family that Palliative and hospice can be partners but we are not the same. It is important to understand the difference so that we may be informed, and not afraid. Palliative Medicine works to improve QOL through reduction of symptom burden/more control over their illness, for both the patient and family. Palliative medicine clinicians are board certified, specially-trained and another member of the patient's medical care team. We often provide an extra layer of support because our care is based on the needs of the patient, not the prognosis; as such, it's appropriate at any age/advancing stage of a serious illness and can be provided along with curative treatment. Palliative Medicine clinicians are also trained in advanced communication methodologies, to facilitate complex discussions about advanced illness planning, which are needed to help assure that the treatment choices match the patient's goals, aka delivering Goal Concordant care. Finally, we discussed that hospice is a visiting nurse service that focuses on care delivered at the very end of life for patients with terminal illness, with life expectancy less than 6 month. (5) Discussion about advance care planning held with family member: I called pt daughter in law Cary, it went to and I [facility] requesting call back Plan Awaiting call back from daughter in law Pt needs placement as verbalized by family on arrival in ED, this can be coordinated by care mgt Thank you for allowing us to participate in the ongoing care of this patient. Please don't hesitate to call or page with any additional concerns. Dr. Diane Quintanilla DNP Director, Palliative Care History of Present Illness Reason for Consultation: goals of care Attending Physician: Jose Diehl MD History of Present Illness Marlen is an 82yo female with dementia who was brought to ED by family with CC of AMS + family seeking help with placement, her dementia has become more than they can handle at home. per admitting note: "Patient is an 82-year-old female with a past medical history of Alzheimer's dementia, COPD, multiple bouts of pneumonia, and previous ND status post anesthesia from right hip replacement 16 years ago who presents to the hospital for evaluation of altered mental status. Patient has a history of relatively advanced dementia to the point that she requires constant care from toixgadb-pk-dby who is with the patient at the time of my interview. Patient is only oriented to self and without understanding of why she is here nor what brought her to the hospital. Rytwnohw-zd-img states that over the past year, there has been progressive worsening mentation and increased frequency with hospitalizations mostly due to episodes of pneumonia. Patient has also had bouts with urinary tract infections in the outpatient setting which is also become more frequent per the eqtyfzdf-wg-jkl's history. At this point, she and her (the patient's son and POA) are unable to care for her adequately at home given her increased frequency of confusion and agitation. [facility] is interested in getting patient set up with a living facility specifically 1 that deals with dementia." Marlen presently has a PNA under rx She has an intermittent bronchitic cough She is alert to self but otherwise confused he cannot provide HPI there is no family present Allergies Allergy/AdvReac Type Severity Reaction Status Date / Time guaifenesin Allergy Unknown Unknown Unverified 07/28/23 14:15 Antihistamines - Alkylamine AdvReac Unknown cant Verified 07/28/23 14:15 remember Antihistamines - Ethanolamine AdvReac Unknown cant Verified 07/28/23 14:15 remember Antihistamines - AdvReac Unknown cant Verified 07/28/23 14:15 Ethylenediamine remember Antihistamines - Piperazine AdvReac Unknown cant Verified 07/28/23 14:15 remember Antihistamines - Piperidine AdvReac Unknown cant Verified 07/28/23 14:15 remember Home Medications Medication Instructions Recorded Confirmed Type aspirin 81 mg tablet,delayed 81 mg PO QAM ##0 03/14/17 07/28/23 History release fexofenadine 180 mg tablet 180 mg PO QAM #0 tabs 03/14/17 07/28/23 History multivitamin 1 tab PO QAM ##0 03/14/17 07/28/23 History isosorbide mononitrate 60 mg 60 mg PO QAM #0 tabs 08/07/17 07/28/23 History tablet,extended release 24 hr losartan 100 mg tablet 100 mg PO QAM #0 tabs 08/07/17 07/28/23 History potassium chloride 10 mEq 20 meq PO BID 04/14/21 07/28/23 History tablet,extended release calcium carbonate 600 mg-vitamin 1 tab PO BID 10/30/21 07/28/23 History D3 5 mcg (200 unit) tablet (Calcium 600 + D(3)) fluticasone fur. 200 mcg-umeclid 1 inh inhalation QPM 10/30/21 07/28/23 History 62.5 mcg-vilant 25 mcg inhalat.powder (Trelegy Ellipta) carvedilol 12.5 mg tablet 12.5 mg PO BID #60 tabs 11/10/21 07/28/23 Rx albuterol sulfate 90 mcg/actuation 2 puff inhalation Q4 PRN Shortness 10/06/22 07/28/23 History aerosol inhaler Of Breath Or Wheezing albuterol sulfate 2.5 mg/3 mL 2.5 mg continuous nebulization Q4H 03/30/23 07/28/23 History (0.083 %) solution for nebulization PRN Shortness Of Breath Or Wheezing docusate sodium 100 mg capsule 100 mg PO BID 07/11/23 07/28/23 History guaifenesin 600 mg tablet, 600 mg PO BID 07/28/23 07/28/23 History extended release 12 hr (Mucinex) Patient History Medical History (Updated 07/29/23 @ 15:24 by Diane Quintanilla DNP) Discussion about advance care planning held with family member Confusion Chronic renal failure, stage 3a HTN (hypertension) COPD (chronic obstructive pulmonary disease) Alzheimer disease Facial bruising Acute exacerbation of chronic obstructive pulmonary disease No pertinent family history Dementia Heart disease Diabetes Hypertension Surgical History S/P cataract extraction and insertion of intraocular lens b/l Family History Other Family history unknown Social History Smoking Status: Never smoker Tobacco Type: Cigarettes Cigarettes Per Day: minimal amount of tobacco at age 20yo only; Second Hand Exposure: No; Do You Dip or Chew Tobacco: No; Hx Alcohol Use: No Hx Substance Use: No Preferred Language: Occitan Communication Ability: Impaired Product Analyst Required: No Beliefs That Will Affect Care: None marital status: / Current Living Situation: Family Current Living Situation Comment: granddaughter lives with pt current occupational status: retired current occupation: worked at "[employer]" How many Children do You have: 4 How many Children do You have Comment: 2 sons, 2 daughters Other Information That Helps Us Care for You: No Feels Safe at Home: Yes Safety Concerns: Feels Safe At This Time Assistive Devices: Cane and Walker Review of Systems Review of Systems: Unobtainable due to cognitive status Physical Exam Constitutional: well developed, cooperative and comfortable Eyes: PERRL, conjunctivae normal, anicteric sclerae ENMT: Mouth: + muffled voice, + dry oral mucous membranes, + dental restorations and + poor dentition Throat: uvula midline Neck: trachea midline, no thyromegaly normal visual inspection Respiratory: + uses accessory muscles, able to speak in complete sentences (speech is non sensical) and symmetric chest movement Auscultation: + diminished lung sounds and + rhonchi (intermittent bronchitic cough) Cardiovascular: Rate/Rhythm: regular rate and regular rhythm Gastrointestinal (Abdomen): normal bowel sounds, soft, nontender, no hepatospl enomegaly Musculoskeletal: generalized weakness Skin: pale, warm Neurologic: Alert to self confused to place and time speech is garbled and nonsensical, very few words are legible but she will then repeat the same word unable to follow commands pleasant and cooperative with this examiner Psychiatric: Confused at baseline Results & Data Vital Signs (Past 12 Hours) Vital Signs Temp Pulse Resp BP Pulse Ox O2 Del Method 07/29/23 14:24 36.7 C 70 16 171/84 H 94 Room Air 07/29/23 09:29 71 171/90 H 07/29/23 07:53 Room Air 07/29/23 07:39 36.7 C 61 16 181/90 H 94 Room Air Laboratory Results data reviewed Diagnostic Findings data reviewed PG Care Time/CCT Total # of Minutes Spent Total Time Spent with Patient: Total time spent is greater than 50% in coordination of care (as documented) at patient's floor/unit and/or counseling patient: I spent 60 minutes overall addressing this case: 15 min in medical data review/discussion with referring provider(s) and/or preparation for the visit 25 min in direct interaction with the patient/exam 00 min in Advance Care Planning/Goals of Care discussions as detailed above in note (must be >16min) 10 min in subsequent review and synthesis of assessment and plan 10 min communicating with other providers regarding the patient's case: [place] [address] IN/OBS CONSULT LVL 4,60M Patient Type New History Comprehensive Exam Comprehensive Medical Decision Making High Complexity Diagnoses Confusion R41.0 Delirium R41.0 Altered mental status type: delirium Severe Alzheimer's dementia with other behavioral disturbance, unspecified timing of dementia onset G30.9; F02.C18 Alzheimer's disease onset: unspecified onset Dementia severity: severe Dementia behavioral or psychological symptom: with other behavioral disturbance Palliative care by specialist Z51.5 Discussion about advance care planning held with family member Z71.0
--- NOTE | 2023-07-29 15:58 | Palliative Family Discussion ---
Date of Service July 29, 2023 Patient Directed Conference Time of Meetin- 1610 Participants: Diane Quintanilla DNP Patient participation: lacks capacity Patient Support System: dtr in law Yuliet Other Healthcare Provider Participation: None Meeting Location: telephonic Advanced Directive available: yes If yes, descriptors: dnr/dni The patient's surrogate medical decision maker participated: yuliet A family meeting was held for SARINA SHETH. This meeting was necessary for determining the appropriate course of treatment. Topics of Discussion Topics of Discussion: 1. Advancing COPD & Dementia, incurable/unfixable 2. Declining performance status 3. Greater than 7 admissions in 12 mos Other Content of Meetin. Opportunity given for participants to speak and ask questions. 2. Participants were assured of attention to patient comfort. 3. Reassurance provided. 4. Support was provided for informed, good-florinda decisions. 5. Emotions expressed by family were acknowledged and addressed. 6. We discussed the goals of hospice as a patient service and the goals of care; we discussed EOL trajectories and transitions iveth the emotional impact of realizing mortality as a concrete reality from prior abstract considerations. Pt was reassured that no matter where they are along this trajectory, they are not alone - their medical team will remain by their side through their journey. Discussed the pros/cons of accepting help when especially weakened and distressed by pain-which would also help provide relief/decrease caregiver burden/strain. I provided education about the hospice benefit: an interdisciplinary program offered by nurses, nurses aides, social workers, chaplains and a medical record transcriber for patients with a terminal condition and a life expectancy of less than 6 months. This is covered by Medicare at 100%/no out of pocket expense to patient and all meds/supplies needed by patient for the reason they are on hospice are paid for/covered by hospice. The goal is assure quality of life of the patient in their home setting (home, long-term, inpatient hospice setting) by providing symptoms management, psychosocial and spiritual support. However, they cannot offer 24 hours care and if the family is unable to provide that care, they will have to consider personal care with out of pocket cost vs. long-term placement. We discussed the goals of hospice as a patient service and the goals of care; we discussed EOL trajectories and transitions iveth the emotional impact of realizing mortality as a concrete reality from prior abstract considerations. Pt was reassured that no matter where they are along this trajectory, they are not alone - their medical team will remain by their side through their journey. Discussed the pros/cons of accepting help when especially weakened and distressed by pain-which would also help provide relief/decrease caregiver burden/strain. 7. Plan of Care: awaiting placement [facility]; Yuliet said her /pt son needs time to accept the situation. He is struggling to accept her prognosis. Time Involved in Meeting: I spent 55 minutes overall addressing this case: 40 Advance Care Planning/Goals of Care discussions as detailed above in note (must be >16min) 10 in subsequent review and synthesis of assessment and plan 5 in communicating with other providers regarding the patient's case:primary team Thank you for allowing us to participate in the ongoing care of this patient. Please don't hesitate to call or page with any additional concerns. Dr. Diane Quintanilla DNP Director, Palliative Care
[2023-07-29] MEDS: AZITHROMYCIN 500 MG in DEXTROSE 5% 250 ML IV SCH (20:18)
--- NOTE | 2023-07-30 12:49 | Hospitalist Progress Note ---
Date of Service July 30, 2023 Assessment & Plan (1) PNA (pneumonia): Plan: Patient is an 82-year-old female with a past medical history of Alzheimer's dementia, COPD, multiple bouts of pneumonia, and previous NC status post anesthesia from right hip replacement 16 years ago who presents to the hospital for evaluation of altered mental status. Patient found to have a new inflammatory process in right lower lobe of lung on imaging suggestive of pneumonia. Patient to be admitted for antibiotic therapy as well as case management for placement for no longer able to have needs attended to at home. -Cultures obtained, negative so far -Continue empiric IV antibiotics, currently on Unasyn and azithromycin -MRSA nare negative -Speech has evaluated, no evidence of aspiration (2) Acute metabolic encephalopathy: Plan: - Likely secondary to acute infectious pna on top of Alzheimer's dementia -Previous history of aspiration PNA, will maintain precautions, fall precautions -Patient seems currently back to her baseline (3) Alzheimer's dementia: Plan: - Noted in history, see above -Unable to function at home, plans for placement -Case management consulted, appreciate recommendations -Also consult palliative medicine regarding goals of care (4) COPD (chronic obstructive pulmonary disease): Plan: - Continue Trelegy daily -Albuterol as needed for shortness of breath or wheezing (5) HTN (hypertension): Plan: - Continue losartan when no longer n.p.o. (6) Chronic renal failure, stage 3a: Plan: - Renally dose medications when able -GFR at 77 at the time of admission, trend BMP while admitted (7) AMS (altered mental status): Plan Disposition: , patient needs placement Diet: Regular diet DVT prophylaxis: Heparin twice daily CODE STATUS: DNR/DNI as discussed with mtzjqbtg-sh-wwl and DNR in file at hospital I spoke to the daughter, and updated about the plans. Admission and Anticipated Discharge Date Admission Date: July 28, 2023 Subjective Patient seen and examined at bedside, no new complaints, she is confused Review of Systems Review of Systems: Unreliable due to dementia Physical Exam Physical Exam: The patient is awake, alert and oriented 1, well developed and well nourished, normocephalic and atraumatic, lying in bed and in no acute distress. HEENT--PERRL, EOMI, mucous membranes and oropharynx mildly dry Neck--supple. No JVD. No bruits. Thyroid normal, trachea midline, no adenopathy. Heart--normal S1 and S2. No murmurs, rubs or gallops. Lungs--clear bilaterally, no respiratory distress, no accessory muscle use. Abdomen--normal bowel sounds and soft. Extremities--no cyanosis or clubbing. No edema. Dermatologic--normal skin turgor, normal color, no abnormal lymph nodes, no rash. Neurologic--cranial nerves II through XII grossly intact. Rheumatologic--normal range of motion. Psychiatric--normal affect. Results & Data Results & Data Vital Signs (Past 12 Hours) Vital Signs Temp Pulse Resp BP Pulse Ox O2 Del Method 07/30/23 07:45 Room Air 07/30/23 07:42 60 19 93 Room Air 07/30/23 07:23 98.1 F 59 L 20 185/85 H 93 Room Air PG Care Time/CCT Total # of Minutes Spent Total Time Spent with Patient: Total time spent is greater than 50% in coordination of care (as documented) at patient's floor/unit and/or counseling patient: Coding Level of Care Code 42098 SUB INP/OBS CARE 2/35MIN Diagnoses PNA (pneumonia) J18.9 Acute metabolic encephalopathy G93.41 Severe Alzheimer's dementia with other behavioral disturbance, unspecified timing of dementia onset G30.9; F02.C18 Alzheimer's disease onset: unspecified onset Dementia behavioral or psychological symptom: with other behavioral disturbance Dementia severity: severe COPD (chronic obstructive pulmonary disease) J44.9 HTN (hypertension) I10 Hypertension type: unspecified Chronic renal failure, stage 3a N18.31 AMS (altered mental status) R41.82 Time Spent (min) 35 (3) Alzheimer's dementia Alzheimer's disease onset: unspecified onset Dementia behavioral or psychological symptom: with other behavioral disturbance Dementia severity: severe Qualified Code(s): G30.9 - Alzheimer's disease, unspecified; F02.C18 - D ementia in other diseases classified elsewhere, severe, with other behavioral disturbance (5) HTN (hypertension) Hypertension type: unspecified Qualified Code(s): I10 - Essential (primary) hypertension
--- NOTE | 2023-07-30 13:18 | Billing Data ---
Date of Service July 28, 2023 Coding Level of Care Code 85914 INT INP/OBS CARE
[2023-07-30] MEDS ORDERED: MELATONIN 3 MG TAB PO PRN (23:34)
[2023-07-30] MEDS: MELATONIN 3 MG TAB PO ONE (23:40)
--- NOTE | 2023-07-31 11:47 | Discharge Summary ---
Date of Service July 31, 2023 Admission HPI Per Admitting Provider Patient is an 82-year-old female with a past medical history of Alzheimer's dementia, COPD, multiple bouts of pneumonia, and previous FL status post anesthesia from right hip replacement 16 years ago who presents to the hospital for evaluation of altered mental status. Patient has a history of relatively advanced dementia to the point that she requires constant care from rudfuaye-ko-qic who is with the patient at the time of my interview. Patient is only oriented to self and without understanding of why she is here nor what brought her to the hospital. Zpxuxasi-vk-cwr states that over the past year, there has been progressive worsening mentation and increased frequency with hospitalizations mostly due to episodes of pneumonia. Patient has also had bouts with urinary tract infections in the outpatient setting which is also become more frequent per the nofqdkov-xz-gui's history. At this point, she and her (the patient's son and POA) are unable to care for her adequately at home given her increased frequency of confusion and agitation. Xnwlwtht-iu-zea is interested in getting patient set up with a living facility specifically 1 that deals with dementia. This was discussed at previous admission, however, patient was discharged home prior to consultation with palliative care nor options from case management at that time. The reason the patient was brought in today was because she was increasingly agitated and confused especially this morning and this is typically an indication that the patient is dealing with some sort of underlying infection. Was not complaining of shortness of breath, chest pain, nausea, or vomiting. No fevers recorded at home. Cgqlziej-kf-uxz notes that yesterday, patient did have a choking fit that was unwitnessed by herself and was witnessed by her daughter. Vitals were normal at home per [id number]-pm-egh. No other noted complaints ED course: Patient evaluated by provider. Labs are significant for a mildly elevated white blood cell count of 11.1, pH of 7.43, BUN of 38, glucose of 155, ALT of 55, BNP of 128, and negative COVID/flu testing. Chest x-ray was indicative of a new right lower lobe inflammatory process suggestive of infection. Head CT without any acute intracranial findings. CT of the abdomen and pelvis without any acute pathology. There is evidence of diverticulosis without diverticulitis and nonobstructive nephrolithiasis. Because of the patient's progressive dementia and new pneumonia, the hospitalist service was consulted for admission and further management. Principal Diagnosis Acute encephalopathy, dementia Discharge Exam The patient is awake, alert and oriented 1, well developed and well nourished, normocephalic and atraumatic, lying in bed and in no acute distress. HEENT--PERRL, EOMI, mucous membranes and oropharynx mildly dry Neck--supple. No JVD. No bruits. Thyroid normal, trachea midline, no adenopathy . Heart--normal S1 and S2. No murmurs, rubs or gallops. Lungs--clear bilaterally, no respiratory distress, no accessory muscle use. Abdomen--normal bowel sounds and soft. Extremities--no cyanosis or clubbing. No edema. Dermatologic--normal skin turgor, normal color, no abnormal lymph nodes, no rash. Neurologic--cranial nerves II through XII grossly intact. Rheumatologic--normal range of motion. Psychiatric--normal affect. Discharge Data Allergies Allergy/AdvReac Type Severity Reaction Status Date / Time guaifenesin Allergy Unknown Unknown Unverified 07/28/23 14:15 Antihistamines - Alkylamine AdvReac Unknown cant Verified 07/28/23 14:15 remember Antihistamines - Ethanolamine AdvReac Unknown cant Verified 07/28/23 14:15 remember Antihistamines - AdvReac Unknown cant Verified 07/28/23 14:15 Ethylenediamine remember Antihistamines - Piperazine AdvReac Unknown cant Verified 07/28/23 14:15 remember Antihistamines - Piperidine AdvReac Unknown cant Verified 07/28/23 14:15 remember Consultations 07/28/23 17:02 ED Decision to Admit Stat 07/29/23 12:26 Consult Palliative Care Routine Ordered Studies 07/28/23 14:11 CT head/brain wo con Stat 07/28/23 14:14 CT abd pelvis IV con only Stat 07/29/23 10:30 FL video swallow Routine Hospital Course (1) PNA (pneumonia): Patient is an 82-year-old female with a past medical history of Alzheimer's dementia, COPD, multiple bouts of pneumonia, and previous [place] status post anesthesia from right hip replacement 16 years ago who presents to the hospital for evaluation of altered mental status. Patient found to have a new inflammatory process in right lower lobe of lung on imaging suggestive of pneumonia. Patient to be admitted for antibiotic therapy as well as case management for placement for no longer able to have needs attended to at home. -Cultures obtained, negative so far -Continue empiric IV antibiotics, currently on Unasyn and azithromycin -MRSA nare negative -Speech has evaluated, no evidence of aspiration (2) Acute metabolic encephalopathy: - Likely secondary to acute infectious pna on top of Alzheimer's dementia -Previous history of aspiration PNA, will maintain precautions, fall precautions -Patient seems currently back to her baseline (3) Alzheimer's dementia: - Noted in history, see above -Unable to function at home, plans for placement -Case management consulted, appreciate recommendations -Also consult palliative medicine regarding goals of care (4) COPD (chronic obstructive pulmonary disease): - Continue Trelegy daily -Albuterol as needed for shortness of breath or wheezing (5) HTN (hypertension): - Continue losartan when no longer n.p.o. (6) Chronic renal failure, stage 3a: - Renally dose medications when able -GFR at 77 at the time of admission, trend BMP while admitted (7) AMS (altered mental status): Plan Disposition: , patient needs placement Diet: Regular diet DVT prophylaxis: Heparin twice daily CODE STATUS: DNR/DNI as discussed with mrafaalc-vd-cyp and DNR in file at hospital I spoke to the daughter, and updated about the plans. Total Time Total Time Spent Total Time Spent (In Minutes): 35 Discharge Plan Discharge Items Patient Disposition: Transfer Group Home Fac Reason For Visit: CONFUSION Discharge Diagnosis: Acute metabolic encephalopathy, dementia Activity: Resume your previous activity Non-emergency contact: Primary Care Provider Call non-emergency contact if: you have any medication questions Follow-up/Referrals: Guerita Engel PA-C [Primary Care Provider] - Diet: Regular Addtl Attending Provider Instructions: Please make appointment to follow-up with her regular PCP Pending Studies at Discharge: No Stand-Alone Forms: My [facility] [employer] Skilled Items Patient informed of condition?: Yes DNR: Yes Discharge Level of Care: Skilled Communicable Disease: No Discharge Prognosis: Stable Lines: None Urinary Catheter: No Medications and DC Order Prescriptions: New amoxicillin-pot clavulanate [Augmentin] 500-125 mg tablet 1 tab PO Q12H 5 Days Qty: 10 0RF Continued multivitamin Tablet 1 tab PO QAM Qty: 0 fexofenadine 180 mg Tablet 180 mg PO QAM Qty: 0 aspirin 81 mg Tablet,Delayed Release (Dr/Ec) 81 mg PO QAM Qty: 0 isosorbide mononitrate 60 mg Tablet Extended Release 24 Hr 60 mg PO QAM Qty: 0 losartan 100 mg Tablet 100 mg PO QAM Qty: 0 albuterol sulfate 90 mcg/actuation HFA aerosol inhaler 2 puff INHALATION Q4 PRN (Reason: Shortness Of Breath Or Wheezing) potassium chloride 10 mEq tablet extended release 20 meq PO BID calcium carbonate-vitamin D3 [Calcium 600 + D(3)] 600 mg-5 mcg (200 unit) Tablet 1 tab PO BID Trelegy Ellipta 200-62.5-25 mcg Blister With Device 1 inh INHALATION QPM carvedilol 12.5 mg Tablet 12.5 mg PO BID Qty: 60 0RF albuterol sulfate 2.5 mg /3 mL (0.083 %) solution for nebulization 2.5 mg continuous nebulization Q4H PRN (Reason: Shortness Of Breath Or Wheezing) guaifenesin [Mucinex] 600 mg tablet extended release 12hr 600 mg PO BID docusate sodium 100 mg capsule 100 mg PO BID Discharge Orders: Discharge Order (Routine); Ordered 07/31/23 Ordered By: Jose Diehl Admission Data Admit Date/Time: 07/28/23 18:52 Attending Provider: Jose Diehl Admit Provider: Jerel Luna Primary Care Provider: Guerita Engel Other Providers: Jeronimo Morton; [facility]; Diane Quintanilla Coding Level of Care Code 26672 INP/OBS DISCH >30 MIN Diagnoses PNA (pneumonia) J18.9 Acute metabolic encephalopathy G93.41 Severe Alzheimer's dementia with other behavioral disturbance, unspecified timing of dementia onset G30.9; F02.C18 Alzheimer's disease onset: unspecified onset Dementia behavioral or psychological symptom: with other behavioral disturbance Dementia severity: severe COPD (chronic obstructive pulmonary disease) J44.9 HTN (hypertension) I10 Hypertension type: unspecified Chronic renal failure, stage 3a N18.31 AMS (altered mental status) R41.82 Time Spent (min) 35
== END 2023-07-31 14:24 | DRG 193 ==
LOC: ED 11:56 → 3N 18:52 → SUATTDRO 18:52 → 3N 22:00

== ENCOUNTER 2025-01-07 14:18 | Observation (INO) ==
--- NOTE | 2025-01-07 15:09 | Emergency Department Note ---
Impression & Plan Lethargic, Frequent falls, Transaminitis ED Provider Note HISTORY OF PRESENT ILLNESS: Patient is an 84-year-old female presenting with reported increased lethargy. Patient presents from [facility]. She has baseline dementia so she does not supply any meaningful history. History mainly obtained from EMS who gives report from the facility. Patient reportedly has been having recurrent falls over the last 2 weeks. Her last fall was on 12/31/2024. Since her fall, she reportedly has been having increased lethargy and not acting her normal self. Patient vocalizes no complaints on arrival to the ER. ROS: as above PHYSICAL EXAM: Constitutional: Patient appears in no acute distress. HENT: Head: Normocephalic and atraumatic. Eyes: EOMI, PERRL Mouth/Throat: Mucous membranes moist. Neck: Trachea midline. Neck supple. Cardiovascular: RRR, No murmurs, rubs or gallops. Intact distal pulses. Pulmonary/Chest: No respiratory distress. Breath sounds clear and equal bilaterally. No wheezes or rales. No chest wall tenderness to palpation. Abdominal: Abdomen soft, no rebound or guarding. RUQ TTP Musculoskeletal: No edema, tenderness or deformity noted. Skin: Warm and dry. No rash, erythema, pallor or cyanosis Psychiatric: Appropriate mood and affect for situation. Neurological: Alert. CN II-XII grossly intact. Moves all extremities spontaneously. MDM: - Vitals signs stable. - History obtained via EMS, given patient's dementia. History as above. - Chronic conditions affecting care: COPD; Alzheimer's dementia; HTN; CKD; HTN; DM-2 - Differential diagnoses include, but are not limited to: UTI; pneumonia; viral syndrome; CVA; intracranial hemorrhage; ACS; dehydration; electrolyte abnormality; cholecystitis - Order placed for continuous cardiac monitoring. At this time, monitor showed rate of 79 bpm with normal sinus rhythm, per my interpretation. - External medical records reviewed. Discharge summary dated 07/31/2023 was reviewed. Patient was admitted to the hospital for acute encephalopathy. - EKG image interpreted by myself showed normal sinus rhythm. Rate 69 bpm. QT 358. No acute ischemic changes. - Laboratory workup interpreted by myself showed normal WBC; normal PT/INR; hyponatremia (Na 146); elevated BUN (46); hypermagnesemia (Mg 2.8); elevated AST (47) and ALT (95) with normal total bilirubin; slightly elevated troponin (17); normal TSH - Viral respiratory panel negative - UA ordered - CXR image reviewed and interpreted by myself was negative for pneumonia, per my interpretation. - Patient very aggressive with staff. She was given 0.5 mg IV Ativan to help facilitate care and for the patient and staff safety. - CT imaging of head, neck and abdomen/pelvis obtained. - Patient was signed out to Dr. Mcguire at 18:[address] imaging results. Plan to admit to hospitalist service for lethargy and recurrent falls. ASSESSMENT AND PLAN: Diagnosis: Lethargic; frequent falls; transaminitis Past Med/Surg History Problem List (Updated 01/07/25 @ 17:25 by Garima Crockett MD) Transaminitis (Acute) Frequent falls (Acute) Lethargic (Acute) Discussion about advance care planning held with family member Confusion Acute metabolic encephalopathy Chronic renal failure, stage 3a HTN (hypertension) COPD (chronic obstructive pulmonary disease) Alzheimer's dementia (Acute) Palliative care by specialist PNA (pneumonia) (Acute) Elevated troponin (Acute) AMS (altered mental status) (Acute) Elevated WBC count (Acute) Altered mental status (Acute) Observed seizure-like activity (Acute) Syncope (Acute) Hypoxia (Acute) Cough (Acute) Chest congestion (Acute) Breath shortness (Acute) Candidiasis of mouth and esophagus Hypoxia (Acute) Acute exacerbation of chronic obstructive pulmonary disease (Acute) DVT prophylaxis Pulmonary nodule COPD with exacerbation Syncope (Acute) Precordial chest pain (Acute) Leukocytosis (Acute) Acute UTI (Acute) Heart disease (Chronic) Sinusitis (Acute) Closed head injury (Acute) Laceration of right eyebrow (Acute) Asthma (Chronic) Lumbar vertebral fracture (Acute) Wrist contusion (Acute) Medical History (Updated 01/07/25 @ 17:25 by Garima Crockett MD) Alzheimer disease Facial bruising Acute exacerbation of chronic obstructive pulmonary disease No pertinent family history Dementia Diabetes Hypertension Surgical History S/P cataract extraction and insertion of intraocular lens b/l Family History Other Family history unknown Social History Smoking Status: Unknown if ever smoked Tobacco Type: Cigarettes Cigarettes Per Day: minimal amount of tobacco at age 20yo only; Second Hand Exposure: No; Do You Dip or Chew Tobacco: No; Hx Alcohol Use: No Hx Substance Use: No Preferred Language: Turkmen Communication Ability: Impaired Environmental Technician Required: No Beliefs That Will Affect Care: None marital status: / Current Living Situation: Family Current Living Situation Comment: granddaughter lives with pt current occupational status: retired current occupation: worked at "[employer]" How many Children do You have: 4 How many Children do You have Comment: 2 sons, 2 daughters Feels Safe at Home: Yes Assistive Devices: Cane and Walker Allergies Allergies Allergy/AdvReac Type Severity Reaction Status Date / Time guaifenesin Allergy Unknown Unknown Unverified 07/28/23 14:15 Antihistamines - Alkylamine AdvReac Unknown cant Verified 01/07/25 16:00 remember Antihistamines - Ethanolamine AdvReac Unknown cant Verified 01/07/25 16:00 remember Antihistamines - AdvReac Unknown cant Verified 01/07/25 16:00 Ethylenediamine remember Antihistamines - Piperazine AdvReac Unknown cant Verified 01/07/25 16:00 remember Antihistamines - Piperidine AdvReac Unknown cant Verified 01/07/25 16:00 remember Home Meds Home Medications Medication Instructions Recorded Confirmed multivitamin 1 tab PO QAM ##0 03/14/17 01/07/25 calcium 600 mg (as 1 tab PO BID 10/30/21 01/07/25 carbonate)-vitamin D3 5 mcg (200 unit) tablet (Calcium 600 + D(3)) albuterol sulfate 90 mcg/actuation 2 puff inhalation Q4 PRN Shortness 10/06/22 01/07/25 aerosol inhaler Of Breath Or Wheezing acetaminophen 325 mg tablet 550 mg PO Q12H PRN Pain (Scale 01/07/25 01/07/25 (Tylenol) Score 1-4) acetaminophen 325 mg tablet 550 mg PO Q6H PRN ELEVATED 01/07/25 01/07/25 (Tylenol) TEMPERATURES >101 aspirin 81 mg chewable tablet 81 mg PO DAILY 01/07/25 01/07/25 bisacodyl 10 mg rectal suppository 10 mg VT Q72H PRN Constipation 01/07/25 01/07/25 carboxymethylcellulose sodium 1 % 2 drp OPB TID 01/07/25 01/07/25 eye drops (Artificial Tears (carboxymethylcellulose)) citalopram 10 mg tablet 5 mg PO DAILY 01/07/25 01/07/25 gabapentin 100 mg capsule 100 mg PO HS 01/07/25 01/07/25 memantine 10 mg tablet 10 mg PO BID 01/07/25 01/07/25 sennosides 8.6 mg-docusate sodium 1 tab-cap PO BID 01/07/25 01/07/25 50 mg tablet (Senna-S) sodium phosphates 19 gram-7 118 ml VT Q72H PRN CONSTIPATION ON 01/07/25 01/07/25 gram/118 mL enema (Enema) 4TH DAY WITHOUT BM tramadol 50 mg tablet 50 mg PO Q4H PRN Pain (Scale Score 01/07/25 01/07/25 5-10) Results & Data (ED) Vital Signs Vital Signs - 24 hr 01/07/25 14:38 01/07/25 14:44 01/07/25 15:00 Temperature 36.8 C Temperature Source Axillary Pulse Rate 64 63 67 Pulse Rate from SpO2 Sensor 63 Respiratory Rate 16 23 Respiratory Effort / Characteristics Non-Labored Spontaneous Respiratory Depth Normal Blood Pressure 140/94 163/88 H Blood Pressure Mean 109 113 Pulse Oximetry 96 96 Oxygen Delivery Method Room Air Room Air Sepsis Recent Fever Within 48 Hours No Sepsis New/Unexplained Change in Mental Status N/A Sepsis Action Taken by Nursing No Action Required 01/07/25 15:21 01/07/25 15:33 01/07/25 17:30 Temperature Temperature Source Pulse Rate 64 74 Pulse Rate from SpO2 Sensor 65 Respiratory Rate 23 24 Respiratory Effort / Characteristics Respiratory Depth Blood Pressure 152/113 H 149/120 H Blood Pressure Mean 126 129 Pulse Oximetry 99 96 92 Oxygen Delivery Method Room Air Room Air Room Air Sepsis Recent Fever Within 48 Hours Sepsis New/Unexplained Change in Mental Status Sepsis Action Taken by Nursing Laboratory Data 01/07/25 14:50 01/07/25 14:50 Lab Results 01/07/25 01/07/25 Range/Units 14:50 15:26 WBC 10.52 (4.8-10.8) K/ul RBC 5.22 (4.20-5.40) M/uL Hgb 16.2 H (12.0-16.0) g/dl Hct 49.2 H (37.0-47.0) % MCV 94.3 (80.0-100.0) fL MCH 31.0 (25.0-34.0) pg MCHC 32.9 (32.0-36.0) g/dL RDW Std Deviation 50.0 H (36.4-46.3) fL RDW Coeff of Ede 14.4 (11.5-14.5) % Plt Count 270 (130-400) K/uL MPV 9.8 (9.4-12.4) fL Immature Gran % (Auto) 0.4 % Neut % (Auto) 64.1 % Lymph % (Auto) 24.9 % [place] % (Auto) 8.5 % Eos % (Auto) 1.6 % Baso % (Auto) 0.5 % Neut # (Auto) 6.75 H (1.40-6.50) K/uL Lymph # (Auto) 2.62 (1.20-3.40) K/uL [place] # (Auto) 0.89 H (0.11-0.59) K/uL Eos # (Auto) 0.17 (0.00-0.50) K/uL Baso # (Auto) 0.05 (0.00-0.20) K/uL Immature Gran # (Auto) 0.04 (0.01-0.20) K/uL PT 11.0 (9.0-12.0) Seconds INR 1.0 (0.9-1.1) Sodium 146 H (136-145) mmol/L Potassium 4.5 (3.5-5.1) mmol/L Chloride 112 H (98-107) mmol/L Carbon Dioxide 27 (21-32) mmol/L Anion Gap 7 (3-11) BUN 46 H (6-23) mg/dl Creatinine 0.96 (0.6-1.2) mg/dl Est Cr Clr Drug Dosing 40.0 ml/min eGFR 58.71 BUN/Creatinine Ratio 47.9 H (10-20) Glucose 72 (70-99(Fasting)) mg/dl Calcium 9.8 (8.6-10.3) mg/dl Magnesium 2.8 H (1.7-2.4) mg/dl Total Bilirubin 0.7 (0.2-1.0) mg/dl AST 47 H (13-39) U/L ALT 95 H (7-52) U/L Alkaline Phosphatase 151 H (34-104) U/L Total Creatine Kinase 48 (26-192) U/L Troponin I High Sens 17.0 H (0-14) pg/ml Total Protein 7.3 (6.0-8.3) gm/dl Albumin 3.5 (3.4-5.0) gm/dl Globulin 3.8 (2.5-4.0) gm/dl Albumin/Globulin Ratio 0.9 (0.9-2) TSH 1.613 (0.300-4.500) uIu/ml Adenovirus (PCR) Not Detected (NotDetected) B. pertussis DNA (PCR) Not Detected (NotDetected) B.parapertussis DNA PCR Not Detected (NotDetected) C. pneumoniae DNA (PCR) Not Detected (NotDetected) Coronavirus OC43 (PCR) Not Detected (NotDetected) Coronavirus HKU1 (PCR) Not Detected (NotDetected) Coronavirus 229E (PCR) Not Detected (NotDetected) SARS-CoV-2 (PCR) Not Detected (NotDetected) Coronavirus NL63 (PCR) Not Detected (NotDetected) Human Metapneumovir PCR Not Detected (NotDetected) Influenza Type A (PCR) Not Detected (NotDetected) Influenza Type B (PCR) Not Detected (NotDetected) M. pneumoniae (PCR) Not Detected (NotDetected) Parainfluenza 1 (PCR) Not Detected (NotDetected) Parainfluenza 2 (PCR) Not Detected (NotDetected) Parainfluenza 3 (PCR) Not Detected (NotDetected) Parainfluenza 4 (PCR) Not Detected (NotDetected) RSV (PCR) Not Detected (NotDetected) Entero/Rhino (PCR) Not Detected (NotDetected) Administered Medications Discontinued Medications Ioversol (Optiray 320 100ml) 90 ml IV ONCE ONE Stop: 01/07/25 15:52 Last Admin: 01/07/25 15:51 Dose: 90 ml Documented By: MATILDE Lorazepam (Lorazepam 1 Mg/1 Ml Syr Ed Inj Use) 0.5 mg IV ONE STA Stop: 01/07/25 16:48 Last Admin: 01/07/25 16:52 Dose: 0.5 mg Documented By: SARAI Imaging Data Radiologist's Impression: Chest X-Ray 01/07/25 14:53 Chest radiograph, one view History: Weakness Comparison: None Findings: Single AP view of the chest performed. No focal consolidation or pleural effusion. No pneumothorax. The cardiomediastinal silhouette is within normal limits. Normal pulmonary vascularity. No evidence for lymphadenopathy. No visualized bony or soft tissue abnormality. Dextroscoliosis of the thoracic spine. Impression: Normal chest radiograph Electronically signed by Pancho Moreno 01-07-2025 3:16 PM Discharge Plan Visit Data Chief Complaint: Fall ED Provider: Roverto Mcguire Discharge Problem: Lethargic, Frequent falls, Transaminitis Patient Disposition: Still a Patient Condition: Fair Forms Stand Alone Forms: [employer] [facility] [employer] Prescriptions Prescriptions: No Action multivitamin Tablet 1 tab PO QAM Qty: 0 albuterol sulfate 90 mcg/actuation HFA aerosol inhaler 2 puff INHALATION Q4 PRN (Reason: Shortness Of Breath Or Wheezing) calcium carbonate-vitamin D3 [Calcium 600 + D(3)] 600 mg-5 mcg (200 unit) Tablet 1 tab PO BID acetaminophen [Tylenol] 325 mg Tablet 550 mg PO Q6H MDD DO NOT EXCEED 3 GM/24 HOURS PRN (Reason: ELEVATED TEMPERATURES >101) acetaminophen [Tylenol] 325 mg Tablet 550 mg PO Q12H MDD DO NOT EXCEED 3 GM/24 HOURS PRN (Reason: Pain (Scale Score 1-4)) citalopram 10 mg tablet 5 mg PO DAILY sennosides-docusate sodium [Senna-S] 8.6-50 mg Tablet 1 tab-cap PO BID tramadol 50 mg tablet 50 mg PO Q4H PRN (Reason: Pain (Scale Score 5-10)) bisacodyl 10 mg Suppository 10 mg VT Q72H PRN (Reason: Constipation) Enema 19-7 gram/118 mL Enema 118 ml VT Q72H PRN (Reason: CONSTIPATION ON 4TH DAY WITHOUT BM) aspirin 81 mg Tablet,Chewable 81 mg PO DAILY gabapentin 100 mg capsule 100 mg PO HS memantine 10 mg tablet 10 mg PO BID Artificial Tears (cmc) 1 % Drops 2 drp OPB TID Referrals Referrals: Ion Wiseman MD [Primary Care Provider] -
--- NOTE | 2025-01-07 15:17 | XRay Report ---
Chest radiograph, one view History: Weakness Comparison: None Findings: Single AP view of the chest performed. No focal consolidation or pleural effusion. No pneumothorax. The cardiomediastinal silhouette is within normal limits. Normal pulmonary vascularity. No evidence for lymphadenopathy. No visualized bony or soft tissue abnormality. Dextroscoliosis of the thoracic spine. Impression: Normal chest radiograph Electronically signed by Pancho Moreno 01-07-2025 3:16 PM
[2025-01-07 15:20] LABS: Hematocrit (blood only) 49.2 % (37.0-47.0); Hemoglobin 16.2 g/dl (12.0-16.0); Immature Granulocytes # (auto) 0.04 K/uL (0.01-0.20); Immature Granulocytes % (auto) 0.4 %; Mean Corpuscular Hemoglobin 31.0 pg (25.0-34.0); Mean Corpuscular Volume 94.3 fL (80.0-100.0); Platelet Count 270 K/uL (130-400); RDW Standard Deviation 50.0 fL (36.4-46.3); Red Blood Count 5.22 M/uL (4.20-5.40); White Blood Count 10.52 K/ul (4.8-10.8)
[2025-01-07 15:37] LABS: Alanine Aminotransferase 95.0 U/L (7-52); Albumin Globulin Ratio 0.9 (0.9-2); Albumin Level 3.5 gm/dl (3.4-5.0); Alkaline Phosphatase 151.0 U/L (34-104); Anion Gap 7.0 (3-11); Bilirubin,Total 0.7 mg/dl (0.2-1.0); Blood Urea Nitrogen 46.0 mg/dl (6-23); Calcium 9.8 mg/dl (8.6-10.3); Carbon Dioxide 27.0 mmol/L (21-32); Chloride 112.0 mmol/L (98-107); Creatine Kinase 48.0 U/L (26-192); Creatinine Clr Calc Pharmacy 40.0 ml/min; Globulin 3.8 gm/dl (2.5-4.0); Glucose 72.0 mg/dl (70-99(Fasting)); Magnesium 2.8 mg/dl (1.7-2.4); Potassium 4.5 mmol/L (3.5-5.1); Sodium 146.0 mmol/L (136-145); Total Protein 7.3 gm/dl (6.0-8.3)
[2025-01-07] MEDS: OPTIRAY 320 100ml IV ONE (15:51)
[2025-01-07 15:52] LABS: Thyroid Stimulating Hormone 1.613 uIu/ml (0.300-4.500)
[2025-01-07 16:16] LABS: INR 1.0 (0.9-1.1); Prothrombin Time 11.0 Seconds (9.0-12.0)
[2025-01-07 16:33] LABS: Chlamydia pneumoniae PCR Not Detected (NotDetected); Coronavirus 229E PCR Not Detected (NotDetected); Coronavirus CoV-2 (COVID19)PCR Not Detected (NotDetected); Coronavirus HKU1 PCR Not Detected (NotDetected); Coronavirus NL63 PCR Not Detected (NotDetected); Coronavirus OC43PCR Not Detected (NotDetected); Human Metapneumovirus PCR Not Detected (NotDetected); Parainfluenza Virus 1 PCR Not Detected (NotDetected); Parainfluenza Virus 2 PCR Not Detected (NotDetected); Parainfluenza Virus 3 PCR Not Detected (NotDetected); Parainfluenza Virus 4 PCR Not Detected (NotDetected); Respiratory Syncytial VirusPCR Not Detected (NotDetected); Rhinovirus/Enterovirus PCR Not Detected (NotDetected)
[2025-01-07] MEDS: LORazepam 1 MG/1 ML SYR ED Inj Use IV STA (16:52)
--- NOTE | 2025-01-07 18:08 | CT Scan Report ---
CT head without contrast History: Lethargy Comparison: None Technique: Using multidetector thin collimation helical acquisition technique, axial, coronal and sagittal CT images from the skull base to the vertex were obtained without intravenous contrast. Dose reduction techniques were achieved by using automatic exposure control and/or adjustment of mA and/or kV according to patient size and/or use of iterative reconstruction technique. Findings: No intracranial hemorrhage, mass-effect, or midline shift. The ventricles are proportionate to the cerebral sulci. The marsh to white matter differentiation of the cerebral hemispheres is preserved. The basal cisterns are patent. Moderate cerebral atrophy. Mucoid opacification of the left maxillary sinus and sphenoid sinus. Mastoid air cells are clear. Impression: No acute intracranial pathology. Electronically signed by Pancho Moreno 01-07-2025 6:07 PM
--- NOTE | 2025-01-07 18:09 | CT Scan Report ---
CT cervical spine without IV contrast History: Lethargy Comparison: None Technique: Using multidetector thin collimation helical acquisition technique, axial, coronal and sagittal CT images through the cervical spine were obtained without intravenous contrast. Dose reduction techniques were achieved by using automatic exposure control and/or adjustment of mA and/or kV according to patient size and/or use of iterative reconstruction technique. Findings: The cervical vertebrae are normally aligned. Normal cervical lordosis. No acute fracture or subluxation. No prevertebral edema. Prominent multilevel hypertrophic degenerative changes of the disc spaces and facet joints. Hypertrophic atlantodental degenerative change. 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 No abnormality of the paraspinous soft tissues. Impression: No acute fracture or traumatic subluxation. Electronically signed by Pancho Moreno 01-07-2025 6:08 PM
--- NOTE | 2025-01-07 18:27 | CT Scan Report ---
EXAMINATION: CT of the abdomen and pelvis performed after the administration of IV contrast TECHNIQUE: Helical CT images from the lung bases through the symphysis pubis were obtained with contrast. Coronal and sagittal reformatted images were generated at a workstation for further assessment. Dose reduction techniques were achieved by using automatic exposure control and/or adjustment of mA and/or kV according to patient size and/or use of iterative reconstruction technique. COMPARISON: 07/28/2023 HISTORY: Lethargy FINDINGS: Lower chest: No consolidation. No pleural effusion or pneumothorax. Liver: No suspicious liver lesions. Portal veins appear patent. Few tiny hepatic cysts. Gallbladder: No gallstones. No evidence of acute cholecystitis. Spleen: Normal size. Pancreas: No suspicious pancreatic lesions. The pancreatic duct is not dilated. Adrenal glands: No adrenal nodules. Kidneys: No hydronephrosis or obstructing renal stones. Scattered small bilateral renal cysts. Bladder / Pelvic organs: Unremarkable. Bowel: No bowel obstruction. No abnormal bowel wall thickening. The appendix is not definitely seen. Lymph nodes: No retroperitoneal, mesenteric, or pelvic lymphadenopathy. Peritoneum / Retroperitoneum: No free fluid or air within the abdomen. Vessels: No infrarenal aortic aneurysm. Heavy aortoiliac atherosclerosis. Bones and soft tissues: No suspicious lesion in the bones. Cutaneous inflammatory fat stranding is seen over the left gluteal region subjacent to the ischium. The underlying ischial bone appears unremarkable. Bilateral total hip arthroplasty. 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 IMPRESSION: No acute finding in the abdomen or pelvis. Mild subcutaneous inflammatory fat stranding of the left gluteal region subjacent to the ischial bone. Electronically signed by Pancho Moreno 01-07-2025 6:27 PM
[2025-01-07 19:04] LABS: Appearance Urine Cloudy (Clear); Bacteria Urine Automated 4+ (None Seen); Glucose Urine UA Negative (Negative); RBC Urine Automated >20 /hpf (0-2); WBC Urine Automated 21-50 /hpf (0-5)
--- NOTE | 2025-01-07 19:04 | Emergency Department Note ---
ED Visit Note This patient was signed out to me from Dr. Bon MD, pending CT and UA. This is an 84-year-old female with a past medical history significant for asthma/COPD, CAD, DVT, Alzheimer's dementia, and neurocognitive dysfunction presenting to the [facility] emergency department for confusion and frequent falls. She has been weak and falling at her half-way. Now presenting with a significant safety risk. Patient had normal workup thus far as labs and imaging. She does seem to be encephalopathic from her baseline. Vitals have remained stable. CT showed some changes over the gluteus which is likely related to the fall. Patient is pending a urinalysis. It was recommended to admit this patient at 1903. Urinalysis independently reviewed by me shows evidence of infection. Patient was placed on IV ceftriaxone. Did review prior urine cultures that revealed only 1 E. coli in 2020 that was only resistant to gentamicin. Patient was placed on ceftriaxone and this should cover it. Patient was discussed with the hospitalist team and they admitted her. Roverto Mcguire DO .
--- NOTE | 2025-01-07 19:51 | History & Physical Report ---
Date of Service January 07, 2025 Assessment & Plan (1) Acute metabolic encephalopathy: (2) Acute UTI: (3) HTN (hypertension): (4) COPD (chronic obstructive pulmonary disease): (5) Alzheimer's dementia: Plan 84yo female with history of HTN, COPD and Alzheimer's dementia presenting from [facility] with several weeks of progressive lethargy and encephalopathy. Family reports that three weeks ago, patient was ambulatory and able to [facility] [place] and do [facility]. Over the last three weeks patient has had progressive confusion, ambulatory dysfunction with frequent falls. Some concern that decline could be secondary to Tramadol. #Acute metabolic encephalopathy/Ambulatory dysfunction/Frequent falls - likely multifactorial - UTI, dehydration, possible medication effects with Tramadol use as well as Seroquel -Admit to medical -Frequent orientation and delirium prevention strategies -Fall precautions -1:1 observation as needed -Will discontinue Tramadol for now -Tylenol 1gm po TID scheduled for pain -Lidoderm patch #Acute UTI -Follow cultures -Ceftriaxone 1gm IV daily #Hypernatremia/Dehydration - Br=588, elevated H/H=16.2 and 49.2, respectively -LR at 80mL/hr x 2L -Repeat BMP and CBC in AM #Hypertension - blood pressure controlled -Continue Losartan 25mg po daily #COPD - no cough, SOB or wheeze. VBG acceptable. No pneumonia -Trelegy daily or formulary equivalent - Albuterol PRN #Alzheimer's dementia -Continue Namenda 10mg po BID -Seroquel 50mg po TID for behavioral disturbances -Mirtazapine 7.5mg po qHS -Buspirone 7.5mg po TID -Citalopram 5mg po daily - consider increasing to 10mg daily History of Present Illness Chief Complaint: confusion Primary Care Provider: Ion Wiseman MD Marlen Tomlinson is an 84yo female with history of HTN, COPD and Alzheimer's dementia presenting from [facility] with confusion. Patient's son and [id number] are in the room and provide history as patient is unable to provide details. They report that three weeks ago patient was at her baseline functional status. She has dementia with some confusion and memory deficit but overall is able to ambulate, feed herself, participate in activities and do puzzles. On 12/21/24 patient sustained a ground level fall. It was reported to family that patient did not strike her head and that everything was fine. Patient's family visited on 12/26 and found the patient to be lethargic and tired. She sustained another fall on 12/29. Her family reported that she was ok. Her family visited her on 01/02 and family reports that she was very tired and minimally responsive. Family visited again on 01/05 and patient was in a wheelchair and couldn't keep her eyes open. [id number] is concerned about the Tramadol that was recently started. She has been receiving Tramadol 50mg po q 4 hours. No additional complaints - no report of fever, chills, cough, SOB, abdominal pain, vomiting or diarrhea. In the ER she is afebrile, HD stable ER Course: Ceftriaxone 1gm IV Ativan 0.5mg Allergies Allergy/AdvReac Type Severity Reaction Status Date / Time guaifenesin Allergy Unknown Unknown Unverified 07/28/23 14:15 Antihistamines - Alkylamine AdvReac Unknown cant Verified 01/07/25 16:00 remember Antihistamines - Ethanolamine AdvReac Unknown cant Verified 01/07/25 16:00 remember Antihistamines - AdvReac Unknown cant Verified 01/07/25 16:00 Ethylenediamine remember Antihistamines - Piperazine AdvReac Unknown cant Verified 01/07/25 16:00 remember Antihistamines - Piperidine AdvReac Unknown cant Verified 01/07/25 16:00 remember Home Medications Medication Instructions Recorded Confirmed Type multivitamin 1 tab PO QAM ##0 03/14/17 01/07/25 History calcium 600 mg (as 1 tab PO BID 10/30/21 01/07/25 History carbonate)-vitamin D3 5 mcg (200 unit) tablet (Calcium 600 + D(3)) albuterol sulfate 90 mcg/actuation 2 puff inhalation Q4 PRN Shortness 10/06/22 01/07/25 History aerosol inhaler Of Breath Or Wheezing acetaminophen 325 mg tablet 550 mg PO Q12H PRN Pain (Scale 01/07/25 01/07/25 History (Tylenol) Score 1-4) acetaminophen 325 mg tablet 550 mg PO Q6H PRN ELEVATED 01/07/25 01/07/25 History (Tylenol) TEMPERATURES >101 aspirin 81 mg chewable tablet 81 mg PO DAILY 01/07/25 01/07/25 History bisacodyl 10 mg rectal suppository 10 mg IL Q72H PRN Constipation 01/07/25 01/07/25 History bisacodyl 10 mg rectal suppository 10 mg IL DAILY PRN Constipation 01/07/25 01/07/25 History (Dulcolax (bisacodyl)) buspirone 7.5 mg PO TID 01/07/25 01/07/25 History carboxymethylcellulose sodium 1 % 2 drp OPB TID 01/07/25 01/07/25 History eye drops (Artificial Tears (carboxymethylcellulose)) citalopram 10 mg tablet 5 mg PO DAILY 01/07/25 01/07/25 History fluticasone fur. 200 mcg-umeclid 1 inh inhalation 01/07/25 History 62.5 mcg-vilant 25 mcg inhalat.powder (Trelegy Ellipta) gabapentin 100 mg capsule 100 mg PO HS 01/07/25 01/07/25 History losartan 50 mg tablet 25 mg PO DAILY 01/07/25 01/07/25 History memantine 10 mg tablet 10 mg PO BID 01/07/25 01/07/25 History mirtazapine 7.5 mg tablet 7.5 mg PO HS 01/07/25 01/07/25 History quetiapine 50 mg tablet 50 mg PO TID 01/07/25 01/07/25 History sennosides 8.6 mg-docusate sodium 1 tab-cap PO BID 01/07/25 01/07/25 History 50 mg tablet (Senna-S) sodium phosphates 19 gram-7 118 ml IL Q72H PRN CONSTIPATION ON 01/07/25 01/07/25 History gram/118 mL enema (Enema) 4TH DAY WITHOUT BM tramadol 50 mg tablet 50 mg PO Q4H PRN Pain (Scale Score 01/07/25 01/07/25 History 5-10) tramadol 50 mg tablet mg 01/07/25 History Past Med/Surg History Problem List Transaminitis (Acute) Frequent falls (Acute) Lethargic (Acute) Discussion about advance care planning held with family member Confusion Acute metabolic encephalopathy Chronic renal failure, stage 3a HTN (hypertension) COPD (chronic obstructive pulmonary disease) Alzheimer's dementia (Acute) Palliative care by specialist PNA (pneumonia) (Acute) Elevated troponin (Acute) AMS (altered mental status) (Acute) Elevated WBC count (Acute) Altered mental status (Acute) Observed seizure-like activity (Acute) Syncope (Acute) Hypoxia (Acute) Cough (Acute) Chest congestion (Acute) Breath shortness (Acute) Candidiasis of mouth and esophagus Hypoxia (Acute) Acute exacerbation of chronic obstructive pulmonary disease (Acute) DVT prophylaxis Pulmonary nodule COPD with exacerbation Syncope (Acute) Precordial chest pain (Acute) Leukocytosis (Acute) Acute UTI (Acute) Heart disease (Chronic) Sinusitis (Acute) Closed head injury (Acute) Laceration of right eyebrow (Acute) Asthma (Chronic) Lumbar vertebral fracture (Acute) Wrist contusion (Acute) Medical History Alzheimer disease Facial bruising Acute exacerbation of chronic obstructive pulmonary disease No pertinent family history Dementia Diabetes Hypertension Surgical History S/P cataract extraction and insertion of intraocular lens b/l Family History Other Family history unknown Social History Smoking Status: Unknown if ever smoked Tobacco Type: Cigarettes Cigarettes Per Day: minimal amount of tobacco at age 20yo only; Second Hand Exposure: No; Do You Dip or Chew Tobacco: No; Hx Alcohol Use: No Hx Substance Use: No Preferred Language: Sinhala Communication Ability: Impaired Processing Tech Required: No Beliefs That Will Affect Care: None marital status: / Current Living Situation: Family Current Living Situation Comment: granddaughter lives with pt current occupational status: retired current occupation: worked at [employer]" How many Children do You have: 4 How many Children do You have Comment: 2 sons, 2 daughters Feels Safe at Home: Yes Assistive Devices: Cane and Walker Review of Systems Review of Systems: All systems reviewed & are unremarkable except as noted in HPI & below Physical Exam Physical Exam: General: patient delirious, unable to answer questions or follow commands, mild agitation Skin: warm, dry, intact, no rashes or lesions HEENT: NC/AT, PERRL, EOMI, anicteric sclera, conjunctiva without injection, external ear normal to inspection and nontender, nares patent, dry mucus membranes, dentition intact, no oropharyngeal lesions, neck supple, trachea midline, no LAD, no thyromegaly, no JVD Heart: +S1/S2, regular, no m/r/g Lungs: equal air entry bilaterally, no rales/rhonchi/wheezes Abd: +BS, soft, NT/ND, no masses/organomegaly/ascites Ext: warm, 2+ pulses in UE/LE bilaterally, no clubbing/cyanosis or edema Neuro:moving all extremities Results & Data Results & Data Vital Signs (Past 12 Hours) Vital Signs Temp Pulse Resp BP Pulse Ox O2 Del Method 01/07/25 18:28 71 01/07/25 17:36 68 22 119/94 96 Room Air 01/07/25 17:30 74 24 149/120 H 92 Room Air 01/07/25 15:33 64 23 152/113 H 96 Room Air 01/07/25 15:21 99 Room Air 01/07/25 15:00 67 23 163/88 H 96 Room Air 01/07/25 14:44 63 01/07/25 14:38 36.8 C 64 16 140/94 96 Room Air Laboratory Results Laboratory Results WBC 10.52 K/ul (4.8-10.8) 01/07/25 14:50 RBC 5.22 M/uL (4.20-5.40) 01/07/25 14:50 Hgb 16.2 g/dl (12.0-16.0) H 01/07/25 14:50 Hct 49.2 % (37.0-47.0) H 01/07/25 14:50 MCV 94.3 fL (80.0-100.0) 01/07/25 14:50 MCH 31.0 pg (25.0-34.0) 01/07/25 14:50 MCHC 32.9 g/dL (32.0-36.0) 01/07/25 14:50 RDW Std Deviation 50.0 fL (36.4-46.3) H 01/07/25 14:50 RDW Coeff of Ede 14.4 % (11.5-14.5) 01/07/25 14:50 Plt Count 270 K/uL (130-400) 01/07/25 14:50 MPV 9.8 fL (9.4-12.4) 01/07/25 14:50 Immature Gran % (Auto) 0.4 % 01/07/25 14:50 Neut % (Auto) 64.1 % 01/07/25 14:50 Lymph % (Auto) 24.9 % 01/07/25 14:50 [place] % (Auto) 8.5 % 01/07/25 14:50 Eos % (Auto) 1.6 % 01/07/25 14:50 Baso % (Auto) 0.5 % 01/07/25 14:50 Neut # (Auto) 6.75 K/uL (1.40-6.50) H 01/07/25 14:50 Lymph # (Auto) 2.62 K/uL (1.20-3.40) 01/07/25 14:50 [place] # (Auto) 0.89 K/uL (0.11-0.59) H 01/07/25 14:50 Eos # (Auto) 0.17 K/uL (0.00-0.50) 01/07/25 14:50 Baso # (Auto) 0.05 K/uL (0.00-0.20) 01/07/25 14:50 Immature Gran # (Auto) 0.04 K/uL (0.01-0.20) 01/07/25 14:50 PT 11.0 Seconds (9.0-12.0) 01/07/25 14:50 INR 1.0 (0.9-1.1) 01/07/25 14:50 Sodium 146 mmol/L (136-145) H 01/07/25 14:50 Potassium 4.5 mmol/L (3.5-5.1) 01/07/25 14:50 Chloride 112 mmol/L (98-107) H 01/07/25 14:50 Carbon Dioxide 27 mmol/L (21-32) 01/07/25 14:50 Anion Gap 7 (3-11) 01/07/25 14:50 BUN 46 mg/dl (6-23) H 01/07/25 14:50 Creatinine 0.96 mg/dl (0.6-1.2) 01/07/25 14:50 Est Cr Clr Drug Dosing 40.0 ml/min 01/07/25 14:50 eGFR 58.71 01/07/25 14:50 BUN/Creatinine Ratio 47.9 (10-20) H 01/07/25 14:50 Glucose 72 mg/dl (70-99(Fasting)) 01/07/25 14:50 Calcium 9.8 mg/dl (8.6-10.3) 01/07/25 14:50 Magnesium 2.8 mg/dl (1.7-2.4) H 01/07/25 14:50 Total Bilirubin 0.7 mg/dl (0.2-1.0) 01/07/25 14:50 AST 47 U/L (13-39) H 01/07/25 14:50 ALT 95 U/L (7-52) H 01/07/25 14:50 Alkaline Phosphatase 151 U/L (34-104) H 01/07/25 14:50 Total Creatine Kinase 48 U/L (26-192) 01/07/25 14:50 Troponin I High Sens 17.0 pg/ml (0-14) H 01/07/25 14:50 Total Protein 7.3 gm/dl (6.0-8.3) 01/07/25 14:50 Albumin 3.5 gm/dl (3.4-5.0) 01/07/25 14:50 Globulin 3.8 gm/dl (2.5-4.0) 01/07/25 14:50 Albumin/Globulin Ratio 0.9 (0.9-2) 01/07/25 14:50 TSH 1.613 uIu/ml (0.300-4.500) 01/07/25 14:50 Urine Color Yellow 01/07/25 Unknown Urine Appearance Cloudy (Clear) A 01/07/25 Unknown Urine pH 7.5 (4.5-7.5) 01/07/25 Unknown Ur Specific [place] > 1.045 (1.000-1.030) H 01/07/25 Unknown Urine Protein 1+ (Negative) H 01/07/25 Unknown Urine Glucose (UA) Negative (Negative) 01/07/25 Unknown Urine Ketones Trace (Negative) H 01/07/25 Unknown Urine Blood Negative (Negative) 01/07/25 Unknown Urine Nitrite Negative (Negative) 01/07/25 Unknown Urine Bilirubin Negative (Negative) 01/07/25 Unknown Urine Urobilinogen Negative (Negative) 01/07/25 Unknown Ur Leukocyte Esterase 1+ (Negative) H 01/07/25 Unknown Urine WBC (Auto) 21-50 /hpf (0-5) H 01/07/25 Unknown Urine RBC (Auto) >20 /hpf (0-2) H 01/07/25 Unknown U Hyaline Cast (Auto) 6-10 /lpf (0-2) H 01/07/25 Unknown U Epithel Cells (Auto) 3-5 /hpf (0-2) H 01/07/25 Unknown Urine Bacteria (Auto) 4+ (None Seen) H 01/07/25 Unknown Amorphous Sediment Present (None Prsent) A 01/07/25 Unknown Urine Comment 01/07/25 Unknown Adenovirus (PCR) Not Detected (NotDetected) 01/07/25 15:26 B. pertussis DNA (PCR) Not Detected (NotDetected) 01/07/25 15:26 B.parapertussis DNA PCR Not Detected (NotDetected) 01/07/25 15:26 C. pneumoniae DNA (PCR) Not Detected (NotDetected) 01/07/25 15:26 Coronavirus OC43 (PCR) Not Detected (NotDetected) 01/07/25 15:26 Coronavirus HKU1 (PCR) Not Detected (NotDetected) 01/07/25 15:26 Coronavirus 229E (PCR) Not Detected (NotDetected) 01/07/25 15:26 SARS-CoV-2 (PCR) Not Detected (NotDetected) 01/07/25 15:26 Coronavirus NL63 (PCR) Not Detected (NotDetected) 01/07/25 15:26 Human Metapneumovir PCR Not Detected (NotDetected) 01/07/25 15:26 Influenza Type A (PCR) Not Detected (NotDetected) 01/07/25 15:26 Influenza Type B (PCR) Not Detected (NotDetected) 01/07/25 15:26 M. pneumoniae (PCR) Not Detected (NotDetected) 01/07/25 15:26 Parainfluenza 1 (PCR) Not Detected (NotDetected) 01/07/25 15:26 Parainfluenza 2 (PCR) Not Detected (NotDetected) 01/07/25 15:26 Parainfluenza 3 (PCR) Not Detected (NotDetected) 01/07/25 15:26 Parainfluenza 4 (PCR) Not Detected (NotDetected) 01/07/25 15:26 RSV (PCR) Not Detected (NotDetected) 01/07/25 15:26 Entero/Rhino (PCR) Not Detected (NotDetected) 01/07/25 15:26 Impressions Chest X-Ray 01/07/25 14:53 Chest radiograph, one view History: Weakness Comparison: None Findings: Single AP view of the chest performed. No focal consolidation or pleural effusion. No pneumothorax. The cardiomediastinal silhouette is within normal limits. Normal pulmonary vascularity. No evidence for lymphadenopathy. No visualized bony or soft tissue abnormality. Dextroscoliosis of the thoracic spine. Impression: Normal chest radiograph Electronically signed by Pancho Moreno 01-07-2025 3:16 PM Abdomen/Pelvis CT 01/07/25 15:03 EXAMINATION: CT of the abdomen and pelvis performed after the administration of IV contrast TECHNIQUE: Helical CT images from the lung bases through the symphysis pubis were obtained with contrast. Coronal and sagittal reformatted images were generated at a workstation for further assessment. Dose reduction techniques were achieved by using automatic exposure control and/or adjustment of mA and/or kV according to patient size and/or use of iterative reconstruction technique. COMPARISON: 07/28/2023 HISTORY: Lethargy FINDINGS: Lower chest: No consolidation. No pleural effusion or pneumothorax. Liver: No suspicious liver lesions. Portal veins appear patent. Few tiny hepatic cysts. Gallbladder: No gallstones. No evidence of acute cholecystitis. Spleen: Normal size. Pancreas: No suspicious pancreatic lesions. The pancreatic duct is not dilated. Adrenal glands: No adrenal nodules. Kidneys: No hydronephrosis or obstructing renal stones. Scattered small bilateral renal cysts. Bladder / Pelvic organs: Unremarkable. Bowel: No bowel obstruction. No abnormal bowel wall thickening. The appendix is not definitely seen. Lymph nodes: No retroperitoneal, mesenteric, or pelvic lymphadenopathy. Peritoneum / Retroperitoneum: No free fluid or air within the abdomen. Vessels: No infrarenal aortic aneurysm. Heavy aortoiliac atherosclerosis. Bones and soft tissues: No suspicious lesion in the bones. Cutaneous inflammatory fat stranding is seen over the left gluteal region subjacent to the ischium. The underlying ischial bone appears unremarkable. Bilateral total hip arthroplasty. 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 IMPRESSION: No acute finding in the abdomen or pelvis. Mild subcutaneous inflammatory fat stranding of the left gluteal region subjacent to the ischial bone. Electronically signed by Pancho Moreno 01-07-2025 6:[address] 01/07/25 15:03 CT cervical spine without IV contrast History: Lethargy Comparison: None Technique: Using multidetector thin collimation helical acquisition technique, axial, coronal and sagittal CT images through the cervical spine were obtained without intravenous contrast. Dose reduction techniques were achieved by using automatic exposure control and/or adjustment of mA and/or kV according to patient size and/or use of iterative reconstruction technique. Findings: The cervical vertebrae are normally aligned. Normal cervical lordosis. No acute fracture or subluxation. No prevertebral edema. Prominent multilevel hypertrophic degenerative changes of the disc spaces and facet joints. Hypertrophic atlantodental degenerative change. 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 No abnormality of the paraspinous soft tissues. Impression: No acute fracture or traumatic subluxation. Electronically signed by Pancho Moreno 01-07-2025 6:[address] 01/07/25 15:03 CT head without contrast History: Lethargy Comparison: None Technique: Using multidetector thin collimation helical acquisition technique, axial, coronal and sagittal CT images from the skull base to the vertex were obtained without intravenous contrast. Dose reduction techniques were achieved by using automatic exposure control and/or adjustment of mA and/or kV according to patient size and/or use of iterative reconstruction technique. Findings: No intracranial hemorrhage, mass-effect, or midline shift. The ventricles are proportionate to the cerebral sulci. The marsh to white matter differentiation of the cerebral hemispheres is preserved. The basal cisterns are patent. Moderate cerebral atrophy. Mucoid opacification of the left maxillary sinus and sphenoid sinus. Mastoid air cells are clear. Impression: No acute intracranial pathology. Electronically signed by Pancho Moreno 01-07-2025 6:07 PM Code Status & VTE Plan VTE Prophylaxis Plan VTE Prophylaxis will be ordered: Yes PG Care Time/CCT Total # of Minutes Spent Total Time Spent with Patient: Total time spent is greater than 50% in coordination of care (as documented) at patient's floor/unit and/or counseling patient: Coding Level of Care Code 15436 INT INP/OBS CARE MIN Diagnoses Acute metabolic encephalopathy G93.41 Acute UTI N39.0 HTN (hypertension) I10 Hypertension type: unspecified COPD (chronic obstructive pulmonary disease) J44.9 Severe Alzheimer's dementia with other behavioral disturbance, unspecified timing of dementia onset G30.9; F02.C18 Alzheimer's disease onset: unspecified onset Dementia behavioral or psychological symptom: with other behavioral disturbance Dementia severity: severe (3) HTN (hypertension) Hypertension type: unspecified Qualified Code(s): I10 - Essential (primary) hypertension (5) Alzheimer's dementia Alzheimer's disease onset: unspecified onset Dementia behavioral or psychological symptom: with other behavioral disturbance Dementia severity: severe Qualified Code(s): G30.9 - Alzheimer's disease, unspecified; F02.C18 - Dementia in other diseases classified elsewhere, severe, with other behavioral disturbance
[2025-01-07] MEDS: cefTRIAXone SODIUM 1,000 MG/50 ML BAG IV STA (20:16)
[2025-01-07] MEDS ORDERED: ONDANSETRON INJ 2 MG/ML 2 ML VIAL IV PRN (21:07)
[2025-01-07] MEDS ORDERED: ALBUTEROL HFA 8 GM INHALER INH PRN (21:07)
[2025-01-07] MEDS ORDERED: SOD PHOSPHATE/SOD BIPHOSPHATE ENEMA 132 ML BTL PR PRN (21:07)
[2025-01-08] MEDS: ENOXAPARIN INJ 30 MG/0.3 ML SYR SQ SCH (00:21)
[2025-01-08] MEDS: MEMANTINE HCL 10 MG TAB PO SCH (01:51)
[2025-01-08] MEDS: MIRTAZAPINE TAB 15 MG TAB PO SCH (01:52)
[2025-01-08] MEDS: LIDOCAINE 5% 1 PATCH TD STA (01:53)
[2025-01-08] MEDS: ACETAMINOPHEN 500 MG TAB PO SCH (02:26)
[2025-01-08] MEDS: LACTATED RINGER'S 1,000 ML IV SCH (02:31)
[2025-01-08] MEDS: DOCUSATE SODIUM/SENNA 50/8.6MG TAB PO SCH (03:41)
[2025-01-08 07:03] LABS: Hematocrit (blood only) 50.2 % (37.0-47.0); Hemoglobin 16.8 g/dl (12.0-16.0); Mean Corpuscular Hemoglobin 32.1 pg (25.0-34.0); Mean Corpuscular Volume 95.8 fL (80.0-100.0); Platelet Count 238 K/uL (130-400); RDW Standard Deviation 49.9 fL (36.4-46.3); Red Blood Count 5.24 M/uL (4.20-5.40); White Blood Count 9.07 K/ul (4.8-10.8)
[2025-01-08 07:43] LABS: Albumin Level 3.6 gm/dl (3.4-5.0); Anion Gap 6.0 (3-11); Bilirubin,Total 0.8 mg/dl (0.2-1.0); Calcium 9.5 mg/dl (8.6-10.3); Carbon Dioxide 27.0 mmol/L (21-32); Chloride 114.0 mmol/L (98-107); Potassium 4.2 mmol/L (3.5-5.1); Sodium 147.0 mmol/L (136-145)
[2025-01-08 07:49] LABS: Alanine Aminotransferase 69.0 U/L (7-52); Alkaline Phosphatase 138.0 U/L (34-104); Blood Urea Nitrogen 38.0 mg/dl (6-23); Creatinine Clr Calc Pharmacy 47.2 ml/min; Glucose 96.0 mg/dl (70-99(Fasting)); Total Protein 7.0 gm/dl (6.0-8.3)
[2025-01-08] MEDS: LOSARTAN POTASSIUM 25 MG TAB PO SCH (08:08)
[2025-01-08] MEDS: CITALOPRAM 20 MG TAB PO SCH (08:08)
[2025-01-08] MEDS: FLUTICASONE/VILANTEROL 100/25MCG 14 PUFFS/INHALER INH SCH (08:09)
[2025-01-08] MEDS: ASPIRIN 81 MG CHEW PO SCH (08:09)
[2025-01-08] MEDS: UMECLIDINIUM BROMIDE 62.5MCG/BLISTER 7 PUFFS/INHALER INH SCH (08:09)
[2025-01-08] MEDS: REMOVE LIDODERM PATCH SCH (08:10)
[2025-01-08] MEDS: DEXTROSE 5% 1,000 ML IV SCH (08:30)
--- NOTE | 2025-01-08 10:41 | Electrocardiogram Report ---
Test Reason : Blood Pressure : */* mmHG Vent. Rate : 69 BPM Atrial Rate : 69 BPM P-R Int : 142 ms QRS Dur : 86 ms QT Int : 358 ms P-R-T Axes : 71 -75 49 degrees QTcB Int : 383 ms Normal sinus rhythm Left axis deviation Cannot rule out Anteroseptal infarct , age undetermined Abnormal ECG When compared with ECG of 28-Jul-2023 12:10, Minimal criteria for Anteroseptal infarct are now Present Confirmed by Maicol Roberts ([id number]) on 01/08/2025 10:41:34 AM Referred By: REFERRED SELF Confirmed By: Maicol Roberts
--- NOTE | 2025-01-08 12:23 | Hospitalist Progress Note ---
Date of Service January 08, 2025 Assessment & Plan (1) Acute metabolic encephalopathy: (2) Acute UTI: (3) HTN (hypertension): (4) COPD (chronic obstructive pulmonary disease): (5) Alzheimer's dementia: Plan 84yo female with history of HTN, COPD and Alzheimer's dementia presenting from [facility] with several weeks of progressive lethargy and encephalopathy. Family reports that three weeks ago, patient was ambulatory and able to participate in activities in the [facility] and do puzzles. Over the last three weeks patient has had progressive confusion, ambulatory dysfunction with frequent falls. Some concern that decline could be secondary to Tramadol. #Acute metabolic encephalopathy/Ambulatory dysfunction/Frequent falls - likely multifactorial - UTI, dehydration, possible medication effects with Tramadol use as well as Seroquel Suspect most likely secondary to infection Agree with discontinuing tramadol as this was recently started and no pain per RN who fed her this morning Given lethargy when seen we will also hold Seroquel and introduce back if she needs it, her antipsychotics appear to have been rapidly up titrated from what I can gather, may do better with a less sedating anti-psychotic during the day time Once able to contact family would consider palliative care consult #Acute UTI -Follow cultures -Ceftriaxone 1gm IV daily #Hypernatremia/Dehydration Switched fluids to D5W 80ml/hr for 1L, likely to resolve after this as long as she starts eating and drinking #Hypertension Significant hypertension overnight and recently on carvedilol 6.25mg PO BID (I have no documentation why this was discontinued but previously on external med rec as recently as 12/10 and on a higher dose last year) With her current HR will elect to increase her losartan rather than giving her carvedilol back Notably in July 2023 she was on ISMN 60mg, losartan 100mg and carvedilol 12.5mg PO BID #COPD - no cough, SOB or wheeze. VBG acceptable. No pneumonia -Trelegy daily or formulary equivalent - Albuterol PRN #Alzheimer's dementia -Continue Namenda 10mg po BID - will discuss with family but if dementia is as a dvanced as I suspect this medication is relatively futile -Seroquel 50mg po TID for behavioral disturbances - holding as above -Mirtazapine 7.5mg po qHS -Buspirone 7.5mg po TID -Citalopram 5mg po daily VTE Prophylaxis - Lovenox Disposition - continue med/surg Admission and Anticipated Discharge Date Admission Date: January 07, 2025 Subjective Unable to get any history from patient. No answer on primary contact number Cary Tomlinson. From looking at the external medical record is appears as if she was on losartan, memantine and carvedilol in April but then she stopped picking up prescriptions until November 01 when she when these medications were re- prescribed in addition to citalopram 5mg, risperidone 0.25mg BID and gabapentin 100mg PO TID. More recently on 11/07 she was started on Seroquel 25mg PO presumably at night. 12/10 Seroquel increased to 2.5 tabs/day and it appears she was being weaned off risperidone. On 12/23 her Seroquel dose increased to 50mg x2/day but this was only a 2 day prescription. She was started on tramadol on 12/31 ordered PRN but getting regularly. Mirtazapine started 01/06 (from [facility] home notes). Unknown when BusPAR was started but on this since at least 01/02 She remains on the citalopram, losartan, gabapentin (only at bedtime), wilbert ntine, Seroquel (now 50mg PO TID) in addition to her newly started medications (mirtazapine and tramadol) as above. Of note she was admitted in July 2023 with pneumonia and noted to have advanced dementia at that time (more the family could handle) with worsening altered mental state due to the pneumonia and she was discharged to a SNF at that time. Palliative care noted during her hospitalization that she was only orientated to self without understanding of why she is here not what brought her into hospital. Possible hospice was also discussed at that time. She was notably not needing antipsychotics that admission although it was 1.5 years ago. Physical Exam Constitutional: well developed; + not well nourished and no acute distress ENMT: Mouth: + dry oral mucous membranes Respiratory: normal respiratory effort; no respiratory distress Auscultation: lungs clear to auscultation bilaterally Cardiovascular: Rate/Rhythm: regular rate and regular rhythm Extremities: + pedal edema (trace b/l equal) Gastrointestinal (Abdomen): Inspection/Auscultation: abdomen normal to inspection; abdomen not distended Percussion/Palpation: + abdomen tender (generalized moaning) and abdomen soft Skin: no rashes, warm and dry Psychiatric: Orientation: alert (to noxious stimuli, reportedly up and eating small amount of breakfast); + not oriented x 3 Results & Data Results & Data Vital Signs (Past 12 Hours) Vital Signs Pulse Pulse Resp BP BP Pulse Ox O2 Del Method 01/08/25 08:29 60 14 189/107 H 96 Room Air 01/08/25 06:51 198/104 H 01/08/25 05:43 202/90 H 01/08/25 05:21 67 16 223/92 H 98 Room Air 01/08/25 02:31 197/96 H PG Care Time/CCT Total # of Minutes Spent Total Time Spent: 60 Total Time Spent with Patient: Total time spent is greater than 50% in coordination of care (as documented) at patient's floor/unit and/or counseling patient: Coding Level of Care Code 30243 SUB INP/OBS CARE 3/50MIN Diagnoses Acute metabolic encephalopathy G93.41 Acute UTI N39.0 HTN (hypertension) I10 Hypertension type: unspecified COPD (chronic obstructive pulmonary disease) J44.9 Severe Alzheimer's dementia with other behavioral disturbance, unspecified timing of dementia onset G30.9; F02.C18 Alzheimer's disease onset: unspecified onset Dementia behavioral or psychological symptom: with other behavioral disturbance Dementia severity: severe (3) HTN (hypertension) Hypertension type: unspecified Qualified Code(s): I10 - Essential (primary) hypertension (5) Alzheimer's dementia Alzheimer's disease onset: unspecified onset Dementia behavioral or psychological symptom: with other behavioral disturbance Dementia severity: severe Qualified Code(s): G30.9 - Alzheimer's disease, unspecified; F02.C18 - Dementia in other diseases classified elsewhere, severe, with other behavioral disturbance
[2025-01-08] MEDS: LOSARTAN POTASSIUM 25 MG TAB PO ONE (14:02)
--- NOTE | 2025-01-08 17:09 | Communication Note ---
Date of Service: January 08, 2025 Discussed with daughter (Cary) and she was concerned of escalating mood medications that were started at [facility] recently when she suspects her mood was off due to UTI rather than inherent anxiety. We reviewed all medications and discussed we were already holding Seroquel and tramadol which she agreed with. Also mirtazapine just started in last 2 days and BuSpar just started January 02 therefore will also hold these as presumably her agitation/anxiety will go back to her baseline once UTI that she likely had at the time of starting these medications was started. Reportedly she was doing very well at [facility] since discharge there in July 2023 apart from her memory. Very active and getting up to feed herself. Decline has been very quick over the last few weeks which fits having a UTI. She may need Seroquel to help her sleep tonight but recommend a wait and see approach and perhaps just using 25mg PO if needed. Discussed increased mortality rate with this medication and will only use if needed.
[2025-01-08] MEDS: cefTRIAXone SODIUM 1,000 MG/50 ML BAG IV SCH (20:51)
[2025-01-09 07:55] LABS: Alanine Aminotransferase 74.0 U/L (7-52); Albumin Globulin Ratio 1.1 (0.9-2); Albumin Level 3.3 gm/dl (3.4-5.0); Alkaline Phosphatase 129.0 U/L (34-104); Anion Gap 6.0 (3-11); Bilirubin,Total 0.8 mg/dl (0.2-1.0); Blood Urea Nitrogen 25.0 mg/dl (6-23); Calcium 8.9 mg/dl (8.6-10.3); Carbon Dioxide 25.0 mmol/L (21-32); Chloride 108.0 mmol/L (98-107); Creatinine Clr Calc Pharmacy 59.4 ml/min; Globulin 3.0 gm/dl (2.5-4.0); Glucose 74.0 mg/dl (70-99(Fasting)); Potassium 3.6 mmol/L (3.5-5.1); Sodium 139.0 mmol/L (136-145); Total Protein 6.3 gm/dl (6.0-8.3)
[2025-01-09] MEDS: LOSARTAN POTASSIUM 50 MG TAB PO SCH (10:14)
--- NOTE | 2025-01-09 11:34 | Hospitalist Progress Note ---
Date of Service January 09, 2025 Assessment & Plan (1) Acute metabolic encephalopathy: (2) Acute UTI: (3) HTN (hypertension): (4) COPD (chronic obstructive pulmonary disease): (5) Alzheimer's dementia: Plan 84yo female with history of HTN, COPD and Alzheimer's dementia presenting from [facility] with several weeks of progressive lethargy and encephalopathy. Family reports that three weeks ago, patient was ambulatory and able to participate in activities in the [facility] and do puzzles. Over the last three weeks patient has had progressive confusion, ambulatory dysfunction with frequent falls. Some concern that decline could be secondary to Tramadol. #Acute metabolic encephalopathy/Ambulatory dysfunction/Frequent falls - likely multifactorial - UTI, dehydration, possible medication effects with Tramadol use as well as Seroquel Infectious vs. toxic encephalopathy - now back to baseline off tramadol, mirtazapine, BuSpar, Seroquel. Can use Seroquel just as needed and reduce dose to 25mg. #Acute UTI -Culture with mixed elba however I do suspect this was a true UTI from history of significant decline (although it could have been tramadol alone) -Ceftriaxone 1gm IV daily #Hypernatremia/Dehydration Resolved #Hypertension Ongoing hypertension, increased losartan 25-> 50 mg, avoid any acute (especially IV) treatments, if sustaining above 220 will consider increasing losartan to 100mg but ideally this uptitration should be performed as outpatient No pain as reason for her BP, suspect it is just up because her medications were recently decreased as outpatient due to hypotension suspect with hindsight from infection/dehydration #COPD - no cough, SOB or wheeze. VBG acceptable. No pneumonia -Trelegy daily or formulary equivalent - Albuterol PRN #Alzheimer's dementia -Continue Namenda 10mg po BID - will discuss with family but if dementia is as advanced as I suspect this medication is relatively futile -Seroquel 50mg po TID for behavioral disturbances - holding as above -Mirtazapine 7.5mg po qHS -Buspirone 7.5mg po TID -Citalopram 5mg po daily VTE Prophylaxis - Lovenox Disposition - continue med/surg Admission and Anticipated Discharge Date Admission Date: January 07, 2025 Anticipated date of discharge: 01/10/25 Subjective Patient is pleasantly confused, cannot give me any history. Reports no pain currently but had pain with occupational therapy. Generally much improved from yesterday, awake and alert On discussion with daughter in law she requests keeping her mother in law one more night for stability given number of medication changes. She also notes her BP was [facility] so one of the BP medications was stopped but unsure which one (from med rec I suspect carvedilol). She does note her mother in law is back to baseline cognition although her ambulation is worse than usual. Physical Exam Constitutional: well developed and + frail appearing; + not well nourished and no acute distress ENMT: Mouth: + dry oral mucous membranes Respiratory: normal respiratory effort; no respiratory distress Auscultation: lungs clear to auscultation bilaterally Cardiovascular: Rate/Rhythm: regular rate and regular rhythm Gastrointestinal (Abdomen): Inspection/Auscultation: abdomen normal to inspection; abdomen not distended Percussion/Palpation: abdomen soft; abdomen nontender Skin: no rashes, warm and dry Psychiatric: Orientation: alert; + not oriented x 3 Results & Data Results & Data Vital Signs (Past 12 Hours) Vital Signs Temp Pulse Resp BP BP Pulse Ox O2 Del Method 01/09/25 08:18 36.5 C 53 L 18 194/122 H 213/91 H 97 Room Air 01/09/25 00:35 36.4 C L 50 L 18 151/97 H 94 Room Air PG Care Time/CCT Total # of Minutes Spent Total Time Spent with Patient: Total time spent is greater than 50% in coordination of care (as documented) at patient's floor/unit and/or counseling patient: Coding Level of Care Code 07992 SUB INP/OBS CARE 2/35MIN Diagnoses Acute metabolic encephalopathy G93.41 Acute UTI N39.0 HTN (hypertension) I10 Hypertension type: unspecified COPD (chronic obstructive pulmonary disease) J44.9 Severe Alzheimer's dementia with other behavioral disturbance, unspecified timing of dementia onset G30.9; F02.C18 Alzheimer's disease onset: unspecified onset Dementia behavioral or psychological symptom: with other behavioral disturbance Dementia severity: severe (3) HTN (hypertension) Hypertension type: unspecified Qualified Code(s): I10 - Essential (primary) hypertension (5) Alzheimer's dementia Alzheimer's disease onset: unspecified onset Dementia behavioral or psychological symptom: with other behavioral disturbance Dementia severity: severe Qualified Code(s): G30.9 - Alzheimer's disease, unspecified; F02.C18 - Dementia in other diseases classified elsewhere, severe, with other behavioral disturbance
[2025-01-10 07:54] VITALS: BP 169/85; PULSE 50; RESP 16; TEMP 97.7; O2SAT 98
--- NOTE | 2025-01-10 12:51 | Discharge Summary ---
Discharge Summary Date of Service January 10, 2025 Principal Dx & Hospital Course #1 = Principal Diagnosis (1) Acute metabolic encephalopathy: (2) Acute UTI: (3) HTN (hypertension): (4) COPD (chronic obstructive pulmonary disease): (5) Alzheimer's dementia: Plan Marlen Tomlinson is an 84 year old female admitted to [facility] from January 07-2024 due to altered mental state. This resolved on stopping recently started medications - tramadol, mirtazapine, Seroquel and BuSpar. She has not required any Seroquel during her inpatient admission but recommend on discharge using only as needed at night if delirious at risk to self or others. She was also treated for a UTI although culture showed mixed elba which was inconclusive but given decline prior to starting on tramadol recommend continuing on antibiotics. She was also treated for dehydration and hypernatremia with intravenous fluids. She is not at her baseline mobility and will need ongoing rehabilitation at her half-way. During hospitalization her blood pressure has been very elevated (max 223/92). Since her antihypertensives were recently decreased suspect her recent lower blood pressure was due to UTI and these may need to be restarted / increased. We have increased her losartan back to 50mg PO daily and recommend further uptitration as necessary at her half-way. LFTs have also been elevated, recommend limiting acetaminophen to 2000mg/day and repeating in 1-2 weeks. Notes For Next Care Provider Repeat LFTs in 1-2 weeks Medication Changes From Visit Tramadol, buspirone and mirtazapine stopped due to encephalopathy Seroquel reduced due to encephalopathy Losartan increased to 50mg due to high blood pressure Admission HPI Per Admitting Provider Marlen Tomlinson is an 84yo female with history of HTN, COPD and Alzheimer's dementia presenting from [facility] with confusion. Patient's son and [id number] are in the room and provide history as patient is unable to provide details. They report that three weeks ago patient was at her baseline functional status. She has dementia with some confusion and memory deficit but overall is able to ambulate, feed herself, participate in activities and do puzzles. On 12/21/24 patient sustained a ground level fall. It was reported to family that patient did not strike her head and that everything was fine. Patient's family visited on 12/26 and found the patient to be lethargic and tired. She sustained another fall on 12/29. Her family reported that she was ok. Her family visited her on 01/02 and family reports that she was very tired and minimally responsive. Family visited again on 01/05 and patient was in a wheelchair and couldn't keep her eyes open. [id number] is concerned about the Tramadol that was recently started. She has been receiving Tramadol 50mg po q 4 hours. No additional complaints - no report of fever, chills, cough, SOB, abdominal pain, vomiting or diarrhea. In the ER she is afebrile, HD stable ER Course: Ceftriaxone 1gm IV Ativan 0.5mg Discharge Exam Constitutional well developed and + frail appearing; + not well nourished and no acute distress ENMT Mouth: + dry oral mucous membranes Respiratory normal respiratory effort; no respiratory distress Auscultation: lungs clear to auscultation bilaterally Cardiovascular Rate/Rhythm: regular rate and regular rhythm Extremities: + pedal edema (trace b/l equal) Gastrointestinal (Abdomen) Inspection/Auscultation: abdomen normal to inspection; abdomen not distended Percussion/Palpation: abdomen soft; abdomen nontender Skin no rashes, warm and dry Psychiatric Orientation: alert; + not oriented x 3 Discharge Plan Discharge Items Patient Disposition: Transfer [facility] Reason For Visit: DELIRIUM Discharge Diagnosis: UTI, Delirium Condition on Discharge: Fair Activity: Resume your previous activity Non-emergency contact: Primary Care Provider Call non-emergency contact if: you have any medication questions and your symptoms worsen Follow-up/Referrals: Ion Wiseman MD [Primary Care Provider] - Diet: Regular Diet Texture: Easy to Chew Addtl Attending Provider Instructions: You were admitted to [facility] from January 07-2024 due to altered mental state. This resolved on stopping recent medications started - tramadol, mirtazapine, Seroquel and BuSpar. Please use Seroquel at night only if delirious at risk to self or others. You were also treated for a UTI although culture showed mixed ebla which was inconclusive but given decline prior to starting on tramadol recommend continuing on antibiotics. You were also treated for dehydration and hypernatremia with intravenous fluids. You are not at your baseline mobility and will need ongoing rehabilitation at your half-way. During your stay your blood pressure has been very elevated. I understand your blood pressure medication has recently been decreased however suspect your lower blood pressure was due to UTI and these may need to be restarted / increased. We have increased your losartan back to 50mg PO daily and recommend further uptitration as necessary at your half-way. LFTs have also been elevated, recommend limiting acetaminophen to 2000mg/day and repeating in 1-2 weeks. Pending Studies at Discharge: No Stand-Alone Forms: My [facility] Skilled Items Patient informed of condition?: Yes DNR: Yes Discharge Level of Care: Skilled Communicable Disease: No Discharge Prognosis: Stable Lines: None Urinary Catheter: No Medications and DC Order Prescriptions: New quetiapine [Seroquel] 25 mg tablet 25 mg PO HS PRN (Reason: delirium at risk to self/others) Qty: 30 0RF Continued multivitamin Tablet 1 tab PO QAM Qty: 0 albuterol sulfate 90 mcg/actuation HFA aerosol inhaler 2 puff INHALATION Q4 PRN (Reason: Shortness Of Breath Or Wheezing) calcium carbonate-vitamin D3 [Calcium 600 + D(3)] 600 mg-5 mcg (200 unit) Tablet 1 tab PO BID citalopram 10 mg tablet 5 mg PO DAILY sennosides-docusate sodium [Senna-S] 8.6-50 mg Tablet 1 tab-cap PO BID bisacodyl 10 mg Suppository 10 mg IN Q72H PRN (Reason: Constipation) Enema 19-7 gram/118 mL Enema 118 ml IN Q72H PRN (Reason: CONSTIPATION ON 4TH DAY WITHOUT BM) aspirin 81 mg Tablet,Chewable 81 mg PO DAILY gabapentin 100 mg capsule 100 mg PO HS memantine 10 mg tablet 10 mg PO BID Artificial Tears (cmc) 1 % Drops 2 drp OPB TID bisacodyl [Dulcolax (bisacodyl)] 10 mg Suppository 10 mg IN DAILY PRN (Reason: Constipation) Trelegy Ellipta 200-62.5-25 mcg blister with device 1 inh INHALATION Changed losartan 50 mg tablet 50 mg PO DAILY Qty: 0 0RF acetaminophen [Tylenol] 325 mg Tablet 650 mg PO Q6H MDD DO NOT EXCEED 2 GM/24 HOURS PRN (Reason: ELEVATED TEMPERATURES >101) Qty: 0 0RF Discontinued acetaminophen [Tylenol] 325 mg Tablet 550 mg PO Q12H MDD DO NOT EXCEED 3 GM/24 HOURS PRN (Reason: Pain (Scale Score 1-4)) tramadol 50 mg tablet 50 mg PO Q4H PRN (Reason: Pain (Scale Score 5-10)) tramadol 50 mg tablet mirtazapine 7.5 mg Tablet 7.5 mg PO HS quetiapine 50 mg tablet 50 mg PO TID buspirone capsule 7.5 mg PO TID Discharge Orders: Discharge Order (Routine); Ordered 01/10/25 Ordered By: Jeronimo Morton Admission Data Admit Date/Time: 01/07/25 19:49 Attending Provider: Jeronimo Morton Admit Provider: Sarah Parikh Primary Care Provider: Ion Wiseman Other Interventions: Discharge Summary Assessment (RN) Last Done: 01/10/25 14:53 Hospital Stay Data Consultations 01/07/25 19:19 ED Decision to Admit Stat Diagnostic Imagining Performed 01/07/25 15:03 CT Abd and Pelvis [CT abd pelvis IV con only] Stat CT cervical spine wo con Stat CT head/brain wo con Stat Pending Results Patient Have Any Pending Studies at Discharge: No Discharge Instructions Given to Patient (Per Discharging Provider) You were admitted to [facility] from January 07-2024 due to altered mental state. This resolved on stopping recent medications started - tramadol, mirtazapine, Seroquel and BuSpar. Please use Seroquel at night only if delirious at risk to self or others. You were also treated for a UTI although culture showed mixed elba which was inconclusive but given decline prior to starting on tramadol recommend continuing on antibiotics. You were also treated for dehydration and hypernatremia with intravenous fluids. You are not at your baseline mobility and will need ongoing rehabilitation at your half-way. During your stay your blood pressure has been very elevated. I understand your blood pressure medication has recently been decreased however suspect your lower blood pressure was due to UTI and these may need to be restarted / increased. We have increased your losartan back to 50mg PO daily and recommend further uptitration as necessary at your half-way. LFTs have also been elevated, recommend limiting acetaminophen to 2000mg/day and repeating in 1-2 weeks. Total Time Total Time Spent Total Time Spent (In Minutes): 40 Coding Level of Care Code 63828 INP/OBS DISCH >30 MIN Diagnoses Acute metabolic encephalopathy G93.41 Acute UTI N39.0 HTN (hypertension) I10 Hypertension type: unspecified COPD (chronic obstructive pulmonary disease) J44.9 Severe Alzheimer's dementia with other behavioral disturbance, unspecified timing of dementia onset G30.9; F02.C18 Alzheimer's disease onset: unspecified onset Dementia behavioral or psychological symptom: with other behavioral disturbance Dementia severity: severe
== END 2025-01-10 15:13 | DRG 689 ==
LOC: ED 14:18 → EDINP 19:49 → INTOOBSV 19:49 → SUATTDRO 19:49 → 3W 01-08 14:30